=== PATIENT | female | born 1940 | race American Indian/Alaskan Native ===

== ENCOUNTER 2016-02-15 04:23 | Inpatient (IN) | payer MEDICARE ==
[2016-02-15] MEDS ORDERED: NACL 0.9% 1000 ML 1,000 ML IV ONE ×2 (04:28→05:23)
--- NOTE | 2016-02-15 04:52 | Emergency Department Report ---
ED Abdominal Pain HPI - General Stated Complaint: ABD PAIN/SOB Source: patient, EMS Mode of arrival: Stretcher Limitations: Other - History of Present Illness Initial Comments: 75-year-old female with a past medical history of AVM, chronic renal insufficiency, and diabetes presents to the hospital complains of abdominal pain. Patient states she has had crampy upper abdominal pain for the past 2-3 days. Pain is intermittent, worse palpation. No alleviating factors. Pain worsened tonight. Patient was admitted here February 03 of February 04 for melanotic stool and epigastric pain. EGD revealed AVM which was treated an unremarkable colonoscopy. Patient states his continue to have dark stools and intermittent pain since. She denies aspirin or NSAID use. Patient has decreased by mouth intake but tolerating fluids. Denies chest pain, shortness of breath, nausea, or vomiting. Positive loose stools. Patient denies specific cardiac history except [place] a mild heart attack". No history of stents or bypass surgery. She states she been seen by [place] graphic design specialist in the past. PMD Serjio Collier Severity scale (0 -10): 7 - Related Data Home Medications Medication Instructions Recorded Confirmed Last Taken Rosuvastatin (Nf) [Crestor] 10 mg PO QHS 01/30/15 02/15/16 1 Day Ago 10 Insulin NPH/Regular [NovoLIN 70/30] 3 unit SUB-Q TID 10/01/15 02/15/16 1 Day Ago 3 Levothyroxine [Synthroid] 75 mcg PO QAM 10/01/15 02/15/16 1 Day Ago 75 amLODIPine [Norvasc] 10 mg PO QDAY 10/01/15 02/15/16 1 Day Ago 10 Losartan [Cozaar] 25 mg PO QDAY 02/04/16 02/15/16 1 Day Ago 25 Previous Rx's Medication Instructions Recorded Last Taken Type Insulin Glargine [Lantus VIAL] 12 units SQ QHS #1 02/05/16 1 Day Ago Rx 12 Multivitamin Tab [Multiple Vitamin 1 each PO DAILY #30 tablet 02/05/16 1 Day Ago Rx TAB (Theragran)] 1 Pantoprazole [Protonix] 40 mg PO QDAY #30 tablet 02/05/16 1 Day Ago Rx 40 Allergies Allergy/AdvReac Type Severity Reaction Status Date / Time aspirin Allergy Unknown Verified 01/30/15 13:43 ED Review of Systems ROS: Stated complaint: ABD PAIN/SOB Other details as noted in HPI Comment: All other systems reviewed and negative Other: Constitutional: No fevers chills Eyes: No eye pain visual changes ENT: No ear pain or throat pain Neck: Denies pain Respiratory: Denies cough wheezing shortness of breath Cardiovascular: Denies chest pain, palpitations, syncope GI: as per HPI : Denies dysuria, urinary frequency, or urgency Musculoskeletal: Denies back pain, joint swelling Skin: Denies rash, lesions, erythema Neurologic: Denies headache, numbness, weakness Psychiatric: Denies suicidal ideation, hallucinations ED Past Medical Hx - Past Medical History Previous Medical History?: Yes Hx Hypertension: Yes Hx Congestive Heart Failure: No Hx Diabetes: Yes Hx Renal Disease: Yes (CKD,stage 3: GFR 30-59) Hx Asthma: No Hx HIV: No Additional medical history: Anemia. low calcium - Surgical History Past Surgical History?: Yes Additional Surgical History: THYROID SURGERY ,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 - Social History Smoking Status: Never Smoker Substance Use Type: None - Medications Home Medications: Home Medications Medication Instructions Recorded Confirmed Last Taken Type Rosuvastatin (Nf) [Crestor] 10 mg PO QHS 01/30/15 02/15/16 1 Day Ago History 10 Insulin NPH/Regular [NovoLIN 70/30] 3 unit SUB-Q TID 10/01/15 02/15/16 1 Day Ago History 3 Levothyroxine [Synthroid] 75 mcg PO QAM 10/01/15 02/15/16 1 Day Ago History 75 amLODIPine [Norvasc] 10 mg PO QDAY 10/01/15 02/15/16 1 Day Ago History 10 Losartan [Cozaar] 25 mg PO QDAY 02/04/16 02/15/16 1 Day Ago History 25 Insulin Glargine [Lantus VIAL] 12 units SQ QHS #1 02/05/16 02/15/16 1 Day Ago Rx 12 Multivitamin Tab [Multiple Vitamin 1 each PO DAILY #30 tablet 02/05/16 02/15/16 1 Day Ago Rx TAB (Theragran)] 1 Pantoprazole [Protonix] 40 mg PO QDAY #30 tablet 02/05/16 02/15/16 1 Day Ago Rx 40 ED Physical Exam - General Limitations: Other - Other Other exam information: General: No limitations, patient is alert in no acute distress Head exam: Atraumatic, normocephalic Eyes exam: Normal appearance, pupils equal reactive to light ENT: Moist mucous membrane, normal oropharynx Neck exam: Normal inspection, full range of motion Respiratory exam: Clear to auscultation bilateral, no wheezes, rales, crackles Cardiovascular: Bradycardic irregular rhythm Abdomen: Soft, nondistended, epigastric tenderness, with normal bowel sounds, no rebound, or guarding Extremity: Full range of motion normal inspection no deformity Back: Normal Inspection, full range of motion, no tenderness Neurologic: Alert, oriented x3, cranial nerves intact, no motor or sensory deficit Psychiatric: normal affect, normal mood Skin: Warm, dry, intact ED Course Vital Signs 02/15/16 02/15/16 02/15/16 04:31 04:48 04:49 Temperature 98.2 F Pulse Rate 47 L 47 L Pulse Rate [ Anterior] Respiratory 16 16 16 Rate Respiratory Rate [Anterior] Blood Pressure 116/47 Blood Pressure 116/47 119/47 [Right] O2 Sat by Pulse 100 99 Oximetry 02/15/16 06:39 Temperature Pulse Rate Pulse Rate [ 43 L Anterior] Respiratory Rate Respiratory 15 Rate [Anterior] Blood Pressure Blood Pressure [Right] O2 Sat by Pulse Oximetry - Reevaluation(s) Reevaluation #1: 02/15/16 06:45 K resulted 7.9 non hemolyzed. Hyperkalemia cocktail ordered stat. - Consultations Consultation #1: 02/15/16 04:[address] Mack Consultation #2: 02/15/16 06:[address] Schmidt director payment economics instructor. I informed the patient is likely hobbies patient. He will follow and that Ernestina know ED Medical Decision Making - Lab Data Result diagrams: 02/15/16 04:45 02/15/16 04:45 Lab Results 02/15/16 02/15/16 02/15/16 Range/Units 04:45 04:45 04:45 WBC 5.0 (4.5-11.0) K/mm3 RBC 4.94 (3.65-5.03) M/mm3 Hgb 13.6 (10.1-14.3) gm/dl Hct 42.9 (30.3-42.9) % MCV 87 (79-97) fl MCH 28 (28-32) pg MCHC 32 (30-34) % RDW 17.5 H (13.2-15.2) % Plt Count 201 (140-440) K/mm3 Lymph % (Auto) 13.9 (13.4-35.0) % [place] % (Auto) 13.0 H (0.0-7.3) % Eos % (Auto) 2.2 (0.0-4.3) % Baso % (Auto) 1.2 (0.0-1.8) % Lymph # 0.7 L (1.2-5.4) K/mm3 [place] # 0.7 (0.0-0.8) K/mm3 Eos # 0.1 (0.0-0.4) K/mm3 Baso # 0.1 (0.0-0.1) K/mm3 Seg Neutrophils % 69.7 (40.0-70.0) % Seg Neutrophils # 3.5 (1.8-7.7) K/mm3 PT 12.7 (12.2-14.9) Sec. INR 0.96 (0.87-1.13) APTT 32.1 (24.2-36.6) Sec. Sodium 129 L (137-145) mmol/L Potassium 7.9 H* (3.6-5.0) mmol/L Chloride 95.9 L (98-107) mmol/L Carbon Dioxide 18 L (22-30) mmol/L Anion Gap 23 mmol/L BUN 38 H (7-17) mg/dL Creatinine 2.1 H (0.7-1.2) mg/dL Estimated GFR 28 ml/min BUN/Creatinine Ratio 18.09 % Glucose 353 H (65-100) mg/dL Calcium 4.9 L* (8.4-10.2) mg/dL Magnesium (1.7-2.3) mg/dL Total Bilirubin 0.2 (0.1-1.2) mg/dL AST 200 H (5-40) units/L ALT 90 H (7-56) units/L Alkaline Phosphatase 151 H (35-129) units/L Total Creatine Kinase (30-135) units/L CK-MB (CK-2) (0.0-4.0) ng/mL CK-MB (CK-2) Rel Index (0-4) Troponin T (0.00-0.029) ng/mL Total Protein 7.0 (6.3-8.2) g/dL Albumin 3.7 L (3.9-5) g/dL Albumin/Globulin Ratio 1.1 % Lipase 12 L (13-60) units/L TSH (0.270-4.200) mlU/mL Free T4 (0.76-1.46) ng/dL 02/15/16 02/15/16 Range/Units 04:45 04:45 WBC (4.5-11.0) K/mm3 RBC (3.65-5.03) M/mm3 Hgb (10.1-14.3) gm/dl Hct (30.3-42.9) % MCV (79-97) fl MCH (28-32) pg MCHC (30-34) % RDW (13.2-15.2) % Plt Count (140-440) K/mm3 Lymph % (Auto) (13.4-35.0) % [place] % (Auto) (0.0-7.3) % Eos % (Auto) (0.0-4.3) % Baso % (Auto) (0.0-1.8) % Lymph # (1.2-5.4) K/mm3 [place] # (0.0-0.8) K/mm3 Eos # (0.0-0.4) K/mm3 Baso # (0.0-0.1) K/mm3 Seg Neutrophils % (40.0-70.0) % Seg Neutrophils # (1.8-7.7) K/mm3 PT (12.2-14.9) Sec. INR (0.87-1.13) APTT (24.2-36.6) Sec. Sodium (137-145) mmol/L Potassium (3.6-5.0) mmol/L Chloride (98-107) mmol/L Carbon Dioxide (22-30) mmol/L Anion Gap mmol/L BUN (7-17) mg/dL Creatinine (0.7-1.2) mg/dL Estimated GFR ml/min BUN/Creatinine Ratio % Glucose (65-100) mg/dL Calcium (8.4-10.2) mg/dL Magnesium 2.6 H (1.7-2.3) mg/dL Total Bilirubin (0.1-1.2) mg/dL AST (5-40) units/L ALT (7-56) units/L Alkaline Phosphatase (35-129) units/L Total Creatine Kinase 354 H (30-135) units/L CK-MB (CK-2) 2.2 (0.0-4.0) ng/mL CK-MB (CK-2) Rel Index 0.6 (0-4) Troponin T < 0.010 (0.00-0.029) ng/mL Total Protein (6.3-8.2) g/dL Albumin (3.9-5) g/dL Albumin/Globulin Ratio % Lipase (13-60) units/L TSH 45.530 H (0.270-4.200) mlU/mL Free T4 1.08 (0.76-1.46) ng/dL - EKG Data -: EKG Interpreted by Me ([id number] alverto 49 with junctional escape beats) - EKG Data When compared to previous EKG there are: changes noted (10/03/15) - Medical Decision Making pt requires admission for hyperkalemia with ekg changes. - Differential Diagnosis electrolyte abnormality, GI bleed, [place], unstable angina Critical Care Time: No Critical care attestation.: If time is entered above; I have spent that time in minutes in the direct care of this critically ill patient, excluding procedure time. ED Disposition Clinical Impression: Hyperkalemia, diminished renal excretion, CKD (chronic kidney disease) stage 3 , GFR 30-59 ml/min, Diabetes 1.5, managed as type 2, Epigastric pain, Hypocalcemia, Hypothyroidism, Acute electrocardiogram changes Disposition: OP ADMITTED IP TO THIS HOSP Is pt being admited?: Yes Condition: Stable Time of Disposition: 06:47 (Dr allen/hosp)
[2016-02-15 05:13] LABS: INR 0.96 (0.87-1.13)
[2016-02-15 05:14] LABS: Partial Thromboplastin Time 32.1 Sec. (24.2-36.6)
[2016-02-15 05:23] LABS: Basophils % (Auto) 1.2 % (0.0-1.8); Eosinophils % (Auto) 2.2 % (0.0-4.3); Hematocrit 42.9 % (30.3-42.9); Hemoglobin 13.6 gm/dl (10.1-14.3); Mean Corpuscular HGB Conc 32 % (30-34); Mean Corpuscular Hemoglobin 28 pg (28-32); Mean Corpuscular Volume 87 fl (79-97); Platelet Count 201 K/mm3 (140-440); Red Blood Count 4.94 M/mm3 (3.65-5.03); Red Cell Distribution Width 17.5 % (13.2-15.2)
[2016-02-15 05:24] LABS: Creatine Kinase MB 2.2 ng/mL (0.0-4.0)
[2016-02-15 05:25] LABS: Albumin 3.7 g/dL (3.9-5); Albumin/Globulin Ratio 1.1 %; BUN/Creatinine Ratio 18.09; Bilirubin,Total 0.2 mg/dL (0.1-1.2)
[2016-02-15 05:26] LABS: Creatine Kinase 354 units/L (30-135); Magnesium 2.6 mg/dL (1.7-2.3)
[2016-02-15] MEDS ORDERED: PROTONIX IV ONE (05:31)
[2016-02-15 05:57] LABS: Chloride 95.9 mmol/L (98-107)
[2016-02-15 06:19] LABS: Calcium 4.9 mg/dL (8.4-10.2)
[2016-02-15 06:20] LABS: Potassium 7.9 mmol/L (3.6-5.0)
[2016-02-15] MEDS ORDERED: SODIUM BICARBONATE IV ONE ×2 (06:21)
[2016-02-15] MEDS ORDERED: CALCIUM CHLORIDE IVP ONE (06:21)
[2016-02-15] MEDS ORDERED: CALCIUM CHLORIDE IV ONE (06:21)
[2016-02-15] MEDS ORDERED: LASIX IV ONE (06:22)
[2016-02-15] MEDS ORDERED: D50W (25GM) IV ONE ×2 (06:22→11:13)
[2016-02-15] MEDS ORDERED: PROVENTIL IH ONE (06:22)
[2016-02-15] MEDS ORDERED: KAYEXALATE PO ONE (06:22)
--- NOTE | 2016-02-15 06:39 | History and Physical Report ---
History of Present Illness Chief complaint: I feel sick History of present illness: 75 YO Female with HTN, CKD, DM, Hypothyroidism, presents to ED for evaluation. Pt states that she feels sick. Pt states that she feels weak, and has abdominal pain. Pain is 3/10, crampy in nature and has been present for the past 3 days. Pain has been intermittent and has worsened over the past 24 hours. Pain is worse palpation. No alleviating factors. Pt denies fever, chills, chest pain , shortness of breath, nausea, or vomiting. Pt acknowledges loose stools, but denies dark tarry stools, BRBPR, recent ill contacts. Pt seen and evaluated in ED and found to have hyperkalemia as well as EKG changes. Past History Past Medical History: diabetes, hypertension, renal failure Past Surgical History: thyroidectomy Social history: . denies: smoking, alcohol abuse, prescription drug abuse Family history: no significant family history, diabetes, hypertension Medications and Allergies Allergies Allergy/AdvReac Type Severity Reaction Status Date / Time aspirin Allergy Unknown Verified 01/30/15 13:43 Home Medications Medication Instructions Recorded Confirmed Last Taken Type Rosuvastatin (Nf) [Crestor] 10 mg PO QHS 01/30/15 02/15/16 1 Day Ago History 10 Insulin NPH/Regular [NovoLIN 70/30] 3 unit SUB-Q TID 10/01/15 02/15/16 1 Day Ago History 3 Levothyroxine [Synthroid] 75 mcg PO QAM 10/01/15 02/15/16 1 Day Ago History 75 amLODIPine [Norvasc] 10 mg PO QDAY 10/01/15 02/15/16 1 Day Ago History 10 Losartan [Cozaar] 25 mg PO QDAY 02/04/16 02/15/16 1 Day Ago History 25 Insulin Glargine [Lantus VIAL] 12 units SQ QHS #1 02/05/16 02/15/16 1 Day Ago Rx 12 Multivitamin Tab [Multiple Vitamin 1 each PO DAILY #30 tablet 02/05/16 02/15/16 1 Day Ago Rx TAB (Theragran)] 1 Pantoprazole [Protonix] 40 mg PO QDAY #30 tablet 02/05/16 02/15/16 1 Day Ago Rx 40 Review of Systems All systems: negative Constitutional: weakness Gastrointestinal: abdominal pain Exam - Constitutional Vitals: Temp Pulse Resp BP Pulse Ox 98.2 F 47 L 16 119/47 99 02/15/16 04:31 02/15/16 04:48 02/15/16 04:49 02/15/16 04:48 02/15/16 04:48 General appearance: Present: no acute distress, well-nourished, disheveled - EENT Eyes: Present: PERRL ENT: hearing intact, clear oral mucosa - Neck Neck: Present: supple, normal ROM - Respiratory Respiratory effort: normal Respiratory: bilateral: CTA - Cardiovascular Heart Sounds: Present: S1 & S2. Absent: rub, click - Extremities Extremities: pulses symmetrical, No edema Peripheral Pulses: within normal limits - Abdominal General gastrointestinal: Present: soft, non-tender, non-distended, normal bowel sounds Female genitourinary: Present: normal - Integumentary Integumentary: Present: clear, warm, dry - Musculoskeletal Musculoskeletal: generalized weakness - Psychiatric Psychiatric: appropriate mood/affect, intact judgment & insight - Neurologic Neurologic: CNII-XII intact, moves all extremities Results - Labs CBC & Chem 7: 02/15/16 04:45 02/15/16 04:45 Labs: Abnormal lab results 02/15/16 02/15/16 02/15/16 Range/Units 04:45 04:45 04:45 RDW 17.5 H (13.2-15.2) % [place] % (Auto) 13.0 H (0.0-7.3) % Lymph # 0.7 L (1.2-5.4) K/mm3 Sodium 129 L (137-145) mmol/L Potassium 7.9 H* (3.6-5.0) mmol/L Chloride 95.9 L (98-107) mmol/L Carbon Dioxide 18 L (22-30) mmol/L BUN 38 H (7-17) mg/dL Creatinine 2.1 H (0.7-1.2) mg/dL Glucose 353 H (65-100) mg/dL Calcium 4.9 L* (8.4-10.2) mg/dL Magnesium 2.6 H (1.7-2.3) mg/dL AST 200 H (5-40) units/L ALT 90 H (7-56) units/L Alkaline Phosphatase 151 H (35-129) units/L Total Creatine Kinase 354 H (30-135) units/L Albumin 3.7 L (3.9-5) g/dL Lipase 12 L (13-60) units/L TSH (0.270-4.200) mlU/mL 02/15/16 Range/Units 04:45 RDW (13.2-15.2) % [place] % (Auto) (0.0-7.3) % Lymph # (1.2-5.4) K/mm3 Sodium (137-145) mmol/L Potassium (3.6-5.0) mmol/L Chloride (98-107) mmol/L Carbon Dioxide (22-30) mmol/L BUN (7-17) mg/dL Creatinine (0.7-1.2) mg/dL Glucose (65-100) mg/dL Calcium (8.4-10.2) mg/dL Magnesium (1.7-2.3) mg/dL AST (5-40) units/L ALT (7-56) units/L Alkaline Phosphatase (35-129) units/L Total Creatine Kinase (30-135) units/L Albumin (3.9-5) g/dL Lipase (13-60) units/L TSH 45.530 H (0.270-4.200) mlU/mL Assessment and Plan - Patient Problems (1) Acute on chronic renal insufficiency Current Visit: No Status: Acute Plan to address problem: IVF, supportive care, monitor uop q shift. (2) Acute electrocardiogram changes Current Visit: Yes Status: Acute Plan to address problem: treat hyperkalemia, telemetry, calcium, insulin, d 50, kayelelate, (3) Hyperkalemia, diminished renal excretion Current Visit: Yes Status: Acute Plan to address problem: nephrology consulted, insulin, D50, kayexelate, (4) Diabetes 1.5, managed as type 2 Current Visit: Yes Status: Chronic (5) Hypertension associated with stage 3 chronic kidney disease due to type 2 diabetes mellitus Current Visit: No Status: Acute Plan to address problem: resume home medication, monitor bp q shift (6) Debility Current Visit: Yes Status: Acute Plan to address problem: PT consulted, (7) DVT prophylaxis Current Visit: Yes Status: Acute
[2016-02-15] MEDS ORDERED: TYLENOL PO PRN (07:00)
[2016-02-15] MEDS ORDERED: NACL 0.45% 1000 ML 1,000 ML IV SCH (07:00)
[2016-02-15] MEDS: SYNTHROID PO SCH (08:34)
--- NOTE | 2016-02-15 09:20 | Event Note ---
Date: 02/15/16 Patient seen. ECG changes secondary to hyperkalemia - resolved. No cardiac symptoms. Discussed with Dr Schmidt. No need for a cardiac consultation
--- NOTE | 2016-02-15 09:49 | Consultation ---
History of Present Illness - Reason for Consult Consult date: 02/15/16 acute renal failure, hyperkalemia, metabolic acidosis - History of Present Illness Patient is a 75 YO AAF with pmh significant for HTN, CKD stage 3, DM type 2 and Hypothyroidism, presents to ED complaining of generalized weakness and muscle cramps for the past 3 days. She also reports having intermittent abd. pain that has worsened over the past 24 hours. Her creatinine is usually between 1.5 and 2. On admission her creatinine was at her baseline but the potassium level was 7.9 with EKG changes. With treatment the potassium level is improving and the EKG changes has resolved. She had diarrhea after taking Kayexalate. Pt denies fever, chills, chest pain, shortness of breath, nausea, vomiting, dizziness, palpitation, syncope, rash or hematuria. She is currently followed by any [facility]. She was taking Cozaar at home. Past History Past Medical History: diabetes, hypertension, renal failure Past Surgical History: thyroidectomy Social history: . denies: smoking, alcohol abuse, prescription drug abuse Family history: no significant family history, diabetes, hypertension Medications and Allergies Allergies Allergy/AdvReac Type Severity Reaction Status Date / Time aspirin Allergy Unknown Verified 01/30/15 13:43 Home Medications Medication Instructions Recorded Confirmed Last Taken Type Rosuvastatin (Nf) [Crestor] 10 mg PO QHS 01/30/15 02/15/16 1 Day Ago History 10 Insulin NPH/Regular [NovoLIN 70/30] 3 unit SUB-Q TID 10/01/15 02/15/16 1 Day Ago History 3 Levothyroxine [Synthroid] 75 mcg PO QAM 10/01/15 02/15/16 1 Day Ago History 75 amLODIPine [Norvasc] 10 mg PO QDAY 10/01/15 02/15/16 1 Day Ago History 10 Losartan [Cozaar] 25 mg PO QDAY 02/04/16 02/15/16 1 Day Ago History 25 Insulin Glargine [Lantus VIAL] 12 units SQ QHS #1 02/05/16 02/15/16 1 Day Ago Rx 12 Multivitamin Tab [Multiple Vitamin 1 each PO DAILY #30 tablet 02/05/16 02/15/16 1 Day Ago Rx TAB (Theragran)] 1 Pantoprazole [Protonix] 40 mg PO QDAY #30 tablet 02/05/16 02/15/16 1 Day Ago Rx 40 Active Meds: Active Medications Acetaminophen (Tylenol) 650 mg PO Q4H PRN PRN Reason: Pain MILD(1-3)/Fever >100.5/PATRICIA Amlodipine Besylate (Norvasc) 10 mg PO QDAY [facility] Atorvastatin Calcium (Lipitor) 20 mg PO QHS [facility] Sodium Chloride (Nacl 0.45% 1000 Ml) 1,000 mls @ 42 mls/hr IV DIRECT [facility] Last Admin: 02/15/16 08:35 Dose: 42 mls/hr Insulin Detemir (Levemir) 12 units SUB-Q QHS [facility] Insulin Human Isoph/Insulin Regular (Novolin 70/30) 3 unit SUB-Q TID [facility] Last Admin: 02/15/16 08:33 Dose: 3 unit Levothyroxine Sodium (Synthroid) 75 mcg PO DAILY@0600 [facility] Last Admin: 02/15/16 08:34 Dose: 75 mcg Multivitamins (Theragran Tab) 1 each PO DAILY [facility] Pantoprazole Sodium (Protonix) 40 mg PO QDAY [facility] Review of Systems Constitutional: anorexia, fatigue, weakness, malaise, lethargy, no fever, no chills Ears, nose, mouth and throat: no sinus pressure, no sinus pain, no epistaxis Breasts: deferred Cardiovascular: no chest pain, no orthopnea, no palpitations, no edema, no syncope, no lightheadedness, no shortness of breath Respiratory: no cough, no shortness of breath, no dyspnea on exertion Gastrointestinal: abdominal pain, diarrhea, no nausea, no vomiting, no melena, no hematochezia Genitourinary Female: no hematuria Rectal: no bleeding Musculoskeletal: no neck stiffness, no redness of joints Integumentary: no rash, no jaundice Neurological: weakness, parathesias, no paralysis Endocrine: no weight change Hematologic/Lymphatic: no easy bleeding Allergic/Immunologic: no wheezing Exam - Vital Signs Vital signs: Vital Signs Temp Pulse Resp BP Pulse Ox 98.2 F 47 L 16 116/47 100 02/15/16 04:31 02/15/16 04:31 02/15/16 04:31 02/15/16 04:31 02/15/16 04:31 - General Appearance General appearance: well-developed, well-nourished, other (no distress) EENT: PERRL, hearing intact, vision intact Neck: Present: neck supple Heart: regular, S1S2, no murmurs Gastrointestinal: Present: normoactive bowel sounds. Absent: tenderness, distended, guarding Integumentary: no rash, warm and dry Neurologic: no focal deficit, alert and oriented x3, CN 3-12 intact Musculoskeletal: Present: other (no edema) Psychiatric: mood/affect appropriate, cooperative Results - Lab Results 02/15/16 04:45 02/15/16 13:26 Most recent lab results Calcium 4.9 mg/dL (8.4-10.2) L* 02/15/16 04:45 Magnesium 2.6 mg/dL (1.7-2.3) H 02/15/16 04:45 Assessment and Plan - Patient Problems (1) Hyperkalemia, diminished renal excretion Current Visit: Yes Status: Acute Plan to address problem: Hyperkalemia on the setting of CKD stage 3 while on ARB. Potassium level is improving with treatment. Avoid ACEI and ARB. (2) CKD (chronic kidney disease) stage 3, GFR 30-59 ml/min Current Visit: Yes Status: Chronic Plan to address problem: Renal function is fairly stable. (3) Primary hypertension Current Visit: Yes Status: Acute
[2016-02-15 09:50] LABS: BUN/Creatinine Ratio 16.08; Calcium 6.3 mg/dL (8.4-10.2); Chloride 99.9 mmol/L (98-107)
[2016-02-15 09:56] LABS: Potassium 6.1 mmol/L (3.6-5.0)
[2016-02-15] MEDS: NORVASC PO SCH (09:56)
[2016-02-15] MEDS: THERAGRAN Tab PO SCH (09:57)
[2016-02-15] MEDS: PROTONIX PO SCH (09:57)
[2016-02-15] MEDS ORDERED: COZAAR PO SCH (10:00)
[2016-02-15] MEDS ORDERED: SYNTHROID PO SCH (10:00)
[2016-02-15 10:22] LABS: Bacteria,Urine 1+ /HPF (Negative); Bilirubin,Urine NEG (Negative); Blood,Urine NEG (Negative); Ketones,Urine NEG (Negative); Leukocyte Esterase,Urine MOD (Negative); Nitrite,Urine NEG (Negative); Protein,Urine <15 mg/dL mg/dL (Negative); Urobilinogen,Urine < 2.0 mg/dL (<2.0)
[2016-02-15] MEDS ORDERED: PNEUMOVAX 23 IM ONE (12:00)
[2016-02-15] MEDS ORDERED: FLUARIX QUAD 2016-2017(36 MOS+) IM ONE (12:00)
--- NOTE | 2016-02-15 14:19 | Progress Note ---
Assessment and Plan Assessment and plan: 1. Severe hyperkalemia due to ESRD- s/p treatment with calcium, insulin, dextrose; bicarb and kayexalate; f/u renal for further recommendations; monitor lytes; avoid nephrotoxins; d/c ARB 2. Acute on CKD- cotn iVF and monitor BUN / Cr; start IVF 3. Cystitis-start iv rocephin; urine c/s 4. DM 2- cont insulin regime; monitor accucheck 5. hypothyroidism- cont replacement 6. Benign HTN- cont norvasc and adjust as needed 7. DVT prophylaxis- heparin History Interval history: f/u severe hyperkalemia; acute on chronic renal failure Patient seen at the bedside; no complaints; feels better Hospitalist Physical - Constitutional Vitals: Temp Pulse Resp BP Pulse Ox 98.5 F 76 18 167/81 100 02/15/16 12:28 02/15/16 12:28 02/15/16 12:28 02/15/16 12:28 02/15/16 12:28 General appearance: Present: no acute distress, well-nourished, disheveled - EENT Eyes: Present: PERRL, EOM intact. Absent: scleral icterus, conjunctival injection ENT: hearing intact, clear oral mucosa, no oropharyngeal erythema, no poor dentition - Neck Neck: Present: supple, normal ROM. Absent: enlarged thyroid, masses or JVD - Respiratory Respiratory effort: normal Respiratory: negative: diminished, rales, rhonchi, wheezing - Cardiovascular Rhythm: regular Heart Sounds: Present: S1 & S2. Absent: gallop - Extremities Extremities: no ischemia, pulses intact, pulses symmetrical, No edema Peripheral Pulses: within normal limits - Abdominal General gastrointestinal: soft, non-tender, non-distended - Integumentary Integumentary: Present: clear - Psychiatric Psychiatric: appropriate mood/affect, intact judgment & insight - Neurologic Neurologic: CNII-XII intact, moves all extremities Results - Labs CBC & Chem 7: 02/15/16 04:45 02/15/16 13:26 Labs: Laboratory Last Values WBC 5.0 K/mm3 (4.5-11.0) 02/15/16 04:45 RBC 4.94 M/mm3 (3.65-5.03) 02/15/16 04:45 Hgb 13.6 gm/dl (10.1-14.3) 02/15/16 04:45 Hct 42.9 % (30.3-42.9) 02/15/16 04:45 MCV 87 fl (79-97) 02/15/16 04:45 MCH 28 pg (28-32) 02/15/16 04:45 MCHC 32 % (30-34) 02/15/16 04:45 RDW 17.5 % (13.2-15.2) H 02/15/16 04:45 Plt Count 201 K/mm3 (140-440) 02/15/16 04:45 Lymph % (Auto) 13.9 % (13.4-35.0) 02/15/16 04:45 [place] % (Auto) 13.0 % (0.0-7.3) H 02/15/16 04:45 Eos % (Auto) 2.2 % (0.0-4.3) 02/15/16 04:45 Baso % (Auto) 1.2 % (0.0-1.8) 02/15/16 04:45 Lymph # 0.7 K/mm3 (1.2-5.4) L 02/15/16 04:45 [place] # 0.7 K/mm3 (0.0-0.8) 02/15/16 04:45 Eos # 0.1 K/mm3 (0.0-0.4) 02/15/16 04:45 Baso # 0.1 K/mm3 (0.0-0.1) 02/15/16 04:45 Seg Neutrophils % 69.7 % (40.0-70.0) 02/15/16 04:45 Seg Neutrophils # 3.5 K/mm3 (1.8-7.7) 02/15/16 04:45 PT 12.7 Sec. (12.2-14.9) 02/15/16 04:45 INR 0.96 (0.87-1.13) 02/15/16 04:45 APTT 32.1 Sec. (24.2-36.6) 02/15/16 04:45 Sodium 139 mmol/L (137-145) D 02/15/16 09:24 Potassium 5.7 mmol/L (3.6-5.0) H 02/15/16 13:26 Chloride 99.9 mmol/L (98-107) 02/15/16 09:24 Carbon Dioxide 21 mmol/L (22-30) L 02/15/16 09:24 Anion Gap 24 mmol/L 02/15/16 09:24 BUN 37 mg/dL (7-17) H 02/15/16 09:24 Creatinine 2.3 mg/dL (0.7-1.2) H 02/15/16 09:24 Estimated GFR 25 ml/min 02/15/16 09:24 BUN/Creatinine Ratio 16.08 % 02/15/16 09:24 Glucose 193 mg/dL (65-100) H 02/15/16 09:24 POC Glucose 90 (70-105) 02/15/16 11:21 Calcium 6.3 mg/dL (8.4-10.2) L D 02/15/16 09:24 Magnesium 2.6 mg/dL (1.7-2.3) H 02/15/16 04:45 Total Bilirubin 0.2 mg/dL (0.1-1.2) 02/15/16 04:45 AST 200 units/L (5-40) H 02/15/16 04:45 ALT 90 units/L (7-56) H 02/15/16 04:45 Alkaline Phosphatase 151 units/L (35-129) H 02/15/16 04:45 Total Creatine Kinase 354 units/L (30-135) H 02/15/16 04:45 CK-MB (CK-2) 2.2 ng/mL (0.0-4.0) 02/15/16 04:45 CK-MB (CK-2) Rel Index 0.6 (0-4) 02/15/16 04:45 Troponin T < 0.010 ng/mL (0.00-0.029) 02/15/16 04:45 Total Protein 7.0 g/dL (6.3-8.2) 02/15/16 04:45 Albumin 3.7 g/dL (3.9-5) L 02/15/16 04:45 Albumin/Globulin Ratio 1.1 % 02/15/16 04:45 Lipase 12 units/L (13-60) L 02/15/16 04:45 TSH 45.530 mlU/mL (0.270-4.200) H 02/15/16 04:45 Free T4 1.08 ng/dL (0.76-1.46) 02/15/16 04:45 Urine Color Yellow (Yellow) 02/15/16 Unknown Urine Turbidity Clear (Clear) 02/15/16 Unknown Urine pH 5.0 (5.0-7.0) 02/15/16 Unknown Ur Specific [place] 1.010 (1.003-1.030) 02/15/16 Unknown Urine Protein <15 mg/dl mg/dL (Negative) 02/15/16 Unknown Urine Glucose (UA) 50 mg/dL (Negative) 02/15/16 Unknown Urine Ketones Neg mg/dL (Negative) 02/15/16 Unknown Urine Blood Neg (Negative) 02/15/16 Unknown Urine Nitrite Neg (Negative) 02/15/16 Unknown Urine Bilirubin Neg (Negative) 02/15/16 Unknown Urine Urobilinogen < 2.0 mg/dL (<2.0) 02/15/16 Unknown Ur Leukocyte Esterase Mod (Negative) 02/15/16 Unknown Urine WBC (Auto) 12.0 /HPF (0.0-6.0) H 02/15/16 Unknown Urine RBC (Auto) 2.0 /HPF (0.0-6.0) 02/15/16 Unknown U Epithel Cells (Auto) 4.0 /HPF (0-13.0) 02/15/16 Unknown Urine Bacteria (Auto) 1+ /HPF (Negative) 02/15/16 Unknown Blood Type A POSITIVE 02/15/16 04:45 Antibody Screen Negative 02/15/16 04:45 - Imaging and Cardiology EKG: image reviewed (junctional rythmn )
[2016-02-15] MEDS ORDERED: KAYEXALATE PR ONE (15:24)
[2016-02-15] MEDS: LEVEMIR SUB-Q SCH ×2 (20:48→22:34)
[2016-02-15] MEDS ORDERED: NON-FORMULARY (Rosuvastatin (Nf) 10 MG) PO SCH (22:00)
[2016-02-15] MEDS ORDERED: INSULIN GLARGINE 12 UNIT SQ SCH (22:00)
[2016-02-16] MEDS: NOVOLOG SUB-Q SCH ×5 (00:08→22:38)
--- NOTE | 2016-02-16 00:46 | Admit Criteria Form ---
Admission Criteria Documentation: RENAL FAILURE, CHRONIC Clinical Indications for Admission to Inpatient Care (Place 'X' for any and all applicable criteria): Admission is indicated for ANY ONE of the following (1)(2)(3)(4)(5): [X ]I. Inpatient admission required rather than observation care (Use Renal Failure, Chronic: Observation Care Criteria as appropriate) because of ANY ONE of the following: [ ]a) Volume overload or uremic symptoms (eg, clinically significant pulmonary edema, hypertension, pericarditis, acidosis) too severe for, or not responsive (eg, for over 24 hours) to emergency department or observation care dialysis or treatment regimen (11) [ ]b) Hemodynamic instability that is severe or persistent [ ]c) Respiratory distress that is severe or persistent (11) [ X]d) Clinically significant electrolyte abnormality that requires inpatient care (eg,hyperkalemia with severe ECG findings)[B] [ ]e) Supplement O2 or respiratory therapy for over 24hrs that is performable only in acute inpatient setting [ ]f) Continuous IV infusion of anticoagulation, platelet inhibitor, vasoactive, or Antiarrhythmic medication (15), [ ]g) Pulmonary artery catheter monitoring [ ]h) Temporary pacemaker placement [ ]i) Emergent pericardiocentesis [ ]j) Other condition, treatment or monitoring requiring inpatient admission [ ]II. Unexplained syncope [A] [ ]III. Recurrent seizures [ ]IV. Severe infections not treatable in outpatient setting (eg, peritonitis)(9 ) [ ]V. Cardiac arrhythmias of immediate concern [ ]. Encephalopathy [ ]VII.Bleeding abnormalities (eg, platelet dysfunction) with active (eg, gastrointestinal) bleeding Extended stay beyond goal length of stay may be needed for (3)(4)(35)(36): [ ]a) Continuing uremic complications [ ]b) Comorbidities or complications The original [employer] content created by [employer] has been revised. The portions of the content which have been revised are identified through the use of italic text or in bold, and [facility] has neither reviewed nor approved the modified material. All other unmodified content is copyright [employer]. Please see references footnoted in the original [employer] [facility] edition 2016 Admission Criteria Met: Yes
[2016-02-16] MEDS ORDERED: D50W (25GM) IV ONE (05:50)
[2016-02-16] MEDS ORDERED: D50W (25GM) IV PRN ×2 (06:01→06:06)
[2016-02-16 06:23] LABS: BUN/Creatinine Ratio 13.33; Chloride 99.9 mmol/L (98-107); Potassium 3.2 mmol/L (3.6-5.0)
[2016-02-16] MEDS: SYNTHROID PO SCH (06:27)
[2016-02-16 06:30] LABS: Calcium 5.1 mg/dL (8.4-10.2)
--- NOTE | 2016-02-16 08:56 | Progress Note ---
Assessment and Plan - Patient Problems (1) Hyperkalemia, diminished renal excretion Current Visit: Yes Status: Acute Plan to address problem: Hyperkalemia on the setting of CKD stage 3 while on ARB. Potassium level is low today. Monitor K level. (2) CKD (chronic kidney disease) stage 3, GFR 30-59 ml/min Current Visit: Yes Status: Chronic Plan to address problem: Renal function is fairly stable. (3) Primary hypertension Current Visit: Yes Status: Acute Plan to address problem: BP is well controlled. Subjective Date of service: 02/16/16 Interval history: Low blood sugar noted. Objective - Vital Signs Vital signs: Vital Signs - 12hr 02/15/16 02/16/16 02/16/16 22:00 00:55 02:28 Temperature 98.0 F Pulse Rate 72 Pulse Rate [ 72 From Monitor] Pulse Rate [ Right Radial] Respiratory 18 18 Rate Blood Pressure 119/58 [Left Arm] Blood Pressure [Right Arm] O2 Sat by Pulse 97 Oximetry 02/16/16 02/16/16 04:00 07:45 Temperature 97.8 F 97.4 F L Pulse Rate Pulse Rate [ 77 From Monitor] Pulse Rate [ 56 L Right Radial] Respiratory 18 20 Rate Blood Pressure 124/55 [Left Arm] Blood Pressure 113/57 [Right Arm] O2 Sat by Pulse 98 97 Oximetry - General Appearance General appearance: well-developed, well-nourished, other (no distress) EENT: mucous membranes moist, hearing intact, vision intact Neck: no JVD, supple Respiratory: Present: Clear to Ascultation Cardiology: regular, S1S2, no murmurs Gastrointestinal: normoactive bowel sounds, no tenderness, no distended, no guarding Integumentary: no rash, warm and dry Neurologic: no focal deficit, alert and oriented x3, CN 3-12 intact Musculoskeletal: other (no edema) Psychiatric: mood/affect appropriate, cooperative - Lab 02/15/16 04:45 02/16/16 08:13 Most recent lab results Calcium 5.1 mg/dL (8.4-10.2) L* D 02/16/16 05:23 Magnesium 2.6 mg/dL (1.7-2.3) H 02/15/16 04:45
[2016-02-16] MEDS: NORVASC PO SCH (10:21)
[2016-02-16] MEDS: THERAGRAN Tab PO SCH (10:21)
[2016-02-16] MEDS: PROTONIX PO SCH (10:21)
--- NOTE | 2016-02-16 15:09 | Progress Note ---
Assessment and Plan Assessment and plan: 1. Severe hyperkalemia due to CKD now improved- monitor- monitor; void nephrotoxins; avoid ARB/ ACEI 2. Acute on CKD- cotn iVF and monitor BUN / Cr; renal f/u noted 3. Cystitis-[place] iv rocephin; urine c/s 4. DM 2 with insulin induced hypoglycemia - monitor accucheck; cont sliding scale only for now 5. hypothyroidism- cont replacement 6. Benign HTN- cont norvasc and adjust as needed 7. DVT prophylaxis- heparin History Interval history: f/u severe hyperkalemia; acute on chronic renal failure Patient seen at the bedside; no complaints; hypopoglycemia this morning Hospitalist Physical - Constitutional Vitals: Temp Pulse Resp BP Pulse Ox 97.5 F L 84 20 161/75 99 02/16/16 12:03 02/16/16 12:03 02/16/16 12:03 02/16/16 12:03 02/16/16 12:03 General appearance: Present: no acute distress, well-nourished, disheveled - EENT Eyes: Present: PERRL, EOM intact. Absent: scleral icterus, conjunctival injection ENT: hearing intact, clear oral mucosa, no oropharyngeal erythema, no poor dentition - Neck Neck: Present: supple, normal ROM. Absent: enlarged thyroid, masses or JVD - Respiratory Respiratory effort: normal Respiratory: negative: diminished, rales, rhonchi, wheezing - Cardiovascular Rhythm: regular Heart Sounds: Present: S1 & S2. Absent: gallop - Extremities Extremities: no ischemia, pulses intact, pulses symmetrical, No edema Peripheral Pulses: within normal limits - Abdominal General gastrointestinal: soft, non-tender, non-distended, normal bowel sounds - Integumentary Integumentary: Present: clear - Psychiatric Psychiatric: appropriate mood/affect, intact judgment & insight, cooperative - Neurologic Neurologic: CNII-XII intact, moves all extremities Results - Labs CBC & Chem 7: 02/15/16 04:45 02/16/16 08:13 Labs: Laboratory Last Values WBC 5.0 K/mm3 (4.5-11.0) 02/15/16 04:45 RBC 4.94 M/mm3 (3.65-5.03) 02/15/16 04:45 Hgb 13.6 gm/dl (10.1-14.3) 02/15/16 04:45 Hct 42.9 % (30.3-42.9) 02/15/16 04:45 MCV 87 fl (79-97) 02/15/16 04:45 MCH 28 pg (28-32) 02/15/16 04:45 MCHC 32 % (30-34) 02/15/16 04:45 RDW 17.5 % (13.2-15.2) H 02/15/16 04:45 Plt Count 201 K/mm3 (140-440) 02/15/16 04:45 Lymph % (Auto) 13.9 % (13.4-35.0) 02/15/16 04:45 [place] % (Auto) 13.0 % (0.0-7.3) H 02/15/16 04:45 Eos % (Auto) 2.2 % (0.0-4.3) 02/15/16 04:45 Baso % (Auto) 1.2 % (0.0-1.8) 02/15/16 04:45 Lymph # 0.7 K/mm3 (1.2-5.4) L 02/15/16 04:45 [place] # 0.7 K/mm3 (0.0-0.8) 02/15/16 04:45 Eos # 0.1 K/mm3 (0.0-0.4) 02/15/16 04:45 Baso # 0.1 K/mm3 (0.0-0.1) 02/15/16 04:45 Seg Neutrophils % 69.7 % (40.0-70.0) 02/15/16 04:45 Seg Neutrophils # 3.5 K/mm3 (1.8-7.7) 02/15/16 04:45 PT 12.7 Sec. (12.2-14.9) 02/15/16 04:45 INR 0.96 (0.87-1.13) 02/15/16 04:45 APTT 32.1 Sec. (24.2-36.6) 02/15/16 04:45 Sodium 139 mmol/L (137-145) 02/16/16 05:23 Potassium 3.2 mmol/L (3.6-5.0) L D 02/16/16 05:23 Chloride 99.9 mmol/L (98-107) 02/16/16 05:23 Carbon Dioxide 22 mmol/L (22-30) 02/16/16 05:23 Anion Gap 20 mmol/L 02/16/16 05:23 BUN 28 mg/dL (7-17) H 02/16/16 05:23 Creatinine 2.1 mg/dL (0.7-1.2) H 02/16/16 05:23 Estimated GFR 28 ml/min 02/16/16 05:23 BUN/Creatinine Ratio 13.33 % 02/16/16 05:23 Glucose 47 mg/dL (65-100) L 02/16/16 08:13 POC Glucose 276 (70-105) H 02/15/16 23:15 Hemoglobin A1c 9.0 % (4-6) H 02/16/16 08:13 Calcium 5.1 mg/dL (8.4-10.2) L* D 02/16/16 05:23 Magnesium 2.6 mg/dL (1.7-2.3) H 02/15/16 04:45 Total Bilirubin 0.2 mg/dL (0.1-1.2) 02/15/16 04:45 AST 200 units/L (5-40) H 02/15/16 04:45 ALT 90 units/L (7-56) H 02/15/16 04:45 Alkaline Phosphatase 151 units/L (35-129) H 02/15/16 04:45 Total Creatine Kinase 354 units/L (30-135) H 02/15/16 04:45 CK-MB (CK-2) 2.2 ng/mL (0.0-4.0) 02/15/16 04:45 CK-MB (CK-2) Rel Index 0.6 (0-4) 02/15/16 04:45 Troponin T < 0.010 ng/mL (0.00-0.029) 02/15/16 04:45 Total Protein 7.0 g/dL (6.3-8.2) 02/15/16 04:45 Albumin 3.7 g/dL (3.9-5) L 02/15/16 04:45 Albumin/Globulin Ratio 1.1 % 02/15/16 04:45 Lipase 12 units/L (13-60) L 02/15/16 04:45 TSH 45.530 mlU/mL (0.270-4.200) H 02/15/16 04:45 Free T4 1.08 ng/dL (0.76-1.46) 02/15/16 04:45 Urine Color Yellow (Yellow) 02/15/16 Unknown Urine Turbidity Clear (Clear) 02/15/16 Unknown Urine pH 5.0 (5.0-7.0) 02/15/16 Unknown Ur Specific [place] 1.010 (1.003-1.030) 02/15/16 Unknown Urine Protein <15 mg/dl mg/dL (Negative) 02/15/16 Unknown Urine Glucose (UA) 50 mg/dL (Negative) 02/15/16 Unknown Urine Ketones Neg mg/dL (Negative) 02/15/16 Unknown Urine Blood Neg (Negative) 02/15/16 Unknown Urine Nitrite Neg (Negative) 02/15/16 Unknown Urine Bilirubin Neg (Negative) 02/15/16 Unknown Urine Urobilinogen < 2.0 mg/dL (<2.0) 02/15/16 Unknown Ur Leukocyte Esterase Mod (Negative) 02/15/16 Unknown Urine WBC (Auto) 12.0 /HPF (0.0-6.0) H 02/15/16 Unknown Urine RBC (Auto) 2.0 /HPF (0.0-6.0) 02/15/16 Unknown U Epithel Cells (Auto) 4.0 /HPF (0-13.0) 02/15/16 Unknown Urine Bacteria (Auto) 1+ /HPF (Negative) 02/15/16 Unknown Blood Type A POSITIVE 02/15/16 04:45 Antibody Screen Negative 02/15/16 04:45
[2016-02-16] MEDS ORDERED: D5/0.45NS 1,000 ML IV SCH (21:00)
[2016-02-17] MEDS: SYNTHROID PO SCH (05:26)
[2016-02-17 07:10] LABS: BUN/Creatinine Ratio 14.28; Chloride 98.6 mmol/L (98-107); Potassium 3.7 mmol/L (3.6-5.0)
--- NOTE | 2016-02-17 07:25 | Discharge Summary ---
Providers - Providers Date of Admission: 02/15/16 08:13 Attending physician: DANIA HUNT Primary care physician: DRAFTING INSTRUCTOR Hospitalization Condition: Stable Exam - Constitutional Vitals: Temp Pulse Resp BP Pulse Ox 98.6 F 75 18 110/52 96 02/17/16 04:00 02/17/16 04:00 02/17/16 04:00 02/17/16 04:00 02/17/16 04:00 Plan Activity: no restrictions Diet: renal Follow up with: MARYJO HER MD [Primary Care Provider] - 3-5 Days MAXIMINO YOUNG MD [Staff Physician] - 7 Days
[2016-02-17 07:31] LABS: Calcium 4.4 mg/dL (8.4-10.2)
--- NOTE | 2016-02-17 09:24 | Progress Note ---
Assessment and Plan - Patient Problems (1) Hyperkalemia, diminished renal excretion Status: Acute Plan to address problem: Hyperkalemia in the setting of CKD stage 3 while on ARB. Potassium level has improved. Avoid ACEI and ARB. Follow up with me in 1-2 weeks. (2) CKD (chronic kidney disease) stage 3, GFR 30-59 ml/min Status: Chronic Plan to address problem: Renal function is fairly stable. (3) Primary hypertension Status: Acute Plan to address problem: BP is well controlled. (4) Hypocalcemia Status: Chronic Plan to address problem: Patient is completely asymptomatic. Most recent PTH level was normal. Add PO Vitamin D. Subjective Date of service: 02/17/16 Interval history: Patient is feeling better. Objective - Vital Signs Vital signs: Vital Signs - 12hr 02/16/16 02/17/16 02/17/16 22:00 00:00 02:00 Temperature 98.2 F Pulse Rate 97 H Pulse Rate [ 91 H Right Radial] Respiratory 18 Rate Blood Pressure 132/60 [Right Arm] O2 Sat by Pulse 96 96 Oximetry 02/17/16 04:00 Temperature 98.6 F Pulse Rate Pulse Rate [ 75 Right Radial] Respiratory 18 Rate Blood Pressure 110/52 [Right Arm] O2 Sat by Pulse 96 Oximetry - General Appearance General appearance: well-developed, frail, other (no distress) EENT: PERRL, mucous membranes moist, hearing intact, vision intact Neck: supple Respiratory: Present: Clear to Ascultation Cardiology: regular, S1S2, no murmurs Gastrointestinal: normoactive bowel sounds, no tenderness, no distended, no guarding Integumentary: no rash, warm and dry Neurologic: no focal deficit, alert and oriented x3, CN 3-12 intact Musculoskeletal: other (no edema) Psychiatric: mood/affect appropriate, cooperative - Lab 02/15/16 04:45 02/17/16 06:42 Most recent lab results Calcium 4.4 mg/dL (8.4-10.2) L* 02/17/16 06:42 Magnesium 2.0 mg/dL (1.7-2.3) 02/17/16 06:42
--- NOTE | 2016-02-17 09:34 | Discharge Summary ---
Providers - Providers Date of Admission: 02/15/16 08:13 Date of discharge: 02/17/16 Attending physician: DANIA HUNT Primary care physician: [facility] PARAPROFESSIONAL Hospitalization Reason for admission: hyperkalemia, chronic kidney disease Condition: Stable Hospital course: Mrs. Dotson is a 75-year-old female who presented to the emergency room with generalized weakness and was found to have severe hyperkalemia with potassium of 7.9. She was treated in the emergency room with calcium, insulin, dextrose and bicarbonate as well as Kayexalate. She was seen by the applied exercise physiologist; her potassium level improved and was 3.7. She also had an episode of hypoglycemia while she was here which resolved prior to discharge. Patient was advised to discontinue losartan on discharge which was also held on admission. Was also advised to reduce her potassium which foods such as right benign as. Condition at discharge stable 31 minutes spent preparing discharge Disposition: DISCHARGED TO HOME OR SELFCARE - Discharge Diagnoses (1) Acute electrocardiogram changes Status: Acute (2) Hyperkalemia, diminished renal excretion Status: Acute (3) Hypothyroidism Status: Acute (4) Primary hypertension Status: Acute (5) CKD (chronic kidney disease) stage 3, GFR 30-59 ml/min Status: Chronic (6) Hyperglycemia Status: Acute (7) Diabetes Status: Acute (8) Hypoglycemia Status: Resolved Core Measure Documentation - Palliative Care Palliative Care/ Comfort Measures: Not Applicable - Core Measures Any of the following diagnoses?: none Exam - Constitutional Vitals: Temp Pulse Resp BP Pulse Ox 98.6 F 75 18 110/52 96 02/17/16 04:00 02/17/16 04:00 02/17/16 04:00 02/17/16 04:00 02/17/16 04:00 General appearance: Present: no acute distress, well-nourished - EENT Eyes: Present: PERRL, EOM intact ENT: hearing intact, clear oral mucosa, no oropharyngeal erythema, no poor dentition - Neck Neck: Present: supple, normal ROM. Absent: enlarged thyroid, masses or JVD - Respiratory Respiratory effort: normal Respiratory: negative: diminished, rales, rhonchi, wheezing - Cardiovascular Rhythm: regular Heart Sounds: Present: S1 & S2. Absent: gallop - Extremities Extremities: no ischemia, pulses intact, pulses symmetrical, No edema Peripheral Pulses: within normal limits - Abdominal General gastrointestinal: Present: soft, non-tender, non-distended, normal bowel sounds Female genitourinary: Present: deferred - Rectal Rectal Exam: deferred - Integumentary Integumentary: Present: clear - Musculoskeletal Musculoskeletal: strength equal bilaterally - Psychiatric Psychiatric: appropriate mood/affect, intact judgment & insight, cooperative - Neurologic Neurologic: CNII-XII intact, moves all extremities Plan Activity: no restrictions Diet: low salt, renal, other (avoid potassium-rich foods) Follow up with: PRIMARY CAREMD [Primary Care Provider] - 3-5 Days MAXIMINO YOUNG MD [Staff Physician] - 7 Days Prescriptions: Calcium Carbonate/Vitamin D3 [Calcium 600-Vit D3 200 Tablet] 1 each PO DAILY # 30 tablet
[2016-02-17 09:41] VITALS: BP 131/60
[2016-02-17] MEDS ORDERED: VITAMIN D2 PO SCH (11:00)
== END 2016-02-17 13:37 | disposition home or self-care (01) | DRG 637 ==
LOC: ED 04:23 → 4A 08:13
PROVIDERS: ADMIT Internal Medicine; ATTEND Hospitalist
DX: E11.65 Type 2 diabetes mellitus with hyperglycemia (principal); N18.6 End stage renal disease; I12.0 Hypertensive chronic kidney disease with stage 5 chronic kidney disease or end stage renal disease; N17.9 Acute kidney failure, unspecified; E87.5 Hyperkalemia; E03.9 Hypothyroidism, unspecified; E11.22 Type 2 diabetes mellitus with diabetic chronic kidney disease; E83.51 Hypocalcemia; R53.81 Other malaise; N30.90 Cystitis, unspecified without hematuria; E11.649 Type 2 diabetes mellitus with hypoglycemia without coma; Z79.4 Long term (current) use of insulin; Z79.899 Other long term (current) drug therapy; Z88.6 Allergy status to analgesic agent; Z83.3 Family history of diabetes mellitus; Z82.49 Family history of ischemic heart disease and other diseases of the circulatory system
CPT/HCPCS: 36415; 80048; 80053; 81001; 82040; 82330; 82550; 82553; 82947; 82962; 83036; 83690; 83735; 84100; 84132; 84439; 84443; 84484; 85025; 85610; 85730; 86850; 86900; 86901; 90686; 90732; 93005; 93010; 94640; 96361; 96374; 96375; A9270-GY; C9113; G8978-GP; G8979-GP; G8980-GP; J1815; J1818; J1940; J7030

== ENCOUNTER 2017-02-07 14:26 | Emergency (ER) | payer MEDICARE ==
[2017-02-07 15:11] LABS: Basophils % (Auto) 1.1 % (0.0-1.8); Eosinophils # (Auto) 0.1 K/mm3 (0.0-0.4); Eosinophils % (Auto) 2.7 % (0.0-4.3); Hematocrit 32.1 % (30.3-42.9); Hemoglobin 10.4 gm/dl (10.1-14.3); Lymphocytes % (Auto) 27.2 % (13.4-35.0); Mean Corpuscular HGB Conc 32 % (30-34); Mean Corpuscular Hemoglobin 29 pg (28-32); Mean Corpuscular Volume 90 fl (79-97); Monocytes # (Auto) 0.4 K/mm3 (0.0-0.8); Monocytes % (Auto) 10.9 % (0.0-7.3); Platelet Count 287 K/mm3 (140-440); Red Blood Count 3.59 M/mm3 (3.65-5.03); Red Cell Distribution Width 13.3 % (13.2-15.2)
[2017-02-07 15:29] LABS: Calcium 6.4 mg/dL (8.4-10.2)
--- NOTE | 2017-02-07 15:40 | XRay Report ---
FINAL REPORT PROCEDURE: XR CHEST ROUTINE 2V PA and lateral chest x-ray TECHNIQUE: PA and lateral chest radiographs were obtained. CPT 58111 HISTORY: Shortness of breath COMPARISON: No prior studies are available for comparison. FINDINGS: Heart: Normal. Mediastinum/Vessels: Normal. Lungs/Pleural space: Normal. Bony thorax: No acute osseous abnormality. Other: IMPRESSION: Negative examination.
[2017-02-07] MEDS ORDERED: CATAPRES PO ONE (16:49)
[2017-02-07] MEDS ORDERED: DUONEB *Not for PRN Use IH ONE (17:09)
[2017-02-07 17:31] LABS: Bacteria,Urine 1+ /HPF (Negative); Bilirubin,Urine NEG (Negative); Blood,Urine NEG (Negative); Color,Urine Yellow (Yellow); Mucus,Urine FEW /HPF; Nitrite,Urine NEG (Negative); Urobilinogen,Urine < 2.0 mg/dL (<2.0)
[2017-02-07 17:42] LABS: Basophils # (Auto) 0.1 K/mm3 (0.0-0.1); Basophils % (Auto) 1.1 % (0.0-1.8); Eosinophils # (Auto) 0.1 K/mm3 (0.0-0.4); Hemoglobin 11.1 gm/dl (10.1-14.3); Lymphocytes # (Auto) 1.4 K/mm3 (1.2-5.4); Lymphocytes % (Auto) 30.1 % (13.4-35.0); Mean Corpuscular HGB Conc 33 % (30-34); Mean Corpuscular Hemoglobin 30 pg (28-32); Mean Corpuscular Volume 90 fl (79-97); Monocytes # (Auto) 0.5 K/mm3 (0.0-0.8); Monocytes % (Auto) 11.9 % (0.0-7.3); Platelet Count 306 K/mm3 (140-440); Red Blood Count 3.76 M/mm3 (3.65-5.03); Red Cell Distribution Width 13.7 % (13.2-15.2)
[2017-02-07 18:05] LABS: Creatine Kinase MB 1.5 ng/mL (0.0-4.0)
--- NOTE | 2017-02-07 18:09 | Emergency Department Report ---
ED Shortness of Breath HPI - General Chief Complaint: Dyspnea/Respdistress Stated Complaint: SHORTNESS OF BREATH Time Seen by Provider: 02/07/17 16:33 Source: patient Mode of arrival: Stretcher Limitations: No Limitations - History of Present Illness MD Complaint: shortness of breath -: Last night Severity: moderate Pain Scale: 2 Quality: sharp Consistency: now resolved Improves With: oxygen, bronchodilators Worsens With: nothing Known History Of: COPD Associated Symptoms: denies other symptoms Treatments Prior to Arrival: bronchodilator - Related Data Home Oxygen Therapy: No Home Medications Medication Instructions Recorded Confirmed Last Taken Ergocalciferol [Vitamin D2] 1 cap PO QWEEK 02/07/17 02/07/17 Unknown Levothyroxine [Synthroid] 125 mcg PO QAM 02/07/17 02/07/17 Unknown Lisinopril [Zestril] 20 mg PO QDAY 02/07/17 02/07/17 Unknown Ranitidine HCl [Zantac 150 MG TAB] 150 mg PO BID 02/07/17 02/07/17 Unknown amLODIPine [Norvasc] 5 mg PO DAILY 02/07/17 02/07/17 Unknown traMADol [Ultram] 50 mg PO BID 02/07/17 02/07/17 Unknown Previous Rx's Medication Instructions Recorded Last Taken Type Insulin Glargine [Lantus VIAL] 12 units SQ QHS #1 02/05/16 1 Day Ago Rx ~02/14/16 12 Cephalexin [Keflex] 500 mg PO Q8HR 10 Days #30 cap 02/08/17 Unknown Rx Ipratropium/Albuter (Nf) 2 puff IH QID 30 Days #1 inha 02/08/17 Unknown Rx [Combivent (Nf)] Prednisone 50 mg PO DAILY 4 Days #4 tablet 02/08/17 Unknown Rx Allergies Allergy/AdvReac Type Severity Reaction Status Date / Time aspirin Allergy Unknown Verified 01/30/15 13:43 ED Review of Systems ROS: Stated complaint: SHORTNESS OF BREATH Other details as noted in HPI Comment: All other systems reviewed and negative Constitutional: see HPI Eyes: denies: eye pain, eye discharge ENT: denies: throat pain, dental pain Respiratory: cough, shortness of breath, SOB with exertion, SOB at rest Cardiovascular: denies: chest pain, palpitations, syncope Endocrine: no symptoms reported Gastrointestinal: denies: abdominal pain, nausea, vomiting, diarrhea, constipation, hematemesis Genitourinary: urgency, frequency Musculoskeletal: denies: back pain, joint swelling, arthralgia Skin: denies: rash, change in color Neurological: denies: headache, weakness, numbness, paresthesias, confusion Psychiatric: denies: depression, auditory hallucinations, visual hallucinations , suicidal thoughts Hematological/Lymphatic: denies: easy bleeding, easy bruising ED Past Medical Hx - Past Medical History Hx Hypertension: Yes Hx Congestive Heart Failure: No Hx Diabetes: Yes Hx Renal Disease: Yes (CKD,stage 3: GFR 30-59) Hx Asthma: No Hx HIV: No Additional medical history: Anemia. 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 - Social History Smoking Status: Former Smoker Substance Use Type: Marijuana - Medications Home Medications: Home Medications Medication Instructions Recorded Confirmed Last Taken Type Insulin Glargine [Lantus VIAL] 12 units SQ QHS #1 02/05/16 02/07/17 1 Day Ago Rx ~02/14/16 12 Ergocalciferol [Vitamin D2] 1 cap PO QWEEK 02/07/17 02/07/17 Unknown History Levothyroxine [Synthroid] 125 mcg PO QAM 02/07/17 02/07/17 Unknown History Lisinopril [Zestril] 20 mg PO QDAY 02/07/17 02/07/17 Unknown History Ranitidine HCl [Zantac 150 MG TAB] 150 mg PO BID 02/07/17 02/07/17 Unknown History amLODIPine [Norvasc] 5 mg PO DAILY 02/07/17 02/07/17 Unknown History traMADol [Ultram] 50 mg PO BID 02/07/17 02/07/17 Unknown History Cephalexin [Keflex] 500 mg PO Q8HR 10 Days #30 cap 02/08/17 Unknown Rx Ipratropium/Albuter (Nf) 2 puff IH QID 30 Days #1 inha 02/08/17 Unknown Rx [Combivent (Nf)] Prednisone 50 mg PO DAILY 4 Days #4 tablet 02/08/17 Unknown Rx ED Physical Exam - General Limitations: No Limitations General appearance: alert, in no apparent distress - Head Head exam: Present: atraumatic, normocephalic, normal inspection - Eye Eye exam: Present: normal appearance, PERRL, EOMI Pupils: Present: normal accommodation - ENT ENT exam: Present: normal exam, normal orophraynx - Neck Neck exam: Present: normal inspection, full ROM - Respiratory Respiratory exam: Present: wheezes, decreased breath sounds, prolonged expiratory - Cardiovascular Cardiovascular Exam: Present: regular rate, normal rhythm - GI/Abdominal GI/Abdominal exam: Present: soft, tenderness (mild suprapubic tenderness to palpation.), normal bowel sounds. Absent: organomegaly, mass - Extremities Exam Extremities exam: Present: normal inspection, full ROM, normal capillary refill. Absent: tenderness, pedal edema, joint swelling, calf tenderness - Back Exam Back exam: Present: full ROM. Absent: CVA tenderness (L) - Neurological Exam Neurological exam: Present: alert, oriented X3, CN II-XII intact - Psychiatric Psychiatric exam: Present: normal affect, normal mood - Skin Skin exam: Present: warm, dry, intact, normal color. Absent: rash ED Course Vital Signs 02/07/17 02/07/17 02/07/17 14:33 14:45 14:51 Temperature 98.3 F Pulse Rate 79 75 Pulse Rate [ Anterior Bilateral Throughout] Respiratory 16 18 Rate Respiratory Rate [Anterior Bilateral Throughout] Blood Pressure 194/83 194/83 194/83 Blood Pressure [Left] O2 Sat by Pulse 100 Oximetry 02/07/17 02/07/17 02/07/17 14:56 15:00 15:21 Temperature Pulse Rate 79 Pulse Rate [ Anterior Bilateral Throughout] Respiratory 18 22 Rate Respiratory Rate [Anterior Bilateral Throughout] Blood Pressure 170/124 194/83 Blood Pressure [Left] O2 Sat by Pulse 100 Oximetry 02/07/17 02/07/17 02/07/17 15:30 15:45 16:00 Temperature Pulse Rate 67 68 68 Pulse Rate [ Anterior Bilateral Throughout] Respiratory 25 H 14 Rate Respiratory Rate [Anterior Bilateral Throughout] Blood Pressure 174/70 167/66 166/73 Blood Pressure [Left] O2 Sat by Pulse Oximetry 02/07/17 02/07/17 02/07/17 16:19 16:31 16:45 Temperature Pulse Rate 76 86 85 Pulse Rate [ Anterior Bilateral Throughout] Respiratory 19 27 H 20 Rate Respiratory Rate [Anterior Bilateral Throughout] Blood Pressure 166/73 187/148 187/148 Blood Pressure [Left] O2 Sat by Pulse Oximetry 02/07/17 02/07/17 02/07/17 17:00 17:01 17:15 Temperature Pulse Rate 72 87 79 Pulse Rate [ Anterior Bilateral Throughout] Respiratory 16 14 Rate Respiratory Rate [Anterior Bilateral Throughout] Blood Pressure 155/117 154/81 154/81 Blood Pressure [Left] O2 Sat by Pulse Oximetry 02/07/17 02/07/17 02/07/17 17:31 17:45 18:00 Temperature Pulse Rate 77 87 84 Pulse Rate [ Anterior Bilateral Throughout] Respiratory 26 H 22 18 Rate Respiratory Rate [Anterior Bilateral Throughout] Blood Pressure 147/62 147/62 Blood Pressure 153/66 [Left] O2 Sat by Pulse Oximetry 02/07/17 02/07/17 02/07/17 18:01 18:15 18:30 Temperature Pulse Rate 73 69 Pulse Rate [ 74 Anterior Bilateral Throughout] Respiratory 18 18 Rate Respiratory 20 Rate [Anterior Bilateral Throughout] Blood Pressure 153/66 153/66 Blood Pressure [Left] O2 Sat by Pulse Oximetry 02/07/17 02/07/17 02/07/17 18:31 18:45 19:00 Temperature Pulse Rate 68 69 67 Pulse Rate [ Anterior Bilateral Throughout] Respiratory 15 21 14 Rate Respiratory Rate [Anterior Bilateral Throughout] Blood Pressure 109/37 109/37 Blood Pressure 128/49 [Left] O2 Sat by Pulse Oximetry 02/07/17 02/07/17 02/07/17 19:01 19:15 19:31 Temperature Pulse Rate 67 64 62 Pulse Rate [ Anterior Bilateral Throughout] Respiratory 10 L 15 12 Rate Respiratory Rate [Anterior Bilateral Throughout] Blood Pressure 109/37 124/54 125/50 Blood Pressure [Left] O2 Sat by Pulse Oximetry 02/07/17 02/07/17 02/07/17 19:45 20:00 20:15 Temperature Pulse Rate 60 60 Pulse Rate [ Anterior Bilateral Throughout] Respiratory 10 L 14 27 H Rate Respiratory Rate [Anterior Bilateral Throughout] Blood Pressure 125/50 136/55 136/55 Blood Pressure [Left] O2 Sat by Pulse Oximetry 02/07/17 02/07/17 02/07/17 20:31 20:45 21:00 Temperature Pulse Rate 67 57 L 58 L Pulse Rate [ Anterior Bilateral Throughout] Respiratory 15 16 25 H Rate Respiratory Rate [Anterior Bilateral Throughout] Blood Pressure 116/53 116/53 167/65 Blood Pressure [Left] O2 Sat by Pulse Oximetry 02/07/17 02/07/17 02/07/17 21:15 21:31 21:45 Temperature Pulse Rate 58 L 57 L 64 Pulse Rate [ Anterior Bilateral Throughout] Respiratory 14 12 12 Rate Respiratory Rate [Anterior Bilateral Throughout] Blood Pressure 167/65 160/60 147/63 Blood Pressure [Left] O2 Sat by Pulse Oximetry 02/07/17 02/07/17 02/07/17 22:21 22:30 22:45 Temperature Pulse Rate 67 66 65 Pulse Rate [ Anterior Bilateral Throughout] Respiratory 22 10 L 12 Rate Respiratory Rate [Anterior Bilateral Throughout] Blood Pressure 147/63 122/53 131/50 Blood Pressure [Left] O2 Sat by Pulse Oximetry 02/07/17 02/07/17 23:00 23:15 Temperature Pulse Rate 67 88 Pulse Rate [ Anterior Bilateral Throughout] Respiratory 15 17 Rate Respiratory Rate [Anterior Bilateral Throughout] Blood Pressure 134/50 134/50 Blood Pressure [Left] O2 Sat by Pulse Oximetry ED Medical Decision Making - Lab Data Result diagrams: 02/07/17 17:28 02/07/17 23:22 - EKG Data EKG shows normal: sinus rhythm Rate: normal - EKG Data When compared to previous EKG there are: previous EKG unavailable Interpretation: nonspecific ST-T wave william, other ([facility]) Critical care attestation.: If time is entered above; I have spent that time in minutes in the direct care of this critically ill patient, excluding procedure time. ED Disposition Clinical Impression: COPD exacerbation UTI (urinary tract infection) Qualifiers: Urinary tract infection type: acute cystitis Hematuria presence: without hematuria Qualified Code(s): N30.00 - Acute cystitis without hematuria Disposition: - TO HOME OR SELFCARE Is pt being admited?: No Does the pt Need Aspirin: No Condition: Stable Instructions: Chronic Bronchitis (ED), Chronic Obstructive Pulmonary Disease ( ED), Urinary Tract Infection in Women (ED) Additional Instructions: Follow up with your primary doctor in 2 days. Return to the ED if your condition worsens. Prescriptions: Cephalexin [Keflex] 500 mg PO Q8HR 10 Days #30 cap Ipratropium/Albuter (Nf) [Combivent (Nf)] 2 puff IH QID 30 Days #1 inha Prednisone 50 mg PO DAILY 4 Days #4 tablet Referrals: PRIMARY CARE, [Primary Care Provider] - 3-5 Days
[2017-02-07] MEDS ORDERED: KIONEX PO ONE (18:23)
[2017-02-07] MEDS ORDERED: ROCEPHIN ONE (18:53)
[2017-02-07] MEDS ORDERED: cefTRIAXone 1 GM in NACL 0.9% 20 ML IV ONE (19:00)
[2017-02-07 21:11] LABS: Calcium 6.1 mg/dL (8.4-10.2)
[2017-02-07] MEDS ORDERED: NACL 0.9% 1000 ML 1,000 ML IV ONE (21:55)
[2017-02-07 23:29] VITALS: BP 134/50
[2017-02-08 00:05] LABS: Albumin 3.5 g/dL (3.9-5)
[2017-02-08 00:17] LABS: Calcium 5.9 mg/dL (8.4-10.2)
== END 2017-02-08 00:45 | disposition home or self-care (01) ==
LOC: ED 14:26
DX: J44.1 Chronic obstructive pulmonary disease with (acute) exacerbation (principal); N30.00 Acute cystitis without hematuria; I10 Essential (primary) hypertension; I50.9 Heart failure, unspecified; E11.9 Type 2 diabetes mellitus without complications; F12.10 Cannabis abuse, uncomplicated; F17.200 Nicotine dependence, unspecified, uncomplicated; Z79.4 Long term (current) use of insulin; Z88.6 Allergy status to analgesic agent
CPT/HCPCS: 36415; 71020; 80048; 80053; 81001; 82550; 82553; 83880; 84484; 85025; 87086; 93005; 93010; 94640; 96361; 96374; 96375; 99285; J0696; J2930; J7030; J1815

== ENCOUNTER 2017-03-15 15:52 | Emergency (ER) | payer MEDICARE ==
[2017-03-15 18:29] VITALS: BP 160/70
[2017-03-15 22:09] LABS: Basophils % (Auto) 0.5 % (0.0-1.8); Eosinophils % (Auto) 0.3 % (0.0-4.3); Hemoglobin 11.6 gm/dl (10.1-14.3); Lymphocytes # (Auto) 1.1 K/mm3 (1.2-5.4); Lymphocytes % (Auto) 26.2 % (13.4-35.0); Mean Corpuscular HGB Conc 33 % (30-34); Mean Corpuscular Hemoglobin 29 pg (28-32); Mean Corpuscular Volume 89 fl (79-97); Monocytes # (Auto) 0.5 K/mm3 (0.0-0.8); Monocytes % (Auto) 12.2 % (0.0-7.3); Platelet Count 352 K/mm3 (140-440); Red Blood Count 3.94 M/mm3 (3.65-5.03); Red Cell Distribution Width 13.5 % (13.2-15.2)
== END 2017-03-16 07:05 | disposition left against medical advice (07) ==
LOC: ED 15:52
DX: R11.2 Nausea with vomiting, unspecified (principal); Z53.21 Procedure and treatment not carried out due to patient leaving prior to being seen by health care provider
CPT/HCPCS: 36415; 80053; 82962; 85025

== ENCOUNTER 2017-10-30 20:13 | Inpatient (IN) | payer MEDICARE ==
[2017-10-30 21:34] LABS: Basophils # (Auto) 0.1 K/mm3 (0.0-0.1); Basophils % (Auto) 1.6 % (0.0-1.8); Eosinophils # (Auto) 0.1 K/mm3 (0.0-0.4); Hematocrit 34.8 % (30.3-42.9); Hemoglobin 11.7 gm/dl (10.1-14.3); Lymphocytes # (Auto) 1.7 K/mm3 (1.2-5.4); Lymphocytes % (Auto) 34.3 % (13.4-35.0); Mean Corpuscular HGB Conc 34 % (30-34); Mean Corpuscular Hemoglobin 30 pg (28-32); Mean Corpuscular Volume 90 fl (79-97); Monocytes # (Auto) 0.4 K/mm3 (0.0-0.8); Platelet Count 278 K/mm3 (140-440); Red Blood Count 3.89 M/mm3 (3.65-5.03); Red Cell Distribution Width 15.4 % (13.2-15.2)
[2017-10-30 21:53] LABS: Albumin 4.3 g/dL (3.9-5); Calcium 7.7 mg/dL (8.4-10.2)
[2017-10-30 22:18] LABS: Bilirubin,Urine NEG (Negative); Blood,Urine NEG (Negative); Color,Urine Yellow (Yellow); Urobilinogen,Urine < 2.0 mg/dL (<2.0)
[2017-10-30 22:21] LABS: Protein,Urine >500 mg/dL (Negative)
--- NOTE | 2017-10-30 22:25 | Cat Scan Report ---
FINAL REPORT PROCEDURE: CT head without contrast. TECHNIQUE: Computerized tomography of the head was performed without contrast material. HISTORY: Headache. COMPARISON: CT head 01/05/2014. FINDINGS: There is mild cerebral atrophy. There is a small focal area of encephalomalacia involving the posterior right frontal lobe. This is new since the previous study. It probably represents an old stroke. The remaining ramírez matter and white matter appear normal. There are no mass lesions. There is no intracranial hemorrhage. The calvarium appears intact. The mastoid air cells and visualized paranasal sinuses are well aerated. IMPRESSION: Probable old ischemic injury in the posterior right frontal lobe. Otherwise normal study for age.
[2017-10-31] MEDS ORDERED: PLAVIX PO ONE (02:32)
[2017-10-31] MEDS ORDERED: TYLENOL PO ONE (02:32)
--- NOTE | 2017-10-31 02:32 | Emergency Department Report ---
ED General Adult HPI - General Chief complaint: Headache Stated complaint: DIZZINESS; H/A Time Seen by Provider: 10/31/17 02:23 Source: patient, family, RN notes reviewed Mode of arrival: Ambulatory Limitations: No Limitations, Other (patient is hard of hearing, patient is a poor historian) - History of Present Illness Initial comments: This is a 77-year-old female. Patient has a past medical history of renal insufficiency, possible stroke, hypothyroidism, hypertension, diabetes. Primary care doctor is Dr. Serjio Collier. 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 Castro, she doesn't know who her semi conductor assembler is at this time. Patient presents to the ER with a complaint of headache and unsteady gait. She reports the headache is on the top of her scalp, and she doesn't think it radiates anywhere. She is not sure if it has exacerbating or relieving factors. She reports 1 week of unsteady gait. Patient also endorses chronic musculoskeletal discomfort, and generalized weakness. -: Gradual Severity scale (0 -10): 5 Consistency: constant Improves with: none Worsens with: cold therapy Associated Symptoms: confusion, headaches, loss of appetite, malaise, weakness. denies: chest pain, cough, diaphoresis, fever/chills, nausea/vomiting, rash, seizure, shortness of breath, syncope - Related Data Home Medications Medication Instructions Recorded Confirmed Last Taken Lisinopril [Zestril] 20 mg PO QDAY 02/07/17 10/31/17 Unknown Ranitidine HCl [Zantac 150 MG TAB] 150 mg PO BID 02/07/17 10/31/17 Unknown amLODIPine [Norvasc] 5 mg PO DAILY 02/07/17 10/31/17 Unknown metFORMIN [Glucophage] 500 mg PO BID 10/31/17 10/31/17 Unknown Allergies Allergy/AdvReac Type Severity Reaction Status Date / Time aspirin Allergy Unknown Verified 01/30/15 13:43 ED Review of Systems ROS: Stated complaint: DIZZINESS; H/A Other details as noted in HPI Comment: All other systems reviewed and negative ED Past Medical Hx - Past Medical History Hx Hypertension: Yes Hx Congestive Heart Failure: No Hx Diabetes: Yes Hx Renal Disease: Yes (CKD,stage 3: GFR 30-59) Hx Asthma: No Hx HIV: No Additional medical history: Anemia. 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 - Social History Smoking Status: Never Smoker Substance Use Type: None - Medications Home Medications: Home Medications Medication Instructions Recorded Confirmed Last Taken Type Lisinopril [Zestril] 20 mg PO QDAY 02/07/17 10/31/17 Unknown History Ranitidine HCl [Zantac 150 MG TAB] 150 mg PO BID 02/07/17 10/31/17 Unknown History amLODIPine [Norvasc] 5 mg PO DAILY 02/07/17 10/31/17 Unknown History metFORMIN [Glucophage] 500 mg PO BID 10/31/17 10/31/17 Unknown History ED Physical Exam - General Limitations: Physical Limitation General appearance: alert, in no apparent distress - Head Head exam: Present: atraumatic, normocephalic, other (there is no temporal tenderness) - Eye Eye exam: Present: normal appearance, EOMI. Absent: PERRL (bilateral cataract surgery) - ENT ENT exam: Present: mucous membranes dry - Neck Neck exam: Present: normal inspection, full ROM - Respiratory Respiratory exam: Present: normal lung sounds bilaterally. Absent: respiratory distress - Cardiovascular Cardiovascular Exam: Present: regular rate, normal rhythm, normal heart sounds. Absent: bradycardia, tachycardia, irregular rhythm, systolic murmur, diastolic murmur, rubs, gallop - GI/Abdominal GI/Abdominal exam: Present: soft. Absent: distended, tenderness, guarding, rebound, rigid, pulsatile mass - Extremities Exam Extremities exam: Present: normal inspection, pedal edema, other (2+ pulses noted in the bilateral upper, lower extremities. Compartments soft. No long bony tenderness. The pelvis is stable.). Absent: calf tenderness - Back Exam Back exam: Present: normal inspection, full ROM. Absent: tenderness, CVA tenderness (R), paraspinal tenderness, vertebral tenderness - Neurological Exam Neurological exam: Present: alert, abnormal gait (patient walks with a broad- based unsteady gait. Requires 1 person assist.), other (there is no facial droop. The tongue is midline. Extraocular movements are intact bilaterally. Hearing is intact grossly bilaterally. Shoulder shrug is intact bilaterally. There is normal phonation.) - Psychiatric Psychiatric exam: Present: anxious - Skin Skin exam: Present: warm, dry, intact, normal color. Absent: rash ED Course Vital Signs 09/10/30/17 10/31/17 20:26 20:47 01:49 Temperature 98.6 F 98.6 F 98.3 F Pulse Rate 83 83 80 Respiratory 18 18 12 Rate Blood Pressure 198/89 197/85 183/75 Blood Pressure [Left] O2 Sat by Pulse 99 100 99 Oximetry 10/31/17 10/31/17 10/31/17 02:32 02:34 03:06 Temperature 98.3 F Pulse Rate 66 Respiratory 20 20 20 Rate Blood Pressure Blood Pressure 189/83 [Left] O2 Sat by Pulse 100 100 Oximetry ED Medical Decision Making - Lab Data Result diagrams: 10/30/17 21:22 10/30/17 21:22 Vital Signs 10/30/17 10/30/17 10/31/17 20:26 20:47 01:49 Temperature 98.6 F 98.6 F 98.3 F Pulse Rate 83 83 80 Respiratory 18 18 12 Rate Blood Pressure 198/89 197/85 183/75 Blood Pressure [Left] O2 Sat by Pulse 99 100 99 Oximetry 10/31/17 10/31/17 10/31/17 02:32 02:34 03:06 Temperature 98.3 F Pulse Rate 66 Respiratory 20 20 20 Rate Blood Pressure Blood Pressure 189/83 [Left] O2 Sat by Pulse 100 100 Oximetry Lab Results 10/30/17 10/30/17 10/30/17 Range/Units 21:22 21:22 21:44 WBC 5.0 (4.5-11.0) K/mm3 RBC 3.89 (3.65-5.03) M/mm3 Hgb 11.7 (10.1-14.3) gm/dl Hct 34.8 (30.3-42.9) % MCV 90 (79-97) fl MCH 30 (28-32) pg MCHC 34 (30-34) % RDW 15.4 H (13.2-15.2) % Plt Count 278 (140-440) K/mm3 Lymph % (Auto) 34.3 (13.4-35.0) % [place] % (Auto) 7.0 (0.0-7.3) % Eos % (Auto) 2.0 (0.0-4.3) % Baso % (Auto) 1.6 (0.0-1.8) % Lymph # 1.7 (1.2-5.4) K/mm3 [place] # 0.4 (0.0-0.8) K/mm3 Eos # 0.1 (0.0-0.4) K/mm3 Baso # 0.1 (0.0-0.1) K/mm3 Seg Neutrophils % 55.1 (40.0-70.0) % Seg Neutrophils # 2.8 (1.8-7.7) K/mm3 Sodium 133 L (137-145) mmol/L Potassium 5.0 (3.6-5.0) mmol/L Chloride 94.1 L (98-107) mmol/L Carbon Dioxide 19 L (22-30) mmol/L Anion Gap 25 mmol/L BUN 25 H (7-17) mg/dL Creatinine 1.6 H (0.7-1.2) mg/dL Estimated GFR 38 ml/min BUN/Creatinine Ratio 16 % Glucose 260 H (65-100) mg/dL Calcium 7.7 L (8.4-10.2) mg/dL Total Bilirubin 0.30 (0.1-1.2) mg/dL AST 24 (5-40) units/L ALT 12 (7-56) units/L Alkaline Phosphatase 66 (35-129) units/L Troponin T (0.00-0.029) ng/mL Total Protein 7.6 (6.3-8.2) g/dL Albumin 4.3 (3.9-5) g/dL Albumin/Globulin Ratio 1.3 % Urine Color Yellow (Yellow) Urine Turbidity Slightly-cloudy (Clear) Urine pH 5.0 (5.0-7.0) Ur Specific [place] 1.013 (1.003-1.030) Urine Protein >500 (Negative) mg/dL Urine Glucose (UA) 50 (Negative) mg/dL Urine Ketones Tr (Negative) mg/dL Urine Blood Neg (Negative) Urine Nitrite Neg (Negative) Urine Bilirubin Neg (Negative) Urine Urobilinogen < 2.0 (<2.0) mg/dL Ur Leukocyte Esterase Tr (Negative) Urine WBC (Auto) 3.0 (0.0-6.0) /HPF Urine RBC (Auto) 3.0 (0.0-6.0) /HPF U Epithel Cells (Auto) 3.0 (0-13.0) /HPF 10/31/17 Range/Units 02:49 WBC (4.5-11.0) K/mm3 RBC (3.65-5.03) M/mm3 Hgb (10.1-14.3) gm/dl Hct (30.3-42.9) % MCV (79-97) fl MCH (28-32) pg MCHC (30-34) % RDW (13.2-15.2) % Plt Count (140-440) K/mm3 Lymph % (Auto) (13.4-35.0) % [place] % (Auto) (0.0-7.3) % Eos % (Auto) (0.0-4.3) % Baso % (Auto) (0.0-1.8) % Lymph # (1.2-5.4) K/mm3 [place] # (0.0-0.8) K/mm3 Eos # (0.0-0.4) K/mm3 Baso # (0.0-0.1) K/mm3 Seg Neutrophils % (40.0-70.0) % Seg Neutrophils # (1.8-7.7) K/mm3 Sodium (137-145) mmol/L Potassium (3.6-5.0) mmol/L Chloride (98-107) mmol/L Carbon Dioxide (22-30) mmol/L Anion Gap mmol/L BUN (7-17) mg/dL Creatinine (0.7-1.2) mg/dL Estimated GFR ml/min BUN/Creatinine Ratio % Glucose (65-100) mg/dL Calcium (8.4-10.2) mg/dL Total Bilirubin (0.1-1.2) mg/dL AST (5-40) units/L ALT (7-56) units/L Alkaline Phosphatase (35-129) units/L Troponin T 0.014 (0.00-0.029) ng/mL Total Protein (6.3-8.2) g/dL Albumin (3.9-5) g/dL Albumin/Globulin Ratio % Urine Color (Yellow) Urine Turbidity (Clear) Urine pH (5.0-7.0) Ur Specific [place] (1.003-1.030) Urine Protein (Negative) mg/dL Urine Glucose (UA) (Negative) mg/dL Urine Ketones (Negative) mg/dL Urine Blood (Negative) Urine Nitrite (Negative) Urine Bilirubin (Negative) Urine Urobilinogen (<2.0) mg/dL Ur Leukocyte Esterase (Negative) Urine WBC (Auto) (0.0-6.0) /HPF Urine RBC (Auto) (0.0-6.0) /HPF U Epithel Cells (Auto) (0-13.0) /HPF - EKG Data -: EKG Interpreted by Me EKG shows normal: sinus rhythm Rate: normal - EKG Data Interpretation: unchanged when compared t 10/31/17 03:54 Sinus, 67 bpm, left axis deviation, QTC prolonged, poor R wave progression, abnormal EKG, not a STEMI, left anterior fascicular block, appears unchanged grossly from prior EKG from 2017, with the exception of resolved peak T waves. This EKG is not a STEMI - Radiology Data Radiology results: report reviewed, image reviewed Noncontrast CT scan of the brain is negative for acute findings. Old infarct is noted. - Medical Decision Making Differential diagnosis, including not limited to: Hypertensive urgency, subacute stroke, migraine headache, tension headache, cluster headache Assessment and plan: 77-year-old female presenting with complaint of unsteady gait for one week. Given this, she is not a TPA candidate. Given this, she does not require emergent endovascular imaging. She is allergic to aspirin and will be given Plavix. Hypertension is appreciated, she will be given hydralazine. Case is presented to the Hospital physician, Dr. Maurer, who accepted the patient to the medical service. Discussed this plan of care with patient and her daughter, and discuss abnormal brain CT which suggested old infarct, and family endorsed that they did not know the patient had a stroke in the past. Patient endorsed no temporal pain, no visual changes, there is no temporal tenderness, therefore think temporal arteritis is quite unlikely. Critical care attestation.: If time is entered above; I have spent that time in minutes in the direct care of this critically ill patient, excluding procedure time. ED Disposition Clinical Impression: CKD (chronic kidney disease) stage 3, GFR 30-59 ml/min, Weakness, Unsteady gait Disposition: OP ADMIT IP TO THIS HOSP Is pt being admited?: Yes Does the pt Need Aspirin: No (allergic to asa will give plavix) Condition: Good
[2017-10-31] MEDS ORDERED: REGLAN PO PRN (03:02)
[2017-10-31] MEDS ORDERED: SODIUM CHLORIDE FLUSH SYRINGE 10 ML IV PRN (03:02)
[2017-10-31] MEDS ORDERED: DULCOLAX PR PRN (03:02)
[2017-10-31] MEDS ORDERED: D50W (25GM) Syringe IV PRN ×2 (03:02→03:13)
[2017-10-31] MEDS ORDERED: MILK OF MAGNESIA PO PRN (03:02)
[2017-10-31] MEDS ORDERED: APRESOLINE IV PRN (03:02)
[2017-10-31] MEDS ORDERED: ZOFRAN IV PRN (03:02)
[2017-10-31] MEDS ORDERED: APRESOLINE IV ONE (03:54)
--- NOTE | 2017-10-31 04:00 | History and Physical Report ---
History of Present Illness Date of examination: 10/31/17 Date of admission: 10/31/17 03:39 Chief complaint: Headaches History of present illness: Patient is a 77-year-old -Ira[place] female with history of hypertension and diabetes mellitus who presented to the ED on account of 2 weeks history of throbbing headaches. She has associated dizziness, generalized weakness and nausea with vomiting 1 episode and unsteady gait. No fever, chills, chest pain , shortness of breath, palpitation, cough, leg swelling, orthopnea, PND, syncope or loss of consciousness. She has positive history of dysuria and frequency but no abdominal pain, constipation or diarrhea. Past History Past Medical History: diabetes, hypertension Past Surgical History: thyroidectomy, Other (hemorrhoidectomy, left oophorectomy ) Social history: other (she is an ex-smoker, she quit more than 30 years ago. She denies alcohol or illicit drug use) Family history: other (reviewed and noncontributory) Medications and Allergies Allergies Allergy/AdvReac Type Severity Reaction Status Date / Time aspirin Allergy Unknown Verified 01/30/15 13:43 Home Medications Medication Instructions Recorded Confirmed Last Taken Type Lisinopril [Zestril] 20 mg PO QDAY 02/07/17 10/31/17 Unknown History Ranitidine HCl [Zantac 150 MG TAB] 150 mg PO BID 02/07/17 10/31/17 Unknown History amLODIPine [Norvasc] 5 mg PO DAILY 02/07/17 10/31/17 Unknown History metFORMIN [Glucophage] 500 mg PO BID 10/31/17 10/31/17 Unknown History Active Meds: Active Medications Acetaminophen (Tylenol) 650 mg PO Q4H PRN PRN Reason: Pain, Mild (1-3) Atorvastatin Calcium (Lipitor) 40 mg PO QHS DUNG Bisacodyl (Dulcolax) 10 mg MA QDAY PRN PRN Reason: Constipation Dextrose (D50w (25gm) Syringe) 50 ml IV PRN PRN PRN Reason: Hypoglycemia Docusate Sodium (Colace) 100 mg PO BID DUNG Famotidine (Pepcid) 10 mg PO BID DUNG Heparin Sodium (Porcine) (Heparin) 5,000 unit SUB-Q Q12HR DUNG Hydralazine HCl (Apresoline) 10 mg IV Q6H PRN PRN Reason: Keep SBP between 160-185 mm Hg Sodium Chloride (Nacl 0.9% 1000 Ml) 1,000 mls @ 100 mls/hr IV DIRECT DUNG Insulin Glargine (Lantus) 15 units SUB-Q DAILY DUNG Insulin Human Lispro (Humalog) 0 unit SUB-Q ACHS DUNG; Protocol Magnesium Hydroxide (Milk Of Magnesia) 30 ml PO Q4H PRN PRN Reason: Constipation Metoclopramide HCl (Reglan) 5 mg PO Q6H PRN PRN Reason: Nausea And Vomiting Ondansetron HCl (Zofran) 4 mg IV Q8H PRN PRN Reason: Nausea And Vomiting Sodium Chloride (Sodium Chloride Flush Syringe 10 Ml) 10 ml IV PRN PRN PRN Reason: LINE FLUSH Review of Systems All systems: negative (except as documented in the HPI, all other systems were reviewed and negative) Exam - Constitutional Vitals: Temp Pulse Resp BP Pulse Ox 98.3 F 66 20 189/83 100 10/31/17 02:32 10/31/17 02:32 10/31/17 03:06 10/31/17 02:32 10/31/17 02:34 General appearance: Present: no acute distress, well-nourished - EENT Eyes: Present: PERRL, EOM intact ENT: clear oral mucosa, other (hearing impairment) - Neck Neck: Present: supple, normal ROM - Respiratory Respiratory effort: normal Respiratory: bilateral: CTA - Cardiovascular Rhythm: regular Heart Sounds: Present: S1 & S2. Absent: rub, click - Extremities Extremities: pulses symmetrical, No edema Peripheral Pulses: within normal limits - Abdominal General gastrointestinal: Present: soft, non-tender, non-distended, normal bowel sounds - Integumentary Integumentary: Present: clear, warm, dry - Musculoskeletal Musculoskeletal: gait normal, strength equal bilaterally - Psychiatric Psychiatric: appropriate mood/affect, intact judgment & insight - Neurologic Neurologic: CNII-XII intact, moves all extremities, other (gait unexamined) Results - Labs CBC & Chem 7: 10/30/17 21:22 10/30/17 21:22 Labs: Laboratory Last Values WBC 5.0 K/mm3 (4.5-11.0) 10/30/17 21: RBC 3.89 M/mm3 (3.65-5.03) 10/30/17 21:22 Hgb 11.7 gm/dl (10.1-14.3) 10/30/17 21: Hct 34.8 % (30.3-42.9) 10/30/17 21: MCV 90 fl (79-97) 10/30/17 21:22 MCH 30 pg (28-32) 10/30/17 21: MCHC 34 % (30-34) 10/30/17 21: RDW 15.4 % (13.2-15.2) H 10/30/17 21:22 Plt Count 278 K/mm3 (140-440) 10/30/17 21: Lymph % (Auto) 34.3 % (13.4-35.0) 10/30/17 21: [place] % (Auto) 7.0 % (0.0-7.3) 10/30/17 21: Eos % (Auto) 2.0 % (0.0-4.3) 10/30/17 21: Baso % (Auto) 1.6 % (0.0-1.8) 10/30/17 21: Lymph # 1.7 K/mm3 (1.2-5.4) 10/30/17 21: [place] # 0.4 K/mm3 (0.0-0.8) 10/30/17 21: Eos # 0.1 K/mm3 (0.0-0.4) 10/30/17 21: Baso # 0.1 K/mm3 (0.0-0.1) 10/30/17 21: Seg Neutrophils % 55.1 % (40.0-70.0) 10/30/17 21: Seg Neutrophils # 2.8 K/mm3 (1.8-7.7) 10/30/17 21: Sodium 133 mmol/L (137-145) L 10/30/17 21: Potassium 5.0 mmol/L (3.6-5.0) 10/30/17 21: Chloride 94.1 mmol/L (98-107) L 10/30/17 21: Carbon Dioxide 19 mmol/L (22-30) L 10/30/17 21: Anion Gap 25 mmol/L 10/30/17 21: BUN 25 mg/dL (7-17) H 10/30/17 21: Creatinine 1.6 mg/dL (0.7-1.2) H 10/30/17 21:22 Estimated GFR 38 ml/min 10/30/17 21: BUN/Creatinine Ratio 16 % 10/30/17 21: Glucose 260 mg/dL (65-100) H 10/30/17 21: Calcium 7.7 mg/dL (8.4-10.2) L 10/30/17 21: Total Bilirubin 0.30 mg/dL (0.1-1.2) 10/30/17 21:22 AST 24 units/L (5-40) 10/30/17 21: ALT 12 units/L (7-56) 10/30/17 21: Alkaline Phosphatase 66 units/L (35-129) 10/30/17 21: Troponin T 0.014 ng/mL (0.00-0.029) 10/31/17 02:49 Total Protein 7.6 g/dL (6.3-8.2) 10/30/17 21: Albumin 4.3 g/dL (3.9-5) 10/30/17 21: Albumin/Globulin Ratio 1.3 % 10/30/17 21: Urine Color Yellow (Yellow) 10/30/17 21:44 Urine Turbidity Slightly-cloudy (Clear) 10/30/17 21:44 Urine pH 5.0 (5.0-7.0) 10/30/17 21:44 Ur Specific [place] 1.013 (1.003-1.030) 10/30/17 21:44 Urine Protein >500 mg/dL (Negative) 10/30/17 21:44 Urine Glucose (UA) 50 mg/dL (Negative) 10/30/17 21:44 Urine Ketones Tr mg/dL (Negative) 10/30/17 21:44 Urine Blood Neg (Negative) 10/30/17 21:44 Urine Nitrite Neg (Negative) 10/30/17 21:44 Urine Bilirubin Neg (Negative) 10/30/17 21:44 Urine Urobilinogen < 2.0 mg/dL (<2.0) 10/30/17 21:44 Ur Leukocyte Esterase Tr (Negative) 10/30/17 21:44 Urine WBC (Auto) 3.0 /HPF (0.0-6.0) 10/30/17 21:44 Urine RBC (Auto) 3.0 /HPF (0.0-6.0) 10/30/17 21:44 U Epithel Cells (Auto) 3.0 /HPF (0-13.0) 10/30/17 21:44 Assessment and Plan Assessment and plan: Unsteady gait, rule out acute stroke -Stroke protocol -Further evaluation with MRI brain, carotid Doppler ultrasound and echocardiogram Hypertensive emergency with blood pressure of 198/89 -On when necessary hydralazine per the stroke protocol DM2 with hyperglycemia -On Lantus and SSI -will check HBA1C level Hyponatremia -On IVF, will monitor her sodium level Symptomatic UTI -Will treat patient with 3 days of oral antibiotic -Follow up urine culture results CKD stage III, stable -Her creatinine level is about her baseline Metabolic acidosis likely secondary to the renal dysfunction -Will place patient on IV fluid and monitor her bicarbonate level Chronic hypocalcemia -We will check PTH and vitamin D-25 level Prophylaxis -DVT prophylaxis with heparin Time spent: 40 minutes
[2017-10-31] MEDS ORDERED: APRESOLINE ONE (04:41)
[2017-10-31] MEDS: NACL 0.9% 1000 ML 1,000 ML IV SCH ×2 (07:36→21:00)
[2017-10-31] MEDS: HumaLOG SUB-Q SCH ×4 (08:05→21:41)
[2017-10-31] MEDS: COLACE PO SCH ×2 (09:20→21:03)
[2017-10-31] MEDS: PEPCID PO SCH ×2 (09:20→21:03)
[2017-10-31] MEDS: HEPARIN SUB-Q SCH ×2 (09:22→21:03)
[2017-10-31] MEDS ORDERED: LANTUS SUB-Q SCH ×2 (10:00→10:11)
[2017-10-31] MEDS ORDERED: LEVAQUIN PO SCH ×2 (10:00)
[2017-10-31] MEDS ORDERED: LEVAQUIN 500MG/100ML 500 MG/100 ML BAG IV SCH (10:00)
[2017-10-31] MEDS: ZESTRIL PO SCH (11:19)
--- NOTE | 2017-10-31 14:20 | Event Note ---
Date: 10/31/17 Patient seen and examined, BP improving, no acute distress. no further headache reported today, continue full work up and anticipate discharge in am. At this time doubt CVA.
[2017-10-31] MEDS: TYLENOL PO PRN (21:09)
[2017-11-01] MEDS: TYLENOL PO PRN (02:20)
[2017-11-01 04:53] LABS: Chol/HDL Ratio 2.72 %
[2017-11-01] MEDS: NACL 0.9% 1000 ML 1,000 ML IV SCH (05:47)
[2017-11-01] MEDS: HumaLOG SUB-Q SCH ×2 (08:10→13:02)
--- NOTE | 2017-11-01 08:58 | Discharge Summary ---
Providers - Providers Date of Admission: 10/31/17 03:39 Attending physician: BRETT HORN MD 10/31/17 03:03 Occupational Therapy Evaluate and Treat [CONS] Routine Comment: Reason For Exam: Neuro deficits Physical Therapy Evaluation and Treat [CONS] Routine Comment: Reason For Exam: Neuro deficits Primary care physician: CHILD CARE WORKER Hospitalization Reason for admission: CVA Condition: Stable Hospital course: Patient is a 77-year-old -[place] female with history of hypertension and diabetes mellitus who presented to the ED on account of 2 weeks history of throbbing headaches. She has associated dizziness, generalized weakness and nausea with vomiting 1 episode and unsteady gait. No fever, chills, chest pain , shortness of breath, palpitation, cough, leg swelling, orthopnea, PND, syncope or loss of consciousness. She has positive history of dysuria and frequency but no abdominal pain, constipation or diarrhea. Patient on admission was controlled on blood pressure medication physical therapist evaluated the patient and recommended home with home health for PT. Patient ambulates with a walker. Also blood pressure was controlled patient's headache resolved. It was felt that patient may have hemiplegic migraine. She was also treated for acute cystitis. With review of her diabetes her hemoglobin A1c was noted to be above patient was placed on insulin with sliding scale and request with close follow-up with primary care physician and monitoring of insulin. Conjunctivae stable MRI was checked and was negative CT of the brain was also negative For throat ultrasound was negative. Discharge diagnosis Hypertensive encephalopathy Hemiplegic Migraine HTN EMERGENCY DM with Hyper and hypoglycemia and labile Blood glucose ACUTE CYSTITIS Acute ON chronic kidney disease stage 3 secondary to hypertensive renal disease Chronic Hypocalcemia Hyponatremia Disposition: [id number] HOME UNDER HOME [facility] Time spent for discharge: 35 mins Core Measure Documentation - Palliative Care Palliative Care/ Comfort Measures: Not Applicable - Core Measures Any of the following diagnoses?: none - VTE Discharge Requirements Deep Vein Thrombosis/Pulmonary Embolism Present on Admission: No Exam - Physical Exam Narrative exam: VITAL SIGNS: Reviewed. GENERAL: The patient appeared well nourished and normally developed. Vital signs as documented. HEAD: No signs of head trauma. EYES: Pupils are equal. Extraocular motions intact. EARS: Hearing grossly intact. MOUTH: Oropharynx is normal. NECK: No adenopathy, no JVD. CHEST: Chest with clear breath sounds bilaterally. No wheezes, rales, or rhonchi. CARDIAC: Regular rate and rhythm. S1 and S2, without murmurs, gallops, or rubs. VASCULAR: No Edema. Peripheral pulses normal and equal in all extremities. ABDOMEN: Soft, without detectable tenderness. No sign of distention. No rebound or guarding, and no masses palpated. Bowel Sounds normal. MUSCULOSKELETAL: Good range of motion of all major joints. Extremities without clubbing, cyanosis or edema. NEUROLOGIC EXAM: Alert and oriented x 3. No focal sensory or strength deficits. Speech normal. Follows commands. PSYCHIATRIC: Mood normal. SKIN: No rash or lesions. - Constitutional Vitals: Temp Pulse Resp BP Pulse Ox 99.4 F 69 20 145/66 100 11/01/17 02:09 11/01/17 02:11/01/17 03:20 11/01/17 02:09 11/01/17 02:09 Plan Activity: advance as tolerated, fall precautions Diet: low salt, diabetic Special Instructions: record daily weights, record daily BP diary, record blood sugar diary, physical therapy, occupational therapy, home health RN Follow up with: PRIMARY CARE, [Primary Care Provider] - 3-5 Days SHERLEY GODDARD MD [Staff Physician] - 7 Days DORCAS GARCIA MD [Staff Physician] - 7 Days Prescriptions: AtorvaSTATin [Lipitor] 40 mg PO QHS #30 tablet Insulin Glargine,Hum.rec.anlog [Lantus] 12 unit SQ QHS 30 Days vial amLODIPine [Norvasc] 10 mg PO DAILY #30 tablet Docusate Sodium [Colace CAP] 100 mg PO BID #30 capsule Insulin Lispro [Humalog 100 UNITS/ML Kwikpen] See Protocol SQ ACHS 30 Days insuln.pen levoFLOXacin [Levaquin TAB] 250 mg PO Q24HR #3 tablet Ranitidine HCl [Zantac 150 MG TAB] 150 mg PO BID #60 tablet Other Discharge Orders: Glucometer supplies[Amb] Location: None Selected Glucometer (Amb) Location: None Selected
[2017-11-01] MEDS ORDERED: LEVAQUIN PO SCH (10:00)
[2017-11-01] MEDS ORDERED: LEVAQUIN 250MG/50ML 250 MG/50 ML BAG IV SCH (10:00)
[2017-11-01] MEDS ORDERED: NORVASC PO SCH (11:00)
[2017-11-01] MEDS: COLACE PO SCH (11:34)
[2017-11-01] MEDS: PEPCID PO SCH (11:34)
[2017-11-01] MEDS: ZESTRIL PO SCH (11:35)
[2017-11-01] MEDS: HEPARIN SUB-Q SCH (12:01)
--- NOTE | 2017-11-01 12:13 | Magnetic Resonance Report ---
MRI OF THE BRAIN WITHOUT CONTRAST: HISTORY: Stroke PROCEDURE: Multiplanar, multisequence MR imaging of the brain without IV contrast was performed. FINDINGS: Compared to the CT head dated 10/30/17. Mild diffuse cortical volume loss and mild nonspecific chronic white matter changes are identified which appear appropriate for this persons age. A chronic cortical infarct in the right parietal lobe measures 2.4 x 2.0 cm in axial plane. A chronic 1 cm focal infarct in the inferior right cerebellum is also noted. No evidence for acute ischemia, hemorrhage or mass. No extra-axial fluid collection. The midline structures are central. The basal cisterns are patent. Normal ventricular size. The orbital cavities and sella turcica demonstrate no abnormality. The visualized paranasal sinuses and mastoid air cells are well aerated. IMPRESSION: No acute intracranial process is identified. Volume loss. Chronic white matter changes. 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
--- NOTE | 2017-11-01 13:49 | Query- Renal Failure ---
Dear ___Donny Date:___11/01/17 Quality Process Auditor/CDS:____suman Phone#:____[phone] Exercise your independent professional judgment when responding to query. Questions asked do not imply a particular answer is desired or expected. We greatly appreciate your clarification on this issue. Clinical Documentation States: Patient is a 77-year-old -[place] female with history of hypertension and diabetes mellitus who presented to the ED on account of 2 weeks history of throbbing headaches. She has associated dizziness, generalized weakness and nausea with vomiting 1 episode and unsteady gait. No fever, chills, chest pain , shortness of breath, palpitation, cough, leg swelling, orthopnea, PND, syncope or loss of consciousness. She has positive history of dysuria and frequency but no abdominal pain, constipation or diarrhea. Patient headache improved with the control of BP, PT was seen with PT and recommended HOME HEALTH WITH HOME PT, PT WAS AMBULATING WITHOUT ASSISTANCE, USED WALKER CT BRAIN WAS NEGATIVE MRI BRAIN PENDING CAROTID U/S NEGATIVE Discharge diagnosis Hypertensive encephalopathy Hemiplegic Migraine HTN EMERGENCY DM with Hyper and hypoglycemia and labile Blood glucose ACUTE CYSTITIS Acute ON chronic kidney disease stage 3 secondary to hypertensive renal disease Chronic Hypocalcemia Hyponatremia Clinical Findings Show: 10/30/17 11/01/17 Creatinine 1.6 1.4 Bun/Cr ratio 16 14 Please clarify if you mean: Acute Renal Failure with or due to: [ ] Tubular Necrosis [ ] Medullary Necrosis [x ] Vasomotor Nephropathy [ ] Shock Kidney [ ] Tubular Nephrosis [ ] Renal Tubular Stasis [ ] Cortical Necrosis [ ] Acute Renal Failure (unspecified) [ ] Lower Tubular Nephrosis [ ] Other: [ ] Not Applicable Present on Admission: [x ] Yes (Y) [ ] Clinically undeterminable (W) [ ] No (N) Please also document response in your Progress Notes and/or Discharge Summary and indicate if the condition was present on admission. MTDD
[2017-11-01 15:15] VITALS: BP 186/75
== END 2017-11-01 15:20 | disposition home health service (06) | DRG 77 ==
LOC: ED 20:13 → 2B-ACE 10-31 03:39
PROVIDERS: ADMIT Internal Medicine; ATTEND Internal Medicine
DX: I67.4 Hypertensive encephalopathy (principal); N17.0 Acute kidney failure with tubular necrosis; I16.1 Hypertensive emergency; E87.1 Hypo-osmolality and hyponatremia; E87.2 Acidosis; N30.00 Acute cystitis without hematuria; N18.3 Chronic kidney disease, stage 3 (moderate); Z88.6 Allergy status to analgesic agent; E03.9 Hypothyroidism, unspecified; Z79.899 Other long term (current) drug therapy; Z79.84 Long term (current) use of oral hypoglycemic drugs; I12.9 Hypertensive chronic kidney disease with stage 1 through stage 4 chronic kidney disease, or unspecified chronic kidney disease; E11.22 Type 2 diabetes mellitus with diabetic chronic kidney disease; Z87.891 Personal history of nicotine dependence; E11.65 Type 2 diabetes mellitus with hyperglycemia; E83.51 Hypocalcemia; G43.409 Hemiplegic migraine, not intractable, without status migrainosus; E11.649 Type 2 diabetes mellitus with hypoglycemia without coma
CPT/HCPCS: 36415; 70450; 70551; 80048; 80053; 80061; 81001; 82962; 83036; 83970; 84484; 85025; 87086; 93005; 93010; 93306; 93880; 96374; A9270-GY; J0360; J1644; J1815; J2405; J7030

== ENCOUNTER 2017-11-26 16:05 | Emergency (ER) | payer MEDICARE ==
[2017-11-26 17:31] LABS: Hematocrit 31.9 % (30.3-42.9); Hemoglobin 10.5 gm/dl (10.1-14.3); Mean Corpuscular HGB Conc 33 % (30-34); Mean Corpuscular Hemoglobin 29 pg (28-32); Mean Corpuscular Volume 89 fl (79-97); Platelet Count 271 K/mm3 (140-440)
[2017-11-26 17:58] LABS: Albumin 4.2 g/dL (3.9-5); Calcium 7.6 mg/dL (8.4-10.2); Uric Acid 5.5 mg/dL (3.5-7.6)
--- NOTE | 2017-11-26 22:20 | Emergency Department Report ---
HPI - General Chief Complaint: Urogenital-Female Time Seen by Provider: 11/26/17 21:30 - HPI HPI: Room 18 The patient is a 77-year-old female presenting with chief complaint of left breast and bilateral feet swelling. The patient states she's noticed swelling in both feet for approximately 2-3 months. The patient states her primary physician told her she had gallop. The patient states this morning when she awakened she noticed swelling in her left breast. Patient denies preceding trauma or fever. Patient denies breast pain. Patient states it feels like her left breast is fully within her right breast. Patient has not noticed nipple discharge Location: [See above] Duration: [See above] Quality: Swelling Severity: [See above] Modifying factors: [see above] Context: [see above] Mode of transportation: [not driving] ED Past Medical Hx - Past Medical History Previous Medical History?: Yes Hx Hypertension: Yes Hx Diabetes: Yes Hx Renal Disease: Yes (CKD,stage 3: GFR 30-59) Additional medical history: Anemia. low calcium - Surgical History Past Surgical History?: Yes Additional Surgical History: THYROID SURGERY ,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 - Family History Family history: no significant - Social History Smoking Status: Former Smoker (none 25 years) Substance Use Type: None - Medications Home Medications: Home Medications Medication Instructions Recorded Confirmed Last Taken Type Lisinopril [Zestril TAB] 20 mg PO QDAY 02/07/17 10/31/17 Unknown History AtorvaSTATin [Lipitor] 40 mg PO QHS #30 tablet 11/01/17 Unknown Rx Docusate Sodium [Colace CAP] 100 mg PO BID #30 capsule 11/01/17 Unknown Rx Insulin Glargine,Hum.rec.anlog 12 unit SQ QHS 30 Days vial 11/01/17 Unknown Rx [Lantus] Insulin Lispro [Humalog 100 See Protocol SQ ACHS 30 Days 11/01/17 Unknown Rx UNITS/ML Kwikpen] insuln.pen Ranitidine HCl [Zantac 150 MG TAB] 150 mg PO BID #60 tablet 11/01/17 Unknown Rx amLODIPine [Norvasc] 10 mg PO DAILY #30 tablet 11/01/17 Unknown Rx levoFLOXacin [Levaquin TAB] 250 mg PO Q24HR #3 tablet 11/01/17 Unknown Rx ED Review of Systems ROS: Stated complaint: CHEST PAINS Other details as noted in HPI Constitutional: denies: fever Eyes: denies: eye pain ENT: denies: throat pain Respiratory: no symptoms reported Cardiovascular: denies: chest pain Endocrine: no symptoms reported Gastrointestinal: denies: abdominal pain Genitourinary: other (left breast swelling) Musculoskeletal: denies: back pain Skin: denies: lesions Neurological: denies: headache Hematological/Lymphatic: other (bilateral pedal edema) Physical Exam - Physical Exam Vital Signs: Vital Signs 11/26/17 16:43 Temperature 97.7 F Pulse Rate 90 Respiratory 18 Rate Blood Pressure 163/74 O2 Sat by Pulse 100 Oximetry Physical Exam: GENERAL: The patient is well-developed well-nourished female lying on stretcher not appearing to be in acute distress. [] HEENT: Normocephalic. Atraumatic. Extraocular motions are intact. Patient has moist mucous membranes. NECK: Supple. Trachea midline CHEST/LUNGS: Clear to auscultation. There is no respiratory distress noted. HEART/CARDIOVASCULAR: Regular. There is no tachycardia. There is no gallop rub or murmur. ABDOMEN: Abdomen is soft, nontender. Patient has normal bowel sounds. There is no abdominal distention. SKIN: There is no rash. There is 1-2+ bilateral lower extremity pitting pedal edema. There is no diaphoresis. NEURO: The patient is awake, alert, and oriented. The patient is cooperative. The patient has normal speech MUSCULOSKELETAL: There is no evidence of acute injury. BREAST: Left breast slightly greater fullness than right. No breast masses palpated. No nipple discharge visualized. ED Course Vital Signs 11/26/17 16:43 Temperature 97.7 F Pulse Rate 90 Respiratory 18 Rate Blood Pressure 163/74 O2 Sat by Pulse 100 Oximetry ED Medical Decision Making - Lab Data Result diagrams: 11/26/17 16:52 11/26/17 16:52 Laboratory Tests 11/26/17 11/26/17 16:52 16:52 WBC 5.1 RBC 3.60 L Hgb 10.5 Hct 31.9 MCV 89 MCH 29 MCHC 33 RDW 16.0 H Plt Count 271 Sodium 135 L Potassium 5.1 H Chloride 97.4 L Carbon Dioxide 21 L Anion Gap 22 BUN 23 H Creatinine 1.8 H Estimated GFR 33 BUN/Creatinine Ratio 13 Glucose 187 H Uric Acid 5.5 Calcium 7.6 L Total Bilirubin 0.40 AST 88 H ALT 65 H Alkaline Phosphatase 98 NT-Pro-B Natriuret Pep 469.7 Total Protein 7.4 Albumin 4.2 Albumin/Globulin Ratio 1.3 - Radiology Data Radiology results: report reviewed (left breast ultrasound), image reviewed ( left breast ultrasound) [facility] [address] [place] [address] Ultrasound Report Signed Patient: ALBERTO ANGLIN MR#: [id number] : 1940 Acct:[id number] Age/Sex: 77 / F ADM Date: 11/26/17 Loc: ED Attending Dr: Ordering Physician: LALITHA CABRERA MD Date of Service: 11/26/17 Procedure(s): US breast LT limited Accession Number(s): [id number] cc: LALITHA CABRERA MD FINAL REPORT PROCEDURE: US BREAST LT LIMITED TECHNIQUE: Real-time sonography in multiple planes of the LEFT breast was performed with image documentation; limited. HISTORY: breast swelling COMPARISON: No prior studies are available for comparison. FINDINGS: LEFT breast: There is no discrete solid or cystic abnormality. Breast echotexture is normal. IMPRESSION: Normal Examination. Transcribed By: CO Dictated By: LILY MADRIGAL MD Electronically Authenticated By: LILY MADRIGAL MD Signed Date/Time: 11/26/172256 DD/DT : 11/26/172256 TD/TT: 11/26/172256 - Differential Diagnosis peripheral edema, breast mass, CHF, renal insufficiency Critical care attestation.: If time is entered above; I have spent that time in minutes in the direct care of this critically ill patient, excluding procedure time. ED Disposition Clinical Impression: Pedal edema, Renal insufficiency, Breast swelling Disposition: -01 TO HOME OR SELFCARE Is pt being admited?: No Does the pt Need Aspirin: No Condition: Stable Instructions: Leg Edema (ED) Additional Instructions: Return to the emergency department immediately should you develop worsening symptoms, fever, inability to tolerate food or liquid or any other concerns. Referrals: PRIMARY CARE, [Primary Care Provider] - 3-5 Days SHELLEY WOLF MD [Staff Physician] - 3-5 Days (Dr. Wolf is a induction coordination power engineer. Please follow up with him for further evaluation of your kidney function) Time of Disposition: 23:16
--- NOTE | 2017-11-26 22:58 | Ultrasound Report ---
FINAL REPORT PROCEDURE: US BREAST LT LIMITED TECHNIQUE: Real-time sonography in multiple planes of the LEFT breast was performed with image documentation; limited. HISTORY: breast swelling COMPARISON: No prior studies are available for comparison. FINDINGS: LEFT breast: There is no discrete solid or cystic abnormality. Breast echotexture is normal. IMPRESSION: Normal Examination.
[2017-11-26 23:37] VITALS: BP 154/73
== END 2017-11-26 23:37 | disposition home or self-care (01) ==
LOC: ED 16:05
DX: R60.9 Edema, unspecified (principal); N28.9 Disorder of kidney and ureter, unspecified; N63.0 Unspecified lump in unspecified breast; E11.22 Type 2 diabetes mellitus with diabetic chronic kidney disease; I12.9 Hypertensive chronic kidney disease with stage 1 through stage 4 chronic kidney disease, or unspecified chronic kidney disease; N18.3 Chronic kidney disease, stage 3 (moderate); Z87.891 Personal history of nicotine dependence
CPT/HCPCS: 36415; 80053; 83880; 84550; 85027; 93005; 93010

== ENCOUNTER 2018-04-18 14:03 | Inpatient (IN) | payer MEDICARE ==
[2018-04-18] MEDS ORDERED: SODIUM CHLORIDE FLUSH SYRINGE 10 ML IV PRN (14:24)
[2018-04-18] MEDS ORDERED: ZOFRAN IV PRN (14:24)
[2018-04-18] MEDS ORDERED: PROVENTIL IH PRN (14:24)
--- NOTE | 2018-04-18 14:44 | History and Physical Report ---
History of Present Illness Chief complaint: I feel a little weak History of present illness: 77 YO Female with DM, HTN, CKD/ESRD, Hypothyroidism admitted directly at the request of DR. Allan for possible dialysis. Pt seen and evaluated upon arrival. Pt denies fever, chills, CP, Palpitations, NVD, Trauma, BRBPR, unintentional weight loss, night sweats, skin rash or recent ill contacts. No reported nursing events. Further labs exams and possible vascular surgery consult for permacath placement as per Dr. Allan. Past History Past Medical History: diabetes, hyperthyroidism, hypothyroidism Past Surgical History: Other (thyroidectomy, Eye sugery, Ovary) Social history: . denies: smoking, alcohol abuse, prescription drug abuse Family history: diabetes, hypertension Medications and Allergies Allergies Allergy/AdvReac Type Severity Reaction Status Date / Time aspirin Allergy Severe Unknown Verified 04/18/18 15:22 Home Medications Medication Instructions Recorded Confirmed Last Taken Type Lisinopril [Zestril TAB] 20 mg PO QDAY 02/07/17 10/31/17 Unknown History AtorvaSTATin [Lipitor] 40 mg PO QHS #30 tablet 11/01/17 Unknown Rx Docusate Sodium [Colace CAP] 100 mg PO BID #30 capsule 11/01/17 Unknown Rx Insulin Glargine,Hum.rec.anlog 12 unit SQ QHS 30 Days vial 11/01/17 Unknown Rx [Lantus] Insulin Lispro [Humalog 100 See Protocol SQ ACHS 30 Days 11/01/17 Unknown Rx UNITS/ML Kwikpen] insuln.pen Ranitidine HCl [Zantac 150 MG TAB] 150 mg PO BID #60 tablet 11/01/17 Unknown Rx amLODIPine [Norvasc] 10 mg PO DAILY #30 tablet 11/01/17 Unknown Rx levoFLOXacin [Levaquin TAB] 250 mg PO Q24HR #3 tablet 11/01/17 Unknown Rx Active Meds: Active Medications Acetaminophen (Tylenol) 650 mg PO Q4H PRN PRN Reason: Pain MILD(1-3)/Fever >100.5/PATRICIA Albuterol (Proventil) 2.5 mg IH Q4HRT PRN PRN Reason: Shortness Of Breath Amlodipine Besylate (Norvasc) 10 mg PO DAILY [facility] Atorvastatin Calcium (Lipitor) 40 mg PO QHS [facility] Docusate Sodium (Colace) 100 mg PO BID [facility] Sodium Chloride (Nacl 0.45% 1000 Ml) 1,000 mls @ 42 mls/hr IV DIRECT [facility] Insulin Glargine (Lantus) 12 units SUB-Q QHS [facility] Lisinopril (Zestril) 20 mg PO QDAY [facility] Miscellaneous Medication (Ranitidine Hcl [Zantac 150 Mg Tab]) 150 mg PO BID [facility] Ondansetron HCl (Zofran) 4 mg IV Q8H PRN PRN Reason: Nausea And Vomiting Sodium Chloride (Sodium Chloride Flush Syringe 10 Ml) 10 ml IV BID [facility] Sodium Chloride (Sodium Chloride Flush Syringe 10 Ml) 10 ml IV PRN PRN PRN Reason: LINE FLUSH Review of Systems Constitutional: no weight loss, no weight gain, no chills Ears, nose, mouth and throat: no ear pain, no tinnitis, no nose pain Breasts: normal Cardiovascular: no chest pain, no palpitations, no edema, no lightheadedness Respiratory: no cough, no excessive sputum, no shortness of breath, no congestion Gastrointestinal: hematemesis, no abdominal pain, no vomiting, no constipation Genitourinary Female: no pelvic pain, no flank pain, no urgency Rectal: no pain, no incontinence, no hemorrhoids Musculoskeletal: no neck pain, no arm numbness/tingling, no shooting leg pain Integumentary: no rash, no redness, no wounds Neurological: no transient paralysis, no weakness, no numbness Psychiatric: no memory loss, no insomnia, no change in libido Endocrine: no cold intolerance, no polyphagia, no polydipsia Hematologic/Lymphatic: no easy bruising, no easy bleeding Allergic/Immunologic: no allergic rhinitis, no anaphylaxis Exam - Constitutional General appearance: Present: no acute distress, well-nourished - EENT Eyes: Present: PERRL ENT: hearing intact, clear oral mucosa - Neck Neck: Present: supple, normal ROM - Respiratory Respiratory effort: normal Respiratory: bilateral: CTA - Cardiovascular Heart Sounds: Present: S1 & S2. Absent: rub, click - Extremities Extremities: pulses symmetrical, No edema Peripheral Pulses: within normal limits - Abdominal General gastrointestinal: Present: soft, non-tender, non-distended, normal bowel sounds Female genitourinary: Present: normal - Integumentary Integumentary: Present: clear, warm, dry - Musculoskeletal Musculoskeletal: gait normal, strength equal bilaterally - Psychiatric Psychiatric: appropriate mood/affect, intact judgment & insight - Neurologic Neurologic: CNII-XII intact, moves all extremities Results - Labs CBC & Chem 7: 04/18/18 15:13 04/19/18 04:47 Assessment and Plan - Patient Problems (1) ARF (acute renal failure) with tubular necrosis Current Visit: Yes Status: Acute Plan to address problem: Nephrology consulted, monitor uop q shift, avoid nephrotoxic agents, labs as per neurology team, cbc, bmp, supportive care, IVF as per renal team. Pending vascular surgery permacath placement as per nephrology team laboratory review. (2) HTN (hypertension) Current Visit: Yes Status: Acute Qualifiers: Hypertension type: essential hypertension Qualified Code(s): I10 - Essential (primary) hypertension Plan to address problem: Monitor bp q shift, supportive care, continue medical management (3) Diabetes Current Visit: Yes Status: Acute Plan to address problem: ADA diet, insulin, accu check (4) Acidosis Current Visit: Yes Status: Acute Plan to address problem: BMP, IV bicarbonate therapy, dialysis as per renal team. (5) DVT prophylaxis Current Visit: Yes Status: Acute Plan to address problem: SCD to BLE while in bed
[2018-04-18] MEDS ORDERED: NACL 0.45% 1000 ML 1,000 ML IV SCH (15:00)
[2018-04-18 15:34] LABS: Basophils # (Auto) 0.1 K/mm3 (0.0-0.1); Basophils % (Auto) 1.2 % (0.0-1.8); Eosinophils # (Auto) 0.1 K/mm3 (0.0-0.4); Eosinophils % (Auto) 2.1 % (0.0-4.3); Hematocrit 28.2 % (30.3-42.9); Hemoglobin 9.4 gm/dl (10.1-14.3); Lymphocytes # (Auto) 1.3 K/mm3 (1.2-5.4); Lymphocytes % (Auto) 24.5 % (13.4-35.0); Mean Corpuscular HGB Conc 33 % (30-34); Mean Corpuscular Volume 84 fl (79-97); Monocytes # (Auto) 0.6 K/mm3 (0.0-0.8); Monocytes % (Auto) 11.5 % (0.0-7.3); Platelet Count 324 K/mm3 (140-440); Red Blood Count 3.36 M/mm3 (3.65-5.03); Red Cell Distribution Width 15.3 % (13.2-15.2)
[2018-04-18 16:01] LABS: Calcium 5.9 mg/dL (8.4-10.2)
[2018-04-18] MEDS ORDERED: NON-FORMULARY (Ranitidine Hcl [Zantac 150 Mg Tab] 150 MG) PO SCH (22:00)
[2018-04-18] MEDS ORDERED: PEPCID PO SCH (22:00)
[2018-04-18] MEDS: COLACE PO SCH (23:18)
[2018-04-18] MEDS ORDERED: DILAUDID IV PRN (23:25)
[2018-04-19] MEDS: LANTUS SUB-Q SCH ×2 (01:38→21:50)
[2018-04-19] MEDS: SODIUM CHLORIDE FLUSH SYRINGE 10 ML IV SCH ×3 (01:43→21:54)
[2018-04-19 05:37] LABS: Albumin 3.2 g/dL (3.9-5); BUN/Creatinine Ratio 12; Blood Urea Nitrogen 38 mg/dL (7-17); Hemolysis Index 3
[2018-04-19 05:44] LABS: Alanine Aminotransferase < 5 units/L (7-56); Calcium 5.3 mg/dL (8.4-10.2)
[2018-04-19] MEDS ORDERED: CALCIUM CHLORIDE IV ONE ×3 (08:52→11:30)
--- NOTE | 2018-04-19 08:53 | Consultation ---
History of Present Illness - History of Present Illness Thank you for the consultation ! Patient was evaluated today My assessment and plan are as follows; Advanced renal failure in a patient who was symptomatic with renal failure now a dmitted with worsening edema metabolic acidosis hypocalcemia history of noncompliance, patient is in need for initiation of renal replacement therapy Hypocalcemia likely resulting from secondary hyperparathyroidism, vitamin D deficiency Will give her IV calcium start on oral calcium and then follow Patient will need to start renal replacement therapy today with a permacath this is a short-term trial to see how she likes to dialysis and if she is willing to continue with this then she will need a permanent vascular access Anemia in chronic kidney disease Chronically noncompliant patient Accelerated hypertension requires better control Patient will need outpatient dialysis facility at [facility] as she has already decided about the clinic Chin has been explained about dialysis, permacath placement Also seen and supervised on hemodialysis today Patient was adequately counseled and educated regarding multiple renal related issues. Renal prognosis remains guarded at this time All renal related questions were answered and simple Romansh pertinent lab studies as well as imaging results were also discussed with patient We will continue to follow and make recommendations from renal standpoint. Thank you for the consultation Author: Ace Allan M.D. [facility], [address] [place] [address] Tel; [phone] Source of information: From patient, as well as clinic record History of present illness Patient is a 7-year-old -Sud[place] female who has been very poorly compliant and recently has been noted to have progressive decline in renal function. She came to the clinic yesterday with complaints of increasing fatigu e and according to daughter she has been laying around the house, leg swelling is progressively getting worse. Patient was sent to the hospital after he had a discussion that she may benefit from renal replacement therapy which could be a time limited therapy first depending on patient's preference later can be converted to long-term dialysis if patient likes being on dialysis. This was discussed with patient and family yesterday and hence she was admitted here for evaluation and management of renal failure Past medical history significant for Stage IV chronic kidney disease Chronic noncompliance Long-standing hypertension very poorly controlled Long-standing diabetes poorly controlled Current allergies none Home medication, present medication reviewed Social history, family history reviewed Review of system: Progressive fatigue tingling numbness in hands and feet patient say that this has been a chronic issue Decrease in energy level poor appetite Feeling cold tired and fatigued often, progressive swelling of both lower extremity mostly around the ankles All other review of systems negative Physical examination Vitals: Reviewed General: No acute distress HEENT: Oral mucosa moist no pallor or icterus/uremic odor present Neck: Supple without any JVD thyromegaly or nodular mass Chest: Clear to auscultation Heart: Regular rate and rhythm S1-S2 heard no S3-S4 Abdomen: Soft nontender, bowel sounds present no renal bruit no suprapubic masses no CVA tenderness noted Extremity: 2+ ankle edema dry skin no peripheral cyanosis Endocrine: Thyroid not enlarged Psychiatric: No agitation and aggression noted Musculoskeletal: No joint effusion noted Labs and x-rays: Reviewed from this admission Past History Past Medical History: diabetes, hyperthyroidism, hypothyroidism Past Surgical History: Other (thyroidectomy, Eye sugery, Ovary) Social history: . denies: smoking, alcohol abuse, prescription drug abuse Family history: diabetes, hypertension Medications and Allergies Allergies Allergy/AdvReac Type Severity Reaction Status Date / Time aspirin Allergy Severe Unknown Verified 04/18/18 15:22 Home Medications Medication Instructions Recorded Confirmed Last Taken Type Lisinopril [Zestril TAB] 20 mg PO QDAY 02/07/17 10/31/17 Unknown History AtorvaSTATin [Lipitor] 40 mg PO QHS #30 tablet 11/01/17 Unknown Rx Docusate Sodium [Colace CAP] 100 mg PO BID #30 capsule 11/01/17 Unknown Rx Insulin Glargine,Hum.rec.anlog 12 unit SQ QHS 30 Days vial 11/01/17 Unknown Rx [Lantus] Insulin Lispro [Humalog 100 See Protocol SQ ACHS 30 Days 11/01/17 Unknown Rx UNITS/ML Kwikpen] insuln.pen Ranitidine HCl [Zantac 150 MG TAB] 150 mg PO BID #60 tablet 11/01/17 Unknown Rx amLODIPine [Norvasc] 10 mg PO DAILY #30 tablet 11/01/17 Unknown Rx levoFLOXacin [Levaquin TAB] 250 mg PO Q24HR #3 tablet 11/01/17 Unknown Rx Active Meds: Active Medications Acetaminophen (Tylenol) 650 mg PO Q4H PRN PRN Reason: Pain MILD(1-3)/Fever >100.5/PATRICIA Albuterol (Proventil) 2.5 mg IH Q4HRT PRN PRN Reason: Shortness Of Breath Amlodipine Besylate (Norvasc) 10 mg PO DAILY [facility] Atorvastatin Calcium (Lipitor) 40 mg PO QHS [facility] Last Admin: 04/18/18 23:17 Dose: 40 mg Documented by: Docusate Sodium (Colace) 100 mg PO BID [facility] Last Admin: 04/18/18 23:18 Dose: 100 mg Documented by: Famotidine (Pepcid) 20 mg PO DAILY [facility] Hydromorphone HCl (Dilaudid) 0.25 mg IV Q4H PRN PRN Reason: Pain , Severe (7-10) Last Admin: 04/19/18 01:37 Dose: 0.25 mg Documented by: Sodium Chloride (Nacl 0.45% 1000 Ml) 1,000 mls @ 42 mls/hr IV DIRECT [facility] Insulin Glargine (Lantus) 12 units SUB-Q QHS [facility] Last Admin: 04/19/18 01:38 Dose: 12 units Documented by: Lisinopril (Zestril) 20 mg PO QDAY [facility] Ondansetron HCl (Zofran) 4 mg IV Q8H PRN PRN Reason: Nausea And Vomiting Sodium Chloride (Sodium Chloride Flush Syringe 10 Ml) 10 ml IV BID [facility] Last Admin: 04/19/18 01:43 Dose: 10 ml Documented by: Sodium Chloride (Sodium Chloride Flush Syringe 10 Ml) 10 ml IV PRN PRN PRN Reason: LINE FLUSH Exam - Vital Signs Vital signs: Vital Signs Temp Pulse Resp BP Pulse Ox 97.7 F 77 20 163/71 100 04/18/18 15:16 04/18/18 15:16 04/18/18 15:16 04/18/18 15:16 04/18/18 15:16 Results - Lab Results 04/18/18 15:13 04/19/18 04:47 Most recent lab results Calcium 5.3 mg/dL (8.4-10.2) L* 04/19/18 04:47
[2018-04-19] MEDS ORDERED: NACL 0.9% 100 ML IV PRN (08:56)
[2018-04-19] MEDS ORDERED: ZESTRIL PO SCH (10:00)
--- NOTE | 2018-04-19 10:21 | Progress Note ---
Assessment and Plan Assessment and plan: 77-year-old woman who presented with weakness. She was sent by her iv therapy nurse for direct admission for worsening chronic kidney disease, nonadherence to medications. She was sent to the hospital for initiation of renal replacement therapy. Diagnoses Acute on chronic kidney disease requiring renal replacement, stage 4-5 Hypertensive urgency Anemia of chronic disease Hypocalcemia Secondary hyperparathyroidism Type 2 diabetes Metabolic acidosis Uremia -non adherence Plan For permacath today Continue renal replacement therapy per nephrology Optimize blood pressure medications, optimize insulins, dietitian consult Monitor renal function closely, will likely need continued outpatient hemodialysis, dw case management Heparin for DVT prophylaxis has been counseled on improved adherence to meds and rx History Interval history: Review of systems Constitutional: No fevers, no malaise, no joint pains CVS: No chest pain, no orthopnea, no dyspnea on exertion, no pedal edema GI: No abdominal pain, no diarrhea, no vomiting, no constipation Respiratory: No shortness of breath, no wheezing, no coughing Hospitalist Physical - Physical exam Narrative exam: General.: Appears well, no distress, nontoxic HEENT: Moist mucous membranes, extraocular muscles intact, no lymphadenopathy Neck: supple Cardiac: S1-S2 heard Lungs: clear to auscultation bilaterally Abdomen: soft , nontender, nondistended, bowel sounds positive Extremities: no edema clubbing or cyanosis Skin: no rash or lesions Neurologic: no gross focal deficits Psych: calm, and cooperative - Constitutional Vitals: Temp Pulse Resp BP Pulse Ox 98.8 F 76 20 169/81 100 04/19/18 07:39 04/19/18 07:39 04/19/18 07:39 04/19/18 07:39 04/19/18 07:39 General appearance: Present: no acute distress, well-nourished Results - Labs CBC & Chem 7: 04/18/18 15:13 04/19/18 04:47 Labs: Laboratory Last Values WBC 5.5 K/mm3 (4.5-11.0) 04/18/18 15:13 RBC 3.36 M/mm3 (3.65-5.03) L 04/18/18 15:13 Hgb 9.4 gm/dl (10.1-14.3) L 04/18/18 15:13 Hct 28.2 % (30.3-42.9) L 04/18/18 15:13 MCV 84 fl (79-97) 04/18/18 15:13 MCH 28 pg (28-32) 04/18/18 15:13 MCHC 33 % (30-34) 04/18/18 15:13 RDW 15.3 % (13.2-15.2) H 04/18/18 15:13 Plt Count 324 K/mm3 (140-440) 04/18/18 15:13 Lymph % (Auto) 24.5 % (13.4-35.0) 04/18/18 15:13 Anderson % (Auto) 11.5 % (0.0-7.3) H 04/18/18 15:13 Eos % (Auto) 2.1 % (0.0-4.3) 04/18/18 15:13 Baso % (Auto) 1.2 % (0.0-1.8) 04/18/18 15:13 Lymph # 1.3 K/mm3 (1.2-5.4) 04/18/18 15:13 Anderson # 0.6 K/mm3 (0.0-0.8) 04/18/18 15:13 Eos # 0.1 K/mm3 (0.0-0.4) 04/18/18 15:13 Baso # 0.1 K/mm3 (0.0-0.1) 04/18/18 15:13 Seg Neutrophils % 60.7 % (40.0-70.0) 04/18/18 15:13 Seg Neutrophils # 3.3 K/mm3 (1.8-7.7) 04/18/18 15:13 Sodium 136 mmol/L (137-145) L 04/19/18 04:47 Potassium 3.7 mmol/L (3.6-5.0) 04/19/18 04:47 Chloride 103.0 mmol/L (98-107) 04/19/18 04:47 Carbon Dioxide 18 mmol/L (22-30) L 04/19/18 04:47 Anion Gap 19 mmol/L 04/19/18 04:47 BUN 38 mg/dL (7-17) H 04/19/18 04:47 Creatinine 3.2 mg/dL (0.7-1.2) H 04/19/18 04:47 Estimated GFR 17 ml/min 04/19/18 04:47 BUN/Creatinine Ratio 12 % 04/19/18 04:47 Glucose 168 mg/dL (65-100) H 04/19/18 04:47 Calcium 5.3 mg/dL (8.4-10.2) L* 04/19/18 04:47 Total Bilirubin 0.20 mg/dL (0.1-1.2) 04/19/18 04:47 AST 12 units/L (5-40) 04/19/18 04:47 ALT < 5 units/L (7-56) L 04/19/18 04:47 Alkaline Phosphatase 52 units/L (35-129) 04/19/18 04:47 Total Protein 5.8 g/dL (6.3-8.2) L D 04/19/18 04:47 Albumin 3.2 g/dL (3.9-5) L 04/19/18 04:47 Albumin/Globulin Ratio 1.2 % 04/19/18 04:47
[2018-04-19] MEDS: NORVASC PO SCH (10:22)
[2018-04-19] MEDS: PEPCID PO SCH (10:22)
[2018-04-19] MEDS: COLACE PO SCH ×2 (10:22→21:52)
[2018-04-19] MEDS: TUMS PO SCH ×2 (10:23→21:51)
[2018-04-19 10:42] LABS: % Iron Saturation 17.93 %
[2018-04-19] MEDS ORDERED: CALCIUM CHLORIDE 1,000 MG in NACL 0.9% 50 ML IV ONE ×2 (10:45→11:15)
[2018-04-19] MEDS: HumaLOG SUB-Q SCH ×3 (12:37→21:49)
[2018-04-19] MEDS: APRESOLINE IV PRN (13:32)
[2018-04-19] MEDS ORDERED: SUBLIMAZE ONE (14:30)
[2018-04-19] MEDS ORDERED: VERSED ONE (14:30)
[2018-04-19] MEDS ORDERED: HEPARIN/NS 5000 UNIT/500ML(CATH LAB) 500 ML IR ONE (14:32)
[2018-04-19] MEDS ORDERED: NACL 0.9% 250ML 250 ML ONE (14:32)
[2018-04-19] MEDS: XYLOCAINE 1%/ EPI 1:100,000 INFILTRATI ONE ×2 (14:46→14:49)
[2018-04-19] MEDS: HEPARIN 10,000 UNITS/10 ML ONE ×2 (14:52→14:53)
--- NOTE | 2018-04-19 15:00 | Operative Report ---
Operative Report Operative Report: Exam: Ultrasound and fluoroscopic guided placement of tunneled hemodialysis catheter Clinical indication: Patient with history of end-stage renal disease requiring dialysis access Date: 04/19/2018 Procedure: Following an explanation of the risks, benefits and alternatives; written informed consent was obtained. The patient was brought to the radiographic suite and placed in supine position on the examination table. Initial ultrasound evaluation of her neck demonstrated a patent right internal jugular vein. The patient's right neck and chest wall were prepped and draped in usual sterile fashion. 1% lidocaine was used for anesthesia. Under ultrasound guidance, the right internal jugular vein was cannulated with a 7 cm 18-gauge needle. A 0.035 guidewire was advanced to the IVC under fluoroscopy to document intravenous positioning and for anchoring. The needle was removed. An appropriate catheter exit site was chosen along the lateral right chest wall. 1% lidocaine was used for anesthesia at the catheter exit site and along the tunnel tract. A Bard 23 cm tunneled hemodialysis catheter was then tunneled antegrade from the catheter exit site to the venotomy site. Following serial dilation over the guidewire under fluoroscopy, a 15 Persian peel-away sheath was placed over the guidewire under fluoroscopy. The trocar and guidewire were removed and the catheter inserted to the peel-away sheath. The peel-away sheath was removed and the catheter tip position in the proximal right atrium. Both ports flushed and aspirated easily and were then locked with appropriate volumes of heparin. The venotomy was closed using 4-0 Vicryl suture. Fluoroscopy Vicryl suture was also used to approximate the catheter exit site. Dermabond was then applied to both wounds. Sterile dressings were then applied. The patient tolerated the procedure well. There were no immediate post procedure complications. Conscious sedation was performed under the guidance of radiologic nursing. Continuous cardiopulmonary monitoring was utilized. Impression: Ultrasound of fluoroscopic guided placement of tunneled hemodialysis catheter via the right internal jugular vein.
[2018-04-19 16:10] LABS: Hepatitis C Virus Antibody Non-Reactive (NonReactive)
[2018-04-19] MEDS: HEPARIN SUB-Q SCH ×2 (20:32→21:51)
[2018-04-19] MEDS ORDERED: NACL 0.9 (PRIMING MACHINE ONLY DIALYSIS) MC ONE (21:27)
[2018-04-19] MEDS ORDERED: PROCARDIA XL PO SCH (22:00)
[2018-04-20] MEDS: HEPARIN SUB-Q SCH ×3 (06:01→22:38)
[2018-04-20] MEDS: HumaLOG SUB-Q SCH ×4 (07:51→22:35)
--- NOTE | 2018-04-20 08:00 | Progress Note ---
Assessment and Plan Assessment and plan: 77-year-old woman who presented with weakness. She was sent by her process improvement consultant for direct admission for worsening chronic kidney disease, nonadherence to medications. She was sent to the hospital for initiation of renal replacement therapy. Diagnoses Acute on chronic kidney disease requiring renal replacement, stage 4-5 Hypertensive urgency Anemia of chronic disease Hypocalcemia Secondary hyperparathyroidism Type 2 diabetes Metabolic acidosis Uremia -non [facility] Continue renal replacement therapy per nephrology Optimize blood pressure medications, optimize insulins, dietitian consult Monitor renal function closely, will likely need continued outpatient hemodialysis, dw case management Heparin for DVT prophylaxis has been counseled on improved adherence to meds and rx History Interval history: Review of systems Constitutional: No fevers, no malaise, no joint pains CVS: No chest pain, no orthopnea, no dyspnea on exertion, no pedal edema GI: No abdominal pain, no diarrhea, no vomiting, no constipation Respiratory: No shortness of breath, no wheezing, no coughing Hospitalist Physical - Physical exam Narrative exam: General.: Appears well, no distress, nontoxic HEENT: Moist mucous membranes, extraocular muscles intact, no lymphadenopathy Neck: supple Cardiac: S1-S2 heard Lungs: clear to auscultation bilaterally Abdomen: soft , nontender, nondistended, bowel sounds positive Extremities: no edema clubbing or cyanosis Skin: no rash or lesions Neurologic: no gross focal deficits Psych: calm, and cooperative - Constitutional Vitals: Temp Pulse Resp BP Pulse Ox 98.3 F 81 20 148/62 100 04/20/18 01:48 04/20/18 01:48 04/20/18 01:48 04/20/18 01:48 04/20/18 01:48 General appearance: Present: no acute distress, well-nourished Results - Labs CBC & Chem 7: 04/18/18 15:13 04/19/18 04:47 Labs: Laboratory Last Values WBC 5.5 K/mm3 (4.5-11.0) 04/18/18 15:13 RBC 3.36 M/mm3 (3.65-5.03) L 04/18/18 15:13 Hgb 9.4 gm/dl (10.1-14.3) L 04/18/18 15:13 Hct 28.2 % (30.3-42.9) L 04/18/18 15:13 MCV 84 fl (79-97) 04/18/18 15:13 MCH 28 pg (28-32) 04/18/18 15:13 MCHC 33 % (30-34) 04/18/18 15:13 RDW 15.3 % (13.2-15.2) H 04/18/18 15:13 Plt Count 324 K/mm3 (140-440) 04/18/18 15:13 Lymph % (Auto) 24.5 % (13.4-35.0) 04/18/18 15:13 [place] % (Auto) 11.5 % (0.0-7.3) H 04/18/18 15:13 Eos % (Auto) 2.1 % (0.0-4.3) 04/18/18 15:13 Baso % (Auto) 1.2 % (0.0-1.8) 04/18/18 15:13 Lymph # 1.3 K/mm3 (1.2-5.4) 04/18/18 15:13 [place] # 0.6 K/mm3 (0.0-0.8) 04/18/18 15:13 Eos # 0.1 K/mm3 (0.0-0.4) 04/18/18 15:13 Baso # 0.1 K/mm3 (0.0-0.1) 04/18/18 15:13 Seg Neutrophils % 60.7 % (40.0-70.0) 04/18/18 15:13 Seg Neutrophils # 3.3 K/mm3 (1.8-7.7) 04/18/18 15:13 Sodium 136 mmol/L (137-145) L 04/19/18 04:47 Potassium 3.7 mmol/L (3.6-5.0) 04/19/18 04:47 Chloride 103.0 mmol/L (98-107) 04/19/18 04:47 Carbon Dioxide 18 mmol/L (22-30) L 04/19/18 04:47 Anion Gap 19 mmol/L 04/19/18 04:47 BUN 38 mg/dL (7-17) H 04/19/18 04:47 Creatinine 3.2 mg/dL (0.7-1.2) H 04/19/18 04:47 Estimated GFR 17 ml/min 04/19/18 04:47 BUN/Creatinine Ratio 12 % 04/19/18 04:47 Glucose 168 mg/dL (65-100) H 04/19/18 04:47 Calcium 5.3 mg/dL (8.4-10.2) L* 04/19/18 04:47 Iron 52 ug/dL (37-170) 04/19/18 09:37 TIBC 290 mcg/dL (250-450) 04/19/18 09:37 % Saturation 17.93 % 04/19/18 09:37 Transferrin 239 mg/dl (192-382) 04/19/18 09:37 Ferritin 14.4 ng/mL (13.0-400.0) 04/19/18 09:37 Total Bilirubin 0.20 mg/dL (0.1-1.2) 04/19/18 04:47 AST 12 units/L (5-40) 04/19/18 04:47 ALT < 5 units/L (7-56) L 04/19/18 04:47 Alkaline Phosphatase 52 units/L (35-129) 04/19/18 04:47 Total Protein 5.8 g/dL (6.3-8.2) L D 04/19/18 04:47 Albumin 3.2 g/dL (3.9-5) L 04/19/18 04:47 Albumin/Globulin Ratio 1.2 % 04/19/18 04:47 Vitamin B12 812.7 pg/mL (211-911) 04/19/18 09:37 PTH Intact 19.21 pg/mL (15-65) 04/19/18 09:37 Hepatitis A IgM Ab Non-reactive (NonReactive) 04/19/18 09:37 Hep B Core IgM Ab Non-reactive (NonReactive) 04/19/18 09:37 Hepatitis C Antibody Non-reactive (NonReactive) 04/19/18 09:37 Nutrition/Malnutrition Assess - Dietary Evaluation Nutrition/Malnutrition Findings: Nutrition Notes Start: 04/19/18 13:19 Freq: Status: Active Protocol: Document 04/19/18 13:19 [facility] (Rec: 04/19/18 13:28 [facility] [id number]) Nutrition Notes Need for Assessment generated from: MD Order,Low BMI Initial or Follow up Assessment Current Diagnosis CKD (stage V CKD),Diabetes, Hypertension Current Diet Renal Labs/Tests BUN 38 Cr 3.2 BG 168 Ca 5.3 (adjusted 5.94) Pertinent Medications Ca carbonate, Ca Chloride x 1 dose Height 5 ft 2 in Weight 45.45 kg Usual Body Weight 81.8 kg [place] Body Weight (kg) 50.00 BMI 18.3 Intake Prior to Admission Fair Weight change and time frame Pt with unintentional 44.4% wt loss over the past yrs ( unsure of number of yrs) Weight Status Underweight Subjective/Other Information RD consulted for diet education; pt also screened for low BMI. Pt's granddaughter answers most assessment questions. Pt not appropriate for diet education at time of visit. Scheduled for permacath placement today for HD. Pt usually drinks Glucerna at home and typically eats 1-2 times daily. Currently NPO for procedure. 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 No Is Patient Ambulatory and/or Out of Bed No REE-([facility]-confined to bed) 1066.344 Kcal/Kg value to use for calculation 30 Approximate Energy Requirements Using 1364 kcal/Kg Calculation Used for Recommendations Kcal/kg Additional Notes Pro needs 1.2-1.4g/k-64g/ day Fluid needs 1-1.5L/day Nutrition Intervention Change Diet Order: Continue current diet order Add Supplement/Snack (indicate name/kcal Glucerna BID /protein ) Provides kCal: 440 Provides Protein (gm) 20 Goal #1 PO intake of meals plus ONS to meet 100% energy and pro needs Goal #2 Wt maintenance and/or gain Anticipated Discharge Needs: Continue Glucerna 1-2 times daily for wt maintenance Follow-Up By: 04/20/18 Additional Comments F/U: diet advancement and ONS order
--- NOTE | 2018-04-20 08:53 | Consultation ---
History of Present Illness - Reason for Consult Consult date: 04/20/18 ESRD - History of Present Illness Patient with a history of end-stage renal disease was not yet initiated hemodialysis. The patient is currently agreeable to hemodialysis. Past History Past Medical History: diabetes, ESRD, hyperthyroidism, hypothyroidism Past Surgical History: Other (thyroidectomy, Eye sugery, Ovary) Social history: . denies: smoking, alcohol abuse, prescription drug abuse Family history: diabetes, hypertension Medications and Allergies Allergies Allergy/AdvReac Type Severity Reaction Status Date / Time aspirin Allergy Severe Unknown Verified 04/18/18 15:22 Home Medications Medication Instructions Recorded Confirmed Last Taken Type Lisinopril [Zestril TAB] 20 mg PO QDAY 02/07/17 10/31/17 Unknown History AtorvaSTATin [Lipitor] 40 mg PO QHS #30 tablet 11/01/17 Unknown Rx Docusate Sodium [Colace CAP] 100 mg PO BID #30 capsule 11/01/17 Unknown Rx Insulin Glargine,Hum.rec.anlog 12 unit SQ QHS 30 Days vial 11/01/17 Unknown Rx [Lantus] Insulin Lispro [Humalog 100 See Protocol SQ ACHS 30 Days 11/01/17 Unknown Rx UNITS/ML Kwikpen] insuln.pen Ranitidine HCl [Zantac 150 MG TAB] 150 mg PO BID #60 tablet 11/01/17 Unknown Rx amLODIPine [Norvasc] 10 mg PO DAILY #30 tablet 11/01/17 Unknown Rx levoFLOXacin [Levaquin TAB] 250 mg PO Q24HR #3 tablet 11/01/17 Unknown Rx Active Meds: Active Medications Acetaminophen (Tylenol) 650 mg PO Q4H PRN PRN Reason: Pain MILD(1-3)/Fever >100.5/PATRICIA Albuterol (Proventil) 2.5 mg IH Q4HRT PRN PRN Reason: Shortness Of Breath Amlodipine Besylate (Norvasc) 10 mg PO DAILY [facility] Last Admin: 04/19/18 10:22 Dose: Not Given Documented by: Atorvastatin Calcium (Lipitor) 40 mg PO QHS [facility] Last Admin: 04/19/18 21:52 Dose: 40 mg Documented by: Calcium Carbonate/Glycine (Tums) 1,000 mg PO BID [facility] Last Admin: 04/19/18 21:51 Dose: 1,000 mg Documented by: Dextrose (D50w (25gm) Syringe) 50 ml IV PRN PRN PRN Reason: Hypoglycemia Docusate Sodium (Colace) 100 mg PO BID [facility] Last Admin: 04/19/18 21:52 Dose: 100 mg Documented by: Famotidine (Pepcid) 20 mg PO DAILY [facility] Last Admin: 04/19/18 10:22 Dose: Not Given Documented by: Heparin Sodium (Porcine) (Heparin) 5,000 unit SUB-Q Q8HR [facility] Last Admin: 04/20/18 06:01 Dose: 5,000 unit Documented by: Hydralazine HCl (Apresoline) 10 mg IV Q4HR PRN PRN Reason: BP >160/100 Last Admin: 04/19/18 13:32 Dose: 10 mg Documented by: Hydromorphone HCl (Dilaudid) 0.25 mg IV Q4H PRN PRN Reason: Pain , Severe (7-10) Stop: 04/20/18 23:59 Last Admin: 04/19/18 01:37 Dose: 0.25 mg Documented by: Sodium Chloride (Nacl 0.45% 1000 Ml) 1,000 mls @ 42 mls/hr IV DIRECT DUNG Sodium Chloride (Nacl 0.9%) 100 mls @ 999 mls/hr IV TEJ PRN PRN Reason: Hypotension Insulin Glargine (Lantus) 12 units SUB-Q QHS [facility] Last Admin: 04/19/18 21:50 Dose: 12 units Documented by: Insulin Human Lispro (Humalog) 0 unit SUB-Q ACHS [facility]; Protocol Last Admin: 04/19/18 21:49 Dose: 2 unit Documented by: Lisinopril (Zestril) 20 mg PO QDAY [facility] Last Admin: 04/19/18 10:23 Dose: Not Given Documented by: Nifedipine (Procardia Xl) 60 mg PO Q12HR [facility] Last Admin: 04/19/18 21:53 Dose: 60 mg Documented by: Ondansetron HCl (Zofran) 4 mg IV Q8H PRN PRN Reason: Nausea And Vomiting Sodium Chloride (Sodium Chloride Flush Syringe 10 Ml) 10 ml IV BID [facility] Last Admin: 04/19/18 21:54 Dose: 10 ml Documented by: Sodium Chloride (Sodium Chloride Flush Syringe 10 Ml) 10 ml IV PRN PRN PRN Reason: LINE FLUSH Review of Systems All systems: negative Exam - Constitutional Vitals: Temp Pulse Resp BP Pulse Ox 98.3 F 65 18 127/53 100 04/20/18 01:48 04/20/18 07:42 04/20/18 07:42 04/20/18 07:42 04/20/18 07:42 General appearance: Present: no acute distress, cachectic, other (drowsey) - EENT Eyes: Present: EOM intact ENT: hearing intact - Neck Neck: Present: supple, normal ROM - Respiratory Respiratory effort: normal - Cardiovascular Rhythm: regular - Extremities Extremities: no ischemia - Abdominal General gastrointestinal: Present: deferred Female genitourinary: Present: deferred - Rectal Rectal Exam: deferred - Integumentary Integumentary: Present: clear, warm - Musculoskeletal Musculoskeletal: strength equal bilaterally - Psychiatric Psychiatric: appropriate mood/affect, cooperative - Neurologic Neurologic: no focal deficits, moves all extremities Results - Labs CBC & Chem 7: 04/18/18 15:13 04/19/18 04:47 Assessment and Plan The patient was brought to the [employer] [facility] for placement of a tunneled hemodialysis catheter. Following a trial of hemodialysis, the patient will benefit from long-term placement of venous access. This can be scheduled as an outpatient at the discretion of nephrology.
--- NOTE | 2018-04-20 09:10 | Progress Note ---
Subjective Interval history: Patient was seen today for follow-up on multiple renal related issues Events of this hospitalization noted Patient tolerated dialysis well yesterday Patient denies having any chest pain pressure or shortness of breath Vitals labs intake output medications were reviewed Social history: Reviewed Allergies: Reviewed Family history: Reviewed Physical examination HEENT: Oral mucosa moist no pallor or icterus Neck: Supple no JVD Chest: Clear to auscultation anteriorly CVS: Regular rate and rhythm S1 and S2 heard Abdomen: Soft nontender no suprapubic masses no organomegaly appreciable Extremity: Dry skin less than 1+ peripheral edema Musculoskeletal: No joint effusion noted in knees and ankle Neurological: Alert awake Dermatology: No petechial rashes Psychiatry: No evidence of any agitation and aggression noted Assessment and plan End-stage renal disease patient will require second hemodialysis treatment today Will like to order basic labs for dialysis today including CBC basic metabolic profile Check ionize calcium magnesium Discontinue nifedipine, increase lisinopril Start multivitamin Blood pressure appears to be adequately controlled,? Compliance with medication patient does have history of noncompliance, Anemia in end-stage renal disease: Will need erythropoietin 20,000 units subcutaneous 1 Metabolic acidosis requires follow-up Severe hypocalcemia likely resulting from vitamin D deficiency Will start vitamin D replacement, Iron deficiency: Patient will need IV iron Secondary hyperparathyroidism: From bone mineral standpoint, 8 to obtain phosphorus PTH is low 19.21 likely hypoparathyroidism Outpatient dialysis clinic is at [facility] Patient was adequately counseled and educated regarding multiple renal related issues Pertinent lab findings were discussed with patient, patient does exhibit good understanding of renal issues We'll continue to follow and make recommendation from renal standpoint Objective - Vital Signs Vital signs: Vital Signs - 12hr 04/19/18 04/19/18 04/19/18 21:42 22:00 22:58 Temperature 97.3 F L Pulse Rate 86 80 Respiratory 20 Rate Blood Pressure 158/76 O2 Sat by Pulse 99 99 Oximetry 04/20/18 04/20/18 01:48 07:42 Temperature 98.3 F Pulse Rate 81 65 Respiratory 20 18 Rate Blood Pressure 148/62 127/53 O2 Sat by Pulse 100 100 Oximetry - Lab 04/18/18 15:13 04/19/18 04:47 Most recent lab results Calcium 5.3 mg/dL (8.4-10.2) L* 04/19/18 04:47 Medications & Allergies - Medications Allergies/Adverse Reactions: Allergies aspirin Allergy (Severe, Verified 04/18/18 15:22) Unknown reflux. Home Medications: Home Medications Medication Instructions Recorded Confirmed Last Taken Type Lisinopril [Zestril TAB] 20 mg PO QDAY 02/07/17 10/31/17 Unknown History AtorvaSTATin [Lipitor] 40 mg PO QHS #30 tablet 11/01/17 Unknown Rx Docusate Sodium [Colace CAP] 100 mg PO BID #30 capsule 11/01/17 Unknown Rx Insulin Glargine,Hum.rec.anlog 12 unit SQ QHS 30 Days vial 11/01/17 Unknown Rx [Lantus] Insulin Lispro [Humalog 100 See Protocol SQ ACHS 30 Days 11/01/17 Unknown Rx UNITS/ML Kwikpen] insuln.pen Ranitidine HCl [Zantac 150 MG TAB] 150 mg PO BID #60 tablet 11/01/17 Unknown Rx amLODIPine [Norvasc] 10 mg PO DAILY #30 tablet 11/01/17 Unknown Rx levoFLOXacin [Levaquin TAB] 250 mg PO Q24HR #3 tablet 11/01/17 Unknown Rx Active Medications: Generic Name Dose Route Start Last Admin Trade Name Freq PRN Reason Stop Dose Admin Acetaminophen 650 mg 04/18/18 14:24 Tylenol PO Q4H PRN Pain MILD(1-3)/Fever >100.5/PATRICIA Albuterol 2.5 mg 04/18/18 14:24 Proventil IH Q4HRT PRN Shortness Of Breath Amlodipine Besylate 10 mg 04/19/18 10:00 04/19/18 10:22 Norvasc PO Not Given DAILY DUNG Atorvastatin Calcium 40 mg 04/18/18 22:00 04/19/18 21:52 Lipitor PO 40 mg QHS DUNG Administration Calcium Carbonate/Glycine 1,000 mg 04/19/18 10:00 04/19/18 21:51 Tums PO 1,000 mg BID DUNG Administration Dextrose 50 ml 04/19/18 10:23 D50w (25gm) Syringe IV PRN PRN Hypoglycemia Docusate Sodium 100 mg 04/18/18 22:00 04/19/18 21:52 Colace PO 100 mg BID DUNG Administration Famotidine 20 mg 04/19/18 10:00 04/19/18 10:22 Pepcid PO Not Given DAILY DUNG Heparin Sodium (Porcine) 5,000 unit 04/19/18 14:00 04/20/18 06:01 Heparin SUB-Q 5,000 unit Q8HR DUNG Administration Hydralazine HCl 10 mg 04/19/18 10:27 04/19/18 13:32 Apresoline IV 10 mg Q4HR PRN Administration BP >160/100 Hydromorphone HCl 0.25 mg 04/18/18 23:25 04/19/18 01:37 Dilaudid IV 04/20/18 23:59 0.25 mg Q4H PRN Administration Pain , Severe (7-10) Sodium Chloride 1,000 mls @ 42 mls/hr 04/18/18 15:00 Nacl 0.45% 1000 Ml IV DIRECT DUNG Sodium Chloride 100 mls @ 999 mls/hr 04/19/18 08:56 Nacl 0.9% IV TEJ PRN Hypotension Insulin Glargine 12 units 04/18/18 22:00 04/19/18 21:50 Lantus SUB-Q 12 units QHS DUNG Administration Insulin Human Lispro 0 unit 04/19/18 11:30 04/19/18 21:49 Humalog SUB-Q 2 unit ACHS DUNG Administration Protocol Lisinopril 20 mg 04/19/18 10:00 04/19/18 10:23 Zestril PO Not Given QDAY [facility] Nifedipine 60 mg 04/19/18 22:00 04/19/18 21:53 Procardia Xl PO 60 mg Q12HR DUNG Administration Ondansetron HCl 4 mg 04/18/18 14:24 Zofran IV Q8H PRN Nausea And Vomiting Sodium Chloride 10 ml 04/18/18 22:00 04/19/18 21:54 Sodium Chloride Flush Syringe 10 Ml IV 10 ml BID DUNG Administration Sodium Chloride 10 ml 04/18/18 14:24 Sodium Chloride Flush Syringe 10 Ml IV PRN PRN LINE FLUSH
[2018-04-20 10:29] LABS: Basophils % (Auto) 0.4 % (0.0-1.8); Hematocrit 27.8 % (30.3-42.9); Hemoglobin 9.1 gm/dl (10.1-14.3); Lymphocytes # (Auto) 0.3 K/mm3 (1.2-5.4); Mean Corpuscular HGB Conc 33 % (30-34); Mean Corpuscular Volume 84 fl (79-97); Monocytes # (Auto) 0.5 K/mm3 (0.0-0.8); Monocytes % (Auto) 7.5 % (0.0-7.3); Platelet Count 318 K/mm3 (140-440); Red Blood Count 3.31 M/mm3 (3.65-5.03); Red Cell Distribution Width 15.2 % (13.2-15.2)
[2018-04-20] MEDS: COLACE PO SCH ×2 (10:30→22:37)
[2018-04-20] MEDS: TUMS PO SCH ×2 (10:31→22:36)
[2018-04-20 10:42] LABS: Calcium 7.9 mg/dL (8.4-10.2)
[2018-04-20] MEDS ORDERED: VITAMIN D2 PO SCH (11:00)
[2018-04-20] MEDS ORDERED: PROCRIT SUB-Q NR (11:00)
[2018-04-20] MEDS ORDERED: FERRLECIT 250 MG in NACL 0.9% 100 ML IV ONE (12:00)
[2018-04-20] MEDS ORDERED: NACL 0.9% 100 ML IV PRN (13:20)
[2018-04-20] MEDS: ZESTRIL PO SCH ×2 (13:31→22:37)
--- NOTE | 2018-04-20 15:09 | Ultrasound Report ---
ULTRASOUND RENAL BILATERAL HISTORY: Renal failure. TECHNIQUE: transabdominal ultrasound with color Doppler interrogation. COMPARISON: 10/03/15. FINDINGS: The right kidney measures 8.9 x 5.2 x 5.4cm. Right renal cortex: 1.2cm. The left kidney measures 8.3 x 4.8 x 4.3cm. Left renal cortex: 0.6cm. Both kidneys are mildly atrophic with increased cortical echotexture suggesting chronic renal parenchymal disease. There are scattered simple appearing renal cysts in the right kidney measuring up to 1.5 cm. No evidence for shadowing calculus, mass or hydronephrosis. The bladder is partially empty but unremarkable. IMPRESSION: Chronic renal parenchymal disease. Scattered simple right renal cysts. No overwhelming change since 10/03/15.
[2018-04-20] MEDS ORDERED: NACL 0.9 (PRIMING MACHINE ONLY DIALYSIS) MC ONE (17:05)
[2018-04-20] MEDS: SODIUM CHLORIDE FLUSH SYRINGE 10 ML IV SCH ×2 (22:08→22:40)
[2018-04-20] MEDS: NORVASC PO SCH (22:08)
[2018-04-20] MEDS: PEPCID PO SCH (22:08)
[2018-04-20] MEDS: VITAMIN D3 PO SCH (22:09)
[2018-04-20] MEDS: HEMOCYTE PLUS PO SCH (22:09)
[2018-04-20] MEDS: LANTUS SUB-Q SCH (22:39)
[2018-04-21] MEDS: D50W (25GM) Syringe IV PRN ×2 (03:39→04:43)
[2018-04-21] MEDS: HEPARIN SUB-Q SCH ×3 (05:51→22:07)
--- NOTE | 2018-04-21 07:50 | Progress Note ---
Assessment and Plan Assessment and plan: 77-year-old woman who presented with weakness. 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 She was sent to the hospital for initiation of renal replacement therapy. Diagnoses Acute on chronic kidney disease requiring renal replacement, stage 4-5 Hypertensive urgency Anemia of chronic disease Hypocalcemia Secondary hyperparathyroidism Type 2 diabetes Metabolic acidosis Uremia -non adherence [facility] Continue renal replacement therapy per nephrology Optimize blood pressure medications, optimize insulins, dietitian consult Monitor renal function closely, will likely need continued outpatient hemodialysis, dw case management Heparin for DVT prophylaxis has been counseled on improved adherence to meds and rx History Interval history: Review of systems Constitutional: No fevers, no malaise, no joint pains CVS: No chest pain, no orthopnea, no dyspnea on exertion, no pedal edema GI: No abdominal pain, no diarrhea, no vomiting, no constipation Respiratory: No shortness of breath, no wheezing, no coughing Hospitalist Physical - Physical exam Narrative exam: General.: Appears well, no distress, nontoxic HEENT: Moist mucous membranes, extraocular muscles intact, no lymphadenopathy Neck: supple Cardiac: S1-S2 heard Lungs: clear to auscultation bilaterally Abdomen: soft , nontender, nondistended, bowel sounds positive Extremities: no edema clubbing or cyanosis Skin: no rash or lesions Neurologic: no gross focal deficits Psych: calm, and cooperative - Constitutional Vitals: Temp Pulse Resp BP Pulse Ox 97.6 F 80 20 195/90 100 04/20/18 19:45 04/20/18 22:37 04/20/18 19:45 04/20/18 22:37 04/20/18 22:38 General appearance: Present: no acute distress, cachectic, other (drowsey) Results - Labs CBC & Chem 7: 04/20/18 10:11 04/21/18 03:59 Labs: Laboratory Last Values WBC 6.5 K/mm3 (4.5-11.0) 04/20/18 10:11 RBC 3.31 M/mm3 (3.65-5.03) L 04/20/18 10:11 Hgb 9.1 gm/dl (10.1-14.3) L 04/20/18 10:11 Hct 27.8 % (30.3-42.9) L 04/20/18 10:11 MCV 84 fl (79-97) 04/20/18 10:11 MCH 28 pg (28-32) 04/20/18 10:11 MCHC 33 % (30-34) 04/20/18 10:11 RDW 15.2 % (13.2-15.2) 04/20/18 10:11 Plt Count 318 K/mm3 (140-440) 04/20/18 10:11 Lymph % (Auto) 4.0 % (13.4-35.0) L 04/20/18 10:11 [place] % (Auto) 7.5 % (0.0-7.3) H 04/20/18 10:11 Eos % (Auto) 0.0 % (0.0-4.3) 04/20/18 10:11 Baso % (Auto) 0.4 % (0.0-1.8) 04/20/18 10:11 Lymph # 0.3 K/mm3 (1.2-5.4) L 04/20/18 10:11 [place] # 0.5 K/mm3 (0.0-0.8) 04/20/18 10:11 Eos # 0.0 K/mm3 (0.0-0.4) 04/20/18 10:11 Baso # 0.0 K/mm3 (0.0-0.1) 04/20/18 10:11 Seg Neutrophils % 88.1 % (40.0-70.0) H 04/20/18 10:11 Seg Neutrophils # 5.8 K/mm3 (1.8-7.7) 04/20/18 10:11 Sodium 141 mmol/L (137-145) 04/20/18 10:11 Potassium 3.8 mmol/L (3.6-5.0) 04/20/18 10:11 Chloride 105.1 mmol/L (98-107) 04/20/18 10:11 Carbon Dioxide 24 mmol/L (22-30) 04/20/18 10:11 Anion Gap 16 mmol/L 04/20/18 10:11 BUN 25 mg/dL (7-17) H 04/20/18 10:11 Creatinine 2.3 mg/dL (0.7-1.2) H 04/20/18 10:11 Estimated GFR 25 ml/min 04/20/18 10:11 BUN/Creatinine Ratio 11 % 04/20/18 10:11 Glucose 43 mg/dL (65-100) L 04/21/18 03:59 POC Glucose 120 (70-105) H 04/21/18 06:00 Calcium 7.9 mg/dL (8.4-10.2) L D 04/20/18 10:11 Phosphorus 4.00 mg/dL (2.5-4.5) 04/20/18 10:11 Magnesium 2.00 mg/dL (1.7-2.3) 04/20/18 10:11 Iron 52 ug/dL (37-170) 04/19/18 09:37 TIBC 290 mcg/dL (250-450) 04/19/18 09:37 % Saturation 17.93 % 04/19/18 09:37 Transferrin 239 mg/dl (192-382) 04/19/18 09:37 Ferritin 14.4 ng/mL (13.0-400.0) 04/19/18 09:37 Total Bilirubin 0.20 mg/dL (0.1-1.2) 04/19/18 04:47 AST 12 units/L (5-40) 04/19/18 04:47 ALT < 5 units/L (7-56) L 04/19/18 04:47 Alkaline Phosphatase 52 units/L (35-129) 04/19/18 04:47 Total Protein 5.8 g/dL (6.3-8.2) L D 04/19/18 04:47 Albumin 3.2 g/dL (3.9-5) L 04/19/18 04:47 Albumin/Globulin Ratio 1.2 % 04/19/18 04:47 Vitamin B12 812.7 pg/mL (211-911) 04/19/18 09:37 25-OH Vitamin D Total 17 ng/mL (30-100) L 04/19/18 09:37 PTH Intact 19.21 pg/mL (15-65) 04/19/18 09:37 Hepatitis A IgM Ab Non-reactive (NonReactive) 04/19/18 09:37 Hep B Core IgM Ab Non-reactive (NonReactive) 04/19/18 09:37 Hepatitis C Antibody Non-reactive (NonReactive) 04/19/18 09:37 Nutrition/Malnutrition Assess - Dietary Evaluation Nutrition/Malnutrition Findings: Nutrition Notes Start: 04/19/18 13:19 Freq: Status: Active Protocol: Document 04/20/18 14:02 OL (Rec: 04/20/18 14:04 OL [id number]) Nutrition Notes Initial or Follow up Brief Note Current Diagnosis CKD (stage V CKD),Diabetes, Hypertension Current Diet Renal Height 5 ft 2 in Weight 51.483 kg [place] Body Weight (kg) 50.00 BMI 20.7 Subjective/Other Information Diet advanced to renal. ONS added to order. RD will continue to monitor and follow . Nutrition Intervention Add Supplement/Snack (indicate name/kcal Glucerna BID /protein ) Provides kCal: 440 Provides Protein (gm) 20 Anticipated Discharge Needs: Continue Glucerna 1-2 times daily for wt maintenance Follow-Up By: 04/21/18 Additional Comments f/u: intakes
--- NOTE | 2018-04-21 08:43 | Progress Note ---
Objective - Vital Signs Vital signs: Vital Signs - 12hr 04/20/18 04/20/18 04/20/18 22:00 22:37 22:38 Temperature Pulse Rate 90 80 Respiratory Rate Blood Pressure 195/90 O2 Sat by Pulse 100 Oximetry 04/21/18 08:27 Temperature 99.1 F Pulse Rate 86 Respiratory 16 Rate Blood Pressure 165/80 O2 Sat by Pulse 98 Oximetry - Lab 04/20/18 10:11 04/21/18 03:59 Most recent lab results Calcium 7.9 mg/dL (8.4-10.2) L D 04/20/18 10:11 Phosphorus 4.00 mg/dL (2.5-4.5) 04/20/18 10:11 Magnesium 2.00 mg/dL (1.7-2.3) 04/20/18 10:11 Medications & Allergies - Medications Allergies/Adverse Reactions: Allergies aspirin Allergy (Severe, Verified 04/18/18 15:22) Unknown reflux. Home Medications: Home Medications Medication Instructions Recorded Confirmed Last Taken Type Lisinopril [Zestril TAB] 20 mg PO QDAY 02/07/17 10/31/17 Unknown History AtorvaSTATin [Lipitor] 40 mg PO QHS #30 tablet 11/01/17 Unknown Rx Docusate Sodium [Colace CAP] 100 mg PO BID #30 capsule 11/01/17 Unknown Rx Insulin Glargine,Hum.rec.anlog 12 unit SQ QHS 30 Days vial 11/01/17 Unknown Rx [Lantus] Insulin Lispro [Humalog 100 See Protocol SQ ACHS 30 Days 11/01/17 Unknown Rx UNITS/ML Kwikpen] insuln.pen Ranitidine HCl [Zantac 150 MG TAB] 150 mg PO BID #60 tablet 11/01/17 Unknown Rx amLODIPine [Norvasc] 10 mg PO DAILY #30 tablet 11/01/17 Unknown Rx levoFLOXacin [Levaquin TAB] 250 mg PO Q24HR #3 tablet 11/01/17 Unknown Rx Active Medications: Generic Name Dose Route Start Last Admin Trade Name Freq PRN Reason Stop Dose Admin Acetaminophen 650 mg 04/18/18 14:24 Tylenol PO Q4H PRN Pain MILD(1-3)/Fever >100.5/PATRICIA Albuterol 2.5 mg 04/18/18 14:24 Proventil IH Q4HRT PRN Shortness Of Breath Amlodipine Besylate 10 mg 04/19/18 10:00 04/20/18 22:08 Norvasc PO Not Given DAILY [facility] Atorvastatin Calcium 40 mg 04/18/18 22:00 04/20/18 22:38 Lipitor PO 40 mg QHS [facility] Administration Calcium Carbonate/Glycine 1,000 mg 04/19/18 10:00 04/20/18 22:36 Tums PO 1,000 mg BID [facility] Administration Cholecalciferol 5,000 unit 04/20/18 12:00 04/20/18 22:09 Vitamin D3 PO Not Given DAILY [facility] Dextrose 50 ml 04/19/18 10:23 04/21/18 04:43 D50w (25gm) Syringe IV 50 ml PRN PRN Administration Hypoglycemia Docusate Sodium 100 mg 04/18/18 22:00 04/20/18 22:37 Colace PO 100 mg BID [facility] Administration Famotidine 20 mg 04/19/18 10:00 04/20/18 22:08 Pepcid PO Not Given DAILY [facility] Heparin Sodium (Porcine) 5,000 unit 04/19/18 14:00 04/21/18 05:51 Heparin SUB-Q 5,000 unit Q8HR [facility] Administration Hydralazine HCl 10 mg 04/19/18 10:27 04/19/18 13:32 Apresoline IV 10 mg Q4HR PRN Administration BP >160/100 Sodium Chloride 1,000 mls @ 42 mls/hr 04/18/18 15:00 Nacl 0.45% 1000 Ml IV DIRECT [facility] Sodium Chloride 100 mls @ 999 mls/hr 04/19/18 08:56 Nacl 0.9% IV TEJ PRN Hypotension Insulin Glargine 12 units 04/18/18 22:00 04/20/18 22:39 Lantus SUB-Q 12 units QHS [facility] Administration Insulin Human Lispro 0 unit 04/19/18 11:30 04/20/18 22:35 [facility] Protocol Lisinopril 20 mg 04/20/18 11:00 04/20/18 22:37 Zestril PO 20 mg BID [facility] Administration Multivitamins/Iron 1 each 04/20/18 12:00 04/20/18 22:09 Hemocyte Plus PO Not Given QDAY [facility] Ondansetron HCl 4 mg 04/18/18 14:24 Zofran IV Q8H PRN Nausea And Vomiting Sodium Chloride 10 ml 04/18/18 22:00 04/20/18 22:40 Sodium Chloride Flush Syringe 10 Ml IV 10 ml BID [facility] Administration Sodium Chloride 10 ml 04/18/18 14:24 Sodium Chloride Flush Syringe 10 Ml IV PRN PRN LINE FLUSH
--- NOTE | 2018-04-21 08:46 | Progress Note ---
Subjective Interval history: Patient was seen today for follow-up on multiple renal related issues Tolerated second dialysis treatment well Pending acceptance at [facility] per patient's choice Patient denies having any chest pain pressure or shortness of breath Vitals labs intake output medications were reviewed Social history: Reviewed Allergies: Reviewed Family history: Reviewed Physical examination HEENT: Oral mucosa moist no pallor or icterus Neck: Supple no JVD Chest: Clear to auscultation anteriorly Central venous catheter site: Unremarkable CVS: Regular rate and rhythm S1 and S2 heard Abdomen: Soft nontender no suprapubic masses no organomegaly appreciable Extremity: Dry skin less than 1+ peripheral edema Musculoskeletal: No joint effusion noted in knees and ankle Neurological: Alert awake Dermatology: No petechial rashes Psychiatry: No evidence of any agitation and aggression noted Assessment and plan End-stage renal disease: Hemodialysis tomorrow and then can be discharged if accepted at [facility] Hypocalcemia improving continue with vitamin D and calcium replacement Diabetes mellitus type 2 needs ongoing monitoring and follow-up Hypertension: Continue to adjust medication Catheter care: Education was done to the patient and family Patient is currently established in our clinic and was initiated on renal replacement therapy due to symptomatic renal failure This is going to be a time-limited trial for at least a month and if patient wants to pursue with hemodialysis at that point we will consider of fistula creation Secondary hyperparathyroidism: From bone mineral standpoint, 8 to obtain phospho filippo PTH is low 19.21 likely hypoparathyroidism Outpatient dialysis clinic is at [facility] dialysis facility per patient's choice with [facility] Patient was adequately counseled and educated regarding multiple renal related issues Pertinent lab findings were discussed with patient, patient does exhibit good understanding of renal issues Family has been counseled and educated about all the renal related issues We'll continue to follow and make recommendation from renal standpoint Objective - Vital Signs Vital signs: Vital Signs - 12hr 04/20/18 04/20/18 04/20/18 22:00 22:37 22:38 Temperature Pulse Rate 90 80 Respiratory Rate Blood Pressure 195/90 O2 Sat by Pulse 100 Oximetry 04/21/18 08:27 Temperature 99.1 F Pulse Rate 86 Respiratory 16 Rate Blood Pressure 165/80 O2 Sat by Pulse 98 Oximetry - Lab 04/20/18 10:11 04/21/18 03:59 Most recent lab results Calcium 7.9 mg/dL (8.4-10.2) L D 04/20/18 10:11 Phosphorus 4.00 mg/dL (2.5-4.5) 04/20/18 10:11 Magnesium 2.00 mg/dL (1.7-2.3) 04/20/18 10:11 Medications & Allergies - Medications Allergies/Adverse Reactions: Allergies aspirin Allergy (Severe, Verified 04/18/18 15:22) Unknown reflux. Home Medications: Home Medications Medication Instructions Recorded Confirmed Last Taken Type Lisinopril [Zestril TAB] 20 mg PO QDAY 02/07/17 10/31/17 Unknown History AtorvaSTATin [Lipitor] 40 mg PO QHS #30 tablet 11/01/17 Unknown Rx Docusate Sodium [Colace CAP] 100 mg PO BID #30 capsule 11/01/17 Unknown Rx Insulin Glargine,Hum.rec.anlog 12 unit SQ QHS 30 Days vial 11/01/17 Unknown Rx [Lantus] Insulin Lispro [Humalog 100 See Protocol SQ ACHS 30 Days 11/01/17 Unknown Rx UNITS/ML Kwikpen] insuln.pen Ranitidine HCl [Zantac 150 MG TAB] 150 mg PO BID #60 tablet 11/01/17 Unknown Rx amLODIPine [Norvasc] 10 mg PO DAILY #30 tablet 11/01/17 Unknown Rx levoFLOXacin [Levaquin TAB] 250 mg PO Q24HR #3 tablet 11/01/17 Unknown Rx Active Medications: Generic Name Dose Route Start Last Admin Trade Name Freq PRN Reason Stop Dose Admin Acetaminophen 650 mg 04/18/18 14:24 Tylenol PO Q4H PRN Pain MILD(1-3)/Fever >100.5/PATRICIA Albuterol 2.5 mg 04/18/18 14:24 Proventil IH Q4HRT PRN Shortness Of Breath Amlodipine Besylate 10 mg 04/19/18 10:00 04/20/18 22:08 Norvasc PO Not Given DAILY [facility] Atorvastatin Calcium 40 mg 04/18/18 22:00 04/20/18 22:38 Lipitor PO 40 mg QHS [facility] Administration Calcium Carbonate/Glycine 1,000 mg 04/19/18 10:00 04/20/18 22:36 Tums PO 1,000 mg BID [facility] Administration Cholecalciferol 5,000 unit 04/20/18 12:00 04/20/18 22:09 Vitamin D3 PO Not Given DAILY [facility] Dextrose 50 ml 04/19/18 10:23 04/21/18 04:43 D50w (25gm) Syringe IV 50 ml PRN PRN Administration Hypoglycemia Docusate Sodium 100 mg 04/18/18 22:00 04/20/18 22:37 Colace PO 100 mg BID [facility] Administration Famotidine 20 mg 04/19/18 10:00 04/20/18 22:08 Pepcid PO Not Given DAILY [facility] Heparin Sodium (Porcine) 5,000 unit 04/19/18 14:00 04/21/18 05:51 Heparin SUB-Q 5,000 unit Q8HR [facility] Administration Hydralazine HCl 10 mg 04/19/18 10:27 04/19/18 13:32 Apresoline IV 10 mg Q4HR PRN Administration BP >160/100 Sodium Chloride 1,000 mls @ 42 mls/hr 04/18/18 15:00 Nacl 0.45% 1000 Ml IV DIRECT [facility] Sodium Chloride 100 mls @ 999 mls/hr 04/19/18 08:56 Nacl 0.9% IV TEJ PRN Hypotension Insulin Glargine 12 units 04/18/18 22:00 04/20/18 22:39 Lantus SUB-Q 12 units QHS [facility] Administration Insulin Human Lispro 0 unit 04/19/18 11:30 04/20/18 22:35 Humalog SUB-Q Not Given ACHS [facility] Protocol Lisinopril 20 mg 04/20/18 11:00 04/20/18 22:37 Zestril PO 20 mg BID [facility] Administration Multivitamins/Iron 1 each 04/20/18 12:00 04/20/18 22:09 Hemocyte Plus PO Not Given QDAY [facility] Ondansetron HCl 4 mg 04/18/18 14:24 Zofran IV Q8H PRN Nausea And Vomiting Sodium Chloride 10 ml 04/18/18 22:00 04/20/18 22:40 Sodium Chloride Flush Syringe 10 Ml IV 10 ml BID [facility] Administration Sodium Chloride 10 ml 04/18/18 14:24 Sodium Chloride Flush Syringe 10 Ml IV PRN PRN LINE FLUSH
[2018-04-21] MEDS: VITAMIN D3 PO SCH (10:02)
[2018-04-21] MEDS: TUMS PO SCH ×2 (10:03→22:06)
[2018-04-21] MEDS: HEMOCYTE PLUS PO SCH (10:03)
[2018-04-21] MEDS: ZESTRIL PO SCH ×2 (10:03→22:07)
[2018-04-21] MEDS: NORVASC PO SCH (10:04)
[2018-04-21] MEDS: COLACE PO SCH ×2 (10:04→22:06)
[2018-04-21] MEDS: PEPCID PO SCH (10:05)
[2018-04-21] MEDS: SODIUM CHLORIDE FLUSH SYRINGE 10 ML IV SCH ×2 (10:06→22:08)
[2018-04-21] MEDS: HumaLOG SUB-Q SCH ×3 (15:41→22:16)
[2018-04-21] MEDS: APRESOLINE IV PRN (15:41)
[2018-04-21] MEDS: TYLENOL PO PRN (22:06)
[2018-04-22] MEDS: HEPARIN SUB-Q SCH ×3 (05:38→21:41)
--- NOTE | 2018-04-22 07:29 | Progress Note ---
Assessment and Plan Assessment and plan: 77-year-old woman who presented with weakness. She was sent by her stripe matcher for direct admission for worsening chronic kidney disease, nonadherence to medications. She was sent to the hospital for initiation of renal replacement therapy. Diagnoses Acute on chronic kidney disease requiring renal replacement, stage 4-5 Hypertensive urgency Anemia of chronic disease Hypocalcemia Secondary hyperparathyroidism Type 2 diabetes Metabolic acidosis Uremia -non adherence [facility] Continue renal replacement therapy per nephrology Optimize blood pressure medications, optimize insulins, dietitian consult Monitor renal function closely, will likely need continued outpatient hemodialysis, dw case management Heparin for DVT prophylaxis has been counseled on improved adherence to meds and rx History Interval history: Review of systems Constitutional: No fevers, no malaise, no joint pains CVS: No chest pain, no orthopnea, no dyspnea on exertion, no pedal edema GI: No abdominal pain, no diarrhea, no vomiting, no constipation Respiratory: No shortness of breath, no wheezing, no coughing Hospitalist Physical - Physical exam Narrative exam: General.: Appears well, no distress, nontoxic HEENT: Moist mucous membranes, extraocular muscles intact, no lymphadenopathy Neck: supple Cardiac: S1-S2 heard Lungs: clear to auscultation bilaterally Abdomen: soft , nontender, nondistended, bowel sounds positive Extremities: no edema clubbing or cyanosis Skin: no rash or lesions Neurologic: no gross focal deficits Psych: calm, and cooperative - Constitutional Vitals: Temp Pulse Resp BP Pulse Ox 99.3 F 86 16 175/74 97 04/22/18 03:23 04/22/18 03:23 04/22/18 03:23 04/22/18 03:23 04/22/18 03:23 General appearance: Present: no acute distress, cachectic, other (drowsey) Results - Labs CBC & Chem 7: 04/20/18 10:11 04/21/18 03:59 Labs: Laboratory Last Values WBC 6.5 K/mm3 (4.5-11.0) 04/20/18 10:11 RBC 3.31 M/mm3 (3.65-5.03) L 04/20/18 10:11 Hgb 9.1 gm/dl (10.1-14.3) L 04/20/18 10:11 Hct 27.8 % (30.3-42.9) L 04/20/18 10:11 MCV 84 fl (79-97) 04/20/18 10:11 MCH 28 pg (28-32) 04/20/18 10:11 MCHC 33 % (30-34) 04/20/18 10:11 RDW 15.2 % (13.2-15.2) 04/20/18 10:11 Plt Count 318 K/mm3 (140-440) 04/20/18 10:11 Lymph % (Auto) 4.0 % (13.4-35.0) L 04/20/18 10:11 Clinch % (Auto) 7.5 % (0.0-7.3) H 04/20/18 10:11 Eos % (Auto) 0.0 % (0.0-4.3) 04/20/18 10:11 Baso % (Auto) 0.4 % (0.0-1.8) 04/20/18 10:11 Lymph # 0.3 K/mm3 (1.2-5.4) L 04/20/18 10:11 Clinch # 0.5 K/mm3 (0.0-0.8) 04/20/18 10:11 Eos # 0.0 K/mm3 (0.0-0.4) 04/20/18 10:11 Baso # 0.0 K/mm3 (0.0-0.1) 04/20/18 10:11 Seg Neutrophils % 88.1 % (40.0-70.0) H 04/20/18 10:11 Seg Neutrophils # 5.8 K/mm3 (1.8-7.7) 04/20/18 10:11 Sodium 141 mmol/L (137-145) 04/20/18 10:11 Potassium 3.8 mmol/L (3.6-5.0) 04/20/18 10:11 Chloride 105.1 mmol/L (98-107) 04/20/18 10:11 Carbon Dioxide 24 mmol/L (22-30) 04/20/18 10:11 Anion Gap 16 mmol/L 04/20/18 10:11 BUN 25 mg/dL (7-17) H 04/20/18 10:11 Creatinine 2.3 mg/dL (0.7-1.2) H 04/20/18 10:11 Estimated GFR 25 ml/min 04/20/18 10:11 BUN/Creatinine Ratio 11 % 04/20/18 10:11 Glucose 43 mg/dL (65-100) L 04/21/18 03:59 POC Glucose 180 (70-105) H 04/22/18 03:24 Calcium 7.9 mg/dL (8.4-10.2) L D 04/20/18 10:11 Phosphorus 4.00 mg/dL (2.5-4.5) 04/20/18 10:11 Magnesium 2.00 mg/dL (1.7-2.3) 04/20/18 10:11 Iron 52 ug/dL (37-170) 04/19/18 09:37 TIBC 290 mcg/dL (250-450) 04/19/18 09:37 % Saturation 17.93 % 04/19/18 09:37 Transferrin 239 mg/dl (192-382) 04/19/18 09:37 Ferritin 14.4 ng/mL (13.0-400.0) 04/19/18 09:37 Total Bilirubin 0.20 mg/dL (0.1-1.2) 04/19/18 04:47 AST 12 units/L (5-40) 04/19/18 04:47 ALT < 5 units/L (7-56) L 04/19/18 04:47 Alkaline Phosphatase 52 units/L (35-129) 04/19/18 04:47 Total Protein 5.8 g/dL (6.3-8.2) L D 04/19/18 04:47 Albumin 3.2 g/dL (3.9-5) L 04/19/18 04:47 Albumin/Globulin Ratio 1.2 % 04/19/18 04:47 Vitamin B12 812.7 pg/mL (211-911) 04/19/18 09:37 25-OH Vitamin D Total 17 ng/mL (30-100) L 04/19/18 09:37 25-Hydroxy Vitamin D2 . 04/19/18 09:37 25-Hydroxy Vitamin D3 . 04/19/18 09:37 RBC Folic Acid 954 ng/mL (>280) 04/19/18 09:37 PTH Intact 19.21 pg/mL (15-65) 04/19/18 09:37 Hepatitis A IgM Ab Non-reactive (NonReactive) 04/19/18 09:37 Hep B Core IgM Ab Non-reactive (NonReactive) 04/19/18 09:37 Hepatitis C Antibody Non-reactive (NonReactive) 04/19/18 09:37 Nutrition/Malnutrition Assess - Dietary Evaluation Nutrition/Malnutrition Findings: Nutrition Notes Start: 04/19/18 13:19 Freq: Status: Active Protocol: Document 04/21/18 16:07 OL (Rec: 04/21/18 16:09 OL [id number]) Nutrition Notes Initial or Follow up Reassessment Current Diagnosis CKD (stage V CKD),Diabetes, Hypertension Current Diet Renal Labs/Tests Reviewed Pertinent Medications Reviewed Height 5 ft 2 in Weight 51.483 kg [place] Body Weight (kg) 50.00 BMI 20.7 Subjective/Other Information Pt. consuming 75-100% of meals . Pt. does not like eggs. Reinforced importance of consuming ONS. Burn Absent Trauma Absent #1 Nutrition Diagnosis Malnutrition As Evidenced by Signs and Symptoms pt. tolerating PO intake well, consuming 75-100% of meals Diagnosis Progress(for reassessment Improved documentation) Is patient on ventilator? No Is Patient Ambulatory and/or Out of Bed No REE-([place]-confined to bed) 1138.668 Kcal/Kg value to use for calculation 30 Approximate Energy Requirements Using 1544 kcal/Kg Calculation Used for Recommendations Kcal/kg Additional Notes Pro needs 1.2-1.4g/k-77g/ day Fluid needs 1-1.5L/day Nutrition Intervention Add Supplement/Snack (indicate name/kcal Glucerna BID (no vanilla) /protein ) Provides kCal: 440 Provides Protein (gm) 20 Follow-Up By: 04/26/18 Additional Comments f/u: stable intakes
[2018-04-22] MEDS: HumaLOG SUB-Q SCH ×4 (08:16→22:10)
[2018-04-22] MEDS ORDERED: NACL 0.9% 100 ML IV PRN (09:20)
[2018-04-22] MEDS: TUMS PO SCH ×2 (09:55→21:41)
[2018-04-22] MEDS: COLACE PO SCH ×2 (09:55→21:41)
[2018-04-22] MEDS: PEPCID PO SCH (09:55)
[2018-04-22] MEDS: HEMOCYTE PLUS PO SCH (09:58)
[2018-04-22] MEDS ORDERED: NACL 0.9 (PRIMING MACHINE ONLY DIALYSIS) MC ONE (14:06)
[2018-04-22] MEDS: VITAMIN D3 PO SCH (14:51)
[2018-04-22] MEDS: ZESTRIL PO SCH ×2 (14:51→21:41)
[2018-04-22] MEDS: NORVASC PO SCH (14:51)
[2018-04-22] MEDS: SODIUM CHLORIDE FLUSH SYRINGE 10 ML IV SCH ×2 (14:52→21:41)
[2018-04-22] MEDS: APRESOLINE IV PRN (14:59)
--- NOTE | 2018-04-22 18:27 | Progress Note ---
Assessment and Plan Impression: * ESRD * HTN * Type 2 DM * Hypocalcemia * Anemia in ESRD Plan: * hd q MWF * outpatient HD at [facility] * uf as tolerated with hd * daily lytes * bp control Subjective Date of service: 04/22/18 Principal diagnosis: esrd Interval history: resting well in bed Objective - Exam Narrative Exam: HEENT: Oral mucosa moist no pallor or icterus Neck: Supple no JVD Chest: Clear to auscultation anteriorly Central venous catheter site: Unremarkable CVS: Regular rate and rhythm S1 and S2 heard Abdomen: Soft nontender no suprapubic masses no organomegaly appreciable Extremity: Dry skin less than 1+ peripheral edema Musculoskeletal: No joint effusion noted in knees and ankle Neurological: Alert awake Dermatology: No petechial rashes Psychiatry: No evidence of any agitation and aggression noted - Vital Signs Vital signs: Vital Signs - 12hr 04/22/18 04/22/18 04/22/18 07:33 10:00 10:15 Temperature 98.6 F 98.2 F Pulse Rate 84 81 Respiratory 20 20 16 Rate Blood Pressure 181/70 162/76 O2 Sat by Pulse 99 Oximetry 04/22/18 04/22/18 04/22/18 10:30 10:45 11:00 Temperature Pulse Rate 75 80 77 Respiratory Rate Blood Pressure 176/70 186/94 168/69 O2 Sat by Pulse Oximetry 04/22/18 04/22/18 04/22/18 11:15 11:30 11:45 Temperature Pulse Rate 76 76 71 Respiratory Rate Blood Pressure 177/70 177/71 158/77 O2 Sat by Pulse Oximetry 04/22/18 04/22/18 04/22/18 12:00 12:15 12:30 Temperature Pulse Rate 81 80 89 Respiratory Rate Blood Pressure 131/82 135/83 164/95 O2 Sat by Pulse Oximetry 04/22/18 04/22/18 04/22/18 12:45 13:00 13:15 Temperature Pulse Rate 88 82 97 H Respiratory Rate Blood Pressure 185/97 156/113 170/82 O2 Sat by Pulse Oximetry 04/22/18 04/22/18 04/22/18 13:30 13:45 14:59 Temperature 98.8 F Pulse Rate 93 H 85 111 H Respiratory 16 Rate Blood Pressure 167/83 191/82 179/82 O2 Sat by Pulse Oximetry - Lab 04/20/18 10:11 04/21/18 03:59 Most recent lab results Calcium 7.9 mg/dL (8.4-10.2) L D 04/20/18 10:11 Phosphorus 4.00 mg/dL (2.5-4.5) 04/20/18 10:11 Magnesium 2.00 mg/dL (1.7-2.3) 04/20/18 10:11 Medications & Allergies - Medications Allergies/Adverse Reactions: Allergies aspirin Allergy (Severe, Verified 04/18/18 15:22) Unknown reflux. Home Medications: Home Medications Medication Instructions Recorded Confirmed Last Taken Type Lisinopril [Zestril TAB] 20 mg PO QDAY 02/07/17 10/31/17 Unknown History AtorvaSTATin [Lipitor] 40 mg PO QHS #30 tablet 11/01/17 Unknown Rx Docusate Sodium [Colace CAP] 100 mg PO BID #30 capsule 11/01/17 Unknown Rx Insulin Glargine,Hum.rec.anlog 12 unit SQ QHS 30 Days vial 11/01/17 Unknown Rx [Lantus] Insulin Lispro [Humalog 100 See Protocol SQ ACHS 30 Days 11/01/17 Unknown Rx UNITS/ML Kwikpen] insuln.pen Ranitidine HCl [Zantac 150 MG TAB] 150 mg PO BID #60 tablet 11/01/17 Unknown Rx amLODIPine [Norvasc] 10 mg PO DAILY #30 tablet 11/01/17 Unknown Rx levoFLOXacin [Levaquin TAB] 250 mg PO Q24HR #3 tablet 11/01/17 Unknown Rx Active Medications: Generic Name Dose Route Start Last Admin Trade Name Delvin PRN Reason Stop Dose Admin Acetaminophen 650 mg 04/18/18 14:24 04/21/18 22:06 Tylenol PO 650 mg Q4H PRN Administration Pain MILD(1-3)/Fever >100.5/PATRICIA Albuterol 2.5 mg 04/18/18 14:24 Proventil IH Q4HRT PRN Shortness Of Breath Amlodipine Besylate 10 mg 04/19/18 10:00 04/22/18 14:51 Norvasc PO 10 mg DAILY [facility] Administration Atorvastatin Calcium 40 mg 04/18/18 22:00 04/21/18 22:07 Lipitor PO 40 mg QHS [facility] Administration Calcium Carbonate/Glycine 1,000 mg 04/19/18 10:00 04/22/18 09:55 Tums PO 1,000 mg BID [facility] Administration Cholecalciferol 5,000 unit 04/20/18 12:00 04/22/18 14:51 Vitamin D3 PO 5,000 unit DAILY [facility] Administration Dextrose 50 ml 04/19/18 10:23 04/21/18 04:43 D50w (25gm) Syringe IV 50 ml PRN PRN Administration Hypoglycemia Docusate Sodium 100 mg 04/18/18 22:00 04/22/18 09:55 Colace PO 100 mg BID [facility] Administration Famotidine 20 mg 04/19/18 10:00 04/22/18 09:55 Pepcid PO 20 mg DAILY [facility] Administration Heparin Sodium (Porcine) 5,000 unit 04/19/18 14:00 04/22/18 14:51 Heparin SUB-Q 5,000 unit Q8HR [facility] Administration Hydralazine HCl 10 mg 04/19/18 10:27 04/22/18 14:59 Apresoline IV 10 mg Q4HR PRN Administration BP >160/100 Sodium Chloride 1,000 mls @ 42 mls/hr 04/18/18 15:00 Nacl 0.45% 1000 Ml IV DIRECT [facility] Sodium Chloride 100 mls @ 999 mls/hr 04/22/18 09:20 Nacl 0.9% IV TEJ PRN Hypotension Insulin Human Lispro 0 unit 04/19/18 11:30 04/22/18 12:47 Humalog SUB-Q Not Given ACHS [facility] Protocol Lisinopril 20 mg 04/20/18 11:00 04/22/18 14:51 Zestril PO 20 mg BID [facility] Administration Multivitamins/Iron 1 each 04/20/18 12:00 04/22/18 09:58 Hemocyte Plus PO 1 each QDAY [facility] Administration Ondansetron HCl 4 mg 04/18/18 14:24 Zofran IV Q8H PRN Nausea And Vomiting Sodium Chloride 10 ml 04/18/18 22:00 04/22/18 14:52 Sodium Chloride Flush Syringe 10 Ml IV 10 ml BID [facility] Administration Sodium Chloride 10 ml 04/18/18 14:24 Sodium Chloride Flush Syringe 10 Ml IV PRN PRN LINE FLUSH
[2018-04-22] MEDS: CATAPRES PO SCH (21:41)
[2018-04-23] MEDS: HEPARIN SUB-Q SCH ×3 (05:14→21:57)
--- NOTE | 2018-04-23 09:06 | Progress Note ---
Assessment and Plan Impression: * ESRD * HTN * Type 2 DM * Hypocalcemia * Anemia in ESRD Plan: * hd q MWF * outpatient HD at [facility] * uf as tolerated with hd * daily lytes * bp control * ok to dc home, will follow up on hd placement as outpatient in the office Subjective Date of service: 04/23/18 Principal diagnosis: esrd Interval history: resting well in bed Objective - Exam Narrative Exam: HEENT: Oral mucosa moist no pallor or icterus Neck: Supple no JVD Chest: Clear to auscultation anteriorly Central venous catheter site: Unremarkable CVS: Regular rate and rhythm S1 and S2 heard Abdomen: Soft nontender no suprapubic masses no organomegaly appreciable Extremity: Dry skin less than 1+ peripheral edema Musculoskeletal: No joint effusion noted in knees and ankle Neurological: Alert awake Dermatology: No petechial rashes Psychiatry: No evidence of any agitation and aggression noted - Vital Signs Vital signs: Vital Signs - 12hr 04/22/18 04/23/18 04/23/18 23:07 02:13 07:19 Temperature 98.3 F 98.4 F Pulse Rate 85 78 78 Respiratory 20 20 Rate Blood Pressure 145/62 153/65 O2 Sat by Pulse 99 98 98 Oximetry - Lab 04/20/18 10:11 04/21/18 03:59 Most recent lab results Calcium 7.9 mg/dL (8.4-10.2) L D 04/20/18 10:11 Phosphorus 4.00 mg/dL (2.5-4.5) 04/20/18 10:11 Magnesium 2.00 mg/dL (1.7-2.3) 04/20/18 10:11 Medications & Allergies - Medications Allergies/Adverse Reactions: Allergies aspirin Allergy (Severe, Verified 04/18/18 15:22) Unknown reflux. Home Medications: Home Medications Medication Instructions Recorded Confirmed Last Taken Type Lisinopril [Zestril TAB] 20 mg PO QDAY 02/07/17 10/31/17 Unknown History AtorvaSTATin [Lipitor] 40 mg PO QHS #30 tablet 11/01/17 Unknown Rx Docusate Sodium [Colace CAP] 100 mg PO BID #30 capsule 11/01/17 Unknown Rx Insulin Glargine,Hum.rec.anlog 12 unit SQ QHS 30 Days vial 11/01/17 Unknown Rx [Lantus] Insulin Lispro [Humalog 100 See Protocol SQ ACHS 30 Days 11/01/17 Unknown Rx UNITS/ML Kwikpen] insuln.pen Ranitidine HCl [Zantac 150 MG TAB] 150 mg PO BID #60 tablet 11/01/17 Unknown Rx amLODIPine [Norvasc] 10 mg PO DAILY #30 tablet 11/01/17 Unknown Rx levoFLOXacin [Levaquin TAB] 250 mg PO Q24HR #3 tablet 11/01/17 Unknown Rx Active Medications: Generic Name Dose Route Start Last Admin Trade Name Freq PRN Reason Stop Dose Admin Acetaminophen 650 mg 04/18/18 14:24 04/21/18 22:06 Tylenol PO 650 mg Q4H PRN Administration Pain MILD(1-3)/Fever >100.5/PATRICIA Albuterol 2.5 mg 04/18/18 14:24 Proventil IH Q4HRT PRN Shortness Of Breath Amlodipine Besylate 10 mg 04/19/18 10:00 04/22/18 14:51 Norvasc PO 10 mg DAILY DUNG Administration Atorvastatin Calcium 40 mg 04/18/18 22:00 04/22/18 21:41 Lipitor PO 40 mg QHS DUNG Administration Calcium Carbonate/Glycine 1,000 mg 04/19/18 10:00 04/22/18 21:41 Tums PO 1,000 mg BID DUNG Administration Cholecalciferol 5,000 unit 04/20/18 12:00 04/22/18 14:51 Vitamin D3 PO 5,000 unit DAILY DUNG Administration Clonidine HCl 0.1 mg 04/22/18 22:00 04/22/18 21:41 Catapres PO 0.1 mg Q12HR DUNG Administration Dextrose 50 ml 04/19/18 10:23 04/21/18 04:43 D50w (25gm) Syringe IV 50 ml PRN PRN Administration Hypoglycemia Docusate Sodium 100 mg 04/18/18 22:00 04/22/18 21:41 Colace PO 100 mg BID DUNG Administration Famotidine 20 mg 04/19/18 10:00 04/22/18 09:55 Pepcid PO 20 mg DAILY DUNG Administration Heparin Sodium (Porcine) 5,000 unit 04/19/18 14:00 04/23/18 05:14 Heparin SUB-Q 5,000 unit Q8HR DUNG Administration Hydralazine HCl 10 mg 04/19/18 10:27 04/22/18 14:59 Apresoline IV 10 mg Q4HR PRN Administration BP >160/100 Sodium Chloride 100 mls @ 999 mls/hr 04/22/18 09:20 Nacl 0.9% IV TEJ PRN Hypotension Insulin Human Lispro 0 unit 04/19/18 11:30 04/22/18 22:10 Humalog SUB-Q Not Given ACHS DUNG Protocol Lisinopril 20 mg 04/20/18 11:00 04/22/18 21:41 Zestril PO 20 mg BID DUNG Administration Multivitamins/Iron 1 each 04/20/18 12:00 04/22/18 09:58 Hemocyte Plus PO 1 each QDAY DUNG Administration Ondansetron HCl 4 mg 04/18/18 14:24 Zofran IV Q8H PRN Nausea And Vomiting Sodium Chloride 10 ml 04/18/18 22:00 04/22/18 21:41 Sodium Chloride Flush Syringe 10 Ml IV 10 ml BID DUNG Administration Sodium Chloride 10 ml 04/18/18 14:24 Sodium Chloride Flush Syringe 10 Ml IV PRN PRN LINE FLUSH
[2018-04-23] MEDS: TUMS PO SCH ×2 (09:34→21:56)
[2018-04-23] MEDS: CATAPRES PO SCH ×2 (09:34→21:57)
[2018-04-23] MEDS: PEPCID PO SCH (09:34)
[2018-04-23] MEDS: COLACE PO SCH ×2 (09:35→21:56)
[2018-04-23] MEDS: HEMOCYTE PLUS PO SCH (09:35)
[2018-04-23] MEDS: ZESTRIL PO SCH ×2 (09:35→21:56)
[2018-04-23] MEDS: NORVASC PO SCH (09:35)
[2018-04-23] MEDS: VITAMIN D3 PO SCH (09:35)
[2018-04-23] MEDS: SODIUM CHLORIDE FLUSH SYRINGE 10 ML IV SCH ×2 (09:36→21:56)
[2018-04-23] MEDS: HumaLOG SUB-Q SCH ×5 (09:36→22:38)
--- NOTE | 2018-04-23 12:08 | Progress Note ---
Assessment and Plan Assessment and plan: 77-year-old woman who presented with weakness. She was sent by her turntable worker for direct admission for worsening chronic kidney disease, nonadherence to medications. She was sent to the hospital for initiation of renal replacement therapy. Diagnoses Acute on chronic kidney disease requiring renal replacement, stage 4-5 Hypertensive urgency Anemia of chronic disease Hypocalcemia Hypoglycemia Secondary hyperparathyroidism Type 2 diabetes Metabolic acidosis Uremia -non adherence Plan sp permacath 04/19 Continue renal replacement therapy per nephrology Calcium was repleted lantus was dc due to hypoglycemia Optimize blood pressure medications, optimize insulins, dietitian consult Monitor renal function closely, will likely need continued outpatient hemodialysis, dw case management Heparin for DVT prophylaxis has been counseled on improved adherence to meds and rx History Interval history: Review of systems Constitutional: No fevers, no malaise, no joint pains CVS: No chest pain, no orthopnea, no dyspnea on exertion, no pedal edema GI: No abdominal pain, no diarrhea, no vomiting, no constipation Respiratory: No shortness of breath, no wheezing, no coughing Hospitalist Physical - Physical exam Narrative exam: General.: Appears well, no distress, nontoxic HEENT: Moist mucous membranes, extraocular muscles intact, no lymphadenopathy Neck: supple Cardiac: S1-S2 heard Lungs: clear to auscultation bilaterally Abdomen: soft , nontender, nondistended, bowel sounds positive Extremities: no edema clubbing or cyanosis Skin: no rash or lesions Neurologic: no gross focal deficits Psych: calm, and cooperative - Constitutional Vitals: Temp Pulse Resp BP Pulse Ox 98.4 F 78 20 153/78 98 04/23/18 07:19 04/23/18 10:00 04/23/18 07:19 04/23/18 09:34 04/23/18 07:19 General appearance: Present: no acute distress, cachectic, other (drowsey) Results - Labs CBC & Chem 7: 04/20/18 10:11 04/21/18 03:59 Labs: Laboratory Last Values WBC 6.5 K/mm3 (4.5-11.0) 04/20/18 10:11 RBC 3.31 M/mm3 (3.65-5.03) L 04/20/18 10:11 Hgb 9.1 gm/dl (10.1-14.3) L 04/20/18 10:11 Hct 27.8 % (30.3-42.9) L 04/20/18 10:11 MCV 84 fl (79-97) 04/20/18 10:11 MCH 28 pg (28-32) 04/20/18 10:11 MCHC 33 % (30-34) 04/20/18 10:11 RDW 15.2 % (13.2-15.2) 04/20/18 10:11 Plt Count 318 K/mm3 (140-440) 04/20/18 10:11 Lymph % (Auto) 4.0 % (13.4-35.0) L 04/20/18 10:11 [place] % (Auto) 7.5 % (0.0-7.3) H 04/20/18 10:11 Eos % (Auto) 0.0 % (0.0-4.3) 04/20/18 10:11 Baso % (Auto) 0.4 % (0.0-1.8) 04/20/18 10:11 Lymph # 0.3 K/mm3 (1.2-5.4) L 04/20/18 10:11 [place] # 0.5 K/mm3 (0.0-0.8) 04/20/18 10:11 Eos # 0.0 K/mm3 (0.0-0.4) 04/20/18 10:11 Baso # 0.0 K/mm3 (0.0-0.1) 04/20/18 10:11 Seg Neutrophils % 88.1 % (40.0-70.0) H 04/20/18 10:11 Seg Neutrophils # 5.8 K/mm3 (1.8-7.7) 04/20/18 10:11 Sodium 141 mmol/L (137-145) 04/20/18 10:11 Potassium 3.8 mmol/L (3.6-5.0) 04/20/18 10:11 Chloride 105.1 mmol/L (98-107) 04/20/18 10:11 Carbon Dioxide 24 mmol/L (22-30) 04/20/18 10:11 Anion Gap 16 mmol/L 04/20/18 10:11 BUN 25 mg/dL (7-17) H 04/20/18 10:11 Creatinine 2.3 mg/dL (0.7-1.2) H 04/20/18 10:11 Estimated GFR 25 ml/min 04/20/18 10:11 BUN/Creatinine Ratio 11 % 04/20/18 10:11 Glucose 43 mg/dL (65-100) L 04/21/18 03:59 POC Glucose 235 (70-105) H 04/23/18 11:48 Calcium 7.9 mg/dL (8.4-10.2) L D 04/20/18 10:11 Phosphorus 4.00 mg/dL (2.5-4.5) 04/20/18 10:11 Magnesium 2.00 mg/dL (1.7-2.3) 04/20/18 10:11 Iron 52 ug/dL (37-170) 04/19/18 09:37 TIBC 290 mcg/dL (250-450) 04/19/18 09:37 % Saturation 17.93 % 04/19/18 09:37 Transferrin 239 mg/dl (192-382) 04/19/18 09:37 Ferritin 14.4 ng/mL (13.0-400.0) 04/19/18 09:37 Total Bilirubin 0.20 mg/dL (0.1-1.2) 04/19/18 04:47 AST 12 units/L (5-40) 04/19/18 04:47 ALT < 5 units/L (7-56) L 04/19/18 04:47 Alkaline Phosphatase 52 units/L (35-129) 04/19/18 04:47 Total Protein 5.8 g/dL (6.3-8.2) L D 04/19/18 04:47 Albumin 3.2 g/dL (3.9-5) L 04/19/18 04:47 Albumin/Globulin Ratio 1.2 % 04/19/18 04:47 Vitamin B12 812.7 pg/mL (211-911) 04/19/18 09:37 25-OH Vitamin D Total 17 ng/mL (30-100) L 04/19/18 09:37 25-Hydroxy Vitamin D2 . 04/19/18 09:37 25-Hydroxy Vitamin D3 . 04/19/18 09:37 RBC Folic Acid 954 ng/mL (>280) 04/19/18 09:37 PTH Intact 19.21 pg/mL (15-65) 04/19/18 09:37 Hepatitis A IgM Ab Non-reactive (NonReactive) 04/19/18 09:37 Hep B Core IgM Ab Non-reactive (NonReactive) 04/19/18 09:37 Hepatitis C Antibody Non-reactive (NonReactive) 04/19/18 09:37 Nutrition/Malnutrition Assess - Dietary Evaluation Nutrition/Malnutrition Findings: Nutrition Notes Start: 04/19/18 13:19 Freq: Status: Active Protocol: Document 04/21/18 16:07 OL (Rec: 04/21/18 16:09 OL [id number]) Nutrition Notes Initial or Follow up Reassessment Current Diagnosis CKD (stage V CKD),Diabetes, Hypertension Current Diet Renal Labs/Tests Reviewed Pertinent Medications Reviewed Height 5 ft 2 in Weight 51.483 kg [place] Body Weight (kg) 50.00 BMI 20.7 Subjective/Other Information Pt. consuming 75-100% of meals . Pt. does not like eggs. Reinforced importance of consuming ONS. Burn Absent Trauma Absent #1 Nutrition Diagnosis Malnutrition As Evidenced by Signs and Symptoms pt. tolerating PO intake well, consuming 75-100% of meals Diagnosis Progress(for reassessment Improved documentation) Is patient on ventilator? No Is Patient Ambulatory and/or Out of Bed No REE-([facility]-confined to bed) 1138.668 Kcal/Kg value to use for calculation 30 Approximate Energy Requirements Using 1544 kcal/Kg Calculation Used for Recommendations Kcal/kg Additional Notes Pro needs 1.2-1.4g/k-77g/ day Fluid needs 1-1.5L/day Nutrition Intervention Add Supplement/Snack (indicate name/kcal Glucerna BID (no vanilla) /protein ) Provides kCal: 440 Provides Protein (gm) 20 Follow-Up By: 04/26/18 Additional Comments f/u: stable intakes
[2018-04-23] MEDS: TYLENOL PO PRN (22:00)
[2018-04-24] MEDS: HEPARIN SUB-Q SCH ×3 (05:54→22:01)
[2018-04-24] MEDS: HumaLOG SUB-Q SCH ×4 (07:57→22:27)
[2018-04-24] MEDS: VITAMIN D3 PO SCH (09:35)
[2018-04-24] MEDS: COLACE PO SCH ×2 (09:35→22:01)
[2018-04-24] MEDS: TUMS PO SCH ×2 (09:36→22:01)
[2018-04-24] MEDS: NORVASC PO SCH (09:36)
[2018-04-24] MEDS: CATAPRES PO SCH ×2 (09:36→22:03)
[2018-04-24] MEDS: PEPCID PO SCH (09:36)
[2018-04-24] MEDS: ZESTRIL PO SCH ×2 (09:37→22:02)
[2018-04-24] MEDS: HEMOCYTE PLUS PO SCH (09:38)
[2018-04-24] MEDS: SODIUM CHLORIDE FLUSH SYRINGE 10 ML IV SCH ×2 (09:38→22:01)
--- NOTE | 2018-04-24 12:19 | Progress Note ---
Assessment and Plan Impression: * ESRD * HTN * Type 2 DM * Hypocalcemia * Anemia in ESRD Plan: * hd q MWF * outpatient HD at [facility] * uf as tolerated with hd * daily lytes * bp control * ok to dc home, will follow up on hd placement as outpatient in the office Subjective Date of service: 04/24/18 Principal diagnosis: esrd Interval history: resting well in bed Objective - Exam Narrative Exam: HEENT: Oral mucosa moist no pallor or icterus Neck: Supple no JVD Chest: Clear to auscultation anteriorly Central venous catheter site: Unremarkable CVS: Regular rate and rhythm S1 and S2 heard Abdomen: Soft nontender no suprapubic masses no organomegaly appreciable Extremity: Dry skin less than 1+ peripheral edema Musculoskeletal: No joint effusion noted in knees and ankle Neurological: Alert awake Dermatology: No petechial rashes Psychiatry: No evidence of any agitation and aggression noted - Vital Signs Vital signs: Vital Signs - 12hr 04/24/18 04/24/18 04/24/18 03:11 03:12 07:20 Temperature 99.1 F 99.2 F Pulse Rate 65 64 Respiratory 18 20 Rate Blood Pressure 158/60 156/52 O2 Sat by Pulse 100 100 Oximetry 04/24/18 04/24/18 04/24/18 07:45 09:36 09:37 Temperature Pulse Rate 65 65 65 Respiratory Rate Blood Pressure 156/62 156/52 O2 Sat by Pulse 97 Oximetry - Lab 04/20/18 10:11 04/21/18 03:59 Most recent lab results Calcium 7.9 mg/dL (8.4-10.2) L D 04/20/18 10:11 Phosphorus 4.00 mg/dL (2.5-4.5) 04/20/18 10:11 Magnesium 2.00 mg/dL (1.7-2.3) 04/20/18 10:11 Medications & Allergies - Medications Allergies/Adverse Reactions: Allergies aspirin Allergy (Severe, Verified 04/18/18 15:22) Unknown reflux. Home Medications: Home Medications Medication Instructions Recorded Confirmed Last Taken Type Lisinopril [Zestril TAB] 20 mg PO QDAY 02/07/17 10/31/17 Unknown History AtorvaSTATin [Lipitor] 40 mg PO QHS #30 tablet 11/01/17 Unknown Rx Docusate Sodium [Colace CAP] 100 mg PO BID #30 capsule 11/01/17 Unknown Rx Insulin Glargine,Hum.rec.anlog 12 unit SQ QHS 30 Days vial 11/01/17 Unknown Rx [Lantus] Insulin Lispro [Humalog 100 See Protocol SQ ACHS 30 Days 11/01/17 Unknown Rx UNITS/ML Kwikpen] insuln.pen Ranitidine HCl [Zantac 150 MG TAB] 150 mg PO BID #60 tablet 11/01/17 Unknown Rx amLODIPine [Norvasc] 10 mg PO DAILY #30 tablet 11/01/17 Unknown Rx levoFLOXacin [Levaquin TAB] 250 mg PO Q24HR #3 tablet 11/01/17 Unknown Rx Active Medications: Generic Name Dose Route Start Last Admin Trade Name Freq PRN Reason Stop Dose Admin Acetaminophen 650 mg 04/18/18 14:24 04/23/18 22:00 Tylenol PO 650 mg Q4H PRN Administration Pain MILD(1-3)/Fever >100.5/PATRICIA Albuterol 2.5 mg 04/18/18 14:24 Proventil IH Q4HRT PRN Shortness Of Breath Amlodipine Besylate 10 mg 04/19/18 10:00 04/24/18 09:36 Norvasc PO 10 mg DAILY DUNG Administration Atorvastatin Calcium 40 mg 04/18/18 22:00 04/23/18 21:56 Lipitor PO 40 mg QHS DUNG Administration Calcium Carbonate/Glycine 1,000 mg 04/19/18 10:00 04/24/18 09:36 Tums PO 1,000 mg BID DUNG Administration Cholecalciferol 5,000 unit 04/20/18 12:00 04/24/18 09:35 Vitamin D3 PO 5,000 unit DAILY DUNG Administration Clonidine HCl 0.1 mg 04/22/18 22:00 04/24/18 09:36 Catapres PO 0.1 mg Q12HR DUNG Administration Dextrose 50 ml 04/19/18 10:23 04/21/18 04:43 D50w (25gm) Syringe IV 50 ml PRN PRN Administration Hypoglycemia Docusate Sodium 100 mg 04/18/18 22:00 04/24/18 09:35 Colace PO 100 mg BID DUNG Administration Famotidine 20 mg 04/19/18 10:00 04/24/18 09:36 Pepcid PO 20 mg DAILY DUNG Administration Heparin Sodium (Porcine) 5,000 unit 04/19/18 14:00 04/24/18 05:54 Heparin SUB-Q 5,000 unit Q8HR DUNG Administration Hydralazine HCl 10 mg 04/19/18 10:27 04/22/18 14:59 Apresoline IV 10 mg Q4HR PRN Administration BP >160/100 Sodium Chloride 100 mls @ 999 mls/hr 04/22/18 09:20 Nacl 0.9% IV TEJ PRN Hypotension Insulin Human Lispro 0 unit 04/19/18 11:30 04/24/18 11:48 Humalog SUB-Q 4 unit ACHS DUNG Administration Protocol Lisinopril 20 mg 04/20/18 11:00 04/24/18 09:37 Zestril PO 20 mg BID DUNG Administration Multivitamins/Iron 1 each 04/20/18 12:00 04/24/18 09:38 Hemocyte Plus PO 1 each QDAY DUNG Administration Ondansetron HCl 4 mg 04/18/18 14:24 Zofran IV Q8H PRN Nausea And Vomiting Sodium Chloride 10 ml 04/18/18 22:00 04/24/18 09:38 Sodium Chloride Flush Syringe 10 Ml IV 10 ml BID DUNG Administration Sodium Chloride 10 ml 04/18/18 14:24 Sodium Chloride Flush Syringe 10 Ml IV PRN PRN LINE FLUSH
--- NOTE | 2018-04-24 14:23 | Progress Note ---
Assessment and Plan Assessment and plan: 77-year-old woman who presented with weakness. She was sent by her business services coordinator for direct admission for worsening chronic kidney disease, nonadherence to medications. She was sent to the hospital for initiation of renal replacement therapy. Diagnoses Acute on chronic kidney disease requiring renal replacement, stage 4-5 Hypertensive urgency Anemia of chronic disease Hypocalcemia Hypoglycemia Secondary hyperparathyroidism Type 2 diabetes Metabolic acidosis Uremia -non adherence Plan sp permacath 04/19 Continue renal replacement therapy per nephrology Calcium was repleted lantus dose was reduced due to hypoglycemia Optimize blood pressure medications, optimize insulins, dietitian consult Monitor renal function closely, will likely need continued outpatient hemodialysis, dw case management Heparin for DVT prophylaxis has been counseled on improved adherence to meds and rx History Interval history: Review of systems Constitutional: No fevers, no malaise, no joint pains CVS: No chest pain, no orthopnea, no dyspnea on exertion, no pedal edema GI: No abdominal pain, no diarrhea, no vomiting, no constipation Respiratory: No shortness of breath, no wheezing, no coughing Hospitalist Physical - Physical exam Narrative exam: General.: Appears well, no distress, nontoxic HEENT: Moist mucous membranes, extraocular muscles intact, no lymphadenopathy Neck: supple Cardiac: S1-S2 heard Lungs: clear to auscultation bilaterally Abdomen: soft , nontender, nondistended, bowel sounds positive Extremities: no edema clubbing or cyanosis Skin: no rash or lesions Neurologic: no gross focal deficits Psych: calm, and cooperative - Constitutional Vitals: Temp Pulse Resp BP Pulse Ox 99.2 F 65 20 156/52 97 04/24/18 07:20 04/24/18 09:37 04/24/18 07:20 04/24/18 09:37 04/24/18 07:45 General appearance: Present: no acute distress, cachectic, other (drowsey) Results - Labs CBC & Chem 7: 04/20/18 10:11 04/21/18 03:59 Labs: Laboratory Last Values WBC 6.5 K/mm3 (4.5-11.0) 04/20/18 10:11 RBC 3.31 M/mm3 (3.65-5.03) L 04/20/18 10:11 Hgb 9.1 gm/dl (10.1-14.3) L 04/20/18 10:11 Hct 27.8 % (30.3-42.9) L 04/20/18 10:11 MCV 84 fl (79-97) 04/20/18 10:11 MCH 28 pg (28-32) 04/20/18 10:11 MCHC 33 % (30-34) 04/20/18 10:11 RDW 15.2 % (13.2-15.2) 04/20/18 10:11 Plt Count 318 K/mm3 (140-440) 04/20/18 10:11 Lymph % (Auto) 4.0 % (13.4-35.0) L 04/20/18 10:11 [place] % (Auto) 7.5 % (0.0-7.3) H 04/20/18 10:11 Eos % (Auto) 0.0 % (0.0-4.3) 04/20/18 10:11 Baso % (Auto) 0.4 % (0.0-1.8) 04/20/18 10:11 Lymph # 0.3 K/mm3 (1.2-5.4) L 04/20/18 10:11 [place] # 0.5 K/mm3 (0.0-0.8) 04/20/18 10:11 Eos # 0.0 K/mm3 (0.0-0.4) 04/20/18 10:11 Baso # 0.0 K/mm3 (0.0-0.1) 04/20/18 10:11 Seg Neutrophils % 88.1 % (40.0-70.0) H 04/20/18 10:11 Seg Neutrophils # 5.8 K/mm3 (1.8-7.7) 04/20/18 10:11 Sodium 141 mmol/L (137-145) 04/20/18 10:11 Potassium 3.8 mmol/L (3.6-5.0) 04/20/18 10:11 Chloride 105.1 mmol/L (98-107) 04/20/18 10:11 Carbon Dioxide 24 mmol/L (22-30) 04/20/18 10:11 Anion Gap 16 mmol/L 04/20/18 10:11 BUN 25 mg/dL (7-17) H 04/20/18 10:11 Creatinine 2.3 mg/dL (0.7-1.2) H 04/20/18 10:11 Estimated GFR 25 ml/min 04/20/18 10:11 BUN/Creatinine Ratio 11 % 04/20/18 10:11 Glucose 43 mg/dL (65-100) L 04/21/18 03:59 POC Glucose 337 (70-105) H 04/24/18 11:39 Calcium 7.9 mg/dL (8.4-10.2) L D 04/20/18 10:11 Ionized Calcium 4.3 mg/dL (4.8-5.6) L 04/20/18 10:11 Phosphorus 4.00 mg/dL (2.5-4.5) 04/20/18 10:11 Magnesium 2.00 mg/dL (1.7-2.3) 04/20/18 10:11 Iron 52 ug/dL (37-170) 04/19/18 09:37 TIBC 290 mcg/dL (250-450) 04/19/18 09:37 % Saturation 17.93 % 04/19/18 09:37 Transferrin 239 mg/dl (192-382) 04/19/18 09:37 Ferritin 14.4 ng/mL (13.0-400.0) 04/19/18 09:37 Total Bilirubin 0.20 mg/dL (0.1-1.2) 04/19/18 04:47 AST 12 units/L (5-40) 04/19/18 04:47 ALT < 5 units/L (7-56) L 04/19/18 04:47 Alkaline Phosphatase 52 units/L (35-129) 04/19/18 04:47 Total Protein 5.8 g/dL (6.3-8.2) L D 04/19/18 04:47 Albumin 3.2 g/dL (3.9-5) L 04/19/18 04:47 Albumin/Globulin Ratio 1.2 % 04/19/18 04:47 Vitamin B12 812.7 pg/mL (211-911) 04/19/18 09:37 25-OH Vitamin D Total 17 ng/mL (30-100) L 04/19/18 09:37 25-Hydroxy Vitamin D2 . 04/19/18 09:37 25-Hydroxy Vitamin D3 . 04/19/18 09:37 RBC Folic Acid 954 ng/mL (>280) 04/19/18 09:37 PTH Intact 19.21 pg/mL (15-65) 04/19/18 09:37 Hepatitis A IgM Ab Non-reactive (NonReactive) 04/19/18 09:37 Hep B Core IgM Ab Non-reactive (NonReactive) 04/19/18 09:37 Hepatitis C Antibody Non-reactive (NonReactive) 04/19/18 09:37 Nutrition/Malnutrition Assess - Dietary Evaluation Nutrition/Malnutrition Findings: Nutrition Notes Start: 04/19/18 13 :19 Freq: Status: Active Protocol: Document 04/21/18 16:07 OL (Rec: 04/21/18 16:09 OL [id number]) Nutrition Notes Initial or Follow up Reassessment Current Diagnosis CKD (stage V CKD),Diabetes, Hypertension Current Diet Renal Labs/Tests Reviewed Pertinent Medications Reviewed Height 5 ft 2 in Weight 51.483 kg [place] Body Weight (kg) 50.00 BMI 20.7 Subjective/Other Information Pt. consuming 75-100% of meals . Pt. does not like eggs. Reinforced importance of consuming ONS. Burn Absent Trauma Absent #1 Nutrition Diagnosis Malnutrition As Evidenced by Signs and Symptoms pt. tolerating PO intake well, consuming 75-100% of meals Diagnosis Progress(for reassessment Improved documentation) Is patient on ventilator? No Is Patient Ambulatory and/or Out of Bed No REE-([facility]-confined to bed) 1138.668 Kcal/Kg value to use for calculation 30 Approximate Energy Requirements Using 1544 kcal/Kg Calculation Used for Recommendations Kcal/kg Additional Notes Pro needs 1.2-1.4g/k-77g/ day Fluid needs 1-1.5L/day Nutrition Intervention Add Supplement/Snack (indicate name/kcal Glucerna BID (no vanilla) /protein ) Provides kCal: 440 Provides Protein (gm) 20 Follow-Up By: 04/26/18 Additional Comments f/u: stable intakes
[2018-04-24] MEDS: TYLENOL PO PRN (22:28)
[2018-04-25] MEDS: HEPARIN SUB-Q SCH ×3 (05:54→23:45)
[2018-04-25] MEDS ORDERED: NACL 0.9% 100 ML IV PRN (07:52)
[2018-04-25] MEDS: HumaLOG SUB-Q SCH ×3 (08:30→16:38)
[2018-04-25] MEDS: VITAMIN D3 PO SCH (09:04)
[2018-04-25] MEDS: TUMS PO SCH ×2 (09:05→23:42)
[2018-04-25] MEDS: HEMOCYTE PLUS PO SCH (09:05)
[2018-04-25] MEDS: COLACE PO SCH (09:05)
[2018-04-25] MEDS: PEPCID PO SCH (09:05)
[2018-04-25] MEDS: SODIUM CHLORIDE FLUSH SYRINGE 10 ML IV SCH (09:06)
[2018-04-25] MEDS: NORVASC PO SCH (09:07)
[2018-04-25] MEDS: ZESTRIL PO SCH (09:07)
[2018-04-25] MEDS: CATAPRES PO SCH ×2 (09:07→23:44)
--- NOTE | 2018-04-25 10:35 | Discharge Summary ---
Providers - Providers Date of Admission: 04/18/18 14:42 Attending physician: TIFFANY CARREON MD 04/19/18 07:30 Consult to Physician [CONS] Routine Comment: called answ. serv. /aretha Consulting Provider: NICOLE SANTOYO Physician Instructions: Reason For Exam: ARF/ESRD 04/19/18 08:54 Consult to Physician [CONS] Routine Comment: called office/aretha Consulting Provider: AZAEL GARSIA Physician Instructions: patient needs permacath today Reason For Exam: permacath placement 04/19/18 10:23 Consult to Dietitian/Nutrition [CONS] Routine Physician Instructions: Reason For Exam: Reason for Consult: Diet education 04/20/18 07:26 Physical Therapy Evaluation and Treat [CONS] Routine Comment: Reason For Exam: weakness Primary care physician: GELY GUTIERREZ Hospitalization Disposition: DC-30 STILL A PATIENT Exam - Constitutional Vitals: Temp Pulse Resp BP Pulse Ox 98.8 F 65 20 156/72 97 04/25/18 10:00 04/25/18 10:00 04/25/18 10:00 04/25/18 10:00 04/25/18 07:38 Plan Follow up with: GELY GUTIERREZ MD [Primary Care Provider] - 7 Days Prescriptions: Insulin Glargine [Lantus VIAL] 5 units SUB-Q QHS #1 vial cloNIDine [Catapres] 0.1 mg PO Q12HR #60 tablet Fe Fumarate/FA/Mv, Min Comb#15 [Hemocyte Plus] 1 each PO QDAY #30 capsule Calcium Carbonate [Tums] 1,000 mg PO BID #60 tablet Cholecalciferol Vit D3 [Vitamin D3 1,000 UNIT TAB] 5,000 unit PO DAILY #30 tablet
--- NOTE | 2018-04-25 12:43 | Progress Note ---
Assessment and Plan - Patient Problems (1) End stage renal disease Current Visit: Yes Status: Acute Plan to address problem: End-stage renal disease access is right IJ PermCath Dialysis Wednesday Will need outpatient dialysis placement prior to discharge at the [facility] Social work's is yet to confirm dialysis placement (2) HTN (hypertension) Current Visit: Yes Status: Acute Plan to address problem: Hypertension uncontrolled Continue medications (3) Hyperkalemia, diminished renal excretion Current Visit: No Status: Acute Plan to address problem: Hyperkalemia will initiate dialysis Continue current dialysis schedule (4) Anemia in chronic kidney disease (CKD) Current Visit: Yes Status: Acute Qualifiers: Chronic kidney disease stage: on chronic dialysis Qualified Code(s): N18.6 - End stage renal disease; D63.1 - Anemia in chronic kidney disease; Z99.2 - Dependence on renal dialysis Plan to address problem: Moderate anemia Hemoglobin 9.4 g per DL Monitor CBC Subjective Date of service: 04/25/18 Principal diagnosis: esrd Interval history: 77-year-old lady with medical history significant for chronic kidney disease stage IV hypertension is interested in dialysis awaiting outpatient dialysis placement at [facility] she was seen today I attest I saw the patient on hemodialysis at 9:30 AM He denies any shortness of breath. Denies any shortness of breath orthopnea PND Objective - Vital Signs Vital signs: Vital Signs - 12hr 04/25/18 04/25/18 04/25/18 02:56 07:38 09:07 Temperature 97.5 F L 98.8 F Pulse Rate 73 63 63 Respiratory 20 20 Rate Blood Pressure 142/64 156/54 156/54 O2 Sat by Pulse 98 97 Oximetry 04/25/18 04/25/18 04/25/18 09:30 10:00 10:15 Temperature 98.8 F Pulse Rate 64 63 63 Respiratory 20 Rate Blood Pressure 151/71 160/77 158/73 O2 Sat by Pulse Oximetry 04/25/18 04/25/18 04/25/18 10:30 10:45 11:00 Temperature Pulse Rate 64 63 63 Respiratory Rate Blood Pressure 150/66 159/70 165/74 O2 Sat by Pulse Oximetry 04/25/18 04/25/18 04/25/18 11:15 11:30 11:45 Temperature Pulse Rate 60 61 64 Respiratory Rate Blood Pressure 160/67 158/72 162/71 O2 Sat by Pulse Oximetry - General Appearance General appearance: well-developed, well-nourished EENT: ATNC, PERRL, mucous membranes dry Neck: no JVD Respiratory: Present: Clear to Ascultation Cardiology: S1S2 Gastrointestinal: normal, normoactive bowel sounds Integumentary: no rash Neurologic: no focal deficit, alert and oriented x3 Musculoskeletal: deferred Psychiatric: mood/affect appropriate - Lab 04/20/18 10:11 04/21/18 03:59 Most recent lab results Calcium 7.9 mg/dL (8.4-10.2) L D 04/20/18 10:11 Phosphorus 4.00 mg/dL (2.5-4.5) 04/20/18 10:11 Magnesium 2.00 mg/dL (1.7-2.3) 04/20/18 10:11 - Imaging Chest x-ray: image reviewed, other Medications & Allergies - Medications Allergies/Adverse Reactions: Allergies aspirin Allergy (Severe, Verified 04/18/18 15:22) Unknown reflux. Home Medications: Home Medications Medication Instructions Recorded Confirmed Last Taken Type Lisinopril [Zestril TAB] 20 mg PO QDAY 02/07/17 10/31/17 Unknown History AtorvaSTATin [Lipitor] 40 mg PO QHS #30 tablet 11/01/17 Unknown Rx Docusate Sodium [Colace CAP] 100 mg PO BID #30 capsule 11/01/17 Unknown Rx Ranitidine HCl [Zantac 150 MG TAB] 150 mg PO BID #60 tablet 11/01/17 Unknown Rx amLODIPine [Norvasc] 10 mg PO DAILY #30 tablet 11/01/17 Unknown Rx Calcium Carbonate [Tums] 1,000 mg PO BID #60 tablet 04/25/18 Unknown Rx Cholecalciferol Vit D3 [Vitamin D3 5,000 unit PO DAILY #30 tablet 04/25/18 Unknown Rx 1,000 UNIT TAB] Fe Fumarate/FA/Mv, Min Comb#15 1 each PO QDAY #30 capsule 04/25/18 Unknown Rx [Hemocyte Plus] Insulin Glargine [Lantus VIAL] 5 units SUB-Q QHS #1 vial 04/25/18 Unknown Rx cloNIDine [Catapres] 0.1 mg PO Q12HR #60 tablet 04/25/18 Unknown Rx Active Medications: Generic Name Dose Route Start Last Admin Trade Name Freq PRN Reason Stop Dose Admin Acetaminophen 650 mg 04/18/18 14:24 04/24/18 22:28 Tylenol PO 650 mg Q4H PRN Administration Pain MILD(1-3)/Fever >100.5/PATRICIA Albuterol 2.5 mg 04/18/18 14:24 Proventil IH Q4HRT PRN Shortness Of Breath Amlodipine Besylate 10 mg 04/19/18 10:00 04/25/18 09:07 Norvasc PO Not Given DAILY DUNG Atorvastatin Calcium 40 mg 04/18/18 22:00 04/24/18 22:01 Lipitor PO 40 mg QHS DUNG Administration Calcium Carbonate/Glycine 1,000 mg 04/19/18 10:00 04/25/18 09:05 Tums PO 1,000 mg BID DUNG Administration Cholecalciferol 5,000 unit 04/20/18 12:00 04/25/18 09:04 Vitamin D3 PO 5,000 unit DAILY DUNG Administration Clonidine HCl 0.1 mg 04/22/18 22:00 04/25/18 09:07 Catapres PO Not Given Q12HR DUNG Dextrose 50 ml 04/19/18 10:23 04/21/18 04:43 D50w (25gm) Syringe IV 50 ml PRN PRN Administration Hypoglycemia Docusate Sodium 100 mg 04/18/18 22:00 04/25/18 09:05 Colace PO 100 mg BID DUNG Administration Famotidine 20 mg 04/19/18 10:00 04/25/18 09:05 Pepcid PO 20 mg DAILY DUNG Administration Heparin Sodium (Porcine) 5,000 unit 04/19/18 14:00 04/25/18 05:54 Heparin SUB-Q 5,000 unit Q8HR DUNG Administration Hydralazine HCl 10 mg 04/19/18 10:27 04/22/18 14:59 Apresoline IV 10 mg Q4HR PRN Administration BP >160/100 Sodium Chloride 100 mls @ 999 mls/hr 04/25/18 07:52 Nacl 0.9% IV TEJ PRN Hypotension Insulin Glargine 5 units 04/25/18 22:00 Lantus SUB-Q QHS [facility] Insulin Human Lispro 0 unit 04/19/18 11:30 04/25/18 08:30 Humalog SUB-Q 2 unit ACHS DUNG Administration Protocol Lisinopril 20 mg 04/20/18 11:00 04/25/18 09:07 Zestril PO Not Given BID DUNG Multivitamins/Iron 1 each 04/20/18 12:00 04/25/18 09:05 Hemocyte Plus PO 1 each QDAY DUNG Administration Ondansetron HCl 4 mg 04/18/18 14:24 Zofran IV Q8H PRN Nausea And Vomiting Sodium Chloride 10 ml 04/18/18 22:00 04/25/18 09:06 Sodium Chloride Flush Syringe 10 Ml IV 10 ml BID DUNG Administration Sodium Chloride 10 ml 04/18/18 14:24 Sodium Chloride Flush Syringe 10 Ml IV PRN PRN LINE FLUSH
[2018-04-25] MEDS: TYLENOL PO PRN ×2 (13:18→23:52)
[2018-04-25] MEDS: APRESOLINE IV PRN (15:36)
--- NOTE | 2018-04-25 21:44 | Progress Note ---
Assessment and Plan Assessment and plan: 77-year-old woman who presented with weakness. She was sent by her linux programmer for direct admission for worsening chronic kidney disease, nonadherence to medications. She was sent to the hospital for initiation of renal replacement therapy. Diagnoses Acute on chronic kidney disease requiring renal replacement, stage 4-5 Hypertensive urgency Anemia of chronic disease Hypocalcemia Hypoglycemia Secondary hyperparathyroidism Type 2 diabetes Metabolic acidosis Uremia -non adherence Plan sp permacath 04/19 Continue renal replacement therapy per nephrology Calcium was repleted lantus dose was reduced due to hypoglycemia Optimize blood pressure medications, optimize insulins, dietitian consult Monitor renal function closely, will likely need continued outpatient hemodialysis, dw case management Heparin for DVT prophylaxis has been counseled on improved adherence to meds and rx Still awaiting HD chair time; need Hep B surface ag, and cxr will call lab in am, cxr marti History Interval history: Review of systems Constitutional: No fevers, no malaise, no joint pains CVS: No chest pain, no orthopnea, no dyspnea on exertion, no pedal edema GI: No abdominal pain, no diarrhea, no vomiting, no constipation Respiratory: No shortness of breath, no wheezing, no coughing Hospitalist Physical - Physical exam Narrative exam: General.: Appears well, no distress, nontoxic HEENT: Moist mucous membranes, extraocular muscles intact, no lymphadenopathy Neck: supple Cardiac: S1-S2 heard Lungs: clear to auscultation bilaterally Abdomen: soft , nontender, nondistended, bowel sounds positive Extremities: no edema clubbing or cyanosis Skin: no rash or lesions Neurologic: no gross focal deficits Psych: calm, and cooperative - Constitutional Vitals: Temp Pulse Resp BP Pulse Ox 99.0 F 77 18 168/62 100 04/25/18 20:39 04/25/18 20:39 04/25/18 20:39 04/25/18 20:39 04/25/18 20:39 General appearance: Present: no acute distress, cachectic, other (drowsey) Results - Labs CBC & Chem 7: 04/20/18 10:11 04/21/18 03:59 Labs: Laboratory Last Values WBC 6.5 K/mm3 (4.5-11.0) 04/20/18 10:11 RBC 3.31 M/mm3 (3.65-5.03) L 04/20/18 10:11 Hgb 9.1 gm/dl (10.1-14.3) L 04/20/18 10:11 Hct 27.8 % (30.3-42.9) L 04/20/18 10:11 MCV 84 fl (79-97) 04/20/18 10:11 MCH 28 pg (28-32) 04/20/18 10:11 MCHC 33 % (30-34) 04/20/18 10:11 RDW 15.2 % (13.2-15.2) 04/20/18 10:11 Plt Count 318 K/mm3 (140-440) 04/20/18 10:11 Lymph % (Auto) 4.0 % (13.4-35.0) L 04/20/18 10:11 [place] % (Auto) 7.5 % (0.0-7.3) H 04/20/18 10:11 Eos % (Auto) 0.0 % (0.0-4.3) 04/20/18 10:11 Baso % (Auto) 0.4 % (0.0-1.8) 04/20/18 10:11 Lymph # 0.3 K/mm3 (1.2-5.4) L 04/20/18 10:11 [place] # 0.5 K/mm3 (0.0-0.8) 04/20/18 10:11 Eos # 0.0 K/mm3 (0.0-0.4) 04/20/18 10:11 Baso # 0.0 K/mm3 (0.0-0.1) 04/20/18 10:11 Seg Neutrophils % 88.1 % (40.0-70.0) H 04/20/18 10:11 Seg Neutrophils # 5.8 K/mm3 (1.8-7.7) 04/20/18 10:11 Sodium 141 mmol/L (137-145) 04/20/18 10:11 Potassium 3.8 mmol/L (3.6-5.0) 04/20/18 10:11 Chloride 105.1 mmol/L (98-107) 04/20/18 10:11 Carbon Dioxide 24 mmol/L (22-30) 04/20/18 10:11 Anion Gap 16 mmol/L 04/20/18 10:11 BUN 25 mg/dL (7-17) H 04/20/18 10:11 Creatinine 2.3 mg/dL (0.7-1.2) H 04/20/18 10:11 Estimated GFR 25 ml/min 04/20/18 10:11 BUN/Creatinine Ratio 11 % 04/20/18 10:11 Glucose 43 mg/dL (65-100) L 04/21/18 03:59 POC Glucose 276 (70-105) H 04/25/18 16:19 Calcium 7.9 mg/dL (8.4-10.2) L D 04/20/18 10:11 Ionized Calcium 4.3 mg/dL (4.8-5.6) L 04/20/18 10:11 Phosphorus 4.00 mg/dL (2.5-4.5) 04/20/18 10:11 Magnesium 2.00 mg/dL (1.7-2.3) 04/20/18 10:11 Iron 52 ug/dL (37-170) 04/19/18 09:37 TIBC 290 mcg/dL (250-450) 04/19/18 09:37 % Saturation 17.93 % 04/19/18 09:37 Transferrin 239 mg/dl (192-382) 04/19/18 09:37 Ferritin 14.4 ng/mL (13.0-400.0) 04/19/18 09:37 Total Bilirubin 0.20 mg/dL (0.1-1.2) 04/19/18 04:47 AST 12 units/L (5-40) 04/19/18 04:47 ALT < 5 units/L (7-56) L 04/19/18 04:47 Alkaline Phosphatase 52 units/L (35-129) 04/19/18 04:47 Total Protein 5.8 g/dL (6.3-8.2) L D 04/19/18 04:47 Albumin 3.2 g/dL (3.9-5) L 04/19/18 04:47 Albumin/Globulin Ratio 1.2 % 04/19/18 04:47 Vitamin B12 812.7 pg/mL (211-911) 04/19/18 09:37 25-OH Vitamin D Total 17 ng/mL (30-100) L 04/19/18 09:37 25-Hydroxy Vitamin D2 . 04/19/18 09:37 25-Hydroxy Vitamin D3 . 04/19/18 09:37 RBC Folic Acid 954 ng/mL (>280) 04/19/18 09:37 PTH Intact 19.21 pg/mL (15-65) 04/19/18 09:37 Hepatitis A IgM Ab Non-reactive (NonReactive) 04/19/18 09:37 Hep B Core IgM Ab Non-reactive (NonReactive) 04/19/18 09:37 Hepatitis C Antibody Non-reactive (NonReactive) 04/19/18 09:37 Active Medications - Current Medications Current Medications: Generic Name Dose Route Start Last Admin Trade Name Freq PRN Reason Stop Dose Admin Acetaminophen 650 mg 04/18/18 14:24 04/25/18 13:18 Tylenol PO 650 mg Q4H PRN Administration Pain MILD(1-3)/Fever >100.5/PATRICIA Albuterol 2.5 mg 04/18/18 14:24 Proventil IH Q4HRT PRN Shortness Of Breath Amlodipine Besylate 10 mg 04/19/18 10:00 04/25/18 09:07 Norvasc PO Not Given DAILY DUNG Atorvastatin Calcium 40 mg 04/18/18 22:00 04/24/18 22:01 Lipitor PO 40 mg QHS DUNG Administration Calcium Carbonate/Glycine 1,000 mg 04/19/18 10:00 04/25/18 09:05 Tums PO 1,000 mg BID DUNG Administration Cholecalciferol 5,000 unit 04/20/18 12:00 04/25/18 09:04 Vitamin D3 PO 5,000 unit DAILY DUNG Administration Clonidine HCl 0.1 mg 04/22/18 22:00 04/25/18 09:07 Catapres PO Not Given Q12HR DUNG Dextrose 50 ml 04/19/18 10:23 04/21/18 04:43 D50w (25gm) Syringe IV 50 ml PRN PRN Administration Hypoglycemia Docusate Sodium 100 mg 04/18/18 22:00 04/25/18 09:05 Colace PO 100 mg BID DUNG Administration Famotidine 20 mg 04/19/18 10:00 04/25/18 09:05 Pepcid PO 20 mg DAILY DUNG Administration Heparin Sodium (Porcine) 5,000 unit 04/19/18 14:00 04/25/18 13:19 Heparin SUB-Q 5,000 unit Q8HR DUNG Administration Hydralazine HCl 10 mg 04/19/18 10:27 04/25/18 15:36 Apresoline IV 10 mg Q4HR PRN Administration BP >160/100 Sodium Chloride 100 mls @ 999 mls/hr 04/25/18 07:52 Nacl 0.9% IV TEJ PRN Hypotension Insulin Glargine 5 units 04/25/18 22:00 Lantus SUB-Q QHS [facility] Insulin Human Lispro 0 unit 04/19/18 11:30 04/25/18 16:38 Humalog SUB-Q 3 unit ACHS DUNG Administration Protocol Lisinopril 20 mg 04/20/18 11:00 04/25/18 09:07 Zestril PO Not Given BID [facility] Multivitamins/Iron 1 each 04/20/18 12:00 04/25/18 09:05 Hemocyte Plus PO 1 each QDAY DUNG Administration Ondansetron HCl 4 mg 04/18/18 14:24 Zofran IV Q8H PRN Nausea And Vomiting Sodium Chloride 10 ml 04/18/18 22:00 04/25/18 09:06 Sodium Chloride Flush Syringe 10 Ml IV 10 ml BID DUNG Administration Sodium Chloride 10 ml 04/18/18 14:24 Sodium Chloride Flush Syringe 10 Ml IV PRN PRN LINE FLUSH Nutrition/Malnutrition Assess - Dietary Evaluation Nutrition/Malnutrition Findings: Nutrition Notes Start: 04/19/18 13:19 Freq: Status: Active Protocol: Document 04/21/18 16:07 OL (Rec: 04/21/18 16:09 OL [id number]) Nutrition Notes Initial or Follow up Reassessment Current Diagnosis CKD (stage V CKD),Diabetes, Hypertension Current Diet Renal Labs/Tests Reviewed Pertinent Medications Reviewed Height 5 ft 2 in Weight 51.483 kg Brickeys Body Weight (kg) 50.00 BMI 20.7 Subjective/Other Information Pt. consuming 75-100% of meals . Pt. does not like eggs. Reinforced importance of consuming ONS. Burn Absent Trauma Absent #1 Nutrition Diagnosis Malnutrition As Evidenced by Signs and Symptoms pt. tolerating PO intake well, consuming 75-100% of meals Diagnosis Progress(for reassessment Improved documentation) Is patient on ventilator? No Is Patient Ambulatory and/or Out of Bed No REE-([place]-St. Jeor-confined to bed) 1138.668 Kcal/Kg value to use for calculation 30 Approximate Energy Requirements Using 1544 kcal/Kg Calculation Used for Recommendations Kcal/kg Additional Notes Pro needs 1.2-1.4g/k-77g/ day Fluid needs 1-1.5L/day Nutrition Intervention Add Supplement/Snack (indicate name/kcal Glucerna BID (no vanilla) /protein ) Provides kCal: 440 Provides Protein (gm) 20 Follow-Up By: 04/26/18 Additional Comments f/u: stable intakes
[2018-04-25] MEDS: LANTUS SUB-Q SCH (22:35)
[2018-04-26] MEDS: HEPARIN SUB-Q SCH ×2 (06:21→13:30)
[2018-04-26] MEDS: HumaLOG SUB-Q SCH ×2 (08:30→12:28)
--- NOTE | 2018-04-26 08:38 | XRay Report ---
AP CHEST: HISTORY: End-stage renal disease AP view of the chest demonstrates a normal mediastinal and cardiac contour with clear lungs and normal bony and soft tissue structures. Right venous catheter terminates at the cavoatrial junction. IMPRESSION: No acute process.
[2018-04-26] MEDS: CATAPRES PO SCH (09:41)
[2018-04-26] MEDS: HEMOCYTE PLUS PO SCH (09:41)
[2018-04-26] MEDS: PEPCID PO SCH (09:41)
[2018-04-26] MEDS: ZESTRIL PO SCH (09:41)
[2018-04-26] MEDS: VITAMIN D3 PO SCH (09:41)
[2018-04-26] MEDS: TUMS PO SCH (09:42)
[2018-04-26] MEDS: NORVASC PO SCH (09:42)
[2018-04-26] MEDS: COLACE PO SCH (09:42)
[2018-04-26] MEDS: SODIUM CHLORIDE FLUSH SYRINGE 10 ML IV SCH (09:42)
[2018-04-26] MEDS: TYLENOL PO PRN (10:08)
--- NOTE | 2018-04-26 14:19 | Progress Note ---
Assessment and Plan - Patient Problems (1) End stage renal disease Current Visit: Yes Status: Acute Plan to address problem: End-stage renal disease access is right IJ PermCath Dialysis Wednesday Will need outpatient dialysis placement prior to discharge at the [facility] Social work's is yet to confirm dialysis placement (2) HTN (hypertension) Current Visit: Yes Status: Acute Plan to address problem: Hypertension uncontrolled Continue medications (3) Anemia in chronic kidney disease (CKD) Current Visit: Yes Status: Acute Qualifiers: Chronic kidney disease stage: on chronic dialysis Qualified Code(s): N18.6 - End stage renal disease; D63.1 - Anemia in chronic kidney disease; Z99.2 - Dep endence on renal dialysis Plan to address problem: Moderate anemia Hemoglobin 9.4 g per DL Monitor CBC (4) Vitamin D deficiency Current Visit: Yes Status: Acute Plan to address problem: Vitamin D deficiency : Vitamin D 17 Ergocalciferol [id number] weekly x 12 weeks. Subjective Principal diagnosis: esrd Interval history: 77-year-old lady with medical history significant for chronic kidney disease stage IV hypertension is interested in dialysis awaiting outpatient dialysis placement at [facility] she was seen today She denies any shortness of breath. She had a chest x ray done today Denies any shortness of breath orthopnea PND Objective - Vital Signs Vital signs: Vital Signs - 12hr 04/26/18 04/26/18 04/26/18 02:24 07:20 09:41 Temperature 98.8 F 98.8 F Pulse Rate 66 65 65 Respiratory 16 16 Rate Blood Pressure 158/52 169/63 169/63 O2 Sat by Pulse 96 98 Oximetry 04/26/18 04/26/18 04/26/18 09:42 10:08 13:29 Temperature 98.3 F Pulse Rate 65 71 Respiratory 16 18 Rate Blood Pressure 169/63 155/56 O2 Sat by Pulse 99 Oximetry - General Appearance General appearance: well-developed, well-nourished, appears stated age EENT: ATNC, PERRL Neck: no JVD Respiratory: Present: Clear to Ascultation Cardiology: regular, S1S2 Gastrointestinal: normal, normoactive bowel sounds Integumentary: no rash Neurologic: no focal deficit, alert and oriented x3 Musculoskeletal: deferred Psychiatric: mood/affect appropriate (I reviewed CXR with some interstitial markings. ) - Lab 04/20/18 10:11 04/21/18 03:59 Most recent lab results Calcium 7.9 mg/dL (8.4-10.2) L D 04/20/18 10:11 Phosphorus 4.00 mg/dL (2.5-4.5) 04/20/18 10:11 Magnesium 2.00 mg/dL (1.7-2.3) 04/20/18 10:11 Medications & Allergies - Medications Allergies/Adverse Reactions: Allergies aspirin Allergy (Severe, Verified 04/18/18 15:22) Unknown reflux. Home Medications: Home Medications Medication Instructions Recorded Confirmed Last Taken Type Lisinopril [Zestril TAB] 20 mg PO QDAY 02/07/17 10/31/17 Unknown History AtorvaSTATin [Lipitor] 40 mg PO QHS #30 tablet 11/01/17 Unknown Rx Docusate Sodium [Colace CAP] 100 mg PO BID #30 capsule 11/01/17 Unknown Rx Ranitidine HCl [Zantac 150 MG TAB] 150 mg PO BID #60 tablet 11/01/17 Unknown Rx amLODIPine [Norvasc] 10 mg PO DAILY #30 tablet 11/01/17 Unknown Rx Calcium Carbonate [Tums] 1,000 mg PO BID #60 tablet 04/25/18 Unknown Rx Cholecalciferol Vit D3 [Vitamin D3 5,000 unit PO DAILY #30 tablet 04/25/18 Unknown Rx 1,000 UNIT TAB] Fe Fumarate/FA/Mv, Min Comb#15 1 each PO QDAY #30 capsule 04/25/18 Unknown Rx [Hemocyte Plus] Insulin Glargine [Lantus VIAL] 5 units SUB-Q QHS #1 vial 04/25/18 Unknown Rx cloNIDine [Catapres] 0.1 mg PO Q12HR #60 tablet 04/25/18 Unknown Rx Active Medications: Generic Name Dose Route Start Last Admin Trade Name Freq PRN Reason Stop Dose Admin Acetaminophen 650 mg 04/18/18 14:24 04/26/18 10:08 Tylenol PO 650 mg Q4H PRN Administration Pain MILD(1-3)/Fever >100.5/PATRICIA Albuterol 2.5 mg 04/18/18 14:24 Proventil IH Q4HRT PRN Shortness Of Breath Amlodipine Besylate 10 mg 04/19/18 10:00 04/26/18 09:42 Norvasc PO 10 mg DAILY DUNG Administration Atorvastatin Calcium 40 mg 04/18/18 22:00 04/25/18 23:43 Lipitor PO 40 mg QHS DUNG Administration Calcium Carbonate/Glycine 1,000 mg 04/19/18 10:00 04/26/18 09:42 Tums PO 1,000 mg BID DUNG Administration Cholecalciferol 5,000 unit 04/20/18 12:00 04/26/18 09:41 Vitamin D3 PO 5,000 unit DAILY DUNG Administration Clonidine HCl 0.1 mg 04/22/18 22:00 04/26/18 09:41 Catapres PO 0.1 mg Q12HR DUNG Administration Dextrose 50 ml 04/19/18 10:23 04/21/18 04:43 D50w (25gm) Syringe IV 50 ml PRN PRN Administration Hypoglycemia Docusate Sodium 100 mg 04/18/18 22:00 04/26/18 09:42 Colace PO 100 mg BID DUNG Administration Famotidine 20 mg 04/19/18 10:00 04/26/18 09:41 Pepcid PO 20 mg DAILY DUNG Administration Heparin Sodium (Porcine) 5,000 unit 04/19/18 14:00 04/26/18 13:30 Heparin SUB-Q 5,000 unit Q8HR DUNG Administration Hydralazine HCl 10 mg 04/19/18 10:27 04/25/18 15:36 Apresoline IV 10 mg Q4HR PRN Administration BP >160/100 Sodium Chloride 100 mls @ 999 mls/hr 04/25/18 07:52 Nacl 0.9% IV TEJ PRN Hypotension Insulin Glargine 5 units 04/25/18 22:00 04/25/18 22:35 Lantus SUB-Q 5 units QHS DUNG Administration Insulin Human Lispro 0 unit 04/19/18 11:30 04/26/18 12:28 Humalog SUB-Q 3 unit ACHS DUNG Administration Protocol Lisinopril 20 mg 04/20/18 11:00 04/26/18 09:41 Zestril PO 20 mg BID DUNG Administration Multivitamins/Iron 1 each 04/20/18 12:00 04/26/18 09:41 Hemocyte Plus PO 1 each QDAY DUNG Administration Ondansetron HCl 4 mg 04/18/18 14:24 Zofran IV Q8H PRN Nausea And Vomiting Sodium Chloride 10 ml 04/18/18 22:00 04/26/18 09:42 Sodium Chloride Flush Syringe 10 Ml IV 10 ml BID DUNG Administration Sodium Chloride 10 ml 04/18/18 14:24 Sodium Chloride Flush Syringe 10 Ml IV PRN PRN LINE FLUSH
--- NOTE | 2018-04-26 16:35 | Progress Note ---
Assessment and Plan Assessment and plan: 77-year-old woman who presented with weakness. She was sent by her [facility] consultant for direct admission for worsening chronic kidney disease, nonadherence to medications. She was sent to the hospital for initiation of renal replacement therapy. Diagnoses Acute on chronic kidney disease requiring renal replacement, stage 4-5 Hypertensive urgency Anemia of chronic disease Hypocalcemia Hypoglycemia Secondary hyperparathyroidism Type 2 diabetes Metabolic acidosis Uremia -non adherence Plan sp permacath 04/19 Continue renal replacement therapy per nephrology Calcium was repleted lantus dose was reduced due to hypoglycemia Optimize blood pressure medications, optimize insulins, dietitian consult Monitor renal function closely, will likely need continued outpatient hemodialysis, dw case management Heparin for DVT prophylaxis has been counseled on improved adherence to meds and rx Still awaiting HD chair time; need Hep B surface ag, which is still pending, contacted chem lab, awaiting result will call lab in am, cxr marti History Interval history: Review of systems Constitutional: No fevers, no malaise, no joint pains CVS: No chest pain, no orthopnea, no dyspnea on exertion, no pedal edema GI: No abdominal pain, no diarrhea, no vomiting, no constipation Respiratory: No shortness of breath, no wheezing, no coughing Hospitalist Physical - Physical exam Narrative exam: General.: Appears well, no distress, nontoxic HEENT: Moist mucous membranes, extraocular muscles intact, no lymphadenopathy Neck: supple Cardiac: S1-S2 heard Lungs: clear to auscultation bilaterally Abdomen: soft , nontender, nondistended, bowel sounds positive Extremities: no edema clubbing or cyanosis Skin: no rash or lesions Neurologic: no gross focal deficits Psych: calm, and cooperative - Constitutional Vitals: Temp Pulse Resp BP Pulse Ox 98.3 F 71 18 155/56 99 04/26/18 13:29 04/26/18 13:29 04/26/18 13:29 04/26/18 13:29 04/26/18 13:29 General appearance: Present: no acute distress, cachectic, other (drowsey) Results - Labs CBC & Chem 7: 04/20/18 10:11 04/21/18 03:59 Labs: Laboratory Last Values WBC 6.5 K/mm3 (4.5-11.0) 04/20/18 10:11 RBC 3.31 M/mm3 (3.65-5.03) L 04/20/18 10:11 Hgb 9.1 gm/dl (10.1-14.3) L 04/20/18 10:11 Hct 27.8 % (30.3-42.9) L 04/20/18 10:11 MCV 84 fl (79-97) 04/20/18 10:11 MCH 28 pg (28-32) 04/20/18 10:11 MCHC 33 % (30-34) 04/20/18 10:11 RDW 15.2 % (13.2-15.2) 04/20/18 10:11 Plt Count 318 K/mm3 (140-440) 04/20/18 10:11 Lymph % (Auto) 4.0 % (13.4-35.0) L 04/20/18 10:11 Henderson % (Auto) 7.5 % (0.0-7.3) H 04/20/18 10:11 Eos % (Auto) 0.0 % (0.0-4.3) 04/20/18 10:11 Baso % (Auto) 0.4 % (0.0-1.8) 04/20/18 10:11 Lymph # 0.3 K/mm3 (1.2-5.4) L 04/20/18 10:11 Henderson # 0.5 K/mm3 (0.0-0.8) 04/20/18 10:11 Eos # 0.0 K/mm3 (0.0-0.4) 04/20/18 10:11 Baso # 0.0 K/mm3 (0.0-0.1) 04/20/18 10:11 Seg Neutrophils % 88.1 % (40.0-70.0) H 04/20/18 10:11 Seg Neutrophils # 5.8 K/mm3 (1.8-7.7) 04/20/18 10:11 Sodium 141 mmol/L (137-145) 04/20/18 10:11 Potassium 3.8 mmol/L (3.6-5.0) 04/20/18 10:11 Chloride 105.1 mmol/L (98-107) 04/20/18 10:11 Carbon Dioxide 24 mmol/L (22-30) 04/20/18 10:11 Anion Gap 16 mmol/L 04/20/18 10:11 BUN 25 mg/dL (7-17) H 04/20/18 10:11 Creatinine 2.3 mg/dL (0.7-1.2) H 04/20/18 10:11 Estimated GFR 25 ml/min 04/20/18 10:11 BUN/Creatinine Ratio 11 % 04/20/18 10:11 Glucose 43 mg/dL (65-100) L 04/21/18 03:59 POC Glucose 268 (70-105) H 04/26/18 11:09 Calcium 7.9 mg/dL (8.4-10.2) L D 04/20/18 10:11 Ionized Calcium 4.3 mg/dL (4.8-5.6) L 04/20/18 10:11 Phosphorus 4.00 mg/dL (2.5-4.5) 04/20/18 10:11 Magnesium 2.00 mg/dL (1.7-2.3) 04/20/18 10:11 Iron 52 ug/dL (37-170) 04/19/18 09:37 TIBC 290 mcg/dL (250-450) 04/19/18 09:37 % Saturation 17.93 % 04/19/18 09:37 Transferrin 239 mg/dl (192-382) 04/19/18 09:37 Ferritin 14.4 ng/mL (13.0-400.0) 04/19/18 09:37 Total Bilirubin 0.20 mg/dL (0.1-1.2) 04/19/18 04:47 AST 12 units/L (5-40) 04/19/18 04:47 ALT < 5 units/L (7-56) L 04/19/18 04:47 Alkaline Phosphatase 52 units/L (35-129) 04/19/18 04:47 Total Protein 5.8 g/dL (6.3-8.2) L D 04/19/18 04:47 Albumin 3.2 g/dL (3.9-5) L 04/19/18 04:47 Albumin/Globulin Ratio 1.2 % 04/19/18 04:47 Vitamin B12 812.7 pg/mL (211-911) 04/19/18 09:37 25-OH Vitamin D Total 17 ng/mL (30-100) L 04/19/18 09:37 25-Hydroxy Vitamin D2 . 04/19/18 09:37 25-Hydroxy Vitamin D3 . 04/19/18 09:37 RBC Folic Acid 954 ng/mL (>280) 04/19/18 09:37 PTH Intact 19.21 pg/mL (15-65) 04/19/18 09:37 Hepatitis A IgM Ab Non-reactive (NonReactive) 04/19/18 09:37 Hep B Core IgM Ab Non-reactive (NonReactive) 04/19/18 09:37 Hepatitis C Antibody Non-reactive (NonReactive) 04/19/18 09:37 Active Medications - Current Medications Current Medications: Generic Name Dose Route Start Last Admin Trade Name Freq PRN Reason Stop Dose Admin Acetaminophen 650 mg 04/18/18 14:24 04/26/18 10:08 Tylenol PO 650 mg Q4H PRN Administration Pain MILD(1-3)/Fever >100.5/PATRICIA Albuterol 2.5 mg 04/18/18 14:24 Proventil IH Q4HRT PRN Shortness Of Breath Amlodipine Besylate 10 mg 04/19/18 10:00 04/26/18 09:42 Norvasc PO 10 mg DAILY DUNG Administration Atorvastatin Calcium 40 mg 04/18/18 22:00 04/25/18 23:43 Lipitor PO 40 mg QHS DUNG Administration Calcium Carbonate/Glycine 1,000 mg 04/19/18 10:00 04/26/18 09:42 Tums PO 1,000 mg BID DUNG Administration Cholecalciferol 5,000 unit 04/20/18 12:00 04/26/18 09:41 Vitamin D3 PO 5,000 unit DAILY DUNG Administration Clonidine HCl 0.1 mg 04/22/18 22:00 04/26/18 09:41 Catapres PO 0.1 mg Q12HR DUNG Administration Dextrose 50 ml 04/19/18 10:23 04/21/18 04:43 D50w (25gm) Syringe IV 50 ml PRN PRN Administration Hypoglycemia Docusate Sodium 100 mg 04/18/18 22:00 04/26/18 09:42 Colace PO 100 mg BID DUNG Administration Famotidine 20 mg 04/19/18 10:00 04/26/18 09:41 Pepcid PO 20 mg DAILY DUNG Administration Heparin Sodium (Porcine) 5,000 unit 04/19/18 14:00 04/26/18 13:30 Heparin SUB-Q 5,000 unit Q8HR DUNG Administration Hydralazine HCl 10 mg 04/19/18 10:27 04/25/18 15:36 Apresoline IV 10 mg Q4HR PRN Administration BP >160/100 Sodium Chloride 100 mls @ 999 mls/hr 04/25/18 07:52 Nacl 0.9% IV TEJ PRN Hypotension Insulin Glargine 5 units 04/25/18 22:00 04/25/18 22:35 Lantus SUB-Q 5 units QHS DUNG Administration Insulin Human Lispro 0 unit 04/19/18 11:30 04/26/18 12:28 Humalog SUB-Q 3 unit ACHS DUNG Administration Protocol Lisinopril 20 mg 04/20/18 11:00 04/26/18 09:41 Zestril PO 20 mg BID DUNG Administration Multivitamins/Iron 1 each 04/20/18 12:00 04/26/18 09:41 Hemocyte Plus PO 1 each QDAY DUNG Administration Ondansetron HCl 4 mg 04/18/18 14:24 Zofran IV Q8H PRN Nausea And Vomiting Sodium Chloride 10 ml 04/18/18 22:00 04/26/18 09:42 Sodium Chloride Flush Syringe 10 Ml IV 10 ml BID DUNG Administration Sodium Chloride 10 ml 04/18/18 14:24 Sodium Chloride Flush Syringe 10 Ml IV PRN PRN LINE FLUSH Nutrition/Malnutrition Assess - Dietary Evaluation Nutrition/Malnutrition Findings: Nutrition Notes Start: 04/19/18 13:19 Freq: Status: Active Protocol: Document 04/26/18 15:20 RD (Rec: 04/26/18 15:29 RD [id number]) Co-Sign 04/26/18 15:20 NHALL Nutrition Notes Initial or Follow up Brief Note Subjective/Other Information Pt sound asleep at time of visit. Pt has comsumed 73% of meals since last assessment. Percent of energy/protein needs met: 100%/93% Nutrition Intervention Follow-Up By: 05/03/18 Additional Comments f/u: stable intakes and weight
[2018-04-27] MEDS: HEPARIN SUB-Q SCH ×3 (01:15→13:46)
[2018-04-27] MEDS: TUMS PO SCH ×2 (01:15→09:24)
[2018-04-27] MEDS: APRESOLINE IV PRN (01:16)
[2018-04-27] MEDS: CATAPRES PO SCH ×2 (01:17→10:03)
[2018-04-27] MEDS: HumaLOG SUB-Q SCH ×4 (01:17→08:24)
[2018-04-27] MEDS: COLACE PO SCH ×3 (01:17→09:22)
[2018-04-27] MEDS: SODIUM CHLORIDE FLUSH SYRINGE 10 ML IV SCH ×3 (01:19→09:24)
[2018-04-27] MEDS: ZESTRIL PO SCH ×2 (01:20→09:23)
[2018-04-27] MEDS: LANTUS SUB-Q SCH (01:25)
[2018-04-27] MEDS: D50W (25GM) Syringe IV PRN (03:34)
[2018-04-27 09:12] LABS: Hepatitis B Surface Antigen Nonreactive (Negative)
[2018-04-27] MEDS: VITAMIN D3 PO SCH (09:22)
[2018-04-27] MEDS: NORVASC PO SCH (09:23)
[2018-04-27] MEDS: PEPCID PO SCH (09:23)
--- NOTE | 2018-04-27 10:35 | Discharge Summary ---
Providers - Providers Date of Admission: 04/18/18 14:42 Attending physician: TIFFANY CARREON MD 04/19/18 07:30 Consult to Physician [CONS] Routine Comment: called answ. serv. /aretha Consulting Provider: NICOLE SANTOYO Physician Instructions: Reason For Exam: ARF/ESRD 04/19/18 08:54 Consult to Physician [CONS] Routine Comment: called office/aretha Consulting Provider: AZAEL GARSIA Physician Instructions: patient needs permacath today Reason For Exam: permacath placement 04/19/18 10:23 Consult to Dietitian/Nutrition [CONS] Routine Physician Instructions: Reason For Exam: Reason for Consult: Diet education 04/20/18 07:26 Physical Therapy Evaluation and Treat [CONS] Routine Comment: Reason For Exam: weakness Primary care physician: GELY GUTIERREZ [facility] Hospital course: 77-year-old woman who presented with weakness. She was sent by her therapy tech for direct admission for worsening chronic kidney disease, nonadherence to medications. She was sent to the hospital for initiation of renal replacement therapy. sp permacath 04/19, she was initiated on renal replacement therapy. Calcium was repleted, Lantus dose was reduced due to hypoglycemia. Her blood pressure medications were optimized. She was set up for outpatient hemodialysis prior to discharge. -The patient was counseled for greater than 15 minutes and improved adherence to medications and treatments Diagnoses Acute on chronic kidney disease requiring renal replacement, stage 4-5 Hypertensive urgency Anemia of chronic disease Hypocalcemia Hypoglycemia Secondary hyperparathyroidism Type 2 diabetes Metabolic acidosis Uremia -non adherence Disposition: DC-01 TO HOME OR SELFCARE Time spent for discharge: 33 minutes Core Measure Documentation - Palliative Care Palliative Care/ Comfort Measures: Not Applicable - Core Measures Any of the following diagnoses?: none Exam - Constitutional Vitals: Temp Pulse Resp BP Pulse Ox 98.6 F 86 16 167/85 100 04/27/18 07:39 04/27/18 09:23 04/27/18 08:00 04/27/18 09:23 04/27/18 07:39 General appearance: Present: no acute distress, well-nourished - EENT Eyes: Present: PERRL ENT: hearing intact, clear oral mucosa - Neck Neck: Present: supple, normal ROM - Respiratory Respiratory effort: normal Respiratory: bilateral: CTA - Cardiovascular Heart Sounds: Present: S1 & S2. Absent: rub, click - Extremities Extremities: pulses symmetrical, No edema Peripheral Pulses: within normal limits - Abdominal General gastrointestinal: Present: soft, non-tender, non-distended, normal bowel sounds Female genitourinary: Present: normal - Integumentary Integumentary: Present: clear, warm, dry - Musculoskeletal Musculoskeletal: gait normal, strength equal bilaterally - Psychiatric Psychiatric: appropriate mood/affect, intact judgment & insight - Neurologic Neurologic: CNII-XII intact, moves all extremities Plan Follow up with: GELY GUTIERREZ MD [Primary Care Provider] - 7 Days Prescriptions: Insulin Glargine [Lantus VIAL] 5 units SUB-Q QHS #1 vial cloNIDine [Catapres] 0.1 mg PO Q12HR #60 tablet Fe Fumarate/FA/Mv, Min Comb#15 [Hemocyte Plus] 1 each PO QDAY #30 capsule Calcium Carbonate [Tums] 1,000 mg PO BID #60 tablet Cholecalciferol Vit D3 [Vitamin D3 1,000 UNIT TAB] 5,000 unit PO DAILY #30 tablet
[2018-04-27] MEDS ORDERED: HumaLOG SUB-Q SCH (11:30)
[2018-04-27] MEDS: HEMOCYTE PLUS PO SCH (11:34)
--- NOTE | 2018-04-27 13:46 | Progress Note ---
Assessment and Plan - Patient Problems (1) End stage renal disease Current Visit: Yes Status: Acute Plan to address problem: End-stage renal disease access is right IJ PermCath Dialysis Wednesday She has been confirmed at [facility] on Wednesday starting 2 PM on 04/29/2018 Received HD today. (2) HTN (hypertension) Current Visit: Yes Status: Acute Plan to address problem: Hypertension uncontrolled Continue medications (3) Anemia in chronic kidney disease (CKD) Current Visit: Yes Status: Acute Qualifiers: Chronic kidney disease stage: on chronic dialysis Qualified Code(s): N18.6 - End stage renal disease; D63.1 - Anemia in chronic kidney disease; Z99.2 - Dependence on renal dialysis Plan to address problem: Moderate anemia Hemoglobin 9.4 g per DL Monitor CBC (4) Vitamin D deficiency Current Visit: Yes Status: Acute Plan to address problem: Vitamin D deficiency : Vitamin D 17 Ergocalciferol [id number] weekly x 12 weeks. Subjective Principal diagnosis: esrd Interval history: 77-year-old lady with medical history significant for chronic kidney disease stage IV hypertension is interested in dialysis awaiting outpatient dialysis placement at [facility] she was seen today She denies any shortness of breath. She had a chest x ray done today Denies any shortness of breath orthopnea PND She has been accepted at [facility] on Wednesday starting 2 PM on 04/29/2018 I attest I saw the patient on hemodialysis at 12noon. Objective - Vital Signs Vital signs: Vital Signs - 12hr 04/27/18 04/27/18 04/27/18 02:48 07:39 08:00 Temperature 98.1 F 98.6 F Pulse Rate 71 70 Respiratory 16 20 16 Rate Blood Pressure 131/46 161/62 O2 Sat by Pulse 99 100 Oximetry 04/27/18 04/27/18 04/27/18 09:23 10:00 10:15 Temperature 98.5 F Pulse Rate 86 77 69 Respiratory 20 Rate Blood Pressure 167/85 179/83 174/77 O2 Sat by Pulse Oximetry 04/27/18 04/27/18 04/27/18 10:30 10:45 11:00 Temperature Pulse Rate 71 67 68 Respiratory Rate Blood Pressure 171/85 171/71 169/74 O2 Sat by Pulse Oximetry 04/27/18 04/27/18 04/27/18 11:15 11:30 11:45 Temperature Pulse Rate 68 67 67 Respiratory Rate Blood Pressure 181/77 183/78 183/75 O2 Sat by Pulse Oximetry 04/27/18 04/27/18 04/27/18 12:00 12:15 12:30 Temperature Pulse Rate 69 71 67 Respiratory Rate Blood Pressure 190/80 185/73 184/77 O2 Sat by Pulse Oximetry 04/27/18 13:00 Temperature Pulse Rate 67 Respiratory Rate Blood Pressure 183/78 O2 Sat by Pulse Oximetry - General Appearance General appearance: well-developed, well-nourished EENT: ATNC, PERRL Neck: no JVD, no thyromegaly, supple Respiratory: Present: Clear to Ascultation Cardiology: regular, S1S2 Gastrointestinal: normal, normoactive bowel sounds Integumentary: no rash Neurologic: no focal deficit Musculoskeletal: deferred Psychiatric: mood/affect appropriate - Lab 04/20/18 10:11 04/27/18 04:06 Most recent lab results Calcium 7.9 mg/dL (8.4-10.2) L D 04/20/18 10:11 Phosphorus 4.00 mg/dL (2.5-4.5) 04/20/18 10:11 Magnesium 2.00 mg/dL (1.7-2.3) 04/20/18 10:11 - Imaging Chest x-ray: image reviewed (I reviewed CXR which showed no overt edema. ) Medications & Allergies - Medications Allergies/Adverse Reactions: Allergies aspirin Allergy (Severe, Verified 04/18/18 15:22) Unknown reflux. Home Medications: Home Medications Medication Instructions Recorded Confirmed Last Taken Type Lisinopril [Zestril TAB] 20 mg PO QDAY 02/07/17 04/27/18 Unknown History AtorvaSTATin [Lipitor] 40 mg PO QHS #30 tablet 11/01/17 04/27/18 Unknown Rx Docusate Sodium [Colace CAP] 100 mg PO BID #30 capsule 11/01/17 04/27/18 Unknown Rx amLODIPine [Norvasc] 10 mg PO DAILY #30 tablet 11/01/17 04/27/18 Unknown Rx Calcium Carbonate [Tums] 1,000 mg PO BID #60 tablet 04/25/18 Unknown Rx Cholecalciferol Vit D3 [Vitamin D3 5,000 unit PO DAILY #30 tablet 04/25/18 Unknown Rx 1,000 UNIT TAB] Fe Fumarate/FA/Mv, Min Comb#15 1 each PO QDAY #30 capsule 04/25/18 Unknown Rx [Hemocyte Plus] Insulin Glargine [Lantus VIAL] 5 units SUB-Q QHS #1 vial 04/25/18 Unknown Rx cloNIDine [Catapres] 0.1 mg PO Q12HR #60 tablet 04/25/18 Unknown Rx Active Medications: Generic Name Dose Route Start Last Admin Trade Name Freq PRN Reason Stop Dose Admin Acetaminophen 650 mg 04/18/18 14:24 04/26/18 10:08 Tylenol PO 650 mg Q4H PRN Administration Pain MILD(1-3)/Fever >100.5/PATRICIA Albuterol 2.5 mg 04/18/18 14:24 Proventil IH Q4HRT PRN Shortness Of Breath Amlodipine Besylate 10 mg 04/19/18 10:00 04/27/18 09:23 Norvasc PO 10 mg DAILY DUNG Administration Atorvastatin Calcium 40 mg 04/18/18 22:00 04/27/18 01:14 Lipitor PO 40 mg QHS DUNG Administration Calcium Carbonate/Glycine 1,000 mg 04/19/18 10:00 04/27/18 09:24 Tums PO 1,000 mg BID DUNG Administration Cholecalciferol 5,000 unit 04/20/18 12:00 04/27/18 09:22 Vitamin D3 PO 5,000 unit DAILY DUNG Administration Clonidine HCl 0.1 mg 04/22/18 22:00 04/27/18 10:03 Catapres PO Not Given Q12HR [facility] Dextrose 50 ml 04/19/18 10:23 04/27/18 03:34 D50w (25gm) Syringe IV 50 ml PRN PRN Administration Hypoglycemia Docusate Sodium 100 mg 04/18/18 22:00 04/27/18 09:22 Colace PO 100 mg BID DUNG Administration Famotidine 20 mg 04/19/18 10:00 04/27/18 09:23 Pepcid PO 20 mg DAILY DUNG Administration Heparin Sodium (Porcine) 5,000 unit 04/19/18 14:00 04/27/18 07:48 Heparin SUB-Q Not Given Q8HR [facility] Hydralazine HCl 10 mg 04/19/18 10:27 04/27/18 01:16 Apresoline IV 10 mg Q4HR PRN Administration BP >160/100 Sodium Chloride 100 mls @ 999 mls/hr 04/25/18 07:52 Nacl 0.9% IV TEJ PRN Hypotension Insulin Glargine 5 units 04/25/18 22:00 04/27/18 01:25 Lantus SUB-Q 5 units QHS [facility] Administration Insulin Human Lispro 0 unit 04/27/18 11:30 04/27/18 11:33 Humalog SUB-Q Not Given AC [facility] Protocol Lisinopril 20 mg 04/20/18 11:00 04/27/18 09:23 Zestril PO 20 mg BID [facility] Administration Multivitamins/Iron 1 each 04/20/18 12:00 04/27/18 11:34 Hemocyte Plus PO Not Given QDAY [facility] Ondansetron HCl 4 mg 04/18/18 14:24 Zofran IV Q8H PRN Nausea And Vomiting Sodium Chloride 10 ml 04/18/18 22:00 04/27/18 09:24 Sodium Chloride Flush Syringe 10 Ml IV 10 ml BID DUNG Administration Sodium Chloride 10 ml 04/18/18 14:24 Sodium Chloride Flush Syringe 10 Ml IV PRN PRN LINE FLUSH
[2018-04-27] MEDS ORDERED: VITAMIN D2 PO STA (14:17)
[2018-04-27 19:19] VITALS: BP 159/70
[2018-04-27] MEDS ORDERED: NACL 0.9 (PRIMING MACHINE ONLY DIALYSIS) MC ONE (20:10)
== END 2018-04-27 15:00 | disposition home or self-care (01) | DRG 673 ==
LOC: 2B-ACE 14:03 → UNDOADMIN 14:03 → 2B-ACE 14:42
PROVIDERS: ADMIT Internal Medicine; ATTEND Internal Medicine
PROC: 0JH63XZ Insertion of Tunneled Vascular Access Device into Chest Subcutaneous Tissue and Fascia, Percutaneous Approach (ICD-10-PCS; principal; 2018-04-19)
PROC: B2141ZZ Fluoroscopy of Right Heart using Low Osmolar Contrast (ICD-10-PCS; 2018-04-19)
PROC: 02H633Z Insertion of Infusion Device into Right Atrium, Percutaneous Approach (ICD-10-PCS; 2018-04-19)
PROC: B244YZZ Ultrasonography of Right Heart using Other Contrast (ICD-10-PCS; 2018-04-19)
PROC: 5A1D70Z Performance of Urinary Filtration, Intermittent, Less than 6 Hours Per Day (ICD-10-PCS; 2018-04-19)
PROC: 5A1D70Z Performance of Urinary Filtration, Intermittent, Less than 6 Hours Per Day (ICD-10-PCS; 2018-04-20)
PROC: 5A1D70Z Performance of Urinary Filtration, Intermittent, Less than 6 Hours Per Day (ICD-10-PCS; 2018-04-22)
PROC: 5A1D70Z Performance of Urinary Filtration, Intermittent, Less than 6 Hours Per Day (ICD-10-PCS; 2018-04-25)
PROC: 5A1D70Z Performance of Urinary Filtration, Intermittent, Less than 6 Hours Per Day (ICD-10-PCS; 2018-04-27)
DX: I12.0 Hypertensive chronic kidney disease with stage 5 chronic kidney disease or end stage renal disease (principal); N17.0 Acute kidney failure with tubular necrosis; N18.6 End stage renal disease; E87.2 Acidosis; N25.81 Secondary hyperparathyroidism of renal origin; I16.0 Hypertensive urgency; E11.22 Type 2 diabetes mellitus with diabetic chronic kidney disease; E05.90 Thyrotoxicosis, unspecified without thyrotoxic crisis or storm; E83.51 Hypocalcemia; D63.1 Anemia in chronic kidney disease; D63.8 Anemia in other chronic diseases classified elsewhere; E11.649 Type 2 diabetes mellitus with hypoglycemia without coma; E87.5 Hyperkalemia; Z99.2 Dependence on renal dialysis; Z83.3 Family history of diabetes mellitus; Z82.49 Family history of ischemic heart disease and other diseases of the circulatory system; Z79.4 Long term (current) use of insulin
CPT/HCPCS: 36415; 36558; 71046; 76770; 77001; 80048; 80053; 80074; 82306; 82330; 82607; 82728; 82747; 82947; 82962; 83550; 83735; 83970; 84100; 85025; 87116; G0378; A9270-GY; C1750; J0360; J0885; J1170; J1644; J1815; J2250; J2916; J3010; J7030; J7050

== ENCOUNTER 2018-05-23 16:01 | Emergency (ER) | payer MEDICARE ==
--- NOTE | 2018-05-23 17:09 | Emergency Department Report ---
ED General Adult HPI - General Chief complaint: Recheck/Abnormal Lab/Rx Stated complaint: LOW CALCIUM Time Seen by Provider: 05/23/18 17:00 Source: EMS Mode of arrival: Stretcher Limitations: No Limitations - History of Present Illness Initial comments: Patient is 78 years old female with history of end-stage renal disease on hemodialysis, hypertension. Patient brought to the emergency room via EMS from dialysis center for evaluation and management of low calcium. Patient did not finish her dialysis session today. Patient denied any symptoms. Specifically patient denied shortness of breath, chest pain, headache, weakness numbness or tingling sensation. He stated this was asked by Dr. Allan to take [id number] calcium tablets. - Related Data Home Medications Medication Instructions Recorded Confirmed Last Taken Lisinopril [Zestril TAB] 20 mg PO QDAY 02/07/17 04/27/18 Unknown Previous Rx's Medication Instructions Recorded Last Taken Type AtorvaSTATin [Lipitor] 40 mg PO QHS #30 tablet 11/01/17 Unknown Rx Docusate Sodium [Colace CAP] 100 mg PO BID #30 capsule 11/01/17 Unknown Rx amLODIPine [Norvasc] 10 mg PO DAILY #30 tablet 11/01/17 Unknown Rx Calcium Carbonate [Tums] 1,000 mg PO BID #60 tablet 04/25/18 Unknown Rx Cholecalciferol Vit D3 [Vitamin D3 5,000 unit PO DAILY #30 tablet 04/25/18 Unknown Rx 1,000 UNIT TAB] Fe Fumarate/FA/Mv, Min Comb#15 1 each PO QDAY #30 capsule 04/25/18 Unknown Rx [Hemocyte Plus] Insulin Glargine [Lantus VIAL] 5 units SUB-Q QHS #1 vial 04/25/18 Unknown Rx cloNIDine [Catapres] 0.1 mg PO Q12HR #60 tablet 04/25/18 Unknown Rx Allergies Allergy/AdvReac Type Severity Reaction Status Date / Time aspirin Allergy Severe Unknown Verified 04/18/18 15:22 ED Review of Systems ROS: Stated complaint: LOW CALCIUM Other details as noted in HPI Comment: All other systems reviewed and negative Constitutional: denies: chills, fever ENT: denies: throat pain Cardiovascular: denies: chest pain, palpitations, dyspnea on exertion Gastrointestinal: denies: abdominal pain, nausea, vomiting, diarrhea, constipation, hematemesis Musculoskeletal: denies: back pain Neurological: denies: headache, weakness, numbness, paresthesias, confusion ED Past Medical Hx - Past Medical History Hx Hypertension: Yes Hx Congestive Heart Failure: No Hx Diabetes: Yes Hx Renal Disease: Yes (CKD,stage 3: GFR 30-59) Hx Asthma: No Hx HIV: No Additional medical history: Anemia. 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 - Social History Smoking Status: Former Smoker Substance Use Type: Marijuana - Medications Home Medications: Home Medications Medication Instructions Recorded Confirmed Last Taken Type Lisinopril [Zestril TAB] 20 mg PO QDAY 02/07/17 04/27/18 Unknown History AtorvaSTATin [Lipitor] 40 mg PO QHS #30 tablet 11/01/17 04/27/18 Unknown Rx Docusate Sodium [Colace CAP] 100 mg PO BID #30 capsule 11/01/17 04/27/18 Unknown Rx amLODIPine [Norvasc] 10 mg PO DAILY #30 tablet 11/01/17 04/27/18 Unknown Rx Calcium Carbonate [Tums] 1,000 mg PO BID #60 tablet 04/25/18 Unknown Rx Cholecalciferol Vit D3 [Vitamin D3 5,000 unit PO DAILY #30 tablet 04/25/18 Unknown Rx 1,000 UNIT TAB] Fe Fumarate/FA/Mv, Min Comb#15 1 each PO QDAY #30 capsule 04/25/18 Unknown Rx [Hemocyte Plus] Insulin Glargine [Lantus VIAL] 5 units SUB-Q QHS #1 vial 04/25/18 Unknown Rx cloNIDine [Catapres] 0.1 mg PO Q12HR #60 tablet 04/25/18 Unknown Rx ED Physical Exam - General Limitations: No Limitations General appearance: alert, in no apparent distress - Head Head exam: Present: atraumatic, normocephalic, normal inspection - Eye Eye exam: Present: normal appearance, PERRL - ENT ENT exam: Present: normal exam, normal orophraynx, mucous membranes moist - Neck Neck exam: Present: normal inspection, full ROM. Absent: tenderness, meningismus, lymphadenopathy, thyromegaly - Respiratory Respiratory exam: Present: normal lung sounds bilaterally - Cardiovascular Cardiovascular Exam: Present: regular rate, normal rhythm, normal heart sounds - GI/Abdominal GI/Abdominal exam: Present: soft, normal bowel sounds. Absent: distended, tenderness, guarding, rebound, rigid - Extremities Exam Extremities exam: Present: normal inspection - Back Exam Back exam: Present: normal inspection, full ROM. Absent: CVA tenderness (R), CVA tenderness (L) - Neurological Exam Neurological exam: Present: alert, oriented X3, CN II-XII intact - Skin Skin exam: Present: warm, intact ED Medical Decision Making - Lab Data Result diagrams: 05/23/18 17:30 05/23/18 17:30 - Medical Decision Making Patient is 78 years old female with history of end-stage renal disease on hemodialysis, hypertension. Patient brought to the emergency room via EMS from dialysis center for evaluation and management of low calcium. Patient did not finish her dialysis session today. Patient denied any symptoms. Specifically patient denied shortness of breath, chest pain, headache, weakness numbness or tingling sensation. He stated this was asked by Dr. Allan to take [id number] calcium tablets. Patient calcium came back at 6.8. I discussed the patient with Dr. Velasquez. Dr. Velasquez said patient can go home and follow-up with her telephone answering service operator in the next 2-3 days. Patient would need to finish her dialysis session tomorrow. Patient informed and she understood and instruction very well. Patient also advised to return to the ER if any new symptoms. Critical care attestation.: If time is entered above; I have spent that time in minutes in the direct care of this critically ill patient, excluding procedure time. ED Disposition Clinical Impression: Hypocalcemia, End stage renal disease Disposition: TO HOME OR SELFCARE Is pt being admited?: No Condition: Stable Instructions: Hypocalcemia (ED) Referrals: NICOLE ALLAN MD [Staff Physician] - 3-5 Days
[2018-05-23 17:44] LABS: Basophils # (Auto) 0.1 K/mm3 (0.0-0.1); Basophils % (Auto) 1.2 % (0.0-1.8); Eosinophils # (Auto) 0.3 K/mm3 (0.0-0.4); Eosinophils % (Auto) 5.8 % (0.0-4.3); Hematocrit 28.4 % (30.3-42.9); Hemoglobin 9.4 gm/dl (10.1-14.3); Lymphocytes % (Auto) 19.6 % (13.4-35.0); Mean Corpuscular HGB Conc 33 % (30-34); Mean Corpuscular Volume 89 fl (79-97); Monocytes # (Auto) 0.6 K/mm3 (0.0-0.8); Monocytes % (Auto) 10.8 % (0.0-7.3); Platelet Count 284 K/mm3 (140-440); Red Blood Count 3.21 M/mm3 (3.65-5.03); Red Cell Distribution Width 18.5 % (13.2-15.2)
[2018-05-23 18:05] LABS: Calcium 6.8 mg/dL (8.4-10.2)
[2018-05-24 19:32] VITALS: BP 128/77
== END 2018-05-23 19:09 | disposition home or self-care (01) ==
LOC: ED 16:01
DX: E83.51 Hypocalcemia (principal); I12.0 Hypertensive chronic kidney disease with stage 5 chronic kidney disease or end stage renal disease; E11.22 Type 2 diabetes mellitus with diabetic chronic kidney disease; N18.6 End stage renal disease; F12.90 Cannabis use, unspecified, uncomplicated; Z99.2 Dependence on renal dialysis; Z79.4 Long term (current) use of insulin; Z87.891 Personal history of nicotine dependence; Z88.6 Allergy status to analgesic agent
CPT/HCPCS: 36415; 80048; 82330; 85025; 99283

== ENCOUNTER 2018-06-09 10:22 | Day surgery (SDC) | payer MEDICARE ==
[~2018-06-09 10:22] MED LIST: ANCEF/NS 1 GM/50 ML 1 GM/50 ML BAG IV NR
[2018-06-09] MEDS ORDERED: SUBLIMAZE IV PRN (12:07)
[2018-06-09] MEDS ORDERED: DILAUDID IV PRN (12:07)
[2018-06-09] MEDS ORDERED: ZOFRAN IV PRN (12:07)
[2018-06-09] MEDS ORDERED: NARCAN 0.4 MG/1 ML IV PRN (12:07)
--- NOTE | 2018-06-09 12:07 | Anesthesia Consultation ---
Anesthesia Consult and Med Hx Date of service: 06/09/18 - Airway Anesthetic Teeth Evaluation: Poor ROM Head & Neck: Adequate Mental/Hyoid Distance: Adequate Mallampati Class: Class II Intubation Access Assessment: Good - Pulmonary Exam CTA: Yes - Cardiac Exam Cardiac Exam: RRR - Pre-Operative Health Status ASA Pre-Surgery Classification: ASA3 Proposed Anesthetic Plan: MAC - Pulmonary Hx Smoking: Yes (Past hx) - Cardiovascular System Hx Hypertension: Yes Hx Coronary Artery Disease: Yes Hx Heart Murmur: Yes - Central Nervous System Hx Neuromuscular Disorder: No Hx Psychiatric Problems: No - Gastrointestinal Hx Gastroesophageal Reflux Disease: Yes - Endocrine Hx Renal Disease: Yes Hx End Stage Renal Disease: Yes Hx Insulin Dependent Diabetes: Yes (h/o DKA 2013, possible 2nd incident 01/2015) Hx Hypothyroidism: Yes - Hematic Hx Anemia: Yes - Other Systems Hx Cancer: No
--- NOTE | 2018-06-09 12:07 | Anesthesia Day of Surgery ---
Anesthesia Day of Surgery - Day of Surgery Patient Examined: Yes Patient H&P Reviewed: Yes Patient is NPO: Yes Beta Blockers: No Cardiac Clearance: No Pulmonary Clearance: No
[2018-06-09 12:17] LABS: Basophils % (Auto) 0.9 % (0.0-1.8); Eosinophils # (Auto) 0.2 K/mm3 (0.0-0.4); Eosinophils % (Auto) 3.6 % (0.0-4.3); Hematocrit 31.3 % (30.3-42.9); Hemoglobin 10.3 gm/dl (10.1-14.3); Lymphocytes # (Auto) 0.8 K/mm3 (1.2-5.4); Lymphocytes % (Auto) 17.3 % (13.4-35.0); Mean Corpuscular HGB Conc 33 % (30-34); Mean Corpuscular Volume 91 fl (79-97); Monocytes # (Auto) 0.6 K/mm3 (0.0-0.8); Monocytes % (Auto) 14.4 % (0.0-7.3); Platelet Count 209 K/mm3 (140-440); Red Blood Count 3.45 M/mm3 (3.65-5.03); Red Cell Distribution Width 17.1 % (13.2-15.2)
[2018-06-09 12:22] LABS: INR 0.82 (0.87-1.13)
[2018-06-09 12:35] LABS: Calcium 7.3 mg/dL (8.4-10.2)
[2018-06-09] MEDS ORDERED: NACL 0.9% 1000 ML 1,000 ML IV SCH (13:00)
[2018-06-09] MEDS ORDERED: PROTAMINE SULFATE ONE (14:51)
[2018-06-09] MEDS ORDERED: HEPARIN 10,000 UNITS/10 ML ONE (14:51)
[2018-06-09] MEDS ORDERED: NACL 0.9% 500 ML 500 ML ONE (14:51)
[2018-06-09] MEDS ORDERED: MARCAINE-EPI 0.5%-1:200,000 INFILTRATI ONE (14:51)
[2018-06-09] MEDS ORDERED: MARCAINE 0.5% INFILTRATI ONE ×3 (14:51→16:10)
[2018-06-09] MEDS ORDERED: DIPRIVAN 10 MG/ML IV ONE ×5 (15:04→16:17)
[2018-06-09] MEDS ORDERED: SUBLIMAZE ONE (15:04)
[2018-06-09] MEDS ORDERED: PAPAVERINE ONE (15:06)
[2018-06-09] MEDS ORDERED: NACL P/F VIAL (10 ML) 10 ML ONE (15:09)
[2018-06-09] MEDS ORDERED: RIFADIN ONE (15:09)
[2018-06-09] MEDS ORDERED: HEPARIN 10,000 UNITS/10 ML IV ONE (16:05)
[2018-06-09] MEDS ORDERED: NACL 0.9% 500 ML IRRIGATION ONE (16:06)
[2018-06-09] MEDS ORDERED: RIFADIN IV ONE (16:09)
[2018-06-09] MEDS ORDERED: NACL 0.9% IR ONE (16:10)
[2018-06-09] MEDS ORDERED: ROBINUL ONE (16:16)
[2018-06-09] MEDS ORDERED: NEO SYNEPHRINE/NS Syringe(OR USE) IV ONE (16:16)
[2018-06-09] MEDS ORDERED: XYLOCAINE MPF 2% ONE (16:16)
--- NOTE | 2018-06-09 17:01 | Short Stay Summary ---
Short Stay Documentation Date of service: 06/09/18 Narrative H&P: See H&P - History H&P: obtained from office - Allergies and Medications Current Medications: Allergies aspirin Allergy (Severe, Verified 06/07/18 17:36) Unknown reflux. Home Medications Medication Instructions Recorded Confirmed Last Taken Type Docusate Sodium [Colace CAP] 100 mg PO BID #30 capsule 11/01/17 06/08/18 Unknown Rx amLODIPine [Norvasc] 10 mg PO DAILY #30 tablet 11/01/17 06/09/18 06/09/18 09:30 Rx Cholecalciferol Vit D3 [Vitamin D3 5,000 unit PO DAILY #30 tablet 04/25/18 06/09/18 06/08/18 Rx 1,000 UNIT TAB] Fe Fumarate/FA/Mv, Min Comb#15 1 each PO QDAY #30 capsule 04/25/18 06/08/18 Unknown Rx [Hemocyte Plus] cloNIDine [Catapres] 0.1 mg PO Q12HR #60 tablet 04/25/18 06/09/18 06/08/18 Rx Calcium Carbonate/Vitamin D3 1 each PO DAILY #15 tablet 05/23/18 06/09/18 06/07/18 Rx [Calcium 600 + Vit D Caplet] Atorvastatin [Lipitor Tab] 40 mg PO QHS 06/09/18 06/09/18 06/08/18 20:00 History Levothyroxine [Synthroid] 125 mcg PO QAM 06/09/18 06/09/18 06/08/18 09:00 History Linagliptin [Tradjenta] 5 mg PO QHS 06/09/18 06/09/18 06/07/18 20:00 History Lispro Insulin [Humalog] See Protocol SC AC 06/09/18 06/08/18 History Active Medications Fentanyl (Sublimaze) 50 mcg IV Q5MIN PRN PRN Reason: Pain , Severe (7-10) Hydromorphone HCl (Dilaudid) 0.25 mg IV Q10MIN PRN PRN Reason: Pain, Moderate (4-6) Cefazolin Sodium (Ancef/Ns 1 Gm/50 Ml) 1 gm in 50 mls @ 100 mls/hr IV PREOP NR; Protocol Stop: 06/09/18 23:59 Sodium Chloride (Nacl 0.9% 1000 Ml) 1,000 mls @ 42 mls/hr IV DIRECT DUNG Last Admin: 06/09/18 12:47 Dose: 42 mls/hr Documented by: Naloxone HCl (Narcan 0.4 Mg/1 Ml) 0.1 mg IV Q2MIN PRN PRN Reason: Res Rate </= 8 or 02 SAT < 92% Ondansetron HCl (Zofran) 4 mg IV ONCE PRN PRN Reason: Nausea And Vomiting - Brief post op/procedure progress note Date of procedure: 06/09/18 Pre-op diagnosis: End-Stage Renal Disease Post-op diagnosis: same Procedure: Creation of Left Brachial Artery to Axillary Vein AV Graft with 6 Mm Bovine Graft Anesthesia: MAC, local Surgeon: HAMLET HINES Estimated blood loss: minimal Pathology: none Condition: stable - Disposition Condition at discharge: Good Disposition: DC-01 TO HOME OR SELFCARE Short Stay Discharge Plan Activity: other (no heavy lifting with left arm) Wound: open to air, keep clean and dry, other (okay to wash the wound with soap and water but do not soak in water) Follow up with: HAMLET HINES MD [Staff Physician] - 14 Days Prescriptions: HYDROcodone/ACETAMINOPHEN [[place] 7.5-325 Tablet] 1 each PO Q6HR PRN #40 tablet PRN Reason: Pain , Severe (7-10)
--- NOTE | 2018-06-09 17:03 | Operative Report ---
Operative Report Operative Report: Date of procedure: 06/09/2018 Pre-operative diagnosis: End-Stage Renal Disease Post-operative diagnosis: Same Procedure(s): 1. Creation of Left Brachial Artery to Axillary Vein AV Graft with 6 mm Bovine Graft Surgeon: Ti Eastman MD Facing Cutting Machine Operator: None Anesthesia: Local/MAC EBL: Minimal Counts: Correct Complications: None Condition: Stable Findings: Successful Creation of Left Arm AV Graft Specimen: None Indication: The patient is an 78-year-old female with a history of end-stage renal disease who is currently on hemodialysis through a right internal jugular permacath. She is in need of long-term dialysis access and needs creation of a left arm AV graft. She was given the risks, benefits, and alternative procedures and consented to the procedure. Description of Procedure: The patient was brought to the operating room and laid in supine position after general endotracheal anesthesia was achieved the left arm was prepped and draped in normal sterile fashion. A longitudinal incision was made on the medial aspect of the arm just proximal to the antecubital crease and carried down to the brachial artery using sharp dissection. The brachial artery was dissected out circumferentially both proximally and distally and controlled with vessel loops. A second incision was created in longitudinal fashion on the medial aspect of the arm just distal to the axillary crease and carried down to the axillary vein using sharp dissection. Axillary vein was dissected out circumferentially and controlled with a vessel loop. I then used a Ligia-Wick tunneler to tunnel from the brachial artery incision to the axillary vein incision and then put an 6 mm bovine through the tunnel. I infused with heparinized saline to ensure that it was not twisted or kinked. I put the brachial artery vessel loops on tension controlling the flow and then created an arteriotomy using an 11 blade and Ambrose scissors. I beveled the graft and created an end-to-side anastomosis using 6-0 Prolene running fashion. I clamped the graft just proximal to the anastomosis and then released the vessel loops restoring flow in the brachial artery. I placed quick clot in incision to achieve hemostasis. I cut the proximal end of the graft to the appropriate length and beveled the graft in preparation for a venous anastomosis. I controlled the axillary vein a Satinsky clamp and created a venotomy using an 11 blade and Ambrose scissors. I created an end to side anastomosis using a 6-0 Prolene in running fashion. Prior to completing the anastomosis I flushed the graft to ensure there was no thrombus and then completed the anastamosis. I released all clamps allowing flow into the AV graft which had an excellent thrill. I packed the wound with quick clot to achieve hemostasis. I anesthetized both wounds with Marcaine and then closed both wounds in 2 layers using 3-0 Vicryl in running fashion in the deep dermal layer and 4-0 Monocryl in running fashion the subcuticular layer. I dressed both wounds with Surgicel. The patient tolerated the procedure well all sponge needle and instrument counts were correct the patient was taken to recovery in stable condition.
[2018-06-09 18:03] VITALS: BP 136/82
== END 2018-06-09 18:40 | disposition home or self-care (01) ==
LOC: OR 10:22
PROVIDERS: ATTEND Surgery Vascular Surgery
DX: I12.0 Hypertensive chronic kidney disease with stage 5 chronic kidney disease or end stage renal disease (principal); E11.22 Type 2 diabetes mellitus with diabetic chronic kidney disease; N18.6 End stage renal disease; E11.01 Type 2 diabetes mellitus with hyperosmolarity with coma; E03.9 Hypothyroidism, unspecified; I25.10 Atherosclerotic heart disease of native coronary artery without angina pectoris; K21.9 Gastro-esophageal reflux disease without esophagitis; M19.90 Unspecified osteoarthritis, unspecified site; Z88.6 Allergy status to analgesic agent; Z79.899 Other long term (current) drug therapy; Z87.891 Personal history of nicotine dependence; Z98.42 Cataract extraction status, left eye; Z98.890 Other specified postprocedural states; Z90.721 Acquired absence of ovaries, unilateral; Z99.2 Dependence on renal dialysis
CPT/HCPCS: 36415; 36830; 80048; 82962; 85025; 85610; C1768; J1644; J2370; J2704; J3010; J3490; J7030; J7040; J2440; J2720

== ENCOUNTER 2018-11-05 16:51 | Emergency (ER) | payer MEDICARE ==
--- NOTE | 2018-11-05 18:14 | Event Note ---
Date: 11/05/18 Medical screening note: This 78-year-old female, history of renal insufficiency, chronic pancreatitis, on renal replacement therapy, chronic abdominal pain, present with constipation for a few weeks. Patient afebrile, with hypertension, otherwise appears to be comfortable. Recently seen in this department a few days ago for similar symptoms. Had an appropriate workup. We will check basic labs, EKG, noncontrast CT scan of the abdomen pelvis, and we'll reassess after initial data points. Vital Signs 11/05/18 17:58 Temperature 98.4 F Pulse Rate 91 H Respiratory 16 Rate Blood Pressure 147/72 [Right] O2 Sat by Pulse 100 Oximetry
--- NOTE | 2018-11-05 18:36 | XRay Report ---
CHEST 1 VIEW 6:15 PM INDICATION / CLINICAL INFORMATION: Abdominal pain, weakness and end-stage renal disease. COMPARISON: 04/26/2018. FINDINGS: SUPPORT DEVICES: None. HEART / MEDIASTINUM: The heart size and pulmonary vasculature are normal. The aorta is normal in darby mackenzie. LUNGS / PLEURA: No significant pulmonary or pleural abnormality. No pneumothorax. ADDITIONAL FINDINGS: No significant additional findings. IMPRESSION: No acute abnormality or significant change. Signer Name: Eric Ardon MD Signed: 11/05/2018 6:32 PM Workstation Name: [id number]
[2018-11-05 18:49] LABS: Hematocrit 37.1 % (30.3-42.9); Mean Corpuscular HGB Conc 32 % (30-34); Mean Corpuscular Volume 92 fl (79-97); Platelet Count 166 K/mm3 (140-440); Red Blood Count 4.02 M/mm3 (3.65-5.03); Red Cell Distribution Width 14.3 % (13.2-15.2)
[2018-11-05 19:08] LABS: Albumin 4.2 g/dL (3.9-5)
--- NOTE | 2018-11-05 19:42 | Cat Scan Report ---
CT ABDOMEN AND PELVIS WITHOUT CONTRAST INDICATION: Abdominal pain/pressure. Constipation. Hypertension. COMPARISON: No relevant prior imaging study available. TECHNIQUE: Axial, coronal and sagittal CT imaging of the abdomen and pelvis was performed without co ntrast. Lack of intravenous contrast limits evaluation of the vascular and solid organs. All CT sca ns at this location are performed using CT dose reduction for ALARA by means of automated exposure co ntrol. FINDINGS: LOWER CHEST: The lung bases are clear. Heart size is normal without a pericardial effusion. There is diffuse coronary atherosclerosis and mild thoracic aortic atherosclerosis. LIVER: No significant abnormality. BILIARY: No significant abnormality. PANCREAS: Extensive calcifications are consistent with chronic pancreatitis. No acute inflammation or other significant abnormality is seen. SPLEEN: The spleen is normal in size with an indeterminate hypodensity along the upper pole measuring 2.6 cm on image 37 of series 2. ADRENALS: No significant abnormality. KIDNEYS AND URETERS: Probable right renal cysts measure up to 1.5 cm. No additional significant abnor mality. GI TRACT: No significant abnormality of the stomach or small bowel. The colon contains a large amount of stool without an additional significant abnormality. Unremarkable appendix. PERITONEUM: No free fluid. No free air. No fluid collection. LYMPH NODES: No significant adenopathy. VASCULATURE: The aorta is normal in caliber with diffuse atherosclerosis throughout the aorta and its visualized branches. URINARY BLADDER: No significant abnormality. REPRODUCTIVE ORGANS: No significant abnormality. ADDITIONAL FINDINGS: None. SKELETAL SYSTEM: No acute abnormality. Osteopenia is seen with degenerative changes of the spine and SI joints. IMPRESSION: 1. No acute abnormality of the abdomen or pelvis. 2. Additional findings as above. Signer Name: Erik Gamez MD Signed: 11/05/2018 7:38 PM Workstation Name: [email or web address]
[2018-11-05] MEDS ORDERED: LACTULOSE 20 GM/30 ML ORAL LIQD PO ONE (20:20)
--- NOTE | 2018-11-05 20:26 | Emergency Department Report ---
HPI - General Chief Complaint: Abdominal Pain Time Seen by Provider: 11/05/18 20:11 - HPI HPI: Room 1 The patient is an 78-year-old female presenting with the chief complaint constipation. Patient states she's been constipated for 1-2 weeks. The patient states she had one episode of nausea vomiting days ago. Patient denies bowel pain but admits to rectal pain. Patient's uncertain if she's had a fever. Location: [See above] Duration: [See above] Quality: [See above] Severity: [See above] Timing: [See above] Context: [See above] Modifying factors: [See above] Associated signs and symptoms: [see above] ED Past Medical Hx - Past Medical History Hx Hypertension: Yes Hx Diabetes: Yes Hx GERD: Yes Hx Renal Disease: Yes Hx Arthritis: Yes Hx Headaches / Migraines: Yes Additional medical history: Anemia, HD M W F. 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 - Family History Family history: no significant - Social History Smoking Status: Former Smoker Substance Use Type: None - Medications Home Medications: Home Medications Medication Instructions Recorded Confirmed Last Taken Type Docusate Sodium [Colace CAP] 100 mg PO BID #30 capsule 11/01/17 06/08/18 Unknown Rx amLODIPine [Norvasc] 10 mg PO DAILY #30 tablet 11/01/17 06/09/18 06/09/18 09:30 Rx Cholecalciferol Vit D3 [Vitamin D3 5,000 unit PO DAILY #30 tablet 04/25/18 06/09/18 06/08/18 Rx 1,000 UNIT TAB] Fe Fumarate/FA/Mv, Min Comb#15 1 each PO QDAY #30 capsule 04/25/18 06/08/18 Unknown Rx [Hemocyte Plus] cloNIDine [Catapres] 0.1 mg PO Q12HR #60 tablet 04/25/18 06/09/18 06/08/18 Rx Calcium Carbonate/Vitamin D3 1 each PO DAILY #15 tablet 05/23/18 06/09/18 06/07/18 Rx [Calcium 600-Vit D3 400 Caplet] Atorvastatin [Lipitor] 40 mg PO QHS 06/09/18 06/09/18 06/08/18 20:00 History HYDROcodone/ACETAMINOPHEN [[place] 1 each PO Q6HR PRN #40 tablet 06/09/18 Unknown Rx 7.5-325 Tablet] Levothyroxine [Synthroid] 125 mcg PO QAM 06/09/18 06/09/18 06/08/18 09:00 History Linagliptin [Tradjenta] 5 mg PO QHS 06/09/18 06/09/18 06/07/18 20:00 History Lispro Insulin [HumaLOG] See Protocol SC AC 06/09/18 06/08/18 History Ondansetron [Zofran Odt] 4 mg PO Q8HR #10 tab.rapdis 10/30/18 Unknown Rx Sucralfate [Carafate] 1 gm PO Q6HR 20 Days udc 10/30/18 Unknown Rx traMADol [Ultram] 50 mg PO Q6HR PRN #10 tablet 10/30/18 Unknown Rx Docusate Sodium [Colace] 100 mg PO BID PRN #60 capsule 11/05/18 Unknown Rx Lactulose [Cephulac] 20 gm PO QDAY #90 ml 11/05/18 Unknown Rx ED Review of Systems ROS: Stated complaint: CONSITPATED Other details as noted in HPI Constitutional: fever (?) Eyes: denies: eye pain ENT: denies: throat pain Respiratory: no symptoms reported Cardiovascular: denies: chest pain Endocrine: no symptoms reported Gastrointestinal: nausea, vomiting, constipation. denies: abdominal pain Genitourinary: denies: dysuria Musculoskeletal: denies: back pain Neurological: denies: headache Physical Exam - Physical Exam Vital Signs: Vital Signs 11/05/18 11/05/18 17:58 19:35 Temperature 98.4 F 98.2 F Pulse Rate 91 H 91 H Respiratory 16 15 Rate Blood Pressure 147/72 176/62 [Right] O2 Sat by Pulse 100 100 Oximetry Physical Exam: GENERAL: The patient is well-developed well-nourished female on a stretcher not appearing to be in acute distress. [] HEENT: Normocephalic. Atraumatic. Extraocular motions are intact. Patient has moist mucous membranes. NECK: Supple. Trachea midline CHEST/LUNGS: Clear to auscultation. There is no respiratory distress noted. HEART/CARDIOVASCULAR: Regular. There is no tachycardia. There is no gallop rub or murmur. ABDOMEN: Abdomen is soft, nontender. Patient has normal bowel sounds. There is no abdominal distention. SKIN: There is no rash. There is no edema. There is no diaphoresis. NEURO: The patient is awake, alert, and oriented. The patient is cooperative. The patient has normal speech MUSCULOSKELETAL:There is no evidence of acute injury. RECTAL: ED Course Vital Signs 11/05/18 11/05/18 17:58 19:35 Temperature 98.4 F 98.2 F Pulse Rate 91 H 91 H Respiratory 16 15 Rate Blood Pressure 147/72 176/62 [Right] O2 Sat by Pulse 100 100 Oximetry - Reevaluation(s) Reevaluation #1: 11/05/18 21:56 prison reports patient feels improved and is ready to go home - Rectal Disimpaction Consent Obtained: verbal consent Time Out Performed: Yes Indication: fecal impaction Procedural Sedation: No Sedation/Analgesia: none Technique: manual disimpaction with Result: significant stool output Complications: none Patient Tolerated Procedure: no complications ED Medical Decision Making - Lab Data Result diagrams: 11/05/18 18:25 11/05/18 05:47 - EKG Data -: EKG Interpreted by Me EKG shows normal: sinus rhythm Rate: normal - EKG Data When compared to previous EKG there are: previous EKG unavailable Interpretation: nonspecific ST-T wave william (T-wave inversion in lead V2) - Radiology Data Radiology results: report reviewed (CT abdomen pelvis, chest x-ray), image reviewed (CT abdomen pelvis, chest x-ray) interpreted by me: Chest x-ray-no focal infiltrate, no pneumothorax [facility] [address] [place] [address] Cat Scan Report Signed Patient: ALBERTO ANGLIN MR#: [id number] : 1940 A cct:[id number] Age/Sex: 78 / F ADM Date: 11/05/18 Loc: ED Attending Dr: Ordering Physician: NADIA JULIEN MD Date of Service: 11/05/18 Procedure(s): CT abdomen pelvis wo con Accession Number(s): [id number] cc: NADIA JULIEN MD CT ABDOMEN AND PELVIS WITHOUT CONTRAST INDICATION: Abdominal pain/pressure. Constipation. Hypertension. COMPARISON: No relevant prior imaging study available. TECHNIQUE: Axial, coronal and sagittal CT imaging of the abdomen and pelvis was performed without contrast. Lack of intravenous contrast limits evaluation of the vascular and solid organs. All CT scans at this location are performed using CT dose reduction for ALARA by means of automated exposure control. FINDINGS: LOWER CHEST: The lung bases are clear. Heart size is normal without a pericardial effusion. There is diffuse coronary atherosclerosis and mild thoracic aortic atherosclerosis. LIVER: No significant abnormality. BILIARY: No significant abnormality. PANCREAS: Extensive calcifications are con sistent with chronic pancreatitis. No acute inflammation or other significant abnormality is seen. SPLEEN: The spleen is normal in size with an indeterminate hypodensity along the upper pole measuring 2.6 cm on image 37 of series 2. ADRENALS: No significant abnormality. KIDNEYS AND URETERS: Probable right renal cysts measure up to 1.5 cm. No additional significant abnormality. GI TRACT: No significant abnormality of the stomach or small bowel. The colon contains a large amount of stool without an additional significant abnormality. Unremarkable appendix. PERITONEUM: No free fluid. No free air. No fluid collection. LYMPH NODES: No significant adenopathy. VASCULATURE: The aorta is normal in caliber with diffuse atherosclerosis throughout the aorta and its visualized branches. URINARY BLADDER: No significant abnormality. REPRODUCTIVE ORGANS: No significant abnormality. ADDITIONAL FINDINGS: None. SKELETAL SYSTEM: No acute abnormality. Osteopenia is seen with degenerative changes of the spine and SI joints. IMPRESSION: 1. No acute abnormality of the abdomen or pelvis. 2. Additional findings as above. Signer Name: Erik Gamez MD Signed: 11/05/2018 7:38 PM Workstation Name: [id number] Transcribed By: [place] Dictated By: Erik Gamez MD Electronically Authenticated By: Erik Gamez MD Signed Date/Time: 11/05/181937 DD/ 31 TD/TT: [facility] [address] [place] [address] XRay Report Signed Patient: ALBERTO ANGLIN MR#: [id number] : 1940 Acct:[id number] Age/Sex: 78 / F ADM Date: 11/05/18 Loc: ED Attending Dr: Ordering Physician: NADIA JULIEN MD Date of Service: 11/05/18 Procedure(s): XR chest 1V ap Accession Number(s): [id number] cc: NADIA JULIEN MD Fluoro Time In Minutes: CHEST 1 VIEW 6:15 PM INDICATION / CLINICAL INFORMATION: Abdominal pain, weakness and end-stage renal disease. COMPARISON: 04/26/2018. FINDINGS: SUPPORT DEVICES: None. HEART / MEDIASTINUM: The heart size and pulmonary vasculature are normal. The aorta is normal in caliber. LUNGS / PLEURA: No significant pulmonary or pleural abnormality. No pneumothorax. ADDITIONAL FINDINGS: No significant additional findings. IMPRESSION: No acute abnormality or significant change. Signer Name: Eric Ardon MD Signed: 11/05/2018 6:32 PM Workstation Name: [id number] Transcribed By: RT Dictated By: Eric Ardon MD Electronically Authenticated By: Eric Ardon MD Signed Date/Time: 11/05/181831 DD/ 29 TD/TT: - Differential Diagnosis constipation, obstruction, volvulus Critical care attestation.: If time is entered above; I have spent that time in minutes in the direct care of this critically ill patient, excluding procedure time. ED Disposition Clinical Impression: Constipation, Fecal impaction Disposition: DC-01 TO HOME OR SELFCARE Is pt being admited?: No Does the pt Need Aspirin: No Condition: Stable Instructions: Abdominal Pain (ED), Constipation (ED) Additional Instructions: Return to the emergency department should you develop worsening symptoms, inability to tolerate food or liquids, high fever or any other concerns Prescriptions: Lactulose [Cephulac] 20 gm PO QDAY #90 ml Docusate Sodium [Colace] 100 mg PO BID PRN #60 capsule PRN Reason: Constipation Referrals: GELY GUTIERREZ MD [Primary Care Provider] - 3-5 Days ESPERANZA FRANCISCO MD [Staff Physician] - 3-5 Days (Dr. Francisco is a spa host. Please follow up with him for further evaluation) Time of Disposition: 21:58
[2018-11-05 21:59] VITALS: BP 169/58
== END 2018-11-05 22:12 | disposition home or self-care (01) ==
LOC: ED 16:51
DX: K56.41 Fecal impaction (principal); K21.9 Gastro-esophageal reflux disease without esophagitis; I12.0 Hypertensive chronic kidney disease with stage 5 chronic kidney disease or end stage renal disease; N18.6 End stage renal disease; E11.22 Type 2 diabetes mellitus with diabetic chronic kidney disease; Z99.2 Dependence on renal dialysis; G43.909 Migraine, unspecified, not intractable, without status migrainosus; M19.90 Unspecified osteoarthritis, unspecified site; Z86.2 Personal history of diseases of the blood and blood-forming organs and certain disorders involving the immune mechanism; Z87.891 Personal history of nicotine dependence; Z79.899 Other long term (current) drug therapy
CPT/HCPCS: 36415; 71045; 74176; 80053; 82550; 83735; 85027; 93005; 93010; 99285

== ENCOUNTER 2018-12-13 14:10 | Observation (INO) | payer MEDICARE ==
[2018-12-13] MEDS ORDERED: BUTALB/ACETAMINOPHEN/CAFFEINE TAB PO ONE (15:28)
--- NOTE | 2018-12-13 15:32 | Emergency Department Report ---
HPI - General Chief Complaint: Altered Mental Status Time Seen by Provider: 12/13/18 15:18 - HPI HPI: Room 7 The patient is an 78-year-old female presenting with a chief complaint of headache and altered mental status. Family states the patient suffered a fall approximate 4 weeks ago began complaining of a headache. The patient sick to [facility] where CT scan was performed and was negative. The patient continued complaining of persistent bilateral headache. Patient last known well time was 07:00 yesterday morning. When family came home from work yesterday the patient was already asleep. The patient's daughter states this morning the p atient was not behaving like her normal self and had nonsensical speech at times. Patient continued to complain of a headache. The daughter states the patient initially did not recognize her. The patient gets her pain a score of 10/10 Location: [See above] Duration: [See above] Quality: [See above] Severity: [See above] Timing: [See above] Context: [See above] Modifying factors: [See above] Associated signs and symptoms: [see above] ED Past Medical Hx - Past Medical History Previous Medical History?: Yes Hx Hypertension: Yes Hx Diabetes: Yes Hx GERD: Yes Hx Renal Disease: Yes (HD MWF) Hx Arthritis: Yes Hx Headaches / Migraines: Yes Additional medical history: Anemia, HD M W F. 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 - Family History Family history: no significant - Social History Smoking Status: Former Smoker (none 50 years) Substance Use Type: None - Medications Home Medications: Home Medications Medication Instructions Recorded Confirmed Last Taken Type Docusate Sodium [Colace CAP] 100 mg PO BID #30 capsule 11/01/17 06/08/18 Unknown Rx Cholecalciferol Vit D3 [Vitamin D3 5,000 unit PO DAILY #30 tablet 04/25/18 06/09/18 06/08/18 Rx 1,000 UNIT TAB] Fe Fumarate/FA/Mv, Min Comb#15 1 each PO QDAY #30 capsule 04/25/18 06/08/18 Unknown Rx [Hemocyte Plus] Calcium Carbonate/Vitamin D3 1 each PO DAILY #15 tablet 05/23/18 06/09/18 06/07/18 Rx [Calcium 600-Vit D3 400 Caplet] Atorvastatin [Lipitor] 40 mg PO QHS 06/09/18 06/09/18 06/08/18 20:00 History HYDROcodone/ACETAMINOPHEN [[place] 1 each PO Q6HR PRN #40 tablet 06/09/18 Unknown Rx 7.5-325 Tablet] Linagliptin [Tradjenta] 5 mg PO QHS 06/09/18 06/09/18 06/07/18 20:00 History Lispro Insulin [HumaLOG] See Protocol SC AC 06/09/18 06/08/18 History Ondansetron [Zofran ODT TAB] 4 mg PO Q8HR #10 tab.rapdis 10/30/18 Unknown Rx traMADol [Ultram 50 MG tab] 50 mg PO Q6HR PRN #10 tablet 10/30/18 Unknown Rx Docusate Sodium [Colace CAP] 100 mg PO BID PRN #60 capsule 11/05/18 Unknown Rx Lactulose [Cephulac] 20 gm PO QDAY #90 ml 11/05/18 Unknown Rx Levothyroxine [Synthroid] 150 mcg PO DAILY@0600 #30 tablet 11/24/18 Unknown Rx Insulin Glargine,Hum.rec.anlog 10 unit SQ HS #5 insuln.pen 11/25/18 Unknown Rx [Lantus Solostar] Metoprolol [Lopressor TAB] 12.5 mg PO BID #60 tablet 11/25/18 Unknown Rx ED Review of Systems ROS: Stated complaint: AMS Other details as noted in HPI Constitutional: no symptoms reported Eyes: denies: eye pain ENT: denies: throat pain Respiratory: no symptoms reported Cardiovascular: denies: chest pain Endocrine: no symptoms reported Gastrointestinal: nausea, vomiting Musculoskeletal: denies: back pain Neurological: headache Physical Exam - Physical Exam Physical Exam: GENERAL: The patient is well-developed well-nourished female lying on stretcher not appearing to be in acute distress. [] HEENT: Normocephalic. Atraumatic. Extraocular motions are intact. Patient has moist mucous membranes. NECK: Supple. No meningitic signs are noted. Trachea midline CHEST/LUNGS: Clear to auscultation. There is no respiratory distress noted. HEART/CARDIOVASCULAR: Regular. There is no tachycardia. There is no gallop rub or murmur. ABDOMEN: Abdomen is soft, nontender. Patient has normal bowel sounds. There is no abdominal distention. SKIN: There is no rash. There is no edema. There is no diaphoresis. NEURO: The patient is awake, alert, and oriented. The patient is cooperative. The patient has no focal neurologic deficits. The patient has normal speech. Cranial nerves II through XII grossly intact, no drift MUSCULOSKELETAL: There is no evidence of acute injury. ED Medical Decision Making - Lab Data Result diagrams: 12/13/18 17:20 12/13/18 17:20 Laboratory Tests 12/13/18 12/13/18 12/13/18 17:20 17:20 17:20 WBC 4.2 L RBC 3.05 L Hgb 9.7 L Hct 29.2 L MCV 96 MCH 32 MCHC 33 RDW 17.6 H Plt Count 192 Lymph % (Auto) 27.9 [place] % (Auto) 15.6 H Eos % (Auto) 2.6 Baso % (Auto) 0.8 Lymph # 1.2 [place] # 0.6 Eos # 0.1 Baso # 0.0 Seg Neutrophils % 53.1 Seg Neutrophils # 2.2 PT 12.9 INR 0.98 APTT 28.6 VBG pH Sodium 134 L Potassium 4.0 Chloride 96.0 L Carbon Dioxide 26 Anion Gap 16 BUN 31 H Creatinine 2.5 H Estimated GFR 22 BUN/Creatinine Ratio 12 Glucose 256 H Calcium 8.9 Total Bilirubin 0.30 AST 21 ALT 15 Alkaline Phosphatase 75 Ammonia Total Creatine Kinase 71 CK-MB (CK-2) 1.4 CK-MB (CK-2) Rel Index 1.9 Troponin T Total Protein 7.3 Albumin 4.0 Albumin/Globulin Ratio 1.2 Triglycerides Cholesterol LDL Cholesterol Direct TSH Free T4 12/13/18 12/13/18 12/13/18 17:20 17:20 17:20 WBC RBC Hgb Hct MCV MCH MCHC RDW Plt Count Lymph % (Auto) [place] % (Auto) Eos % (Auto) Baso % (Auto) Lymph # [place] # Eos # Baso # Seg Neutrophils % Seg Neutrophils # PT INR APTT VBG pH Sodium Potassium Chloride Carbon Dioxide Anion Gap BUN Creatinine Estimated GFR BUN/Creatinine Ratio Glucose Calcium Total Bilirubin AST ALT Alkaline Phosphatase Ammonia 20.0 L Total Creatine Kinase CK-MB (CK-2) CK-MB (CK-2) Rel Index Troponin T 0.051 H Total Protein Albumin Albumin/Globulin Ratio Triglycerides 84 Cholesterol 230 H LDL Cholesterol Direct 103 TSH 92.980 H Free T4 1.17 12/13/18 17:20 WBC RBC Hgb Hct MCV MCH MCHC RDW Plt Count Lymph % (Auto) [place] % (Auto) Eos % (Auto) Baso % (Auto) Lymph # [place] # Eos # Baso # Seg Neutrophils % Seg Neutrophils # PT INR APTT VBG pH 7.486 H Sodium Potassium Chloride Carbon Dioxide Anion Gap BUN Creatinine Estimated GFR BUN/Creatinine Ratio Glucose Calcium Total Bilirubin AST ALT Alkaline Phosphatase Ammonia Total Creatine Kinase CK-MB (CK-2) CK-MB (CK-2) Rel Index Troponin T Total Protein Albumin Albumin/Globulin Ratio Triglycerides Cholesterol LDL Cholesterol Direct TSH Free T4 - EKG Data -: EKG Interpreted by Me Rate: normal - EKG Data When compared to previous EKG there are: no significant change Interpretation: other (paced rhythm) - Radiology Data Radiology results: report reviewed (CT head), image reviewed (CT head) [place] [address] Cat Scan Report Signed Patient: ALBERTO ANGLIN MR#: [id number] : 1940 Acct:[id number] Age/Sex: 78 / F ADM Date: 12/13/18 Loc: ED Attending Dr: Ordering Physician: LALITHA CABRERA MD Date of Service: 12/13/18 Procedure(s): CT head/brain wo con Accession Number(s): [id number] cc: LALITHA CABRERA MD CT head without contrast HISTORY: headache, altered mental status. TECHNIQUE: Axial imaging performed from the skull apex through the skull base without the use of contrast. All CT scans at this location are performed using CT dose reduction for ALARA by means of automated exposure control. COMPARISON: CT head from 10/30/2017 FINDINGS: Parenchyma: No acute intracranial hemorrhage or parenchymal abnormality. Old area of encephalomalacia again seen in the right parietal region near the vertex. Ventricles: There is mild diffuse brain atrophy with commensurate ventricular enlargement which is likely age appropriate. Soft tissues: Soft tissues including the orbits appear normal. Bones: No acute osseous abnormality. Sinuses: Sinuses and mastoid air cells are clear. IMPRESSION: No acute abnormality. Signer Name: Jason Weber MD Signed: 12/13/2018 4:20 PM Workstation Name: [id number] Transcribed By: YAHIR Dictated By: Jason Weber MD Electronically Authenticated By: Jason Weber MD Signed Date/Time: 12/13/181619 DD/ 17 TD/TT: - Differential Diagnosis altered mental status, ICH, hypoglycemia, DKA Critical care attestation.: If time is entered above; I have spent that time in minutes in the direct care of this critically ill patient, excluding procedure time. ED Disposition Clinical Impression: Altered mental status, Headache, Renal insufficiency Disposition: OP ADMIT IP TO THIS HOSP Is pt being admited?: Yes Does the pt Need Aspirin: No Condition: Fair Time of Disposition: 18:15 (hospitalist paged (Dr Lee))
--- NOTE | 2018-12-13 16:25 | Cat Scan Report ---
CT head without contrast HISTORY: headache, altered mental status. TECHNIQUE: Axial imaging performed from the skull apex through the skull base without the use of con trast. All CT scans at this location are performed using CT dose reduction for ALARA by means of aut omated exposure control. COMPARISON: CT head from 10/30/2017 FINDINGS: Parenchyma: No acute intracranial hemorrhage or parenchymal abnormality. Old area of encephalomalaci a again seen in the right parietal region near the vertex. Ventricles: There is mild diffuse brain atrophy with commensurate ventricular enlargement which is l ikely age appropriate. Soft tissues: Soft tissues including the orbits appear normal. Bones: No acute osseous abnormality. Sinuses: Sinuses and mastoid air cells are clear. IMPRESSION: No acute abnormality. Signer Name: Jason Weber MD Signed: 12/13/2018 4:20 PM Workstation Name: [id number]
[2018-12-13 17:35] LABS: Basophils % (Auto) 0.8 % (0.0-1.8); Eosinophils # (Auto) 0.1 K/mm3 (0.0-0.4); Eosinophils % (Auto) 2.6 % (0.0-4.3); Hematocrit 29.2 % (30.3-42.9); Hemoglobin 9.7 gm/dl (10.1-14.3); Lymphocytes # (Auto) 1.2 K/mm3 (1.2-5.4); Lymphocytes % (Auto) 27.9 % (13.4-35.0); Mean Corpuscular HGB Conc 33 % (30-34); Mean Corpuscular Volume 96 fl (79-97); Monocytes # (Auto) 0.6 K/mm3 (0.0-0.8); Monocytes % (Auto) 15.6 % (0.0-7.3); Platelet Count 192 K/mm3 (140-440); Red Blood Count 3.05 M/mm3 (3.65-5.03); Red Cell Distribution Width 17.6 % (13.2-15.2)
[2018-12-13 17:44] LABS: INR 0.98 (0.87-1.13)
[2018-12-13 17:46] LABS: Partial Thromboplastin Time 28.6 Sec. (24.2-36.6)
[2018-12-13 17:52] LABS: Creatine Kinase MB 1.4 ng/mL (0.0-4.0)
[2018-12-13 17:56] LABS: Calcium 8.9 mg/dL (8.4-10.2)
[2018-12-13 18:03] LABS: Free T4 (Free Thyroxine) 1.17 ng/dL (0.76-1.46)
[2018-12-13 18:39] LABS: Chol/HDL Ratio 1.81 %
[2018-12-13] MEDS ORDERED: ACETAMINOPHEN 325 MG TAB PO PRN (19:53)
[2018-12-13] MEDS ORDERED: ONDANSETRON 4 MG/2 ML INJ IV PRN (19:53)
--- NOTE | 2018-12-13 20:57 | History and Physical Report ---
History of Present Illness Date of examination: 12/13/18 Date of admission: 12/13/18 18:26 Chief complaint: Headache, AMS History of present illness: A female with history of ESRD on HD, complete heart block status post pacemaker, hypertension, diabetes, GERD, arthritis, migraines, hypocalcemia, and hypothyroidism who presents to [facility] ED with complaints of altered mental status and headache. Patient's daughter is present at bedside and has assisted in providing history. According to patient's daughter, patient has not pain at her usual state of health for the past day. States that her mother has been sleeping more than usual and at times her speech is not appropriate for situation. Additionally the patient has history of migraines and has been complaining of headaches for the past 4 weeks after experiencing a fall. Pulse fall patient was taken to [place] where a CT head was performed and the results were negative. At the time of my examination patient is sitting up in stretcher, awake, alert and oriented 3. She denies deviation from baseline me ntation. She admits to sleeping more than usual for past day and attributes this to feeling tired. She admits to having chronic migraine headaches. Currently she denies pain, but states that at it worst her headache is 10/10. 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) Social history: lives with family, other (former smoker) Family history: hypertension Medications and Allergies Allergies Allergy/AdvReac Type Severity Reaction Status Date / Time aspirin Allergy Severe Unknown Verified 06/07/18 17:36 Home Medications Medication Instructions Recorded Confirmed Last Taken Type Docusate Sodium [Colace CAP] 100 mg PO BID #30 capsule 11/01/17 06/08/18 Unknown Rx Cholecalciferol Vit D3 [Vitamin D3 5,000 unit PO DAILY #30 tablet 04/25/18 06/09/18 06/08/18 Rx 1,000 UNIT TAB] Fe Fumarate/FA/Mv, Min Comb#15 1 each PO QDAY #30 capsule 04/25/18 06/08/18 Unknown Rx [Hemocyte Plus] Calcium Carbonate/Vitamin D3 1 each PO DAILY #15 tablet 05/23/18 06/09/18 06/07/18 Rx [Calcium 600-Vit D3 400 Caplet] Atorvastatin [Lipitor] 40 mg PO QHS 06/09/18 06/09/18 06/08/18 20:00 History HYDROcodone/ACETAMINOPHEN [[place] 1 each PO Q6HR PRN #40 tablet 06/09/18 Unknown Rx 7.5-325 Tablet] Linagliptin [Tradjenta] 5 mg PO QHS 06/09/18 06/09/18 06/07/18 20:00 History Lispro Insulin [HumaLOG] See Protocol SC AC 06/09/18 06/08/18 History Ondansetron [Zofran ODT TAB] 4 mg PO Q8HR #10 tab.rapdis 10/30/18 Unknown Rx traMADol [Ultram 50 MG tab] 50 mg PO Q6HR PRN #10 tablet 10/30/18 Unknown Rx Docusate Sodium [Colace CAP] 100 mg PO BID PRN #60 capsule 11/05/18 Unknown Rx Lactulose [Cephulac] 20 gm PO QDAY #90 ml 11/05/18 Unknown Rx Levothyroxine [Synthroid] 150 mcg PO DAILY@0600 #30 tablet 11/24/18 Unknown Rx Insulin Glargine,Hum.rec.anlog 10 unit SQ HS #5 insuln.pen 11/25/18 Unknown Rx [Lantus Solostar] Metoprolol [Lopressor TAB] 12.5 mg PO BID #60 tablet 11/25/18 Unknown Rx Active Meds: Active Medications Acetaminophen (Tylenol) 650 mg PO Q4H PRN PRN Reason: Pain MILD(1-3)/Fever >100.5/PATRICIA Atorvastatin Calcium (Lipitor) 40 mg PO QHS [facility] Calcium/Vitamin D ([place] D 500 Mg-200 Unit) 1 each PO DAILY DUNG Cholecalciferol (Vitamin D3) 5,000 unit PO QDAY DUNG Dextrose (D50w (25gm) Syringe) 50 ml IV Q30MIN PRN PRN Reason: Hypoglycemia Docusate Sodium (Colace) 100 mg PO BID DUNG Heparin Sodium (Porcine) (Heparin) 5,000 unit SUB-Q Q12HR DUNG Insulin Glargine (Lantus) 10 units SUB-Q QHS DUNG Insulin Human Lispro (Humalog) 0 unit SUB-Q ACHS DUNG; Protocol Levothyroxine Sodium (Synthroid) 150 mcg PO DAILY@0600 [facility] Linagliptin (Tradjenta) 5 mg PO QHS [facility] Multivitamins/Iron (Hemocyte Plus) 1 each PO QDAY [facility] Ondansetron HCl (Zofran) 4 mg IV Q6H PRN PRN Reason: Nausea And Vomiting Sodium Chloride (Sodium Chloride Flush Syringe 10 Ml) 10 ml IV BID [facility] Sodium Chloride (Sodium Chloride Flush Syringe 10 Ml) 10 ml IV PRN PRN PRN Reason: LINE FLUSH Review of Systems All systems: negative Constitutional: chronic headaches Exam - Physical Exam Narrative exam: General appearance: Present: No acute distress, alert and orientedx2-3, older adult female - EENT Eyes: Present: PERRL, EOM intact ENT: hearing intact - Neck Neck: Present: supple, normal ROM - Respiratory Respiratory effort: Non-labored Respiratory: bilateral: CTA - Cardiovascular Heart rate:73 (bpm) Rhythm:SR Heart Sounds: Present: S1, S2. - Extremities Extremities: no ischemia, pulses intact - Peripheral Assessment Peripheral Pulses: within normal limits - Abdominal General gastrointestinal: soft, non-tender, normal bowel sounds, - Integumentary Integumentary: Present: warm, dry - Musculoskeletal Musculoskeletal: generalized weakness, able to move all extremities -Neurological Neurological: CN II-XII grossly intact - Psychiatric Psychiatric: cooperative - Constitutional Vitals: Temp Pulse Resp BP Pulse Ox 70 11 L 177/82 100 12/13/18 19:07 12/13/18 16:30 12/13/18 19:07 12/13/18 19:07 Results - Labs CBC & Chem 7: 12/13/18 17:20 12/13/18 17:20 Labs: Laboratory Last Values WBC 4.2 K/mm3 (4.5-11.0) L 12/13/18 17:20 RBC 3.05 M/mm3 (3.65-5.03) L 12/13/18 17:20 Hgb 9.7 gm/dl (10.1-14.3) L 12/13/18 17:20 Hct 29.2 % (30.3-42.9) L 12/13/18 17:20 MCV 96 fl (79-97) 12/13/18 17:20 MCH 32 pg (28-32) 12/13/18 17:20 MCHC 33 % (30-34) 12/13/18 17:20 RDW 17.6 % (13.2-15.2) H 12/13/18 17:20 Plt Count 192 K/mm3 (140-440) 12/13/18 17:20 Lymph % (Auto) 27.9 % (13.4-35.0) 12/13/18 17:20 [place] % (Auto) 15.6 % (0.0-7.3) H 12/13/18 17:20 Eos % (Auto) 2.6 % (0.0-4.3) 12/13/18 17:20 Baso % (Auto) 0.8 % (0.0-1.8) 12/13/18 17:20 Lymph # 1.2 K/mm3 (1.2-5.4) 12/13/18 17:20 [place] # 0.6 K/mm3 (0.0-0.8) 12/13/18 17:20 Eos # 0.1 K/mm3 (0.0-0.4) 12/13/18 17:20 Baso # 0.0 K/mm3 (0.0-0.1) 12/13/18 17:20 Seg Neutrophils % 53.1 % (40.0-70.0) 12/13/18 17:20 Seg Neutrophils # 2.2 K/mm3 (1.8-7.7) 12/13/18 17:20 PT 12.9 Sec. (12.2-14.9) 12/13/18 17:20 INR 0.98 (0.87-1.13) 12/13/18 17:20 APTT 28.6 Sec. (24.2-36.6) 12/13/18 17:20 VBG pH 7.486 (7.320-7.420) H 12/13/18 17:20 Sodium 134 mmol/L (137-145) L 12/13/18 17:20 Potassium 4.0 mmol/L (3.6-5.0) 12/13/18 17:20 Chloride 96.0 mmol/L (98-107) L 12/13/18 17:20 Carbon Dioxide 26 mmol/L (22-30) 12/13/18 17:20 Anion Gap 16 mmol/L 12/13/18 17:20 BUN 31 mg/dL (7-17) H 12/13/18 17:20 Creatinine 2.5 mg/dL (0.7-1.2) H 12/13/18 17:20 Estimated GFR 22 ml/min 12/13/18 17:20 BUN/Creatinine Ratio 12 % 12/13/18 17:20 Glucose 256 mg/dL (65-100) H 12/13/18 17:20 Calcium 8.9 mg/dL (8.4-10.2) 12/13/18 17:20 Total Bilirubin 0.30 mg/dL (0.1-1.2) 12/13/18 17:20 AST 21 units/L (5-40) 12/13/18 17:20 ALT 15 units/L (7-56) 12/13/18 17:20 Alkaline Phosphatase 75 units/L (35-129) 12/13/18 17:20 Ammonia 20.0 umol/L (25-60) L 12/13/18 17:20 Total Creatine Kinase 71 units/L (30-135) 12/13/18 17:20 CK-MB (CK-2) 1.4 ng/mL (0.0-4.0) 12/13/18 17:20 CK-MB (CK-2) Rel Index 1.9 (0-4) 12/13/18 17:20 Troponin T 0.051 ng/mL (0.00-0.029) H 12/13/18 17:20 Total Protein 7.3 g/dL (6.3-8.2) 12/13/18 17:20 Albumin 4.0 g/dL (3.9-5) 12/13/18 17:20 Albumin/Globulin Ratio 1.2 % 12/13/18 17:20 Triglycerides 84 mg/dL (2-149) 12/13/18 17:20 Cholesterol 230 mg/dL (50-199) H 12/13/18 17:20 LDL Cholesterol Direct 103 mg/dL (50-130) 12/13/18 17:20 HDL Cholesterol 127 mg/dL (40-59) H 12/13/18 17:20 Cholesterol/HDL Ratio 1.81 % 12/13/18 17:20 TSH 92.980 mlU/mL (0.270-4.200) H 12/13/18 17:20 Free T4 1.17 ng/dL (0.76-1.46) 12/13/18 17:20 - Imaging and Cardiology Imaging and Cardiology: CT Head: FINDINGS: Parenchyma: No acute intracranial hemorrhage or parenchymal abnormality. Old area of encephalomalacia again seen in the right parietal region near the vertex. Ventricles: There is mild diffuse brain atrophy with commensurate ventricular enlargement which is likely age appropriate. Soft tissues: Soft tissues including the orbits appear normal. Bones: No acute osseous abnormality. Sinuses: Sinuses and mastoid air cells are clear. IMPRESSION: No acute abnormality. Assessment and Plan Assessment and plan: A female with history of ESRD on HD, complete heart block status post pacemaker, hypertension, diabetes, GERD, arthritis, migraines, hypocalcemia, and hypothyroidism who presents to [facility] ED with complaints of altered mental status and headache. Will admit for further evaluation. Acute Encephalopathy -CT Head showed No acute abnormality -MRI pending -Neuro checks -Continue supportive care -Neurology consult pending ESRD on HD -M/W/F -Cr on admission 2.0 -Avoid nephrotoxin agents -Renal dose all meds -Nephrology consulted DM2 -POC BG monitoring -Scheduled Lantus and SSI coverage prn HTN -Monitor BP -Resume home antihypertensive meds Hypothyroidism -Continue Synthroid Hx Complete Heart Block -Pacemaker in situ ([employer]) -EF 58% seen on MPI stress testing Hx Migraines -Continue supportive care HLD -on Statin DVT PPX -on Heparin Advance Directives: No VTE prophylaxis?: Chemical Plan of care discussed with patient/family: Yes
[2018-12-13] MEDS: HEPARIN 5,000 UNIT/1 ML VIAL SUB-Q SCH (21:26)
[2018-12-13] MEDS: LINAGLIPTIN 5 MG TAB PO SCH (21:26)
[2018-12-13] MEDS: DOCUSATE SODIUM 100 MG CAP PO SCH (21:26)
[2018-12-13] MEDS ORDERED: INSULIN GLARGINE HUM REC ANLOG 10 UNIT SQ SCH (22:00)
[2018-12-13] MEDS: hydrALAZINE 20 MG/1 ML INJ IV PRN (22:23)
[2018-12-13] MEDS: INSULIN GLARGINE 100 UNITS/ML SUB-Q SCH (22:23)
[2018-12-13] MEDS: INSULIN LISPRO 100 UNIT/ML SUB-Q SCH (22:23)
[2018-12-14 04:50] LABS: Hematocrit 24.8 % (30.3-42.9); Hemoglobin 8.3 gm/dl (10.1-14.3); Mean Corpuscular HGB Conc 34 % (30-34); Mean Corpuscular Volume 96 fl (79-97); Platelet Count 148 K/mm3 (140-440); Red Cell Distribution Width 17.5 % (13.2-15.2)
[2018-12-14 04:58] LABS: Calcium 8.1 mg/dL (8.4-10.2)
[2018-12-14 05:50] LABS: Basophils % (Manual) 0 % (0.0-1.8); Total Cells Counted 100
[2018-12-14 05:51] LABS: Anisocytosis 1+; Platelet Estimate Consistent w Auto
[2018-12-14] MEDS: LEVOTHYROXINE 150 MCG TAB PO SCH (06:07)
[2018-12-14] MEDS: INSULIN LISPRO 100 UNIT/ML SUB-Q SCH ×4 (07:30→23:24)
[2018-12-14] MEDS: DOCUSATE SODIUM 100 MG CAP PO SCH ×2 (09:42→22:46)
[2018-12-14] MEDS: FE FUMARATE/FA/MV, MIN COMB#15 CAP (HEMOCYTE PLUS) PO SCH (09:43)
[2018-12-14] MEDS: CALCIUM CARBONATE/VITAMIN D3 500 MG-200 UNIT TAB PO SCH (09:43)
[2018-12-14] MEDS: HEPARIN 5,000 UNIT/1 ML VIAL SUB-Q SCH ×2 (09:43→22:50)
[2018-12-14] MEDS ORDERED: [UNRECOGNIZED DRUG - OTHER] PO SCH (10:00)
[2018-12-14] MEDS ORDERED: CALCIUM CARBONATE PO SCH (10:00)
[2018-12-14] MEDS ORDERED: CHOLECALCIFEROL (VIT D3) 1000 UNIT TAB PO SCH (10:00)
[2018-12-14] MEDS ORDERED: VITAMIN D3 PO SCH (10:00)
--- NOTE | 2018-12-14 12:29 | Consultation ---
History of Present Illness - History of Present Illness My assessment and plan are as follows End-stage renal disease: Patient will continue with hemodialysis treatment on Wednesday and Wednesday scheduled as tolerated, monitor dialysis related labs, current access is a fistula and her arm which seems to be working well Anemia and end-stage renal disease: To monitor and follow, erythropoietin as required goal hemoglobin dialysis patients usually occurring 10 and 12, we will follow She does have evidence of leukopenia, anemia Will order for iron B12 folic acid Noted to have severe hypothyroidism/ Has had altered mental status currently on supplement she will also need endocrinology evaluation in the outpatient setting / Secondary hyperparathyroidism: Monitor phosphorus and PTH periodically and adjust binders as needed Diet and nutrition: Fluid restriction 1200 mL per day, high-protein diet may benefit from nutrition consultation , patient is protein intake should be 1.5 g per KG body weight Hypertension and volume continue to monitor, educated about fluid restriction sodium restriction Prognosis overall appears to be guarded at this time given that patient has multiple comorbidities We will continue to follow and make recommendation from renal standpoint If you have any questions please feel free to contact me at [phone] Ace Allan M.D. [facility] ([facility] Nephrology,PC [address] [place] [address] History of presenting illness Patient admitted here with altered mental status headache and a fall that happened approximately 4 weeks ago, she was also evaluated at outside hospital, patient does have history of hypertension diabetes and is currently in maintenance hemodialysis on Wednesday and Wednesday Does suffer from migraine as well as arthritis, During this admission has been noted to be anemic hemoglobin is currently 8.3 dropped from 9.7 white cell count has dropped to 3.3 thousand from 4.2 platelet count is normal but there has been a drop from 192,002 1 48,000 Potassium is 3.7 BUN 38 creatinine 2.9 calcium is 8.1 which was 8.9 yesterday ammonia level was normal blood sugar has been labile at this time patient is alert awake she is able to recognize me without any problems Her TSH has been significantly elevated at 92 and 114 LDL was 103 ammonia level was normal, Past medical history significant for End-stage renal disease currently on maintenance hemodialysis Wednesday and Wednesday Complete heart block status post pacemaker Ejection fraction 58% Chronic hypocalcemia Anemia and end-stage renal disease Secondary hyperparathyroidism hypertension Diabetes Chronic headaches migraine GERD Thyroid surgery Current allergies: Aspirin Home medication, present medication: Reviewed Social history/family history: Reviewed Review of system: Positive for altered mental status Complaints of headache upon admission all other review of system negative Physical examination: General: No acute distress, patient is alert and awake HEENT: Oral mucosa moist no icterus, no facial swelling Neck: Supple no thyromegaly no lymphadenopathy no JVD Chest: Clear to auscultation no crackles rales or wheezes Heart: Regular rate and rhythm S1-S2 heard no S3-S4 Abdomen: Soft nontender no organomegaly no masses palpable no renal bruit no suprapubic masses no CVA tenderness Dermatology: No skin rashes noted Extremity: fistula appears to have good thrill, soft nonpulsatile, Less than 1+ peripheral edema, dry skin no petechial rashes Musculoskeletal: No joint effusion noted in knee and ankle area Psych: No evidence of agitation and aggression noted, she is alert and awake she is able to recognize me Neurological: mentation was altered according to record, but patient is able to recognize me Back: No CVA tenderness Past History Past Medical History: arthritis, diabetes, ESRD (on HD M/W/F), GERD, h ypertension, hyperlipidemia, hypothyroidism, migraines, other (hypocalcemia, complete heart block) Past Surgical History: thyroidectomy, Other (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) Social history: lives with family, other (former smoker) Family history: hypertension Medications and Allergies Allergies Allergy/AdvReac Type Severity Reaction Status Date / Time aspirin Allergy Severe Unknown Verified 06/07/18 17:36 Home Medications Medication Instructions Recorded Confirmed Last Taken Type Docusate Sodium [Colace CAP] 100 mg PO BID #30 capsule 11/01/17 12/13/18 Unknown Rx Cholecalciferol Vit D3 [Vitamin D3 5,000 unit PO DAILY #30 tablet 04/25/18 12/13/18 06/08/18 Rx 1,000 UNIT TAB] Fe Fumarate/FA/Mv, Min Comb#15 1 each PO QDAY #30 capsule 04/25/18 12/13/18 Unknown Rx [Hemocyte Plus] Calcium Carbonate/Vitamin D3 1 each PO DAILY #15 tablet 05/23/18 12/13/18 06/07/18 Rx [Calcium 600-Vit D3 400 Caplet] Atorvastatin [Lipitor] 40 mg PO QHS 06/09/18 12/13/18 06/08/18 20:00 History HYDROcodone/ACETAMINOPHEN [[place] 1 each PO Q6HR PRN #40 tablet 06/09/18 12/13/18 Unknown Rx 7.5-325 Tablet] Linagliptin [Tradjenta] 5 mg PO QHS 06/09/18 12/13/18 06/07/18 20:00 History Lispro Insulin [HumaLOG] See Protocol SC AC 06/09/18 12/13/18 06/08/18 History Ondansetron [Zofran ODT TAB] 4 mg PO Q8HR #10 tab.rapdis 10/30/18 12/13/18 Unknown Rx traMADol [Ultram 50 MG tab] 50 mg PO Q6HR PRN #10 tablet 10/30/18 12/13/18 Unknown Rx Docusate Sodium [Colace CAP] 100 mg PO BID PRN #60 capsule 11/05/18 12/13/18 Unk nown Rx Lactulose [Cephulac] 20 gm PO QDAY #90 ml 11/05/18 12/13/18 Unknown Rx Levothyroxine [Synthroid] 150 mcg PO DAILY@0600 #30 tablet 11/24/18 12/13/18 Unknown Rx Insulin Glargine,Hum.rec.anlog 10 unit SQ HS #5 insuln.pen 11/25/18 12/13/18 Unknown Rx [Lantus Solostar] Metoprolol [Lopressor TAB] 12.5 mg PO BID #60 tablet 11/25/18 12/13/18 Unknown Rx Active Meds: Active Medications Acetaminophen (Tylenol) 650 mg PO Q4H PRN PRN Reason: Pain MILD(1-3)/Fever >100.5/PATRICIA Atorvastatin Calcium (Lipitor) 40 mg PO QHS [facility] Last Admin: 12/13/18 21:26 Dose: 40 mg Documented by: Calcium/Vitamin D (Oysco D 500 Mg-200 Unit) 1 each PO DAILY [facility] Last Admin: 12/14/18 09:43 Dose: 1 each Documented by: Cholecalciferol (Vitamin D3) 5,000 unit PO QDAY [facility] Dextrose (D50w (25gm) Syringe) 50 ml IV Q30MIN PRN PRN Reason: Hypoglycemia Docusate Sodium (Colace) 100 mg PO BID [facility] Last Admin: 12/14/18 09:42 Dose: 100 mg Documented by: Heparin Sodium (Porcine) (Heparin) 5,000 unit SUB-Q Q12HR [facility] Last Admin: 12/14/18 09:43 Dose: 5,000 unit Documented by: Hydralazine HCl (Apresoline) 10 mg IV Q4H PRN PRN Reason: Blood Pressure Last Admin: 12/13/18 22:23 Dose: 10 mg Documented by: Insulin Glargine (Lantus) 10 units SUB-Q QHS [facility] Last Admin: 12/13/18 22:23 Dose: 10 units Documented by: Insulin Human Lispro (Humalog) 0 unit SUB-Q ACHS [facility]; Protocol Last Admin: 12/14/18 12:10 Dose: 3 unit Documented by: Levothyroxine Sodium (Synthroid) 150 mcg PO DAILY@0600 [facility] Last Admin: 12/14/18 06:07 Dose: 150 mcg Documented by: Linagliptin (Tradjenta) 5 mg PO QHS [facility] Last Admin: 12/13/18 21:26 Dose: 5 mg Documented by: Multivitamins/Iron (Hemocyte Plus) 1 each PO QDAY [facility] Last Admin: 12/14/18 09:43 Dose: 1 each Documented by: Ondansetron HCl (Zofran) 4 mg IV Q6H PRN PRN Reason: Nausea And Vomiting Sodium Chloride (Sodium Chloride Flush Syringe 10 Ml) 10 ml IV BID [facility] Last Admin: 12/14/18 09:43 Dose: 10 ml Documented by: Sodium Chloride (Sodium Chloride Flush Syringe 10 Ml) 10 ml IV PRN PRN PRN Reason: LINE FLUSH Exam - Vital Signs Vital signs: Vital Signs Pulse Resp BP Pulse Ox 74 9 L 180/130 100 12/13/18 15:45 12/13/18 15:45 12/13/18 15:45 12/13/18 15:45 Results - Lab Results 12/14/18 04:10 12/14/18 04:10 Most recent lab results Calcium 8.1 mg/dL (8.4-10.2) L 12/14/18 04:10
[2018-12-14 12:32] LABS: Free T4 (Free Thyroxine) 1.19 ng/dL (0.76-1.46)
[2018-12-14] MEDS ORDERED: SODIUM CHLORIDE 0.9% 100 ML IV PRN (14:00)
[2018-12-14 14:38] LABS: % Iron Saturation 40.49 %
[2018-12-14] MEDS: CHOLECALCIFEROL (VIT D3) 5,000 UNIT TAB PO SCH (17:37)
--- NOTE | 2018-12-14 18:06 | Consultation ---
History of Present Illness Consult date: 12/14/18 Reason for Consult: Acute encephalopathy Chief complaint: Acute encephalopathy History of present illness: Patient is an 78 y/o woman w/ a h/o DM, ESRD on HD, HTN, GERD, HLD, hypothyroidism, complete heart block s/p PPM. Yesterday morning, when waking up, the patient's daughter noted that she was confused and was unable to recognize her daughter. Confusion lasted for about 1-2 hours, after which she returned to baseline of mental status. She has not had any previous episodes like this in the past. No seizures were noted. She reportedly had an episode about 4 weeks ago, during which she felt off balance and fell and hit her head. She was taken to [place] at that time, and was found to have a normal CT head at the time. After that event, she has been c/o intermittent PATRICIA. 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) Social history: lives with family, other (former smoker) Family history: hypertension Medications and Allergies Allergies Allergy/AdvReac Type Severity Reaction Status Date / Time aspirin Allergy Severe Unknown Verified 06/07/18 17:36 Home Medications Medication Instructions Recorded Confirmed Last Taken Type Docusate Sodium [Colace CAP] 100 mg PO BID #30 capsule 11/01/17 12/13/18 Unknown Rx Cholecalciferol Vit D3 [Vitamin D3 5,000 unit PO DAILY #30 tablet 04/25/18 12/13/18 06/08/18 Rx 1,000 UNIT TAB] Fe Fumarate/FA/Mv, Min Comb#15 1 each PO QDAY #30 capsule 04/25/18 12/13/18 Unknown Rx [Hemocyte Plus] Calcium Carbonate/Vitamin D3 1 each PO DAILY #15 tablet 05/23/18 12/13/18 06/07/18 Rx [Calcium 600-Vit D3 400 Caplet] Atorvastatin [Lipitor] 40 mg PO QHS 06/09/18 12/13/18 06/08/18 20:00 History HYDROcodone/ACETAMINOPHEN [[place] 1 each PO Q6HR PRN #40 tablet 06/09/18 12/13/18 Unknown Rx 7.5-325 Tablet] Linagliptin [Tradjenta] 5 mg PO QHS 06/09/18 12/13/18 06/07/18 20:00 History Lispro Insulin [HumaLOG] See Protocol SC AC 06/09/18 12/13/18 06/08/18 History Ondansetron [Zofran ODT TAB] 4 mg PO Q8HR #10 tab.rapdis 10/30/18 12/13/18 Unknown Rx traMADol [Ultram 50 MG tab] 50 mg PO Q6HR PRN #10 tablet 10/30/18 12/13/18 Unknown Rx Docusate Sodium [Colace CAP] 100 mg PO BID PRN #60 capsule 11/05/18 12/13/18 Unknown Rx Lactulose [Cephulac] 20 gm PO QDAY #90 ml 11/05/18 12/13/18 Unknown Rx Levothyroxine [Synthroid] 150 mcg PO DAILY@0600 #30 tablet 11/24/18 12/13/18 Unknown Rx Insulin Glargine,Hum.rec.anlog 10 unit SQ HS #5 insuln.pen 11/25/18 12/13/18 Unknown Rx [Lantus Solostar] Metoprolol [Lopressor TAB] 12.5 mg PO BID #60 tablet 11/25/18 12/13/18 Unknown Rx Active Meds: Active Medications Acetaminophen (Tylenol) 650 mg PO Q4H PRN PRN Reason: Pain MILD(1-3)/Fever >100.5/PATRICIA Atorvastatin Calcium (Lipitor) 40 mg PO QHS [facility] Last Admin: 12/13/18 21:26 Dose: 40 mg Documented by: Calcium/Vitamin D (Oysco D 500 Mg-200 Unit) 1 each PO DAILY [facility] Last Admin: 12/14/18 09:43 Dose: 1 each Documented by: Cholecalciferol (Vitamin D3) 5,000 unit PO QDAY [facility] Last Admin: 12/14/18 17:37 Dose: 5,000 unit Documented by: Dextrose (D50w (25gm) Syringe) 50 ml IV Q30MIN PRN PRN Reason: Hypoglycemia Docusate Sodium (Colace) 100 mg PO BID [facility] Last Admin: 12/14/18 09:42 Dose: 100 mg Documented by: Heparin Sodium (Porcine) (Heparin) 5,000 unit SUB-Q Q12HR [facility] Last Admin: 12/14/18 09:43 Dose: 5,000 unit Documented by: Hydralazine HCl (Apresoline) 10 mg IV Q4H PRN PRN Reason: Blood Pressure Last Admin: 12/13/18 22:23 Dose: 10 mg Documented by: Sodium Chloride (Nacl 0.9%) 100 mls @ 999 mls/hr IV TEJ PRN PRN Reason: Hypotension Insulin Glargine (Lantus) 10 units SUB-Q QHS [facility] Last Admin: 12/13/18 22:23 Dose: 10 units Documented by: Insulin Human Lispro (Humalog) 0 unit SUB-Q ACHS [facility]; Protocol Last Admin: 12/14/18 17:28 Dose: 4 unit Documented by: Levothyroxine Sodium (Synthroid) 150 mcg PO DAILY@0600 [facility] Last Admin: 12/14/18 06:07 Dose: 150 mcg Documented by: Linagliptin (Tradjenta) 5 mg PO QHS [facility] Last Admin: 12/13/18 21:26 Dose: 5 mg Documented by: Multivitamins/Iron (Hemocyte Plus) 1 each PO QDAY [facility] Last Admin: 12/14/18 09:43 Dose: 1 each Documented by: Ondansetron HCl (Zofran) 4 mg IV Q6H PRN PRN Reason: Nausea And Vomiting Sodium Chloride (Sodium Chloride Flush Syringe 10 Ml) 10 ml IV BID [facility] Last Admin: 12/14/18 09:43 Dose: 10 ml Documented by: Sodium Chloride (Sodium Chloride Flush Syringe 10 Ml) 10 ml IV PRN PRN PRN Reason: LINE FLUSH Review of Systems All systems: negative Neurological: change in mentation Physical Examination - Vital Signs Vital Signs: Vital Signs Pulse Resp BP Pulse Ox 74 9 L 180/130 100 12/13/18 15:45 12/13/18 15:45 12/13/18 15:45 12/13/18 15:45 - Physical Exam Narrative exam: Patient is awake, alert, oriented x4, follows complex commands. PERRL, EOMI, VFF, tongue midline, no facial weakness noted, b/l intact to LT. No dysarthria or aphasia noted. 5/5 strength in all extremities. 2+ reflexes throughout. B/l intact to FTN. B/l intact to LT. - Constitutional General appearance: comfortable - EENT EENT: Present: ATNC, PERRL, mucous membranes moist, hearing intact, vision intact - Respiratory Respiratory: Present: lungs clear, normal breath sounds - Cardiovascular Cardiovascular: Present: regular rate, normal S1, normal S2 Extremities: Present: no clubbing, cyanosis, no inflammation - Gastrointestinal Gastrointestinal: Present: normoactive bowel sounds, soft, non-tender - Integumentary Integumentary: Present: normal - Musculoskeletal Musculoskeletal: Present: no pain, normal range of motion - Psychiatric Psychiatric: Present: mood/affect appropriate Results - Laboratory Findings CBC and BMP: 12/14/18 04:10 12/14/18 04:10 Abnormal Lab Findings: Abnormal Labs 12/13/18 12/13/18 12/13/18 15:35 17:20 17:20 WBC 4.2 L RBC 3.05 L Hgb 9.7 L Hct 29.2 L RDW 17.6 H Maury % (Auto) 15.6 H Monocytes % (Manual) Eosinophils % (Manual) Lymphocytes # (Manual) Percent Retic VBG pH Sodium 134 L Chloride 96.0 L BUN 31 H Creatinine 2.5 H Glucose 256 H POC Glucose 307 H Calcium TIBC Transferrin Ferritin Ammonia Troponin T Cholesterol HDL Cholesterol TSH 12/13/18 12/13/18 12/13/18 17:20 17:20 17:20 WBC RBC Hgb Hct RDW Maury % (Auto) Monocytes % (Manual) Eosinophils % (Manual) Lymphocytes # (Manual) Percent Retic VBG pH Sodium Chloride BUN Creatinine Glucose POC Glucose Calcium TIBC Transferrin Ferritin Ammonia 20.0 L Troponin T 0.051 H Cholesterol 230 H HDL Cholesterol 127 H TSH 92.980 H 12/13/18 12/13/18 12/14/18 17:20 22:20 04:10 WBC 3.3 L RBC 2.60 L Hgb 8.3 L Hct 24.8 L RDW 17.5 H Maury % (Auto) Monocytes % (Manual) 11.0 H Eosinophils % (Manual) 9.0 H Lymphocytes # (Manual) 0.6 L Percent Retic VBG pH 7.486 H Sodium Chloride BUN Creatinine Glucose POC Glucose 389 H Calcium TIBC Transferrin Ferritin Ammonia Troponin T Cholesterol HDL Cholesterol TSH 12/14/18 12/14/18 12/14/18 04:10 07:32 08:58 WBC RBC Hgb Hct RDW Maury % (Auto) Monocytes % (Manual) Eosinophils % (Manual) Lymphocytes # (Manual) Percent Retic VBG pH Sodium Chloride BUN 38 H Creatinine 2.9 H Glucose 156 H POC Glucose 69 L Calcium 8.1 L TIBC Transferrin Ferritin Ammonia Troponin T Cholesterol HDL Cholesterol TSH 114.700 H 12/14/18 12/14/18 12/14/18 11:35 13:30 13:30 WBC RBC Hgb Hct RDW Maury % (Auto) Monocytes % (Manual) Eosinophils % (Manual) Lymphocytes # (Manual) Percent Retic 4.43 H VBG pH Sodium Chloride BUN Creatinine Glucose POC Glucose 233 H Calcium TIBC 163 L Transferrin 152 L Ferritin Ammonia Troponin T Cholesterol HDL Cholesterol TSH 12/14/18 12/14/18 13:30 17:32 WBC RBC Hgb Hct RDW Maury % (Auto) Monocytes % (Manual) Eosinophils % (Manual) Lymphocytes # (Manual) Percent Retic VBG pH Sodium Chloride BUN Creatinine Glucose POC Glucose 261 H Calcium TIBC Transferrin Ferritin 784.2 H Ammonia Troponin T Cholesterol HDL Cholesterol TSH Assessment and Plan Patient is an 78 y/o woman w/ a h/o DM, ESRD on HD, HTN, GERD, HLD, hypothyroidism, complete heart block s/p PPM, who p/w episode of altered mental status which lasted 1-2 hours, after which she returned to baseline. According to the patient's clinical findings, it is likely that she has metabolic encephalopathy, as patient was found to have significant anemia. Plan: 1. Metabolic encephalopathy: - Resolved within 1-2 hours - No evidence of seizuers - Likely in setting of significant anemia - Check UA. If found to have UTI, treat per primary team. - CT head unremarkable. - Will sign off, as patient is back at baseline. Please call with any questions. Thank you for allowing me to take part in the care of this patient. Shen Miller MD Neurology
--- NOTE | 2018-12-14 18:25 | Progress Note ---
Assessment and Plan Assessment and plan: 78-year-old female patient with history of ESRD on HD, complete heart block status post pacemaker, hypertension, diabetes, GERD, arthritis, migraines, hypocalcemia, and hypothyroidism admitted through ED with complaints of altered mental status and headache. --Acute metabolic encephalopathy CT Head negative for acute abnormality No MRI due to pacemaker Follow neurology evaluation and recommendations --ESRD on HD/MWF Nephrology following --DM2; Accu-Chek sliding scale coverage ADA diet and insulin --HTN; moderate control Continue current antihypertensives and as needed medications --Hypothyroidism; Synthroid --Hx Complete Heart Block s/p Pacemaker in situ --Hx Migraines: Continue current management --Dyslipidemia continue statin --DVT PPX :on Heparin --full code Monitor closely adjust management as needed Car Escort recommendations noted and appreciated History Interval history: Patient seen and examined medical records reviewed Admitted with altered level of consciousness and headache CT head without contrast is negative Patient not in acute distress vital signs noted Hospitalist Physical - Constitutional Vitals: Temp Pulse Resp BP Pulse Ox 99.2 F 70 16 145/63 99 12/14/18 07:21 12/14/18 16:45 12/14/18 07:21 12/14/18 16:45 12/14/18 07:21 General appearance: Present: no acute distress, well-nourished - EENT Eyes: Present: PERRL, EOM intact - Neck Neck: Present: supple, normal ROM - Respiratory Respiratory effort: normal Respiratory: bilateral: diminished, negative: rales, rhonchi, wheezing - Cardiovascular Rhythm: regular Heart Sounds: Present: S1 & S2 - Extremities Extremities: no ischemia, No edema - Abdominal General gastrointestinal: soft, non-tender, non-distended, normal bowel sounds - Integumentary Integumentary: Present: clear, warm - Psychiatric Psychiatric: appropriate mood/affect, cooperative - Neurologic Neurologic: moves all extremities Results - Labs CBC & Chem 7: 12/14/18 04:10 12/14/18 04:10 Labs: Laboratory Last Values WBC 3.3 K/mm3 (4.5-11.0) L 12/14/18 04:10 RBC 2.60 M/mm3 (3.65-5.03) L 12/14/18 04:10 Hgb 8.3 gm/dl (10.1-14.3) L 12/14/18 04:10 Hct 24.8 % (30.3-42.9) L 12/14/18 04:10 MCV 96 fl (79-97) 12/14/18 04:10 MCH 32 pg (28-32) 12/14/18 04:10 MCHC 34 % (30-34) 12/14/18 04:10 RDW 17.5 % (13.2-15.2) H 12/14/18 04:10 Plt Count 148 K/mm3 (140-440) 12/14/18 04:10 Lymph % (Auto) 27.9 % (13.4-35.0) 12/13/18 17:20 [place] % (Auto) [employer] 12/14/18 04:10 Eos % (Auto) 2.6 % (0.0-4.3) 12/13/18 17:20 Baso % (Auto) 0.8 % (0.0-1.8) 12/13/18 17:20 Lymph # 1.2 K/mm3 (1.2-5.4) 12/13/18 17:20 [place] # 0.6 K/mm3 (0.0-0.8) 12/13/18 17:20 Eos # 0.1 K/mm3 (0.0-0.4) 12/13/18 17:20 Baso # 0.0 K/mm3 (0.0-0.1) 12/13/18 17:20 Add Manual Diff Complete 12/14/18 04:10 Total Counted 100 12/14/18 04:10 Seg Neutrophils % 53.1 % (40.0-70.0) 12/13/18 17:20 Seg Neuts % (Manual) 60.0 % (40.0-70.0) 12/14/18 04:10 Band Neutrophils % 1.0 % 12/14/18 04:10 Lymphocytes % (Manual) 19.0 % (13.4-35.0) 12/14/18 04:10 Reactive Lymphs % (Man) 0 % 12/14/18 04:10 Monocytes % (Manual) 11.0 % (0.0-7.3) H 12/14/18 04:10 Eosinophils % (Manual) 9.0 % (0.0-4.3) H 12/14/18 04:10 Basophils % (Manual) 0 % (0.0-1.8) 12/14/18 04:10 Metamyelocytes % 0 % 12/14/18 04:10 Myelocytes % 0 % 12/14/18 04:10 Promyelocytes % 0 % 12/14/18 04:10 Blast Cells % 0 % 12/14/18 04:10 Nucleated RBC % Not Reportable 12/14/18 04:10 Seg Neutrophils # 2.2 K/mm3 (1.8-7.7) 12/13/18 17:20 Seg Neutrophils # Man 2.0 K/mm3 (1.8-7.7) 12/14/18 04:10 Band Neutrophils # 0.0 K/mm3 12/14/18 04:10 Lymphocytes # (Manual) 0.6 K/mm3 (1.2-5.4) L 12/14/18 04:10 Abs React Lymphs (Man) 0.0 K/mm3 12/14/18 04:10 Monocytes # (Manual) 0.4 K/mm3 (0.0-0.8) 12/14/18 04:10 Eosinophils # (Manual) 0.3 K/mm3 (0.0-0.4) 12/14/18 04:10 Basophils # (Manual) 0.0 K/mm3 (0.0-0.1) 12/14/18 04:10 Metamyelocytes # 0.0 K/mm3 12/14/18 04:10 Myelocytes # 0.0 K/mm3 12/14/18 04:10 Promyelocytes # 0.0 K/mm3 12/14/18 04:10 Blast Cells # 0.0 K/mm3 12/14/18 04:10 WBC Morphology Not Reportable 12/14/18 04:10 Hypersegmented Neuts Not Reportable 12/14/18 04:10 Hyposegmented Neuts Not Reportable 12/14/18 04:10 Hypogranular Neuts Not Reportable 12/14/18 04:10 Smudge Cells Not Reportable 12/14/18 04:10 Toxic Granulation Not Reportable 12/14/18 04:10 Toxic Vacuolation Not Reportable 12/14/18 04:10 Dohle Bodies Not Reportable 12/14/18 04:10 Pelger-Huet Anomaly Not Reportable 12/14/18 04:10 [place] Rods Not Reportable 12/14/18 04:10 Platelet Estimate Consistent w auto 12/14/18 04:10 Clumped Platelets Not Reportable 12/14/18 04:10 Plt Clumps, EDTA Not Reportable 12/14/18 04:10 Large Platelets Not Reportable 12/14/18 04:10 Giant Platelets Not Reportable 12/14/18 04:10 Platelet Satelliting Not Reportable 12/14/18 04:10 Plt Morphology Comment Not Reportable 12/14/18 04:10 RBC Morphology Not Reportable 12/14/18 04:10 Dimorphic RBCs Not Reportable 12/14/18 04:10 Polychromasia Not Reportable 12/14/18 04:10 Hypochromasia Not Reportable 12/14/18 04:10 Poikilocytosis Not Reportable 12/14/18 04:10 Anisocytosis 1+ 12/14/18 04:10 Microcytosis Not Reportable 12/14/18 04:10 Macrocytosis Not Reportable 12/14/18 04:10 Spherocytes Not Reportable 12/14/18 04:10 Pappenheimer Bodies Not Reportable 12/14/18 04:10 Sickle Cells Not Reportable 12/14/18 04:10 Target Cells Not Reportable 12/14/18 04:10 Tear Drop Cells Not Reportable 12/14/18 04:10 Ovalocytes Not Reportable 12/14/18 04:10 Helmet Cells Not Reportable 12/14/18 04:10 [place] Bodies Not Reportable 12/14/18 04:10 [place] Rings Not Reportable 12/14/18 04:10 M[place]ha Cells Not Reportable 12/14/18 04:10 Bite Cells Not Reportable 12/14/18 04:10 Crenated Cell Not Reportable 12/14/18 04:10 Elliptocytes Not Reportable 12/14/18 04:10 Acanthocytes (Spur) Not Reportable 12/14/18 04:10 Rouleaux Not Reportable 12/14/18 04:10 Hemoglobin C Crystals Not Reportable 12/14/18 04:10 Schistocytes Not Reportable 12/14/18 04:10 Malaria parasites Not Reportable 12/14/18 04:10 Percent Retic 4.43 % (0.78-2.58) H 12/14/18 13:30 Raf Bodies Not Reportable 12/14/18 04:10 Hem Pathologist Commnt No 12/14/18 04:10 PT 12.9 Sec. (12.2-14.9) 12/13/18 17:20 INR 0.98 (0.87-1.13) 12/13/18 17:20 APTT 28.6 Sec. (24.2-36.6) 12/13/18 17:20 VBG pH 7.486 (7.320-7.420) H 12/13/18 17:20 Sodium 141 mmol/L (137-145) D 12/14/18 04:10 Potassium 3.7 mmol/L (3.6-5.0) 12/14/18 04:10 Chloride 101.8 mmol/L (98-107) 12/14/18 04:10 Carbon Dioxide 25 mmol/L (22-30) 12/14/18 04:10 Anion Gap 18 mmol/L 12/14/18 04:10 BUN 38 mg/dL (7-17) H 12/14/18 04:10 Creatinine 2.9 mg/dL (0.7-1.2) H 12/14/18 04:10 Estimated GFR 19 ml/min 12/14/18 04:10 BUN/Creatinine Ratio 13 % 12/14/18 04:10 Glucose 156 mg/dL (65-100) H 12/14/18 04:10 POC Glucose 261 (70-105) H 12/14/18 17:32 Calcium 8.1 mg/dL (8.4-10.2) L 12/14/18 04:10 Iron 66 ug/dL (37-170) 12/14/18 13:30 TIBC 163 mcg/dL (250-450) L 12/14/18 13:30 % Saturation 40.49 % 12/14/18 13:30 Transferrin 152 mg/dl (192-382) L 12/14/18 13:30 Ferritin 784.2 ng/mL (13.0-400.0) H 12/14/18 13:30 Total Bilirubin 0.30 mg/dL (0.1-1.2) 12/13/18 17:20 AST 21 units/L (5-40) 12/13/18 17:20 ALT 15 units/L (7-56) 12/13/18 17:20 Alkaline Phosphatase 75 units/L (35-129) 12/13/18 17:20 Ammonia 20.0 umol/L (25-60) L 12/13/18 17:20 Total Creatine Kinase 71 units/L (30-135) 12/13/18 17:20 CK-MB (CK-2) 1.4 ng/mL (0.0-4.0) 12/13/18 17:20 CK-MB (CK-2) Rel Index 1.9 (0-4) 12/13/18 17:20 Troponin T 0.051 ng/mL (0.00-0.029) H 12/13/18 17:20 Total Protein 7.3 g/dL (6.3-8.2) 12/13/18 17:20 Albumin 4.0 g/dL (3.9-5) 12/13/18 17:20 Albumin/Globulin Ratio 1.2 % 12/13/18 17:20 Triglycerides 84 mg/dL (2-149) 12/13/18 17:20 Cholesterol 230 mg/dL (50-199) H 12/13/18 17:20 LDL Cholesterol Direct 103 mg/dL (50-130) 12/13/18 17:20 HDL Cholesterol 127 mg/dL (40-59) H 12/13/18 17:20 Cholesterol/HDL Ratio 1.81 % 12/13/18 17:20 Vitamin B12 776.9 pg/mL (211-911) 12/14/18 13:30 TSH 114.700 mlU/mL (0.270-4.200) H 12/14/18 08:58 Free T4 1.19 ng/dL (0.76-1.46) 12/14/18 08:58 Active Medications - Current Medications Current Medications: Generic Name Dose Route Start Last Admin Trade Name Freq PRN Reason Stop Dose Admin Acetaminophen 650 mg 12/13/18 19:53 Tylenol PO Q4H PRN Pain MILD(1-3)/Fever >100.5/PATRICIA Atorvastatin Calcium 40 mg 12/13/18 22:00 12/13/18 21:26 Lipitor PO 40 mg QHS DUNG Administration Calcium/Vitamin D 1 each 12/14/18 10:00 11/06/19 09:43 Oysco D 500 Mg-200 Unit PO 1 each DAILY DUNG Administration Cholecalciferol 5,000 unit 12/14/18 10:00 12/14/18 17:37 Vitamin D3 PO 5,000 unit QDAY DUNG Administration Dextrose 50 ml 12/13/18 19:53 D50w (25gm) Syringe IV Q30MIN PRN Hypoglycemia Docusate Sodium 100 mg 12/13/18 22:00 12/14/18 09:42 Colace PO 100 mg BID DUNG Administration Heparin Sodium (Porcine) 5,000 unit 12/13/18 22:00 12/14/18 09:43 Heparin SUB-Q 5,000 unit Q12HR DUNG Administration Hydralazine HCl 10 mg 12/13/18 22:03 12/13/18 22:23 Apresoline IV 10 mg Q4H PRN Administration Blood Pressure Sodium Chloride 100 mls @ 999 mls/hr 12/14/18 14:00 Nacl 0.9% IV TEJ PRN Hypotension Insulin Glargine 10 units 12/13/18 22:00 12/13/18 22:23 Lantus SUB-Q 10 units QHS DUNG Administration Insulin Human Lispro 0 unit 12/13/18 22:00 12/14/18 17:28 Humalog SUB-Q 4 unit ACHS DUNG Administration Protocol Levothyroxine Sodium 150 mcg 12/14/18 06:00 12/14/18 06:07 Synthroid PO 150 mcg DAILY@0600 DUNG Administration Linagliptin 5 mg 12/13/18 22:00 12/13/18 21:26 Tradjenta PO 5 mg QHS DUNG Administration Multivitamins/Iron 1 each 12/14/18 10:00 12/14/18 09:43 Hemocyte Plus PO 1 each QDAY DUNG Administration Ondansetron HCl 4 mg 12/13/18 19:53 Zofran IV Q6H PRN Nausea And Vomiting Sodium Chloride 10 ml 12/13/18 22:00 12/14/18 09:43 Sodium Chloride Flush Syringe 10 Ml IV 10 ml BID DUNG Administration Sodium Chloride 10 ml 12/13/18 19:53 Sodium Chloride Flush Syringe 10 Ml IV PRN PRN LINE FLUSH
[2018-12-14] MEDS: hydrALAZINE 20 MG/1 ML INJ IV PRN (21:35)
[2018-12-14] MEDS: LINAGLIPTIN 5 MG TAB PO SCH (22:46)
[2018-12-14] MEDS ORDERED: SODIUM CHLORIDE*PRIMING MACHINE ONLY FOR DIALYSIS MC ONE (22:50)
[2018-12-14] MEDS: INSULIN GLARGINE 100 UNITS/ML SUB-Q SCH (22:53)
[2018-12-15] MEDS: hydrALAZINE 20 MG/1 ML INJ IV PRN ×2 (02:34→19:47)
[2018-12-15] MEDS: DEXTROSE 50% IN WATER (25GM) 50 ML SYRINGE IV PRN ×3 (03:54→07:59)
[2018-12-15] MEDS: LEVOTHYROXINE 150 MCG TAB PO SCH (05:25)
[2018-12-15] MEDS: INSULIN LISPRO 100 UNIT/ML SUB-Q SCH ×3 (08:19→17:36)
--- NOTE | 2018-12-15 08:29 | Progress Note ---
Subjective Interval history: Patient was seen today for follow-up of multiple renal related issues No complaints of any chest pain pressure or shortness of breath she is alert awake, able to recognize me Little hard of hearing but does understand well Interdisciplinary notes that also reviewed Events of 24 hours vitals labs intake output medications were reviewed Past medical history: Reviewed Family history: Reviewed Social history: Reviewed Allergies: Reviewed Physical examination: Vitals: Reviewed HEENT: No pallor or icterus oral mucosa moist Neck: Supple no JVD no thyromegaly Chest: Bilateral clear to auscultation anteriorly Heart: Regular rate and rhythm S1-S2 heard no S3-S4 Abdomen: Soft nontender no voluntary guarding rigidity rebound Extremity: Dry skin less than 1+ peripheral edema Psychiatric: No evidence of agitation and aggression noted Dermatology: No petechial rashes Labs and x-rays: Reviewed from today Assessment and plan End-stage renal disease: Patient is currently on hemodialysis on schedule,3 times per week monitor dialysis related labs periodically tolerated dialysis well no problems Encephalopathy/hypothyroidism: Improving well Anemia and end-stage renal disease: Monitor hemoglobin and hematocrit erythropoietin as needed. Secondary hyperparathyroidism: Check phosphorus and PTH level periodically Dialysis access: Currently working well Please consider dietitian consultation due to dialysis status, patient does need high-protein diet Fluid restriction: 1200 cc per day not to exceed more than that Adequately counseled and educated about other hospital related issues as well overall she is stable from renal standpoint All questions were answered and simple [place] We'll continue to follow and make recommendation for renal standpoint Objective - Vital Signs Vital signs: Vital Signs - 12hr 12/14/18 12/14/18 12/15/18 21:35 22:42 02:23 Temperature 99.2 F Pulse Rate 76 79 93 H Respiratory 18 Rate Blood Pressure 204/71 203/78 O2 Sat by Pulse 99 95 Oximetry 12/15/18 12/15/18 02:34 07:54 Temperature 98.5 F Pulse Rate 93 H 92 H Respiratory 16 Rate Blood Pressure 203/78 137/58 O2 Sat by Pulse 99 Oximetry - Lab 12/14/18 04:10 12/14/18 04:10 Most recent lab results Calcium 8.1 mg/dL (8.4-10.2) L 12/14/18 04:10 Medications & Allergies - Medications Allergies/Adverse Reactions: Allergies aspirin Allergy (Severe, Verified 06/07/18 17:36) Unknown reflux. Home Medications: Home Medications Medication Instructions Recorded Confirmed Last Taken Type Docusate Sodium [Colace CAP] 100 mg PO BID #30 capsule 11/01/17 12/13/18 Unknown Rx Cholecalciferol Vit D3 [Vitamin D3 5,000 unit PO DAILY #30 tablet 04/25/18 12/13/18 06/08/18 Rx 1,000 UNIT TAB] Fe Fumarate/FA/Mv, Min Comb#15 1 each PO QDAY #30 capsule 04/25/18 12/13/18 Unknown Rx [Hemocyte Plus] Calcium Carbonate/Vitamin D3 1 each PO DAILY #15 tablet 05/23/18 12/13/18 06/07/18 Rx [Calcium 600-Vit D3 400 Caplet] Atorvastatin [Lipitor] 40 mg PO QHS 06/09/18 12/13/18 06/08/18 20:00 History HYDROcodone/ACETAMINOPHEN [[place] 1 each PO Q6HR PRN #40 tablet 06/09/18 12/13/18 Unknown Rx 7.5-325 Tablet] Linagliptin [Tradjenta] 5 mg PO QHS 06/09/18 12/13/18 06/07/18 20:00 History Lispro Insulin [HumaLOG] See Protocol SC AC 06/09/18 12/13/18 06/08/18 History Ondansetron [Zofran ODT TAB] 4 mg PO Q8HR #10 tab.rapdis 10/30/18 12/13/18 Unknown Rx traMADol [Ultram 50 MG tab] 50 mg PO Q6HR PRN #10 tablet 10/30/18 12/13/18 Unknown Rx Lactulose [Cephulac] 20 gm PO QDAY #90 ml 11/05/18 12/13/18 Unknown Rx Levothyroxine [Synthroid] 150 mcg PO DAILY@0600 #30 tablet 11/24/18 12/13/18 Unknown Rx Metoprolol [Lopressor TAB] 12.5 mg PO BID #60 tablet 11/25/18 12/13/18 Unknown Rx Active Medications: Generic Name Dose Route Start Last Admin Trade Name Freq PRN Reason Stop Dose Admin Acetaminophen 650 mg 12/13/18 19:53 Tylenol PO Q4H PRN Pain MILD(1-3)/Fever >100.5/PATRICIA Atorvastatin Calcium 40 mg 12/13/18 22:00 12/14/18 22:46 Lipitor PO 40 mg QHS DUNG Administration Calcium/Vitamin D 1 each 12/14/18 10:00 12/14/18 09:43 Oysco D 500 Mg-200 Unit PO 1 each DAILY DUNG Administration Cholecalciferol 5,000 unit 12/14/18 10:00 12/14/18 17:37 Vitamin D3 PO 5,000 unit QDAY DUNG Administration Dextrose 50 ml 12/13/18 19:53 12/15/18 07:59 D50w (25gm) Syringe IV 50 ml Q30MIN PRN Administration Hypoglycemia Docusate Sodium 100 mg 12/13/18 22:00 12/14/18 22:46 Colace PO 100 mg BID DUNG Administration Heparin Sodium (Porcine) 5,000 unit 12/13/18 22:00 12/14/18 22:50 Heparin SUB-Q 5,000 unit Q12HR DUNG Administration Hydralazine HCl 10 mg 12/13/18 22:03 12/15/18 02:34 Apresoline IV 10 mg Q4H PRN Administration Blood Pressure Sodium Chloride 100 mls @ 999 mls/hr 12/14/18 14:00 Nacl 0.9% IV TEJ PRN Hypotension Insulin Glargine 10 units 12/13/18 22:00 12/14/18 22:53 Lantus SUB-Q 10 units QHS DUNG Administration Insulin Human Lispro 0 unit 12/13/18 22:00 12/15/18 08:19 Humalog SUB-Q Not Given ACHS [facility] Protocol Levothyroxine Sodium 150 mcg 12/14/18 06:00 12/15/18 05:25 Synthroid PO 150 mcg DAILY@0600 DUNG Administration Linagliptin 5 mg 12/13/18 22:00 12/14/18 22:46 Tradjenta PO 5 mg QHS [facility] Administration Multivitamins/Iron 1 each 12/14/18 10:00 12/14/18 09:43 Hemocyte Plus PO 1 each QDAY DUNG Administration Ondansetron HCl 4 mg 12/13/18 19:53 Zofran IV Q6H PRN Nausea And Vomiting Sodium Chloride 10 ml 12/13/18 22:00 12/14/18 22:47 Sodium Chloride Flush Syringe 10 Ml IV 10 ml BID DUNG Administration Sodium Chloride 10 ml 11/05/19 19:53 Sodium Chloride Flush Syringe 10 Ml IV PRN PRN LINE FLUSH
[2018-12-15] MEDS: DOCUSATE SODIUM 100 MG CAP PO SCH (09:52)
[2018-12-15] MEDS: CALCIUM CARBONATE/VITAMIN D3 500 MG-200 UNIT TAB PO SCH (09:52)
[2018-12-15] MEDS: HEPARIN 5,000 UNIT/1 ML VIAL SUB-Q SCH (09:52)
[2018-12-15] MEDS: CHOLECALCIFEROL (VIT D3) 5,000 UNIT TAB PO SCH (10:56)
[2018-12-15] MEDS: FE FUMARATE/FA/MV, MIN COMB#15 CAP (HEMOCYTE PLUS) PO SCH (10:56)
--- NOTE | 2018-12-15 17:58 | Discharge Summary ---
Providers - Providers Date of Admission: 12/13/18 18:26 Date of discharge: 12/15/18 Attending physician: LAVERN POWERS 12/13/18 19:53 Consult to Physician [CONS] Routine Comment: Consulting Provider: ROSA PERKINS Physician Instructions: Reason For Exam: acute encephalopathy Consult to Physician [CONS] Routine Comment: Consulting Provider: NICOLE SANTOYO Physician Instructions: Reason For Exam: ESR on HD M/W/F 12/14/18 08:47 Physical Therapy Evaluation and Treat [CONS] Routine Comment: Reason For Exam: Weakness Primary care physician: [facility] Hospitalization Reason for admission: Altered mental status/Head ache Condition: Fair Pertinent studies: CT head Hospital course: 78 yr old female patient with history of ESRD on HD, complete heart block status post pacemaker, hypertension, diabetes, GERD, arthritis, migraines, hypocalcemia, and hypothyroidism who presents to [facility] ED with complaints of altered mental status and headache. Patient's daughter is present at bedside and has assisted in providing history. According to patient's daughter, patient has not pain at her usual state of health for the past day. States that her mother has been sleeping more than usual and at times her speech is not appropriate for situation. Additionally the patient has history of migraine head ache.CT head neg for acute abnormality.Evaluated by renal,received HD per schedule Discharge Diagnosis: --Acute metabolic encephalopathy CT Head negative for acute abnormality No MRI due to pacemaker Follow neurology evaluation and recommendations --ESRD on HD/MWF Nephrology following --DM2; Accu-Chek sliding scale coverage ADA diet and insulin --HTN; moderate control Continue current antihypertensives and as needed medications --Hypothyroidism; Synthroid --Hx Complete Heart Block s/p Pacemaker in situ --Hx Migraines: Continue current management --Dyslipidemia continue statin --DVT PPX :on Heparin --full code Stable at discharge Disposition: [id number] HOME UNDER HOME HL Time spent for discharge: 32 min Core Measure Documentation - Palliative Care Palliative Care/ Comfort Measures: Not Applicable - Core Measures Any of the following diagnoses?: none Exam - Constitutional Vitals: Temp Pulse Resp BP Pulse Ox 98.4 F 85 18 167/58 100 12/15/18 13:56 12/15/18 13:56 12/15/18 13:56 12/15/18 13:56 12/15/18 13:56 General appearance: Present: no acute distress, well-nourished, other (confused) - EENT Eyes: Present: PERRL, EOM intact - Neck Neck: Present: supple, normal ROM - Respiratory Respiratory effort: normal Respiratory: bilateral: diminished, negative: rales, rhonchi, wheezing - Cardiovascular Rhythm: regular Heart Sounds: Present: S1 & S2 - Extremities Extremities: no ischemia, No edema - Abdominal General gastrointestinal: Present: soft, non-tender, non-distended, normal bowel sounds - Integumentary Integumentary: Present: clear, warm - Musculoskeletal Musculoskeletal: strength equal bilaterally - Psychiatric Psychiatric: other (dementia) - Neurologic Neurologic: moves all extremities Plan Activity: advance as tolerated, fall precautions Diet: diabetic Special Instructions: physical therapy Additional Instructions: Do not give insulin for 2-3 days as patient's blood sugars are in the lower range. Probably due to poor food intake. Restart insulin and Tradjenta when patient's food intake improves. Check with PMD for instructions. Advised to see private Neurologist 1 week. Fall precautions. Avoid low blood sugars. Encourage food intake Follow up with: PRIMARY MD ARDEN [Primary Care Provider] - 3-5 Days NICOLE SANTOYO MD [Staff Physician] - 7 Days VIRGIL MILLS MD [Staff Physician] - 7 Days
[2018-12-15 20:08] VITALS: BP 161/65
== END 2018-12-15 20:10 | disposition home health service (06) ==
LOC: ED 14:10 → 2B-ACE 18:26
PROVIDERS: ADMIT Internal Medicine; ATTEND Internal Medicine
DX: G93.40 Encephalopathy, unspecified (principal); R41.82 Altered mental status, unspecified; N28.9 Disorder of kidney and ureter, unspecified; R51 Headache; I12.0 Hypertensive chronic kidney disease with stage 5 chronic kidney disease or end stage renal disease; N18.6 End stage renal disease; E11.22 Type 2 diabetes mellitus with diabetic chronic kidney disease; E03.9 Hypothyroidism, unspecified; I44.2 Atrioventricular block, complete; E78.5 Hyperlipidemia, unspecified; M19.90 Unspecified osteoarthritis, unspecified site; E83.51 Hypocalcemia; Z99.2 Dependence on renal dialysis
CPT/HCPCS: 36415; 70450; 80048; 80053; 80061; 82140; 82550; 82553; 82607; 82728; 82747; 82805; 82962; 83550; 84439; 84443; 84484; 85007; 85025; 85045; 85610; 85730; 87116; 93005; 93010; 96372; 96374; 96375; 96376; 97116; 97161; 99284; A9270; G0378; J0360; J1644; J7030; G0257; J1815

== ENCOUNTER 2019-02-14 00:02 | Emergency (ER) | payer MEDICARE ==
--- NOTE | 2019-02-14 01:40 | Emergency Department Report ---
HPI - General Chief Complaint: Abdominal Pain Time Seen by Provider: 02/14/19 01:25 - HPI HPI: Room 5 The patient is an 78-year-old female presenting with a chief complaint of constipation and missed hemodialysis. The patient's daughter states the patient has been constipated for at least 2 days. The daughter states there is hard feces protruding from the patient's rectum currently. She states the last time shehad a bowel movement was approximately 7 days ago. No nausea or vomiting. When asked how she is feeling the patient complains of pain in the buttocks. The patient has not received hemodialysis since 02/08/2019 secondary to not wanting to move because of constipation Location: [See above] Duration: [See above] Quality: [See above] Severity: [See above] Timing: [See above] Context: [See above] Modifying factors: [See above] Associated signs and symptoms: [see above] ED Past Medical Hx - Past Medical History Hx Hypertension: Yes Hx Diabetes: Yes Hx GERD: Yes Hx Renal Disease: Yes (HD MWF) Hx Arthritis: Yes Hx Headaches / Migraines: Yes Additional medical history: Anemia, HD M W F. low calcium. 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 - Family History Family history: no significant - Social History Smoking Status: Former Smoker (none 50 years) Substance Use Type: None - Medications Home Medications: Home Medications Medication Instructions Recorded Confirmed Last Taken Type Docusate Sodium [Colace CAP] 100 mg PO BID #30 capsule 11/01/17 12/13/18 Unknown Rx Cholecalciferol Vit D3 [Vitamin D3 5,000 unit PO DAILY #30 tablet 04/25/18 12/13/18 06/08/18 Rx 1,000 UNIT TAB] Fe Fumarate/FA/Mv, Min Comb#15 1 each PO QDAY #30 capsule 04/25/18 12/13/18 Unknown Rx [Hemocyte Plus] Calcium Carbonate/Vitamin D3 1 each PO DAILY #15 tablet 05/23/18 12/13/18 06/07/18 Rx [Calcium 600-Vit D3 400 Caplet] Atorvastatin [Lipitor] 40 mg PO QHS 06/09/18 12/13/18 06/08/18 20:00 History HYDROcodone/ACETAMINOPHEN [[place] 1 each PO Q6HR PRN #40 tablet 06/09/18 12/13/18 Unknown Rx 7.5-325 Tablet] Linagliptin [Tradjenta] 5 mg PO QHS 06/09/18 12/13/18 06/07/18 20:00 History Lispro Insulin [HumaLOG] See Protocol SC AC 06/09/18 12/13/18 06/08/18 History Ondansetron [Zofran ODT TAB] 4 mg PO Q8HR #10 tab.rapdis 10/30/18 12/13/18 Unknown Rx traMADoL [Ultram 50 MG tab] 50 mg PO Q6HR PRN #10 tablet 10/30/18 12/13/18 Unknown Rx Lactulose [Cephulac] 20 gm PO QDAY #90 ml 11/05/18 12/13/18 Unknown Rx Levothyroxine [Synthroid] 150 mcg PO DAILY@0600 #30 tablet 11/24/18 12/13/18 Unknown Rx Metoprolol [Lopressor TAB] 12.5 mg PO BID #60 tablet 11/25/18 12/13/18 Unknown Rx Lactulose [Cephulac] 20 gm PO QDAY PRN #180 ml 02/14/19 Unknown Rx ED Review of Systems ROS: Stated complaint: CONSTIPATION Other details as noted in HPI Gastrointestinal: constipation Physical Exam - Physical Exam Physical Exam: GENERAL: The patient is well-developed well-nourished female lying on stretcher not appearing to be in acute distress. [] HEENT: Normocephalic. Atraumatic. Extraocular motions are intact. Patient has moist mucous membranes. NECK: Supple. Trachea midline CHEST/LUNGS: Clear to auscultation. There is no respiratory distress noted. HEART/CARDIOVASCULAR: Regular. There is no tachycardia. There is no gallop rub or murmur. ABDOMEN: Abdomen is soft, nontender. Patient has normal bowel sounds. There is no abdominal distention. SKIN: There is no rash. There is no edema. There is no diaphoresis. NEURO: The patient is awake, alert, and oriented. The patient is cooperative. The patient has no focal neurologic deficits. The patient has normal speech and gait. MUSCULOSKELETAL: There is no evidence of acute injury. ED Course - Consultations Consultation #1: 02/14/19 05:05 Nephrology paged 02/14/19 05:[address] Miller- have patient contact dialysis clinic today for hemodialysis - Rectal Disimpaction Consent Obtained: verbal consent Time Out Performed: Yes Indication: fecal impaction Procedural Sedation: No Sedation/Analgesia: none Technique: manual disimpaction with Result: significant stool output Complications: other (discomfort) Patient Tolerated Procedure: well ED Medical Decision Making - Lab Data Result diagrams: 02/14/19 01:54 02/14/19 01:54 Laboratory Tests 02/14/19 02/14/19 01:54 01:54 WBC 14.4 H RBC 4.45 Hgb 13.4 Hct 40.9 MCV 92 MCH 30 MCHC 33 RDW 13.9 Plt Count 156 Lymph % (Auto) 4.7 L Jerome % (Auto) 6.5 Eos % (Auto) 0.2 Baso % (Auto) 0.2 Lymph # 0.7 L Jerome # 0.9 H Eos # 0.0 Baso # 0.0 Seg Neutrophils % 88.4 H Seg Neutrophils # 12.8 H Sodium 136 L Potassium 3.9 Chloride 97.7 L Carbon Dioxide 21 L Anion Gap 21 BUN 67 H Creatinine 4.1 H Estimated GFR 13 BUN/Creatinine Ratio 16 Glucose 448 H Calcium 9.0 Total Bilirubin 0.50 AST 17 ALT 11 Alkaline Phosphatase 91 Total Protein 7.1 Albumin 3.9 Albumin/Globulin Ratio 1.2 - Radiology Data Radiology results: report reviewed (CT abdomen and pelvis), image reviewed (CT abdomen and pelvis) [place] [address] Cat Scan Report Signed Patient: ALBERTO ANGLIN MR#: [id number] : 1940 Acct:[id number] Age/Sex: 78 / F ADM Date: 02/14/19 Loc: ED Attending Dr: Ordering Physician: LALITHA CABRERA MD Date of Service: 02/14/19 Procedure(s): CT abdomen pelvis wo con Accession Number(s): [id number] cc: LALITHA CABRERA MD CT ABDOMEN AND PELVIS WITHOUT CONTRAST INDICATION: Generalized abdominal pain and history of constipation TECHNICAL: Multiple axial CT images of the abdomen and pelvis were acquired without intravenous contrast. Sagittal and coronal refo rmats were obtained. All CTs at this facility utilize dose reduction techniques including automated exposure control, iterative reconstruction and weight based dosing when appropriate to reduce patient radiation dose to as low as reasonable achievable. COMPARISON: CT of the abdomen and pelvis, 11/05/2018 FINDINGS: Limited imaging of the bilateral lung bases demonstrates no acute abnormality. Abdomen: Within the limitations of today's noncontrast study, the liver, spleen and gallbladder show no evidence of acute abnormality. There are diffuse coarse calcifications throughout the pancreas. There is no hydronephrosis. There is a large amount of stool noted throughout the colon. Pelvis: The urinary bladder is markedly distended. No large amount of free pelvic fluid is seen. Bones and Soft Tissues: Evaluation of bony structures demonstrates no evidence of acute bony abnormality. There are extensive degenerative changes of the lumbar spine. No focal soft tissue abnormality is identified. IMPRESSION: 1. Significant amount of retained stool throughout the colon representing constipation. 2. D istention of the urinary bladder. 3. Extensive pancreatic calcifications compatible with chronic pancreatitis. Signer Name: Juanis Francis MD Signed: 02/14/2019 4:45 AM Workstation Name: [id number] Transcribed By: EB Dictated By: Juanis Francis MD Electronically Authenticated By: Juanis Francis MD Signed Date/Time: 02/14/19444 DD/ 9 TD/TT: - Differential Diagnosis constipation, hyperkalemia Critical care attestation.: If time is entered above; I have spent that time in minutes in the direct care of this critically ill patient, excluding procedure time. ED Disposition Clinical Impression: Constipation, Fecal impaction, End stage renal disease Disposition: - TO HOME OR SELFCARE Is pt being admited?: No Does the pt Need Aspirin: No Condition: Stable Instructions: Abdominal Pain (ED) Additional Instructions: You are to contact your dialysis clinic today for hemodialysis. You are being provided a copy of your labs for your dialysis clinic to review. Return to the emergency department should you develop worsening symptoms, inability to tolerate food or liquids, high fever or any other concerns Prescriptions: Lactulose [Cephulac] 20 gm PO QDAY PRN #180 ml PRN Reason: Constipation Referrals: ESPERANZA FRANCISCO MD [Staff Physician] - 3-5 Days (Dr. Francisco is a stereoplotter operator. Please follow up with him for further evaluation) Time of Disposition: 05:15
[2019-02-14 02:27] LABS: Basophils % (Auto) 0.2 % (0.0-1.8); Eosinophils % (Auto) 0.2 % (0.0-4.3); Hematocrit 40.9 % (30.3-42.9); Hemoglobin 13.4 gm/dl (10.1-14.3); Lymphocytes # (Auto) 0.7 K/mm3 (1.2-5.4); Lymphocytes % (Auto) 4.7 % (13.4-35.0); Mean Corpuscular HGB Conc 33 % (30-34); Mean Corpuscular Volume 92 fl (79-97); Monocytes # (Auto) 0.9 K/mm3 (0.0-0.8); Monocytes % (Auto) 6.5 % (0.0-7.3); Platelet Count 156 K/mm3 (140-440); Red Blood Count 4.45 M/mm3 (3.65-5.03); Red Cell Distribution Width 13.9 % (13.2-15.2)
[2019-02-14 02:51] LABS: Albumin 3.9 g/dL (3.9-5)
--- NOTE | 2019-02-14 04:50 | Cat Scan Report ---
CT ABDOMEN AND PELVIS WITHOUT CONTRAST INDICATION: Generalized abdominal pain and history of constipation TECHNICAL: Multiple axial CT images of the abdomen and pelvis were acquired without intravenous contr ast. Sagittal and coronal reformats were obtained. All CTs at this facility utilize dose reduction techniques including automated exposure control, iterative reconstruction and weight based dosing whe n appropriate to reduce patient radiation dose to as low as reasonable achievable. COMPARISON: CT of the abdomen and pelvis, 11/05/2018 FINDINGS: Limited imaging of the bilateral lung bases demonstrates no acute abnormality. Abdomen: Within the limitations of today's noncontrast study, the liver, spleen and gallbladder show no evidence of acute abnormality. There are diffuse coarse calcifications throughout the pancreas. Th ere is no hydronephrosis. There is a large amount of stool noted throughout the colon. Pelvis: The urinary bladder is markedly distended. No large amount of free pelvic fluid is seen. Bones and Soft Tissues: Evaluation of bony structures demonstrates no evidence of acute bony abnorma lity. There are extensive degenerative changes of the lumbar spine. No focal soft tissue abnormality is identified. IMPRESSION: 1. Significant amount of retained stool throughout the colon representing constipation. 2. Distention of the urinary bladder. 3. Extensive pancreatic calcifications compatible with chronic pancreatitis. Signer Name: Juanis Francis MD Signed: 02/14/2019 4:45 AM Workstation Name: [id number]
[2019-02-14 06:12] VITALS: BP 171/71
== END 2019-02-14 06:12 | disposition home or self-care (01) ==
LOC: ED 00:02
DX: K59.00 Constipation, unspecified (principal); K56.41 Fecal impaction; E11.22 Type 2 diabetes mellitus with diabetic chronic kidney disease; I12.0 Hypertensive chronic kidney disease with stage 5 chronic kidney disease or end stage renal disease; N18.6 End stage renal disease; Z99.2 Dependence on renal dialysis; G43.909 Migraine, unspecified, not intractable, without status migrainosus; M19.90 Unspecified osteoarthritis, unspecified site; Z87.891 Personal history of nicotine dependence
CPT/HCPCS: 36415; 74176; 80053; 85025; 99284

== ENCOUNTER 2019-02-24 10:24 | Emergency (ER) | payer MEDICARE ==
[2019-02-24] MEDS ORDERED: ACETAMINOPHEN 500 MG TAB PO ONE (13:22)
--- NOTE | 2019-02-24 14:42 | XRay Report ---
LEFT SHOULDER 3 VIEWS INDICATION: shoulder pain fall elder. COMPARISON: No relevant prior imaging study available. FINDINGS: No acute, displaced fracture is seen. Acromioclavicular and glenohumeral degenerative change is noted . There is diffuse osteopenia. Humeral head is high riding which can be seen in the setting of rotato r cuff pathology. IMPRESSION: 1. No acute fracture or dislocation is seen. Signer Name: Alberto Jimenez MD Signed: 02/24/2019 2:38 PM Workstation Name: [id number]
--- NOTE | 2019-02-24 14:48 | Emergency Department Report ---
ED Fall HPI - General Chief Complaint: Fall Stated Complaint: FALL INJURY/HEAD/LFT SHOULDER PAIN Time Seen by Provider: 02/24/19 12:50 Source: patient, family Mode of arrival: Wheelchair - History of Present Illness Initial Comments: Mrs. Ballesteros is a 78-year-old female history of end-stage renal disease on dialysis, diabetes mellitus, hypertension, unsteady gait, GERD who presents after a fall while using her walker. She has left shoulder pain. No notable head injury. No loss of consciousness. No other concerns. MD Complaint: fall -: This morning Fall From: standing When Fall Occurred: recurrent falls Loss of Consciousness: none Prolonged Down Time?: no Symptoms Prior to Fall: none Location - Extremities: Left: Shoulder Severity: moderate Context: tripped/slipped Associated Symptoms: denies - Related Data Home Medications Medication Instructions Recorded Confirmed Last Taken Atorvastatin [Lipitor] 40 mg PO QHS 06/09/18 12/13/18 06/08/18 20:00 Linagliptin [Tradjenta] 5 mg PO QHS 06/09/18 12/13/18 06/07/18 20:00 Lispro Insulin [HumaLOG] See Protocol SC AC 06/09/18 12/13/18 06/08/18 Previous Rx's Medication Instructions Recorded Last Taken Type Docusate Sodium [Colace CAP] 100 mg PO BID #30 capsule 11/01/17 Unknown Rx Cholecalciferol Vit D3 [Vitamin D3 5,000 unit PO DAILY #30 tablet 04/25/18 06/08/18 Rx 1,000 UNIT TAB] Fe Fumarate/FA/Mv, Min Comb#15 1 each PO QDAY #30 capsule 04/25/18 Unknown Rx [Hemocyte Plus] Calcium Carbonate/Vitamin D3 1 each PO DAILY #15 tablet 05/23/18 06/07/18 Rx [Calcium 600-Vit D3 400 Caplet] HYDROcodone/ACETAMINOPHEN [[place] 1 each PO Q6HR PRN #40 tablet 06/09/18 Unknown Rx 7.5-325 Tablet] Ondansetron [Zofran ODT TAB] 4 mg PO Q8HR #10 tab.rapdis 10/30/18 Unknown Rx traMADoL [Ultram 50 MG tab] 50 mg PO Q6HR PRN #10 tablet 10/30/18 Unknown Rx Lactulose [Cephulac] 20 gm PO QDAY #90 ml 11/05/18 Unknown Rx Levothyroxine [Synthroid] 150 mcg PO DAILY@0600 #30 tablet 11/24/18 Unknown Rx Metoprolol [Lopressor TAB] 12.5 mg PO BID #60 tablet 11/25/18 Unknown Rx Lactulose [Cephulac] 20 gm PO QDAY PRN #180 ml 02/14/19 Unknown Rx Allergies Allergy/AdvReac Type Severity Reaction Status Date / Time aspirin Allergy Severe Unknown Verified 02/24/19 10:43 ED Review of Systems ROS: Stated complaint: FALL INJURY/HEAD/LFT SHOULDER PAIN Other details as noted in HPI Constitutional: denies: fever, malaise Cardiovascular: denies: chest pain Gastrointestinal: denies: abdominal pain Neurological: denies: numbness, paresthesias ED Past Medical Hx - Past Medical History Previous Medical History?: Yes Hx Hypertension: Yes Hx Diabetes: Yes Hx GERD: Yes Hx Renal Disease: Yes (HD MWF) Hx Arthritis: Yes Hx Headaches / Migraines: Yes Additional medical history: Anemia, HD M W F. low calcium. Hypothyroidism - Surgical History Past Surgical History?: Yes Hx Pacemaker: Yes Additional Surgical History: THYROID SURGERY ,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 - Social History Smoking Status: Former Smoker (none 50 years) Substance Use Type: None - Medications Home Medications: Home Medications Medication Instructions Recorded Confirmed Last Taken Type Docusate Sodium [Colace CAP] 100 mg PO BID #30 capsule 11/01/17 12/13/18 Unknown Rx Cholecalciferol Vit D3 [Vitamin D3 5,000 unit PO DAILY #30 tablet 04/25/18 12/13/18 06/08/18 Rx 1,000 UNIT TAB] Fe Fumarate/FA/Mv, Min Comb#15 1 each PO QDAY #30 capsule 04/25/18 12/13/18 Unknown Rx [Hemocyte Plus] Calcium Carbonate/Vitamin D3 1 each PO DAILY #15 tablet 05/23/18 12/13/18 06/07/18 Rx [Calcium 600-Vit D3 400 Caplet] Atorvastatin [Lipitor] 40 mg PO QHS 06/09/18 12/13/18 06/08/18 20:00 History HYDROcodone/ACETAMINOPHEN [[place] 1 each PO Q6HR PRN #40 tablet 06/09/18 12/13/18 Unknown Rx 7.5-325 Tablet] Linagliptin [Tradjenta] 5 mg PO QHS 06/09/18 12/13/18 06/07/18 20:00 History Lispro Insulin [HumaLOG] See Protocol SC AC 06/09/18 12/13/18 06/08/18 History Ondansetron [Zofran ODT TAB] 4 mg PO Q8HR #10 tab.rapdis 10/30/18 12/13/18 Unk nown Rx traMADoL [Ultram 50 MG tab] 50 mg PO Q6HR PRN #10 tablet 10/30/18 12/13/18 Unknown Rx Lactulose [Cephulac] 20 gm PO QDAY #90 ml 11/05/18 12/13/18 Unknown Rx Levothyroxine [Synthroid] 150 mcg PO DAILY@0600 #30 tablet 11/24/18 12/13/18 Unknown Rx Metoprolol [Lopressor TAB] 12.5 mg PO BID #60 tablet 11/25/18 12/13/18 Unknown Rx Lactulose [Cephulac] 20 gm PO QDAY PRN #180 ml 02/14/19 Unknown Rx ED Physical Exam - General Limitations: No Limitations General appearance: alert, in no apparent distress - Head Head exam: Present: atraumatic, normocephalic - Eye Eye exam: Present: normal appearance - ENT ENT exam: Present: mucous membranes moist - Neck Neck exam: Present: normal inspection, full ROM - Respiratory Respiratory exam: Present: normal lung sounds bilaterally. Absent: respiratory distress, wheezes, rales, rhonchi - Cardiovascular Cardiovascular Exam: Present: regular rate, normal rhythm, normal heart sounds. Absent: gallop - GI/Abdominal GI/Abdominal exam: Present: soft, normal bowel sounds. 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 Absent: rash ED Course Vital Signs 02/24/19 02/24/19 10:45 14:31 Temperature 97 F L Pulse Rate 74 Respiratory 20 18 Rate Blood Pressure 122/72 [Right] O2 Sat by Pulse 97 Oximetry ED Medical Decision Making - Radiology Data Radiology results: report reviewed, image reviewed 2 views left shoulder radiographs: No fracture no dislocation seen - Medical Decision Making Ground-level fall while using a walker history of unsteady gait shoulder pain without severe injury. Provided Tylenol. Refer to orthopedic surgeon as needed Critical care attestation.: If time is entered above; I have spent that time in minutes in the direct care of this critically ill patient, excluding procedure time. ED Disposition Clinical Impression: Sprain of left shoulder, Fall from ground level Disposition: DC-01 TO HOME OR SELFCARE Is pt being admited?: No Does the pt Need Aspirin: No Condition: Stable Instructions: Shoulder Sprain (ED) Referrals: [facility] [Other] - as needed IQRA WITT MD [Staff Physician] - as needed
[2019-02-24 15:19] VITALS: BP 118/79
== END 2019-02-24 15:17 | disposition home or self-care (01) ==
LOC: ED 10:24
DX: S43.402A Unspecified sprain of left shoulder joint, initial encounter (principal); S00.83XA Contusion of other part of head, initial encounter; S00.81XA Abrasion of other part of head, initial encounter; K21.9 Gastro-esophageal reflux disease without esophagitis; E11.22 Type 2 diabetes mellitus with diabetic chronic kidney disease; I12.0 Hypertensive chronic kidney disease with stage 5 chronic kidney disease or end stage renal disease; N18.6 End stage renal disease; Z99.2 Dependence on renal dialysis; Z87.891 Personal history of nicotine dependence; W17.89XA Other fall from one level to another, initial encounter; Y93.89 Activity, other specified; Y92.89 Other specified places as the place of occurrence of the external cause; Y99.8 Other external cause status
CPT/HCPCS: 99283

== ENCOUNTER 2019-03-08 13:59 | Inpatient (IN) | payer MEDICARE ==
--- NOTE | 2019-03-08 14:55 | Event Note ---
ED Screening Note ED Screening Note: Mrs. Ballesteros recently dc'd from [place] 02/22 for CVA, seizure, thyroid disease. Presents today for hematuria and dysuria for 12 days. This initial assessment/diagnostic orders/clinical plan/treatment(s) is/are subject to change based on patients health status, clinical progression and re- assessment by fellow clinical providers in the ED. Further treatment and workup at subsequent clinical providers discretion. Patient/guardian urged not to elope from the ED as their condition may be serious if not clinically assessed and managed. Initial orders include: cbc bmp ua
[2019-03-08 15:08] LABS: Basophils # (Auto) 0.1 K/mm3 (0.0-0.1); Basophils % (Auto) 1.6 % (0.0-1.8); Eosinophils # (Auto) 0.1 K/mm3 (0.0-0.4); Eosinophils % (Auto) 3.4 % (0.0-4.3); Hematocrit 28.3 % (30.3-42.9); Hemoglobin 9.4 gm/dl (10.1-14.3); Lymphocytes # (Auto) 1.3 K/mm3 (1.2-5.4); Lymphocytes % (Auto) 30.8 % (13.4-35.0); Mean Corpuscular HGB Conc 33 % (30-34); Mean Corpuscular Volume 90 fl (79-97); Monocytes # (Auto) 0.5 K/mm3 (0.0-0.8); Monocytes % (Auto) 11.3 % (0.0-7.3); Platelet Count 204 K/mm3 (140-440); Red Blood Count 3.16 M/mm3 (3.65-5.03); Red Cell Distribution Width 13.5 % (13.2-15.2)
[2019-03-08 15:28] LABS: Calcium 6.3 mg/dL (8.4-10.2)
[2019-03-08 18:33] LABS: Bacteria,Urine 4+ /HPF (Negative)
[2019-03-08 18:35] LABS: RBC,Urine > 182.0 /HPF (0.0-6.0); WBC,Urine > 182.0 /HPF (0.0-6.0)
[2019-03-08 18:36] LABS: Bilirubin,Urine Negative (Negative); Color,Urine Red (Yellow)
[2019-03-08 18:37] LABS: Blood,Urine Large (Negative); Urobilinogen,Urine < 2.0 mg/dL (<2.0)
[2019-03-08 18:41] LABS: Chol/HDL Ratio 2.47 %
--- NOTE | 2019-03-08 19:07 | Emergency Department Report ---
ED General Adult HPI - General Chief complaint: Abdominal Pain Stated complaint: ABD PAIN/BLOOD IN URINE Time Seen by Provider: 03/08/19 18:45 Source: patient, family Mode of arrival: Wheelchair Limitations: No Limitations - History of Present Illness Initial comments: Patient is an 78-year-old female that presents emergency room with complaints of weakness, flank pain, lower abdominal pain, dysuria and falls. Patient states that her symptoms started yesterday and are worsening. Patient states she also saw blood in her urine. Patient states that her pain is a 4 out of 10. Patient states her pain is better with rest and worse with movement. Patient states that the pain is extreme when she urinates. Patient states the pain radiates to her back. -: Sudden Location: abdomen Radiation: flank Severity scale (0 -10): 4 Quality: burning, aching Consistency: intermittent Improves with: rest Worsens with: movement Associated Symptoms: confusion, malaise, weakness. denies: chest pain, cough, diaphoresis, fever/chills, headaches, loss of appetite, nausea/vomiting, rash, seizure, shortness of breath, syncope Treatments Prior to Arrival: none - Related Data Home Medications Medication Instructions Recorded Confirmed Last Taken Atorvastatin [Lipitor] 40 mg PO QHS 06/09/18 12/13/18 03/08/19 10:00 Linagliptin [Tradjenta] 5 mg PO QHS 06/09/18 03/09/19 03/08/19 10:00 Lispro Insulin [HumaLOG] See Protocol SC AC 06/09/18 12/13/18 03/08/19 10:00 Calcium Carbonate/Vitamin D3 2 each PO TID 03/09/19 03/08/19 10:00 [Calcium 600-Vit D3 400 Caplet] Clopidogrel 75 mg PO QDAY 03/09/19 03/09/19 03/08/19 10:00 amLODIPine 10 mg PO QDAY 03/09/19 03/09/19 03/08/19 10:00 levETIRAcetam 500 mg PO QDAY 03/09/19 03/09/19 03/08/19 10:00 Previous Rx's Medication Instructions Recorded Last Taken Type Docusate Sodium [Colace CAP] 100 mg PO BID #30 capsule 11/01/17 03/08/19 10:00 Rx Cholecalciferol Vit D3 [Vitamin D3 5,000 unit PO DAILY #30 tablet 04/25/18 03/08/19 10:00 Rx 1,000 UNIT TAB] Fe Fumarate/FA/Mv, Min Comb#15 1 each PO QDAY #30 capsule 04/25/18 03/08/19 10:00 Rx [Hemocyte Plus] Levothyroxine [Synthroid] 150 mcg PO DAILY@0600 #30 tablet 11/24/18 03/08/19 10:00 Rx 100 Allergies Allergy/AdvReac Type Severity Reaction Status Date / Time aspirin Allergy Severe Unknown Verified 02/24/19 10:43 ED Review of Systems ROS: Stated complaint: ABD PAIN/BLOOD IN URINE Other details as noted in HPI Constitutional: malaise, weakness. denies: chills, fever Eyes: denies: eye pain, eye discharge, vision change ENT: denies: ear pain, throat pain Respiratory: denies: cough, shortness of breath, wheezing Cardiovascular: denies: chest pain, palpitations Endocrine: no symptoms reported Gastrointestinal: abdominal pain. denies: nausea, diarrhea Genitourinary: dysuria. denies: urgency, discharge Musculoskeletal: back pain. denies: joint swelling, arthralgia Skin: denies: rash, lesions Neurological: weakness. denies: headache, paresthesias Psychiatric: denies: anxiety, depression Hematological/Lymphatic: denies: easy bleeding, easy bruising ED Past Medical Hx - Past Medical History Previous Medical History?: Yes Hx Hypertension: Yes Hx Diabetes: Yes Hx GERD: Yes Hx Renal Disease: Yes (HD MWF) Hx Arthritis: Yes Hx Headaches / Migraines: Yes Additional medical history: Anemia, HD M W F. low calcium. Hypothyroidism - Surgical History Past Surgical History?: Yes Hx Pacemaker: Yes Additional Surgical History: THYROID SURGERY ,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 - Family History Family history: no significant - Social History Smoking Status: Never Smoker Substance Use Type: None - Medications Home Medications: Home Medications Medication Instructions Recorded Confirmed Last Taken Type Docusate Sodium [Colace CAP] 100 mg PO BID #30 capsule 11/01/17 03/09/19 03/08/19 10:00 Rx Cholecalciferol Vit D3 [Vitamin D3 5,000 unit PO DAILY #30 tablet 04/25/18 03/09/19 03/08/19 10:00 Rx 1,000 UNIT TAB] Fe Fumarate/FA/Mv, Min Comb#15 1 each PO QDAY #30 capsule 04/25/18 12/13/18 03/08/19 10:00 Rx [Hemocyte Plus] Atorvastatin [Lipitor] 40 mg PO QHS 06/09/18 12/13/18 03/08/19 10:00 History Linagliptin [Tradjenta] 5 mg PO QHS 06/09/18 03/09/19 03/08/19 10:00 History Lispro Insulin [HumaLOG] See Protocol SC AC 06/09/18 12/13/18 03/08/19 10:00 History Levothyroxine [Synthroid] 150 mcg PO DAILY@0600 #30 tablet 11/24/18 12/13/18 03/08/19 10:00 Rx 100 Calcium Carbonate/Vitamin D3 2 each PO TID 03/09/19 03/08/19 10:00 History [Calcium 600-Vit D3 400 Caplet] Clopidogrel 75 mg PO QDAY 03/09/19 03/09/19 03/08/19 10:00 History amLODIPine 10 mg PO QDAY 03/09/19 03/09/19 03/08/19 10:00 History levETIRAcetam 500 mg PO QDAY 03/09/19 03/09/19 03/08/19 10:00 History ED Physical Exam - General Limitations: No Limitations General appearance: alert, in no apparent distress - Head Head exam: Present: atraumatic, normocephalic - Eye Eye exam: Present: normal appearance - ENT ENT exam: Present: mucous membranes moist - Neck Neck exam: Present: normal inspection. Absent: tenderness, meningismus - Respiratory Respiratory exam: Present: normal lung sounds bilaterally. Absent: respiratory distress, wheezes, rales - Cardiovascular Cardiovascular Exam: Present: regular rate, normal rhythm. Absent: systolic murmur, diastolic murmur, rubs, gallop - GI/Abdominal GI/Abdominal exam: Present: soft, tenderness, normal bowel sounds - Rectal Rectal exam: Present: deferred - Extremities Exam Extremities exam: Present: normal inspection - Back Exam Back exam: Present: normal inspection - Neurological Exam Neurological exam: Present: alert, oriented X3 - Psychiatric Psychiatric exam: Present: normal affect, normal mood - Skin Skin exam: Present: warm, dry, intact, normal color. Absent: rash ED Course Vital Signs 03/08/19 03/08/19 14:52 22:06 Temperature 98 F 97.7 F Pulse Rate 76 72 Respiratory 16 16 Rate Blood Pressure 110/53 Blood Pressure 116/40 [Left] O2 Sat by Pulse 98 97 Oximetry - Reevaluation(s) Reevaluation #1: I discussed all results with patient and family. Patient and family agree with plan of care and admission. Patient will be admitted to the hospitalist service. 03/08/19 22:34 - Consultations Consultation #1: Hospitalist consult for admission. Hospitalist admit patient. 03/08/19 22:34 - EJ/Peripheral Line Arm R Time Out Performed: Yes Indications: nurses unable to establis Skin Cleansed in Sterile Fashion: Yes Size: 22 Dressing Placed: Tegaderm, tape Patient Tolerated Procedure: well, no complications Additional Comments: IV placement ultrasound-guided. ED Medical Decision Making - Lab Data Result diagrams: 03/08/19 14:57 03/08/19 14:57 - EKG Data -: EKG Interpreted by Me EKG shows normal: sinus rhythm (av paced. ), axis, intervals, QRS complexes, ST- T waves Rate: normal - Radiology Data Radiology results: report reviewed, image reviewed interpreted by me: CHEST 1 VIEW INDICATION: weakness. COMPARISON: 11/22/2018. FINDINGS: Support devices: Pacemaker in satisfactory position. Heart: Within normal limits. Lungs/Pleura: No acute air space or interstitial disease. Additional findings: None. IMPRESSION: No acute abnormality. CT HEAD WITHOUT CONTRAST INDICATION / CLINICAL INFORMATION: weakness. TECHNIQUE: All CT scans at this location are performed using CT dose reduction for ALARA by means of automated exposure control. COMPARISON: CT dated 12/13/18 FINDINGS: HEMORRHAGE: None. EXTRA-AXIAL SPACES: Prominent and likely related to cortical atrophy. No change. VENTRICULAR SYSTEM: Normal in size and morphology for the patient's age. CEREBRAL PARENCHYMA: Focal encephalomalacia in the posterior right frontoparietal region is unchanged. No acute territorial infarct. MIDLINE SHIFT OR HERNIATION: None. CEREBELLUM / BRAINSTEM: No significant abnormality. ORBITS: Normal as visualized. SOFT TISSUES of HEAD: No significant abnormality. CALVARIUM: No significant abnormality. PARANASAL SINUSES / MASTOID AIR CELLS: Normal as visualized. ADDITIONAL FINDINGS: None. IMPRESSION: 1. No acute intracranial abnormality. 2. Chronic and age-related findings. No change. CT ABDOMEN AND PELVIS WITHOUT CONTRAST INDICATION / CLINICAL INFORMATION: Abdominal pain. Reason history of constipation. TECHNIQUE: Axial CT images were obtained through the abdomen and pelvis without IV contrast. All CT scans at this location are performed using CT dose reduction for ALARA by means of automated exposure control. COMPARISON: CT dated 02/14/19 FINDINGS: LOWER CHEST: No significant abnormality. LIVER: No significant abnormality. GALLBLADDER: No significant abnormality. BILE DUCTS: No significant abnormality. PANCREAS: Extensive pancreatic calcifications characteristic of chronic calcific pancreatitis. No acute inflammation. SPLEEN: Hypodense splenic cyst is unchanged. ADRENALS: No significant abnormality. RIGHT KIDNEY and URETER: No acute abnormality. No change. LEFT KIDNEY and URETER: No acute abnormality. No change. STOMACH and SMALL BOWEL: No significant abnormality. COLON: Moderate to large amount of fecal material throughout the colon and rectal vault. APPENDIX: No significant abnormality. PERITONEUM: No free fluid. No free air. No fluid collection. LYMPH NODES: No significant adenopathy. AORTA and ARTERIES: Severe atherosclerotic calcification without acute abnormality. No change. IVC and VEINS: No significant abnormality. URINARY BLADDER: Urinary bladder is thickened. There is a moderate amount of gas in the bladder with gas along the posterior and inferior smith of the urinary bladder. This finding is new since the recent prior study. REPRODUCTIVE ORGANS: No significant abnormality. ADDITIONAL FINDINGS: None. SKELETAL SYSTEM: Lumbar spondylosis but no acute abnormality. IMPRESSION: 1. Interval development of moderate thickening of the urinary bladder with gas in the urinary bladder and bladder wall. Emphysematous cystitis should be considered. 2. Moderate to large amount of fecal material throughout the colon and rectum. 3. Chronic calcific pancreatitis, unchanged. No acute inflammation noted. - Medical Decision Making Patient is an 78-year-old female that presents emergency room for multiple complaints. Patient's complaints complete weakness, falls, he dysuria, lower abdominal pain and flank pain. Patient had a CT done which shows air in the b ladder. Patient also findings consistent with dehydration. Patient was given fluids and antibiotics in the ER. Patient admitted to the hospitalist service. Patient had a chest x-ray for her elevated BNP and rule out volume overload and her complaints of weakness. Her chest x-ray shows no acute findings. Patient's EKG is unremarkable. Patient had labs done there consistent with end- stage renal disease. - Differential Diagnosis UTI, dysuria, encephalopathy, weakness, falls, abd pain, flank pain Critical Care Time: Yes Critical care time in (mins) excluding proc time.: 35 Critical care attestation.: If time is entered above; I have spent that time in minutes in the direct care of this critically ill patient, excluding procedure time. Critical Care Time: 35 minutes ED Disposition Clinical Impression: Weakness, Renal insufficiency, Elevated troponin, CKD (chronic kidney disease) requiring chronic dialysis, Emphysematous cystitis, Flank pain, Unsteady gait, Encephalopathy acute Anemia Qualifiers: Anemia type: unspecified type Qualified Code(s): D64.9 - Anemia, unspecified Falls Qualifiers: Encounter type: initial encounter Qualified Code(s): W19.XXXA - Unspecified fall, initial encounter UTI (urinary tract infection) Qualifiers: Urinary tract infection type: acute cystitis Hematuria presence: with hematuria Qualified Code(s): N30.01 - Acute cystitis with hematuria Abdominal pain Qualifiers: Abdominal location: lower abdomen, unspecified Qualified Code(s): R10.30 - Lower abdominal pain, unspecified Disposition: 09 OP ADMIT IP TO THIS HOSP Is pt being admited?: Yes Does the pt Need Aspirin: No Condition: Critical Time of Disposition: 22:34
--- NOTE | 2019-03-08 19:53 | XRay Report ---
CHEST 1 VIEW INDICATION: weakness. COMPARISON: 11/22/2018. FINDINGS: Support devices: Pacemaker in satisfactory position. Heart: Within normal limits. Lungs/Pleura: No acute air space or interstitial disease. Additional findings: None. IMPRESSION: No acute abnormality. Signer Name: Andreas Armenta MD Signed: 03/08/2019 7:49 PM Workstation Name: [id number]
[2019-03-08] MEDS ORDERED: SODIUM CHLORIDE 0.9% 1000 ML 1,000 ML IV ONE (20:28)
[2019-03-08] MEDS ORDERED: CEFEPIME/NS 2 GM/100 ML 2 GM/100 ML BAG IV ONE (20:28)
--- NOTE | 2019-03-08 20:44 | Cat Scan Report ---
CT ABDOMEN AND PELVIS WITHOUT CONTRAST INDICATION / CLINICAL INFORMATION: Abdominal pain. Reason history of constipation. TECHNIQUE: Axial CT images were obtained through the abdomen and pelvis without IV contrast. All CT scans at [facility] location are performed using CT dose reduction for ALARA by means of automated exposure control. COMPARISON: CT dated 02/14/19 FINDINGS: LOWER CHEST: No significant abnormality. LIVER: No significant abnormality. GALLBLADDER: No significant abnormality. BILE DUCTS: No significant abnormality. PANCREAS: Extensive pancreatic calcifications characteristic of chronic calcific pancreatitis. No acu te inflammation. SPLEEN: Hypodense splenic cyst is unchanged. ADRENALS: No significant abnormality. RIGHT KIDNEY and URETER: No acute abnormality. No change. LEFT KIDNEY and URETER: No acute abnormality. No change. STOMACH and SMALL BOWEL: No significant abnormality. COLON: Moderate to large amount of fecal material throughout the colon and rectal vault. APPENDIX: No significant abnormality. PERITONEUM: No free fluid. No free air. No fluid collection. LYMPH NODES: No significant adenopathy. AORTA and ARTERIES: Severe atherosclerotic calcification without acute abnormality. No change. IVC and VEINS: No significant abnormality. URINARY BLADDER: Urinary bladder is thickened. There is a moderate amount of gas in the bladder with gas along the posterior and inferior smith of the urinary bladder. This finding is new since the rece nt prior study. REPRODUCTIVE ORGANS: No significant abnormality. ADDITIONAL FINDINGS: None. SKELETAL SYSTEM: Lumbar spondylosis but no acute abnormality. IMPRESSION: 1. Interval development of moderate thickening of the urinary bladder with gas in the urinary bladder and bladder wall. Emphysematous cystitis should be considered. 2. Moderate to large amount of fecal material throughout the colon and rectum. 3. Chronic calcific pancreatitis, unchanged. No acute inflammation noted. Signer Name: Amanda Meeks MD Signed: 03/08/2019 8:39 PM Workstation Name: [email or web address]
--- NOTE | 2019-03-08 22:22 | Cat Scan Report ---
CT HEAD WITHOUT CONTRAST INDICATION / CLINICAL INFORMATION: weakness. TECHNIQUE: All CT scans at this location are performed using CT dose reduction for ALARA by means of automated e xposure control. COMPARISON: CT dated 12/13/18 FINDINGS: HEMORRHAGE: None. EXTRA-AXIAL SPACES: Prominent and likely related to cortical atrophy. No change. VENTRICULAR SYSTEM: Normal in size and morphology for the patient's age. CEREBRAL PARENCHYMA: Focal encephalomalacia in the posterior right frontoparietal region is unchanged . No acute territorial infarct. MIDLINE SHIFT OR HERNIATION: None. CEREBELLUM / BRAINSTEM: No significant abnormality. ORBITS: Normal as visualized. SOFT TISSUES of HEAD: No significant abnormality. CALVARIUM: No significant abnormality. PARANASAL SINUSES / MASTOID AIR CELLS: Normal as visualized. ADDITIONAL FINDINGS: None. IMPRESSION: 1. No acute intracranial abnormality. 2. Chronic and age-related findings. No change. Signer Name: Amanda Meeks MD Signed: 03/08/2019 10:17 PM Workstation Name: [id number]
[2019-03-08] MEDS ORDERED: DEXTROSE 50% IN WATER (25GM) 50 ML SYRINGE IV PRN (22:53)
[2019-03-08] MEDS ORDERED: ONDANSETRON 4 MG/2 ML INJ IV PRN (22:53)
[2019-03-08] MEDS ORDERED: ALBUTEROL 2.5 MG/3 ML NEBU IH PRN (22:53)
[2019-03-08] MEDS ORDERED: ACETAMINOPHEN 325 MG TAB PO PRN (22:53)
--- NOTE | 2019-03-09 00:22 | History and Physical Report ---
<WIL COONEY - Last Filed: 03/09/19 00:22> History of Present Illness Date of examination: 03/08/19 Date of admission: 03/08/2019 Chief complaint: Hematuria and dysuria History of present illness: 78-year-old -[place] female with history of hypertension, diabetes, GERD, ESRD on HD, anemia, hypothyroidism, complete heart block status post pacemaker who presents to [facility] ED with complaints of dysuria and hematuria for the past 2 weeks. Patient's daughter is present at bedside and has assisted in providing history. According to patient's daughter patient has been experiencing dysuria and hematuria since being discharged from [facility] on 02/22/2019. Initially daughter thought her symptoms would improve and she deci ded to monitor it before deciding to seek medical treatment. As the days progressed patient dysuria and hematuria worsened, so her daughter decided to bring her in for further evaluation and treatment. According to daughter patient was admitted to [facility] on 02/15 for concerns of seizure-like activity and possible stroke. Ultimately patient symptoms were found to be related to low thyroid level, her Synthroid dose was increased, and she discharged on 02/22/2019. At the time of my examination patient is in stretcher and awake. She is alert and oriented x2. Will admit to Med Surg for further evaluation of emphysematous cystitis and treatment of urinary tract infection. 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, left upper arm AV fistula) Social history: lives with family (With daughter) Family history: no significant family history Medications and Allergies Allergies Allergy/AdvReac Type Severity Reaction Status Date / Time aspirin Allergy Severe Unknown Verified 02/24/19 10:43 Home Medications Medication Instructions Recorded Confirmed Last Taken Type Docusate Sodium [Colace CAP] 100 mg PO BID #30 capsule 11/01/17 03/09/19 03/08/19 10:00 Rx Cholecalciferol Vit D3 [Vitamin D3 5,000 unit PO DAILY #30 tablet 04/25/18 03/09/19 03/08/19 10:00 Rx 1,000 UNIT TAB] Fe Fumarate/FA/Mv, Min Comb#15 1 each PO QDAY #30 capsule 04/25/18 03/09/19 03/08/19 10:00 Rx [Hemocyte Plus] Atorvastatin [Lipitor] 40 mg PO QHS 06/09/18 03/09/19 03/08/19 10:00 History Linagliptin [Tradjenta] 5 mg PO QHS 06/09/18 03/09/19 03/08/19 10:00 History Calcium Carbonate/Vitamin D3 2 each PO TID 03/09/19 03/09/19 03/08/19 10:00 History [Calcium 600-Vit D3 400 Caplet] Clopidogrel 75 mg PO QDAY 03/09/19 03/09/19 03/08/19 10:00 History Levothyroxine [Synthroid] 100 mcg PO QAM 03/09/19 03/09/19 Unknown History amLODIPine 10 mg PO QDAY 03/09/19 03/09/19 03/08/19 10:00 History levETIRAcetam 500 mg PO QDAY 03/09/19 03/09/19 03/08/19 10:00 History Active Meds: Active Medications Acetaminophen (Tylenol) 650 mg PO Q4H PRN PRN Reason: Pain MILD(1-3)/Fever >100.5/PATRICIA Albuterol (Proventil) 2.5 mg IH Q3HRT PRN PRN Reason: Shortness Of Breath Atorvastatin Calcium (Lipitor) 40 mg PO QHS [facility] Cholecalciferol (Vitamin D3) 5,000 unit PO QDAY [facility] Dextrose (D50w (25gm) Syringe) 0 ml IV Q30MIN PRN; Protocol PRN Reason: Hypoglycemia Docusate Sodium (Colace) 100 mg PO BID [facility] Sodium Chloride (Nacl 0.9% 1000 Ml) 1,000 mls @ 250 mls/hr IV ONCE ONE Stop: 03/09/19 00:27 Last Admin: 03/08/19 22:54 Dose: 250 mls/hr Documented by: Levofloxacin/Dextrose (Levaquin 500mg/100ml) 500 mg in 100 mls @ 100 mls/hr IV Q48HR [facility] Piperacillin Sod/Tazobactam Sod (Zosyn/Ns 2.25 Gm/50ml) 2.25 gm in 50 mls @ 100 mls/hr IV Q8H [facility] Insulin Human Lispro (Humalog) 0 unit SUB-Q ACHS [facility]; Protocol Levothyroxine Sodium (Synthroid) 150 mcg PO DAILY@0600 [facility] Linagliptin (Tradjenta) 5 mg PO QHS [facility] Metoprolol Tartrate (Metoprolol) 12.5 mg PO BID [facility] Multivitamins/Iron (Hemocyte Plus) 1 each PO QDAY [facility] Ondansetron HCl (Zofran) 4 mg IV Q8H PRN PRN Reason: Nausea And Vomiting Sodium Chloride (Sodium Chloride Flush Syringe 10 Ml) 10 ml IV BID [facility] Sodium Chloride (Sodium Chloride Flush Syringe 10 Ml) 10 ml IV PRN PRN PRN Reason: LINE FLUSH Review of Systems All systems: negative Genitourinary Female: dysuria, hematuria Exam - Physical Exam Narrative exam: Physical exam General appearance: Present: No acute distress, alert and oriented 2, thin, older adult female - EENT Eyes: Present: PERRL, EOM intact ENT: Hard of hearing, no dentition - Neck Neck: Present: supple, normal ROM - Respiratory Respiratory effort: Non-labored Respiratory: Diminished bases - Cardiovascular Heart rate: 72 (bpm) Rhythm: Sinus rhythm Heart Sounds: Present: S1 & S2. Absent: rub, click - Extremities Extremities: no ischemia, pulses intact, - Peripheral Assessment Peripheral Pulses: within normal limits - Abdominal General gastrointestinal: soft, non-tender, normal bowel sounds - Integumentary Integumentary: Present: warm, dry - Musculoskeletal Musculoskeletal: Able to move all extremities, generalized weakness -Neurological Neurological: CN II-XII intact - Psychiatric Psychiatric: cooperative - Constitutional Vitals: Temp Pulse Resp BP Pulse Ox 97.7 F 72 16 116/40 97 03/08/19 22:06 03/08/19 22:06 03/08/19 22:06 03/08/19 22:06 03/08/19 22:06 Results - Labs CBC & Chem 7: 03/08/19 14:57 03/08/19 14:57 Labs: Laboratory Last Values WBC 4.3 K/mm3 (4.5-11.0) L 03/08/19 14:57 RBC 3.16 M/mm3 (3.65-5.03) L 03/08/19 14:57 Hgb 9.4 gm/dl (10.1-14.3) L 03/08/19 14:57 Hct 28.3 % (30.3-42.9) L 03/08/19 14:57 MCV 90 fl (79-97) 03/08/19 14:57 MCH 30 pg (28-32) 03/08/19 14:57 MCHC 33 % (30-34) 03/08/19 14:57 RDW 13.5 % (13.2-15.2) 03/08/19 14:57 Plt Count 204 K/mm3 (140-440) 03/08/19 14:57 Lymph % (Auto) 30.8 % (13.4-35.0) 03/08/19 14:57 [place] % (Auto) 11.3 % (0.0-7.3) H 03/08/19 14:57 Eos % (Auto) 3.4 % (0.0-4.3) 03/08/19 14:57 Baso % (Auto) 1.6 % (0.0-1.8) 03/08/19 14:57 Lymph # 1.3 K/mm3 (1.2-5.4) 03/08/19 14:57 [place] # 0.5 K/mm3 (0.0-0.8) 03/08/19 14:57 Eos # 0.1 K/mm3 (0.0-0.4) 03/08/19 14:57 Baso # 0.1 K/mm3 (0.0-0.1) 03/08/19 14:57 Seg Neutrophils % 52.9 % (40.0-70.0) 03/08/19 14:57 Seg Neutrophils # 2.3 K/mm3 (1.8-7.7) 03/08/19 14:57 Sodium 134 mmol/L (137-145) L 03/08/19 14:57 Potassium 4.2 mmol/L (3.6-5.0) 03/08/19 14:57 Chloride 93.6 mmol/L (98-107) L 03/08/19 14:57 Carbon Dioxide 24 mmol/L (22-30) 03/08/19 14:57 Anion Gap 21 mmol/L 03/08/19 14:57 BUN 68 mg/dL (7-17) H 03/08/19 14:57 Creatinine 4.6 mg/dL (0.7-1.2) H 03/08/19 14:57 Estimated GFR 11 ml/min 03/08/19 14:57 BUN/Creatinine Ratio 15 % 03/08/19 14:57 Glucose 201 mg/dL (65-100) H 03/08/19 14:57 Lactic Acid 1.20 mmol/L (0.7-2.0) 03/08/19 17:36 Calcium 6.3 mg/dL (8.4-10.2) L 03/08/19 14:57 Troponin T 0.076 ng/mL (0.00-0.029) H 03/08/19 17:36 NT-Pro-B Natriuret Pep 3918 pg/mL (0-900) H 03/08/19 17:36 Triglycerides 88 mg/dL (2-149) 03/08/19 17:36 Cholesterol 156 mg/dL (50-199) 03/08/19 17:36 LDL Cholesterol Direct 88 mg/dL (50-130) 03/08/19 17:36 HDL Cholesterol 63 mg/dL (40-59) H 03/08/19 17:36 Cholesterol/HDL Ratio 2.47 % 03/08/19 17:36 Urine Color Red (Yellow) 03/08/19 17:58 Urine Turbidity Clear (Clear) 03/08/19 17:58 Urine pH 6.0 (5.0-7.0) 03/08/19 17:58 Ur Specific Kincaid 1.006 (1.003-1.030) 03/08/19 17:58 Urine Protein 30 mg/dl mg/dL (Negative) 03/08/19 17:58 Urine Glucose (UA) Negative mg/dL (Negative) 03/08/19 17:58 Urine Ketones Negative mg/dL (Negative) 03/08/19 17:58 Urine Blood Large (Negative) A 03/08/19 17:58 Urine Nitrite Positive (Negative) 03/08/19 17:58 Ur Reducing Substances Not Reportable 03/08/19 17:58 Urine Bilirubin Negative (Negative) 03/08/19 17:58 Urine Ictotest Not Reportable 03/08/19 17:58 Urine Urobilinogen < 2.0 mg/dL (<2.0) 03/08/19 17:58 Ur Leukocyte Esterase Large (Negative) 03/08/19 17:58 Urine WBC (Auto) > 182.0 /HPF (0.0-6.0) H 03/08/19 17:58 Urine RBC (Auto) > 182.0 /HPF (0.0-6.0) 03/08/19 17:58 U Epithel Cells (Auto) 16.0 /HPF (0-13.0) H 03/08/19 17:58 Urine Bacteria (Auto) 4+ /HPF (Negative) 03/08/19 17:58 Urine WBC Clumps 3+ /HPF 03/08/19 17:58 - Imaging and Cardiology Imaging and Cardiology: CT Adbomen/Pelvis: IMPRESSION: 1. Interval development of moderate thickening of the urinary bladder with gas in the urinary bladder and bladder wall. Emphysematous cystitis should be considered. 2. Moderate to large amount of fecal material throughout the colon and rectum. 3. Chronic calcific pancreatitis, unchanged. No acute inflammation noted. CT Head: FINDINGS: HEMORRHAGE: None. EXTRA-AXIAL SPACES: Prominent and likely related to cortical atrophy. No change. VENTRICULAR SYSTEM: Normal in size and morphology for the patient's age. CEREBRAL PARENCHYMA: Focal encephalomalacia in the posterior right frontoparietal region is unchanged. No acute territorial infarct. MIDLINE SHIFT OR HERNIATION: None. CEREBELLUM / BRAINSTEM: No significant abnormality. ORBITS: Normal as visualized. SOFT TISSUES of HEAD: No significant abnormality. CALVARIUM: No significant abnormality. PARANASAL SINUSES / MASTOID AIR CELLS: Normal as visualized. ADDITIONAL FINDINGS: None. IMPRESSION: 1. No acute intracranial abnormality. 2. Chronic and age-related findings. No change. CXR: FINDINGS: Support devices: Pacemaker in satisfactory position. Heart: Within normal limits. Lungs/Pleura: No acute air space or interstitial disease. Additional findings: None. IMPRESSION: No acute abnormality. Assessment and Plan Assessment and plan: 78-year-old -[place] female with history of hypertension, diabetes, GERD, ESRD on HD, anemia, hypothyroidism, complete heart block status post pacemaker who presents to [facility] ED with complaints of dysuria and hematuria for the past 2 weeks. Urinary tract infection -UA positive for UTI -urine wbc >182, large blood, positive for nitrates, large leukocytes -Urine culture pending -on IV Abx Emphysematous cystitis -Suspicion for Emphysematous cystitis seen on CT Abd/Pelvis -on IV abx -Cultures pending -ID consulted Anemia of Chronic Disease -Hemoglobin on admission 9.4 -Large amount of blood in urine -Continue to monitor hemoglobin -Transfuse as needed Elevated troponin -Most likely leak; pt is ESRD -No c/o CP -Repeat troponin pending ESRD on HD -M/W/F -Last dialyzed on 03/03/2019 -Cr on admission 4.6 -Avoid nephrotoxic agents -Renal dose all meds -Nephrology consulted HTN -Monitor BP -Resume home hypertensive meds DM -POC BG monitoring -Continue scheduled Tradjenta and SSI coverage prn Hypothyroidism -Continue Synthroid -TSH and Free T4 pending Hx Complete Heart Block -Pacemaker in situ -Telemetry monitoring DVT PPX -On SCD's -On systemic AC due to blood in urine Advance Directives: No VTE prophylaxis?: Mechanical Plan of care discussed with patient/family: Yes <JESSY VANG - Last Filed: 03/09/19 05:54> History of Present Illness Date of admission: 03/08/19 22:41 Medications and Allergies Active Meds: Active Medications Acetaminophen (Tylenol) 650 mg PO Q4H PRN PRN Reason: Pain MILD(1-3)/Fever >100.5/PATRICIA Albuterol (Proventil) 2.5 mg IH Q3HRT PRN PRN Reason: Shortness Of Breath Atorvastatin Calcium (Lipitor) 40 mg PO QHS [facility] Cholecalciferol (Vitamin D3) 5,000 unit PO QDAY [facility] Dextrose (D50w (25gm) Syringe) 0 ml IV Q30MIN PRN; Protocol PRN Reason: Hypoglycemia Docusate Sodium (Colace) 100 mg PO BID [facility] Levofloxacin/Dextrose (Levaquin 500mg/100ml) 500 mg in 100 mls @ 100 mls/hr IV Q48HR [facility] Piperacillin Sod/Tazobactam Sod (Zosyn/Ns 2.25 Gm/50ml) 2.25 gm in 50 mls @ 100 mls/hr IV Q8H [facility] Last Admin: 03/09/19 02:21 Dose: 100 mls/hr Documented by: Insulin Human Lispro (Humalog) 0 unit SUB-Q ACHS [facility]; Protocol Levothyroxine Sodium (Synthroid) 150 mcg PO DAILY@0600 [facility] Last Admin: 03/09/19 05:35 Dose: 150 mcg Documented by: Linagliptin (Tradjenta) 5 mg PO QHS [facility] Metoprolol Tartrate (Metoprolol) 12.5 mg PO BID [facility] Multivitamins/Iron (Hemocyte Plus) 1 each PO QDAY [facility] Ondansetron HCl (Zofran) 4 mg IV Q8H PRN PRN Reason: Nausea And Vomiting Sodium Chloride (Sodium Chloride Flush Syringe 10 Ml) 10 ml IV BID [facility] Sodium Chloride (Sodium Chloride Flush Syringe 10 Ml) 10 ml IV PRN PRN PRN Reason: LINE FLUSH Exam - Constitutional Vitals: Temp Pulse Resp BP Pulse Ox 98.6 F 72 20 151/52 97 03/09/19 00:24 03/08/19 22:06 03/09/19 02:33 03/09/19 00:24 03/08/19 22:06 Results - Labs CBC & Chem 7: 03/08/19 14:57 03/08/19 14:57 Labs: Laboratory Last Values WBC 4.3 K/mm3 (4.5-11.0) L 03/08/19 14:57 RBC 3.16 M/mm3 (3.65-5.03) L 03/08/19 14:57 Hgb 9.4 gm/dl (10.1-14.3) L 03/08/19 14:57 Hct 28.3 % (30.3-42.9) L 03/08/19 14:57 MCV 90 fl (79-97) 03/08/19 14:57 MCH 30 pg (28-32) 03/08/19 14:57 MCHC 33 % (30-34) 03/08/19 14:57 RDW 13.5 % (13.2-15.2) 03/08/19 14:57 Plt Count 204 K/mm3 (140-440) 03/08/19 14:57 Lymph % (Auto) 30.8 % (13.4-35.0) 03/08/19 14:57 [place] % (Auto) 11.3 % (0.0-7.3) H 03/08/19 14:57 Eos % (Auto) 3.4 % (0.0-4.3) 03/08/19 14:57 Baso % (Auto) 1.6 % (0.0-1.8) 03/08/19 14:57 Lymph # 1.3 K/mm3 (1.2-5.4) 03/08/19 14:57 [place] # 0.5 K/mm3 (0.0-0.8) 03/08/19 14:57 Eos # 0.1 K/mm3 (0.0-0.4) 03/08/19 14:57 Baso # 0.1 K/mm3 (0.0-0.1) 03/08/19 14:57 Seg Neutrophils % 52.9 % (40.0-70.0) 03/08/19 14:57 Seg Neutrophils # 2.3 K/mm3 (1.8-7.7) 03/08/19 14:57 Sodium 134 mmol/L (137-145) L 03/08/19 14:57 Potassium 4.2 mmol/L (3.6-5.0) 03/08/19 14:57 Chloride 93.6 mmol/L (98-107) L 03/08/19 14:57 Carbon Dioxide 24 mmol/L (22-30) 03/08/19 14:57 Anion Gap 21 mmol/L 03/08/19 14:57 BUN 68 mg/dL (7-17) H 03/08/19 14:57 Creatinine 4.6 mg/dL (0.7-1.2) H 03/08/19 14:57 Estimated GFR 11 ml/min 03/08/19 14:57 BUN/Creatinine Ratio 15 % 03/08/19 14:57 Glucose 201 mg/dL (65-100) H 03/08/19 14:57 Lactic Acid 1.20 mmol/L (0.7-2.0) 03/08/19 17:36 Calcium 6.3 mg/dL (8.4-10.2) L 03/08/19 14:57 Troponin T 0.076 ng/mL (0.00-0.029) H 03/08/19 17:36 NT-Pro-B Natriuret Pep 3918 pg/mL (0-900) H 03/08/19 17:36 Triglycerides 88 mg/dL (2-149) 03/08/19 17:36 Cholesterol 156 mg/dL (50-199) 03/08/19 17:36 LDL Cholesterol Direct 88 mg/dL (50-130) 03/08/19 17:36 HDL Cholesterol 63 mg/dL (40-59) H 03/08/19 17:36 Cholesterol/HDL Ratio 2.47 % 03/08/19 17:36 Urine Color Red (Yellow) 03/08/19 17:58 Urine Turbidity Clear (Clear) 03/08/19 17:58 Urine pH 6.0 (5.0-7.0) 03/08/19 17:58 Ur Specific [place] 1.006 (1.003-1.030) 03/08/19 17:58 Urine Protein 30 mg/dl mg/dL (Negative) 03/08/19 17:58 Urine Glucose (UA) Negative mg/dL (Negative) 03/08/19 17:58 Urine Ketones Negative mg/dL (Negative) 03/08/19 17:58 Urine Blood Large (Negative) A 03/08/19 17:58 Urine Nitrite Positive (Negative) 03/08/19 17:58 Ur Reducing Substances Not Reportable 03/08/19 17:58 Urine Bilirubin Negative (Negative) 03/08/19 17:58 Urine Ictotest Not Reportable 03/08/19 17:58 Urine Urobilinogen < 2.0 mg/dL (<2.0) 03/08/19 17:58 Ur Leukocyte Esterase Large (Negative) 03/08/19 17:58 Urine WBC (Auto) > 182.0 /HPF (0.0-6.0) H 03/08/19 17:58 Urine RBC (Auto) > 182.0 /HPF (0.0-6.0) 03/08/19 17:58 U Epithel Cells (Auto) 16.0 /HPF (0-13.0) H 03/08/19 17:58 Urine Bacteria (Auto) 4+ /HPF (Negative) 03/08/19 17:58 Urine WBC Clumps 3+ /HPF 03/08/19 17:58 Assessment and Plan Assessment and plan: Patient seen and examined, agree with plan as stated above, in addition check cardiac enzymes, echo
[2019-03-09] MEDS ORDERED: PIPERACIL/TAZOBACTA 4.5/NS 100 4.5 GM/100 ML VIAL IV SCH (01:00)
[2019-03-09] MEDS: PIPERACIL-TAZO 2.25 GM/50 ML 2.25 GM/50 ML BAG IV SCH ×3 (02:21→22:00)
[2019-03-09] MEDS: LEVOTHYROXINE 150 MCG TAB PO SCH ×2 (05:35→07:31)
[2019-03-09 06:22] LABS: Basophils # (Auto) 0.1 K/mm3 (0.0-0.1); Basophils % (Auto) 2.3 % (0.0-1.8); Eosinophils # (Auto) 0.2 K/mm3 (0.0-0.4); Eosinophils % (Auto) 4.6 % (0.0-4.3); Lymphocytes # (Auto) 1.2 K/mm3 (1.2-5.4); Lymphocytes % (Auto) 31.2 % (13.4-35.0); Mean Corpuscular HGB Conc 33 % (30-34); Mean Corpuscular Volume 90 fl (79-97); Monocytes # (Auto) 0.5 K/mm3 (0.0-0.8); Monocytes % (Auto) 13.2 % (0.0-7.3); Platelet Count 189 K/mm3 (140-440); Red Cell Distribution Width 13.6 % (13.2-15.2)
[2019-03-09 06:41] LABS: Calcium 5.9 mg/dL (8.4-10.2)
[2019-03-09 06:49] LABS: Creatine Kinase MB 1.8 ng/mL (0.0-4.0)
[2019-03-09] MEDS: INSULIN LISPRO 100 UNIT/ML SUB-Q SCH ×3 (09:01→16:52)
[2019-03-09] MEDS: METOPROLOL TARTRATE 25 MG TAB PO SCH ×2 (13:48→22:05)
[2019-03-09] MEDS: CHOLECALCIFEROL (VIT D3) 5,000 UNIT TAB PO SCH (13:48)
[2019-03-09] MEDS: DOCUSATE SODIUM 100 MG CAP PO SCH ×3 (13:49→22:10)
--- NOTE | 2019-03-09 13:52 | Progress Note ---
Assessment and Plan Assessment and plan: Patient is a 78-year-old -[place] woman with a history of hypertension, OA but walks with a walker, diabetes, GERD, ESRD on HD, anemia, hypothyroidism, complete heart block status post pacemaker who presents to [facility] ED with complaints of dysuria and hematuria for the past 2 weeks. patient has been experiencing dysuria and hematuria since being discharged from [facility] on 02/22/2019. According to daughter patient was admitted to [facility] on 02/15 for concerns of seizure-like activity and possible stroke. Ultimately patient symptoms were found to be related to low thyroid level, her Synthroid dose was increased, and she discharged on 02/22/2019. * CT Adbomen/Pelvis IMPRESSION: 1. Interval development of moderate thickening of the urinary bladder with gas in the urinary bladder and bladder wall. Emphysematous cystitis should be considered. 2. Moderate to large amount of fecal material throughout the colon and rectum. 3. Chronic calcific pancreatitis, unchanged. No acute inflammation noted. * CT Head IMPRESSION: 1. No acute intracranial abnormality. 2. Chronic and age- related findings. No change. * pCXR IMPRESSION: No acute abnormality. Urinary tract infection -UA positive for UTI -urine wbc >182, large blood, positive for nitrates, large leukocytes -Urine culture pending -on IV Abx Acute metabolic encephalopathy -treat the uti Emphysematous cystitis -Suspicion for Emphysematous cystitis seen on CT Abd/Pelvis -on IV abx -Cultures pending -ID consulted Anemia of Chronic Disease -Hemoglobin on admission 9.4 -Large amount of blood in urine -Continue to monitor hemoglobin -Transfuse as needed Elevated troponin -Most likely leak; pt is ESRD -No c/o CP -Repeat troponin pending ESRD on HD -M/W/F -Last dialyzed on 03/03/2019 -Cr on admission 4.6 -Avoid nephrotoxic agents -Renal dose all meds -Nephrology consulted HTN -Monitor BP -Resume home hypertensive meds DM -POC BG monitoring -Continue scheduled Tradjenta and SSI coverage prn Hypothyroidism -Continue Synthroid -TSH and Free T4 pending Hx Complete Heart Block -Pacemaker in situ -Telemetry monitoring DVT PPX -On SCD's -On systemic AC due to blood in urine Advance Directives: No VTE prophylaxis?: Mechanical Plan of care discussed with patient/family: Yes disposition: continue inpatient care because mental status not at baseline and urine ctx pending History Interval history: Patient was seen and examined. Follow-up on current diagnosis of AMS. Overnight uneventful as no events directly reported to me. Patient denies any chest pain, shortness breath, nausea/vomiting or severe headaches. Imaging, nursing note, chart, labs and old chart reviewed. Discussed with patient. Hospitalist Physical - Physical exam Narrative exam: Gen: cachetic bmi 16, NAD, Awake, Alert, Orientated x 2, fixated on obtaining tobacco HEENT: NCAT, EOMI, PERRL, OP Clear Neck: supple, no adenopathy, no thyromegaly, no JVD CVS/Heart: RRR, normal S1S2, pulses present bilaterally Chest/Lungs: CTA B, Symmetrical chest expansion, good air entry bilaterally GI/Abdomen: soft, NTND, good bowel sounds, no guarding or rebound /Bladder: no suprapubic tenderness, no CVA or paraspinal tenderness Extermity/Skin: atrophic limbs MSK: FROM x 4 Neuro: CN 2-12 grossly intact, no new focal deficits Psych: calm - Constitutional Vitals: Temp Pulse Resp BP Pulse Ox 98.4 F 72 18 143/61 97 03/09/19 07:13 03/08/19 22:06 03/09/19 07:13 03/09/19 07:13 03/08/19 22:06 Results - Labs CBC & Chem 7: 03/09/19 05:39 03/09/19 05:39 Labs: Laboratory Last Values WBC 3.9 K/mm3 (4.5-11.0) L 03/09/19 05:39 RBC 3.00 M/mm3 (3.65-5.03) L 03/09/19 05:39 Hgb 9.0 gm/dl (10.1-14.3) L 03/09/19 05:39 Hct 27.0 % (30.3-42.9) L 03/09/19 05:39 MCV 90 fl (79-97) 03/09/19 05:39 MCH 30 pg (28-32) 03/09/19 05:39 MCHC 33 % (30-34) 03/09/19 05:39 RDW 13.6 % (13.2-15.2) 03/09/19 05:39 Plt Count 189 K/mm3 (140-440) 03/09/19 05:39 Lymph % (Auto) 31.2 % (13.4-35.0) 03/09/19 05:39 [place] % (Auto) 13.2 % (0.0-7.3) H 03/09/19 05:39 Eos % (Auto) 4.6 % (0.0-4.3) H 03/09/19 05:39 Baso % (Auto) 2.3 % (0.0-1.8) H 03/09/19 05:39 Lymph # 1.2 K/mm3 (1.2-5.4) 03/09/19 05:39 [place] # 0.5 K/mm3 (0.0-0.8) 03/09/19 05:39 Eos # 0.2 K/mm3 (0.0-0.4) 03/09/19 05:39 Baso # 0.1 K/mm3 (0.0-0.1) 03/09/19 05:39 Seg Neutrophils % 48.7 % (40.0-70.0) 03/09/19 05:39 Seg Neutrophils # 1.9 K/mm3 (1.8-7.7) 03/09/19 05:39 Sodium 133 mmol/L (137-145) L 03/09/19 05:39 Potassium 4.1 mmol/L (3.6-5.0) 03/09/19 05:39 Chloride 97.2 mmol/L (98-107) L 03/09/19 05:39 Carbon Dioxide 17 mmol/L (22-30) L D 03/09/19 05:39 Anion Gap 23 mmol/L 03/09/19 05:39 BUN 72 mg/dL (7-17) H 03/09/19 05:39 Creatinine 3.9 mg/dL (0.7-1.2) H 03/09/19 05:39 Estimated GFR 13 ml/min 03/09/19 05:39 BUN/Creatinine Ratio 18 % 03/09/19 05:39 Glucose 304 mg/dL (65-100) H 03/09/19 05:39 POC Glucose 287 (70-105) H 03/09/19 07:21 Lactic Acid 1.20 mmol/L (0.7-2.0) 03/08/19 17:36 Calcium 5.9 mg/dL (8.4-10.2) L* 03/09/19 05:39 Total Creatine Kinase 115 units/L (30-135) 03/09/19 12:49 CK-MB (CK-2) 2.0 ng/mL (0.0-4.0) 03/09/19 12:49 CK-MB (CK-2) Rel Index 1.7 (0-4) 03/09/19 12:49 Troponin T 0.068 ng/mL (0.00-0.029) H 03/09/19 12:49 NT-Pro-B Natriuret Pep 3918 pg/mL (0-900) H 03/08/19 17:36 Triglycerides 88 mg/dL (2-149) 03/08/19 17:36 Cholesterol 156 mg/dL (50-199) 03/08/19 17:36 LDL Cholesterol Direct 88 mg/dL (50-130) 03/08/19 17:36 HDL Cholesterol 63 mg/dL (40-59) H 03/08/19 17:36 Cholesterol/HDL Ratio 2.47 % 03/08/19 17:36 TSH 40.380 mlU/mL (0.270-4.200) H 03/09/19 05:39 Free T4 0.93 ng/dL (0.76-1.46) 03/09/19 05:39 Urine Color Red (Yellow) 03/08/19 17:58 Urine Turbidity Clear (Clear) 03/08/19 17:58 Urine pH 6.0 (5.0-7.0) 03/08/19 17:58 Ur Specific [place] 1.006 (1.003-1.030) 03/08/19 17:58 Urine Protein 30 mg/dl mg/dL (Negative) 03/08/19 17:58 Urine Glucose (UA) Negative mg/dL (Negative) 03/08/19 17:58 Urine Ketones Negative mg/dL (Negative) 03/08/19 17:58 Urine Blood Large (Negative) A 03/08/19 17:58 Urine Nitrite Positive (Negative) 03/08/19 17:58 Ur Reducing Substances Not Reportable 03/08/19 17:58 Urine Bilirubin Negative (Negative) 03/08/19 17:58 Urine Ictotest Not Reportable 03/08/19 17:58 Urine Urobilinogen < 2.0 mg/dL (<2.0) 03/08/19 17:58 Ur Leukocyte Esterase Large (Negative) 03/08/19 17:58 Urine WBC (Auto) > 182.0 /HPF (0.0-6.0) H 03/08/19 17:58 Urine RBC (Auto) > 182.0 /HPF (0.0-6.0) 03/08/19 17:58 U Epithel Cells (Auto) 16.0 /HPF (0-13.0) H 03/08/19 17:58 Urine Bacteria (Auto) 4+ /HPF (Negative) 03/08/19 17:58 Urine WBC Clumps 3+ /HPF 03/08/19 17:58 Active Medications - Current Medications Current Medications: Generic Name Dose Route Start Last Admin Trade Name Freq PRN Reason Stop Dose Admin Acetaminophen 650 mg 03/08/19 22:53 Tylenol PO Q4H PRN Pain MILD(1-3)/Fever >100.5/PATRICIA Albuterol 2.5 mg 03/08/19 22:53 Proventil IH Q3HRT PRN Shortness Of Breath Atorvastatin Calcium 40 mg 03/09/19 22:00 Lipitor PO QHS COUNT INCLUDES THE [facility] Cholecalciferol 5,000 unit 03/09/19 10:00 03/09/19 13:48 Vitamin D3 PO 5,000 unit QDAY DUNG Administration Dextrose 0 ml 03/08/19 22:53 D50w (25gm) Syringe IV Q30MIN PRN Hypoglycemia Protocol Docusate Sodium 100 mg 03/09/19 10:00 03/09/19 13:49 Colace PO 100 mg BID DUNG Administration Levofloxacin/Dextrose 500 mg in 100 mls @ 100 mls/hr 03/09/19 10:00 03/09/19 13:48 Levaquin 500mg/100ml IV 100 mls/hr Q48HR DUNG Administration Piperacillin Sod/Tazobactam Sod 2.25 gm in 50 mls @ 100 mls/hr 03/09/19 00:00 03/09/19 09:02 Zosyn/Ns 2.25 Gm/50ml IV 100 mls/hr Q8H DUNG Administration Insulin Human Lispro 0 unit 03/09/19 07:30 03/09/19 12:00 Humalog SUB-Q Not Given ACHS COUNT INCLUDES THE [facility] Protocol Levothyroxine Sodium 150 mcg 03/09/19 06:00 03/09/19 07:31 Synthroid PO Not Given DAILY@0600 COUNT INCLUDES THE [facility] Linagliptin 5 mg 03/09/19 22:00 Tradjenta PO QHS DUNG Metoprolol Tartrate 12.5 mg 03/09/19 10:00 03/09/19 13:48 Metoprolol PO 12.5 mg BID DUNG Administration Multivitamins/Iron 1 each 03/09/19 10:00 Hemocyte Plus PO QDAY DUNG Ondansetron HCl 4 mg 03/08/19 22:53 Zofran IV Q8H PRN Nausea And Vomiting Sodium Chloride 10 ml 03/09/19 10:00 03/09/19 09:02 Sodium Chloride Flush Syringe 10 Ml IV 10 ml BID DUNG Administration Sodium Chloride 10 ml 03/08/19 22:53 Sodium Chloride Flush Syringe 10 Ml IV PRN PRN LINE FLUSH Nutrition/Malnutrition Assess - Dietary Evaluation Nutrition/Malnutrition Findings: Nutrition Notes Start: 03/09/19 09:16 Freq: Status: Active Protocol: Document 03/09/19 09:16 ISAIAS (Rec: 03/09/19 09:24 ISAIAS [id number]) Co-Sign 03/09/19 09:16 LP Nutrition Notes Need for Assessment generated from: transportation aid,MST Initial or Follow up Assessment Current Diagnosis CKD (stage V CKD),Diabetes, Hypertension Other Pertinent Diagnosis On HD, hypothyrodism, DKA Current Diet Renal Labs/Tests BUN 72 Cr 3.9 BG 304 Ca 5.9 Pertinent Medications Reviewed Height 5 ft 3 in Weight 41 kg [place] Body Weight (kg) 52.27 BMI 16.0 Weight Status Underweight Subjective/Other Information RN screen for malnutriton. Pt was lethargic during visit, and couldn't answer assessment questions. Pt ate 0% of breakfast that was at bedside. Noted slight muscle depletion in hands. 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 No Is Patient Ambulatory and/or Out of Bed No REE-([place]-confined to bed) 1026.144 Kcal/Kg value to use for calculation 35 Approximate Energy Requirements Using 1435 kcal/Kg Calculation Used for Recommendations Kcal/kg Additional Notes Protein: 49g (>1.2g/kg) Fluid: 1 ml/kcal Nutrition Intervention Change Diet Order: Continue current Add Supplement/Snack (indicate name/kcal [place] daily /protein ) Provides kCal: 425 Provides Protein (gm) 19 Goal #1 Meet at least 80% of energy and protein needs via PO and ONS intakes Goal #2 Wt gain/maintenance Anticipated Discharge Needs: Renal diet Follow-Up By: 03/13/19 Additional Comments F/U for PO/ONS needs, and further assessment
--- NOTE | 2019-03-09 14:01 | Consultation ---
History of Present Illness - Reason for Consult Consult date: 03/09/19 Emphysematous cystitis Requesting physician: WIL COONEY - History of Present Illness The patient is an 78-year-old female with hypertension, diabetes mellitus, ESRD on hemodialysis, status post pacemaker, GERD was brought into the emergency room due to hematuria going on for the last 2 weeks. And is a poor historian, denies any complaints at this time. Her son is present and bedside who provides the history. This started about 2 weeks ago, patient was at [facility]. Unclear if she was catheterized there. No fever. No leucocytosis. CT showed findings concern for emphysematous cystitis and UA showed severe pyuria. Patient is on dialysis qMWF, unclear how much urine she makes. 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, left upper arm AV fistula) Social history: lives with family (With daughter) Family history: no significant family history Medications and Allergies Allergies Allergy/AdvReac Type Severity Reaction Status Date / Time aspirin Allergy Severe Unknown Verified 02/24/19 10:43 Home Medications Medication Instructions Recorded Confirmed Last Taken Type Docusate Sodium [Colace CAP] 100 mg PO BID #30 capsule 11/01/17 03/09/19 03/08/19 10:00 Rx Cholecalciferol Vit D3 [Vitamin D3 5,000 unit PO DAILY #30 tablet 04/25/18 03/09/19 03/08/19 10:00 Rx 1,000 UNIT TAB] Fe Fumarate/FA/Mv, Min Comb#15 1 each PO QDAY #30 capsule 04/25/18 03/09/19 03/08/19 10:00 Rx [Hemocyte Plus] Atorvastatin [Lipitor] 40 mg PO QHS 06/09/18 03/09/19 03/08/19 10:00 History Linagliptin [Tradjenta] 5 mg PO QHS 06/09/18 03/09/19 03/08/19 10:00 History Calcium Carbonate/Vitamin D3 2 each PO TID 03/09/19 03/09/19 03/08/19 10:00 History [Calcium 600-Vit D3 400 Caplet] Clopidogrel 75 mg PO QDAY 03/09/19 03/09/19 03/08/19 10:00 History Levothyroxine [Synthroid] 100 mcg PO QAM 03/09/19 03/09/19 Unknown History amLODIPine 10 mg PO QDAY 03/09/19 03/09/19 03/08/19 10:00 History levETIRAcetam 500 mg PO QDAY 03/09/19 03/09/19 03/08/19 10:00 History Active Meds: Active Medications Acetaminophen (Tylenol) 650 mg PO Q4H PRN PRN Reason: Pain MILD(1-3)/Fever >100.5/PATRICIA Albuterol (Proventil) 2.5 mg IH Q3HRT PRN PRN Reason: Shortness Of Breath Atorvastatin Calcium (Lipitor) 40 mg PO QHS [facility] Cholecalciferol (Vitamin D3) 5,000 unit PO QDAY [facility] Last Admin: 03/09/19 13:48 Dose: 5,000 unit Documented by: Dextrose (D50w (25gm) Syringe) 0 ml IV Q30MIN PRN; Protocol PRN Reason: Hypoglycemia Docusate Sodium (Colace) 100 mg PO BID [facility] Last Admin: 03/09/19 13:49 Dose: 100 mg Documented by: Levofloxacin/Dextrose (Levaquin 500mg/100ml) 500 mg in 100 mls @ 100 mls/hr IV Q48HR [facility] Last Admin: 03/09/19 13:48 Dose: 100 mls/hr Documented by: Piperacillin Sod/Tazobactam Sod (Zosyn/Ns 2.25 Gm/50ml) 2.25 gm in 50 mls @ 100 mls/hr IV Q8H [facility] Last Admin: 03/09/19 09:02 Dose: 100 mls/hr Documented by: Insulin Human Lispro (Humalog) 0 unit SUB-Q ACHS [facility]; Protocol Last Admin: 03/09/19 12:00 Dose: Not Given Documented by: Levothyroxine Sodium (Synthroid) 150 mcg PO DAILY@0600 [facility] Last Admin: 03/09/19 07:31 Dose: Not Given Documented by: Linagliptin (Tradjenta) 5 mg PO QHS [facility] Metoprolol Tartrate (Metoprolol) 12.5 mg PO BID [facility] Last Admin: 03/09/19 13:48 Dose: 12.5 mg Documented by: Multivitamins/Iron (Hemocyte Plus) 1 each PO QDAY [facility] Ondansetron HCl (Zofran) 4 mg IV Q8H PRN PRN Reason: Nausea And Vomiting Sodium Chloride (Sodium Chloride Flush Syringe 10 Ml) 10 ml IV BID DUNG Last Admin: 03/09/19 09:02 Dose: 10 ml Documented by: Sodium Chloride (Sodium Chloride Flush Syringe 10 Ml) 10 ml IV PRN PRN PRN Reason: LINE FLUSH Physical Examination - Physical Exam Narrative exam: Physical Exam: Constitutional: Alert, cooperative. No acute distress Head, Ears, Nose: Normocephalic, atraumatic. External ears, nose normal Eyes: Conjunctivae/corneas clear. No icterus. No ptosis. Neck: Supple, no meningeal signs Oral: no thrush Cardiovascular: S1, S2 normal. PPM site non tender Respiratory: Good air entry, clear to auscultation bilaterally GI: Soft, non-tender; bowel sounds normal. No peritoneal signs Musculoskeletal: No pedal edema, no cyanosis. AVF with thrill, non tender Skin: No rash or abscess Hem/Lymphatic: No palpable cervical or supraclavicular nodes. No lymphangitis Psych: Mood ok. Affect normal Neurological: Awake, alert, but not oriented - Constitutional Vitals: Vital Signs Temp Pulse Resp BP Pulse Ox 98.4 F 72 18 143/61 97 03/09/19 07:13 03/08/19 22:06 03/09/19 07:13 03/09/19 07:13 03/08/19 22:06 Temperature -Last 24 Hours Temperature 98.4 F Temperature 98.6 F Temperature 97.7 F Temperature 98 F Results - Labs CBC & Chem 7: 03/09/19 05:39 03/09/19 05:39 Labs: Abnormal lab results 03/08/19 03/08/19 03/08/19 Range/Units 14:57 14:57 17:36 WBC 4.3 L (4.5-11.0) K/mm3 RBC 3.16 L (3.65-5.03) M/mm3 Hgb 9.4 L (10.1-14.3) gm/dl Hct 28.3 L (30.3-42.9) % [place] % (Auto) 11.3 H (0.0-7.3) % Eos % (Auto) (0.0-4.3) % Baso % (Auto) (0.0-1.8) % Sodium 134 L (137-145) mmol/L Chloride 93.6 L (98-107) mmol/L Carbon Dioxide (22-30) mmol/L BUN 68 H (7-17) mg/dL Creatinine 4.6 H (0.7-1.2) mg/dL Glucose 201 H (65-100) mg/dL POC Glucose (70-105) Calcium 6.3 L (8.4-10.2) mg/dL Troponin T 0.076 H (0.00-0.029) ng/mL NT-Pro-B Natriuret Pep 3918 H (0-900) pg/mL HDL Cholesterol 63 H (40-59) mg/dL TSH (0.270-4.200) mlU/mL Urine Blood (Negative) Urine WBC (Auto) (0.0-6.0) /HPF U Epithel Cells (Auto) (0-13.0) /HPF 03/08/19 03/09/19 03/09/19 Range/Units 17:58 05:39 05:39 WBC 3.9 L (4.5-11.0) K/mm3 RBC 3.00 L (3.65-5.03) M/mm3 Hgb 9.0 L (10.1-14.3) gm/dl Hct 27.0 L (30.3-42.9) % [place] % (Auto) 13.2 H (0.0-7.3) % Eos % (Auto) 4.6 H (0.0-4.3) % Baso % (Auto) 2.3 H (0.0-1.8) % Sodium 133 L (137-145) mmol/L Chloride 97.2 L (98-107) mmol/L Carbon Dioxide 17 L D (22-30) mmol/L BUN 72 H (7-17) mg/dL Creatinine 3.9 H (0.7-1.2) mg/dL Glucose 304 H (65-100) mg/dL POC Glucose (70-105) Calcium 5.9 L* (8.4-10.2) mg/dL Troponin T (0.00-0.029) ng/mL NT-Pro-B Natriuret Pep (0-900) pg/mL HDL Cholesterol (40-59) mg/dL TSH (0.270-4.200) mlU/mL Urine Blood Large A (Negative) Urine WBC (Auto) > 182.0 H (0.0-6.0) /HPF U Epithel Cells (Auto) 16.0 H (0-13.0) /HPF 03/09/19 03/09/19 03/09/19 Range/Units 05:39 05:56 07:21 WBC (4.5-11.0) K/mm3 RBC (3.65-5.03) M/mm3 Hgb (10.1-14.3) gm/dl Hct (30.3-42.9) % [place] % (Auto) (0.0-7.3) % Eos % (Auto) (0.0-4.3) % Baso % (Auto) (0.0-1.8) % Sodium (137-145) mmol/L Chloride (98-107) mmol/L Carbon Dioxide (22-30) mmol/L BUN (7-17) mg/dL Creatinine (0.7-1.2) mg/dL Glucose (65-100) mg/dL POC Glucose 287 H (70-105) Calcium (8.4-10.2) mg/dL Troponin T 0.062 H (0.00-0.029) ng/mL NT-Pro-B Natriuret Pep (0-900) pg/mL HDL Cholesterol (40-59) mg/dL TSH 40.380 H (0.270-4.200) mlU/mL Urine Blood (Negative) Urine WBC (Auto) (0.0-6.0) /HPF U Epithel Cells (Auto) (0-13.0) /HPF 03/09/19 Range/Units 12:49 WBC (4.5-11.0) K/mm3 RBC (3.65-5.03) M/mm3 Hgb (10.1-14.3) gm/dl Hct (30.3-42.9) % [place] % (Auto) (0.0-7.3) % Eos % (Auto) (0.0-4.3) % Baso % (Auto) (0.0-1.8) % Sodium (137-145) mmol/L Chloride (98-107) mmol/L Carbon Dioxide (22-30) mmol/L BUN (7-17) mg/dL Creatinine (0.7-1.2) mg/dL Glucose (65-100) mg/dL POC Glucose (70-105) Calcium (8.4-10.2) mg/dL Troponin T 0.068 H (0.00-0.029) ng/mL NT-Pro-B Natriuret Pep (0-900) pg/mL HDL Cholesterol (40-59) mg/dL TSH (0.270-4.200) mlU/mL Urine Blood (Negative) Urine WBC (Auto) (0.0-6.0) /HPF U Epithel Cells (Auto) (0-13.0) /HPF - Imaging and Cardiology CT scan - abdomen: report reviewed, image reviewed CT scan - pelvis: report reviewed, image reviewed (air in urinary bladder and ?wall) Assessment and Plan Cultures: 03/08/2019 Blood culture: in process A/P: 78-year-old female with hypertension, diabetes mellitus, ESRD on hemodialysis, status post pacemaker, GERD admitted with: #Severe cystitis/emphysematous cysitits as noted on CT: does not appear septic. UA with severe pyuria and hematuria. #ESRD on HD: renally dose abx. Recs: IV Cefepime renally adjusted follow up urine culture consider placing Gan catheter / urology consult. Patient has pyuria and hematuria d/w Dr. Muir. Bashir Morse MD, FACP [facility] C: [phone] O: [phone] F: [phone]
[2019-03-09] MEDS ORDERED: NON-FORMULARY EACH (Levetiracetam 500 MG) PO SCH (14:15)
--- NOTE | 2019-03-09 15:01 | Consultation ---
History of Present Illness - Reason for Consult end stage renal disease - History of Present Illness 78 y/o Frail AAF with h/o ESRD in the setting of HTN, DM, presented to the hospital secondary to complaints of hematuria and dysuria after recent discharge from [facility] earlier this month. CT scan abdomen concerning for emphysematous cystitis. Started on IV cefepime to be renally dosed. Nephrology consulted secondary to chronic HD needs. She received HD on a MWF HD schedule. 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, left upper arm AV fistula) Social history: lives with family (With daughter) Family history: no significant family history Medications and Allergies Allergies Allergy/AdvReac Type Severity Reaction Status Date / Time aspirin Allergy Severe Unknown Verified 02/24/19 10:43 Home Medications Medication Instructions Recorded Confirmed Last Taken Type Docusate Sodium [Colace CAP] 100 mg PO BID #30 capsule 11/01/17 03/09/19 03/08/19 10:00 Rx Cholecalciferol Vit D3 [Vitamin D3 5,000 unit PO DAILY #30 tablet 04/25/18 03/09/19 03/08/19 10:00 Rx 1,000 UNIT TAB] Fe Fumarate/FA/Mv, Min Comb#15 1 each PO QDAY #30 capsule 04/25/18 03/09/19 03/08/19 10:00 Rx [Hemocyte Plus] Atorvastatin [Lipitor] 40 mg PO QHS 06/09/18 03/09/19 03/08/19 10:00 History Linagliptin [Tradjenta] 5 mg PO QHS 06/09/18 03/09/19 03/08/19 10:00 History Calcium Carbonate/Vitamin D3 2 each PO TID 03/09/19 03/09/19 03/08/19 10:00 History [Calcium 600-Vit D3 400 Caplet] Clopidogrel 75 mg PO QDAY 03/09/19 03/09/19 03/08/19 10:00 History Levothyroxine [Synthroid] 100 mcg PO QAM 03/09/19 03/09/19 Unknown History amLODIPine 10 mg PO QDAY 03/09/19 03/09/19 03/08/19 10:00 History levETIRAcetam 500 mg PO QDAY 03/09/19 03/09/19 03/08/19 10:00 History Active Meds: Active Medications Acetaminophen (Tylenol) 650 mg PO Q4H PRN PRN Reason: Pain MILD(1-3)/Fever >100.5/PATRICIA Albuterol (Proventil) 2.5 mg IH Q3HRT PRN PRN Reason: Shortness Of Breath Atorvastatin Calcium (Lipitor) 40 mg PO QHS [facility] Calcium/Vitamin D (Oysco D 500 Mg-200 Unit) 1 each PO QDAY [facility] Cholecalciferol (Vitamin D3) 5,000 unit PO QDAY [facility] Last Admin: 03/09/19 13:48 Dose: 5,000 unit Documented by: Clopidogrel Bisulfate (Plavix) 75 mg PO QDAY [facility] Dextrose (D50w (25gm) Syringe) 0 ml IV Q30MIN PRN; Protocol PRN Reason: Hypoglycemia Docusate Sodium (Colace) 100 mg PO BID [facility] Last Admin: 03/09/19 13:49 Dose: 100 mg Documented by: Docusate Sodium (Colace) 100 mg PO BID [facility] Cefepime HCl (Cefepime/Ns 1 Gm/100 Ml) 1 gm in 100 mls @ 200 mls/hr IV QPM [facility]; Protocol Insulin Human Lispro (Humalog) 0 unit SUB-Q ACHS [facility]; Protocol Last Admin: 03/09/19 12:00 Dose: Not Given Documented by: Levetiracetam (Keppra) 500 mg PO QDAY [facility] Levothyroxine Sodium (Synthroid) 150 mcg PO DAILY@0600 [facility] Last Admin: 03/09/19 07:31 Dose: Not Given Documented by: Linagliptin (Tradjenta) 5 mg PO QHS [facility] Metoprolol Tartrate (Metoprolol) 12.5 mg PO BID [facility] Last Admin: 03/09/19 13:48 Dose: 12.5 mg Documented by: Multivitamins/Iron (Hemocyte Plus) 1 each PO QDAY [facility] Ondansetron HCl (Zofran) 4 mg IV Q8H PRN PRN Reason: Nausea And Vomiting Sodium Chloride (Sodium Chloride Flush Syringe 10 Ml) 10 ml IV BID [facility] Last Admin: 03/09/19 09:02 Dose: 10 ml Documented by: Sodium Chloride (Sodium Chloride Flush Syringe 10 Ml) 10 ml IV PRN PRN PRN Reason: LINE FLUSH Review of Systems All systems: negative Constitutional: fatigue Exam - Vital Signs Vital signs: Vital Signs Temp Pulse Resp BP Pulse Ox 98 F 76 16 110/53 98 03/08/19 14:52 03/08/19 14:52 03/08/19 14:52 03/08/19 14:52 03/08/19 14:52 - General Appearance General appearance: appears stated age, cachectic, frail EENT: ATNC, PERRL Neck: Present: neck supple, trachea midline Respiratory: Clear to Ascultation Heart: regular, S1S2 Gastrointestinal: Present: normal, normoactive bowel sounds Integumentary: no rash, warm and dry Neurologic: no focal deficit Musculoskeletal: Present: deferred Psychiatric: cooperative Results - Lab Results 03/09/19 05:39 03/09/19 05:39 Most recent lab results Calcium 5.9 mg/dL (8.4-10.2) L* 03/09/19 05:39 Assessment and Plan - Patient Problems (1) End stage renal disease Current Visit: No Status: Chronic Plan to address problem: Will maintain patient on MWF inpatient HD schedule. (2) Emphysematous cystitis Current Visit: Yes Status: Acute Plan to address problem: antibiotic regimen per ID recommendations. Will need to ensure that antibiotics are dosed appropriately per decreased renal function. may benefit from urologic evaluation. (3) Hypertensive chronic kidney disease with stage 5 chronic kidney disease or end stage renal disease Current Visit: Yes Status: Chronic Plan to address problem: Monitor on current regimen. (4) Type 2 diabetes mellitus with diabetic chronic kidney disease Current Visit: Yes Status: Chronic Plan to address problem: DM management per primary attending. (5) Anemia in chronic kidney disease (CKD) Current Visit: No Status: Chronic Qualifiers: Chronic kidney disease stage: on chronic dialysis Qualified Code(s): N18.6 - End stage renal disease; D63.1 - Anemia in chronic kidney disease; Z99.2 - Dep endence on renal dialysis Plan to address problem: FRANCISCO J therapy with HD.
[2019-03-09] MEDS: levETIRAcetam 500 MG TAB PO SCH (16:52)
[2019-03-09] MEDS: FE FUMARATE/FA/MV, MIN COMB#15 CAP (HEMOCYTE PLUS) PO SCH (18:49)
[2019-03-09] MEDS: CEFEPIME/NS 1 GM/100 ML 1 GM/100 ML BAG IV SCH (19:43)
[2019-03-09] MEDS ORDERED: [UNRECOGNIZED DRUG - OTHER] PO SCH (20:00)
[2019-03-09] MEDS ORDERED: VITAMIN D3 PO SCH (20:00)
[2019-03-09] MEDS ORDERED: CALCIUM CARBONATE PO SCH (20:00)
[2019-03-09 20:18] LABS: Hepatitis B Surface Antigen Non-Reactive (Negative); Hepatitis C Virus Antibody Non-Reactive (NonReactive)
[2019-03-09] MEDS: LINAGLIPTIN 5 MG TAB PO SCH (22:10)
[2019-03-10 05:08] LABS: Hematocrit 24.4 % (30.3-42.9); Hemoglobin 8.1 gm/dl (10.1-14.3); Mean Corpuscular HGB Conc 33 % (30-34); Mean Corpuscular Volume 90 fl (79-97); Platelet Count 177 K/mm3 (140-440); Red Blood Count 2.72 M/mm3 (3.65-5.03); Red Cell Distribution Width 13.8 % (13.2-15.2)
[2019-03-10 05:31] LABS: Calcium 5.4 mg/dL (8.4-10.2)
[2019-03-10] MEDS: INSULIN LISPRO 100 UNIT/ML SUB-Q SCH ×5 (06:24→23:12)
[2019-03-10] MEDS: LEVOTHYROXINE 150 MCG TAB PO SCH (06:38)
--- NOTE | 2019-03-10 08:47 | Consultation ---
History of Present Illness - Reason for Consult Consult date: 03/03/19 - History of Present Illness NEW TO OUR SERV[facility] 78-year-old -Malagasy female with history of hypertension, diabetes, GERD, ESRD on HD, anemia, hypothyroidism, complete heart block status post pacemaker who presents to [facility] ED with complaints of dysuria and hematuria for the past 2 weeks. Hx per chart review. According to patient's daughter patient has been experiencing dysuria and hematuria since being discharged from [facility] on 02/22/2019. Initially daughter thought her symptoms would improve and she decided to monitor it before deciding to seek medical treatment. As the days progressed patient dysuria and hematuria worsened, so her daughter decided to bring her in for further evaluation and treatment. According to daughter patient was admitted to [place] on 02/15 for concerns of seizure-like activity and possible stroke. Ultimately patient symptoms were found to be related to low thyroid level, her Synthroid dose was increased, and she discharged on 02/22/2019. At the time of my examination patient is in stretcher and awake. She is alert and oriented x2. Admitted to Med Surg for further evaluation of emphysematous cystitis and treatment of urinary tract infection. 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, left upper arm AV fistula) Social history: lives with family (With daughter) Family history: no significant family history Medications and Allergies Allergies Allergy/AdvReac Type Severity Reaction Status Date / Time aspirin Allergy Severe Unknown Verified 02/24/19 10:43 Home Medications Medication Instructions Recorded Confirmed Last Taken Type Docusate Sodium [Colace CAP] 100 mg PO BID #30 capsule 11/01/17 03/09/19 03/08/19 10:00 Rx Cholecalciferol Vit D3 [Vitamin D3 5,000 unit PO DAILY #30 tablet 04/25/18 03/09/19 03/08/19 10:00 Rx 1,000 UNIT TAB] Fe Fumarate/FA/Mv, Min Comb#15 1 each PO QDAY #30 capsule 04/25/18 03/09/19 03/08/19 10:00 Rx [Hemocyte Plus] Atorvastatin [Lipitor] 40 mg PO QHS 06/09/18 03/09/19 03/08/19 10:00 History Linagliptin [Tradjenta] 5 mg PO QHS 06/09/18 03/09/19 03/08/19 10:00 History Calcium Carbonate/Vitamin D3 2 each PO TID 03/09/19 03/09/19 03/08/19 10:00 History [Calcium 600-Vit D3 400 Caplet] Clopidogrel 75 mg PO QDAY 03/09/19 03/09/19 03/08/19 10:00 History Levothyroxine [Synthroid] 100 mcg PO QAM 03/09/19 03/09/19 Unknown History amLODIPine 10 mg PO QDAY 03/09/19 03/09/19 03/08/19 10:00 History levETIRAcetam 500 mg PO QDAY 03/09/19 03/09/19 03/08/19 10:00 History Active Meds: Active Medications Acetaminophen (Tylenol) 650 mg PO Q4H PRN PRN Reason: Pain MILD(1-3)/Fever >100.5/PATRICIA Albuterol (Proventil) 2.5 mg IH Q3HRT PRN PRN Reason: Shortness Of Breath Atorvastatin Calcium (Lipitor) 40 mg PO QHS [facility] Last Admin: 03/09/19 22:05 Dose: 40 mg Documented by: Calcium/Vitamin D (Oysco D 500 Mg-200 Unit) 1 each PO QDAY [facility] Cholecalciferol (Vitamin D3) 5,000 unit PO QDAY [facility] Last Admin: 03/09/19 13:48 Dose: 5,000 unit Documented by: Clopidogrel Bisulfate (Plavix) 75 mg PO QDAY [facility] Dextrose (D50w (25gm) Syringe) 0 ml IV Q30MIN PRN; Protocol PRN Reason: Hypoglycemia Docusate Sodium (Colace) 100 mg PO BID [facility] Last Admin: 03/09/19 22:05 Dose: 100 mg Documented by: Docusate Sodium (Colace) 100 mg PO BID [facility] Last Admin: 03/09/19 22:10 Dose: 100 mg Documented by: Cefepime HCl (Cefepime/Ns 1 Gm/100 Ml) 1 gm in 100 mls @ 200 mls/hr IV QPM [facility]; Protocol Last Admin: 03/09/19 19:43 Dose: 200 mls/hr Documented by: Insulin Human Lispro (Humalog) 0 unit SUB-Q ACHS [facility]; Protocol Last Admin: 03/10/19 06:24 Dose: 6 unit Documented by: Levetiracetam (Keppra) 500 mg PO QDAY [facility] Last Admin: 03/09/19 16:52 Dose: 500 mg Documented by: Levothyroxine Sodium (Synthroid) 150 mcg PO DAILY@0600 [facility] Last Admin: 03/10/19 06:38 Dose: 150 mcg Documented by: Linagliptin (Tradjenta) 5 mg PO QHS [facility] Last Admin: 03/09/19 22:10 Dose: 5 mg Documented by: Metoprolol Tartrate (Metoprolol) 12.5 mg PO BID [facility] Last Admin: 03/09/19 22:05 Dose: 12.5 mg Documented by: Multivitamins/Iron (Hemocyte Plus) 1 each PO QDAY [facility] Last Admin: 03/09/19 18:49 Dose: 1 each Documented by: Ondansetron HCl (Zofran) 4 mg IV Q8H PRN PRN Reason: Nausea And Vomiting Sodium Chloride (Sodium Chloride Flush Syringe 10 Ml) 10 ml IV BID [facility] Last Admin: 03/09/19 22:10 Dose: 10 ml Documented by: Sodium Chloride (Sodium Chloride Flush Syringe 10 Ml) 10 ml IV PRN PRN PRN Reason: LINE FLUSH Exam - Constitutional Vitals: Temp Pulse Resp BP Pulse Ox 97.6 F 72 20 112/48 94 03/10/19 02:00 03/10/19 04:53 03/10/19 04:54 03/10/19 02:00 03/10/19 02:00 Results - Labs CBC & Chem 7: 03/10/19 03:29 03/10/19 03:29 Labs: Abnormal lab results 03/09/19 03/09/19 03/09/19 Range/Units 12:49 16:28 22:34 WBC (4.5-11.0) K/mm3 RBC (3.65-5.03) M/mm3 Hgb (10.1-14.3) gm/dl Hct (30.3-42.9) % Sodium (137-145) mmol/L Chloride (98-107) mmol/L Carbon Dioxide (22-30) mmol/L BUN (7-17) mg/dL Creatinine (0.7-1.2) mg/dL Glucose (65-100) mg/dL POC Glucose 394 H 397 H (70-105) Calcium (8.4-10.2) mg/dL Troponin T 0.068 H (0.00-0.029) ng/mL 03/10/19 03/10/19 03/10/19 Range/Units 03:29 03:29 05:49 WBC 3.4 L (4.5-11.0) K/mm3 RBC 2.72 L (3.65-5.03) M/mm3 Hgb 8.1 L (10.1-14.3) gm/dl Hct 24.4 L (30.3-42.9) % Sodium 128 L (137-145) mmol/L Chloride 92.1 L (98-107) mmol/L Carbon Dioxide 19 L (22-30) mmol/L BUN 73 H (7-17) mg/dL Creatinine 4.6 H (0.7-1.2) mg/dL Glucose 359 H (65-100) mg/dL POC Glucose 346 H (70-105) Calcium 5.4 L* (8.4-10.2) mg/dL Troponin T (0.00-0.029) ng/mL 03/10/19 Range/Units 07:30 WBC (4.5-11.0) K/mm3 RBC (3.65-5.03) M/mm3 Hgb (10.1-14.3) gm/dl Hct (30.3-42.9) % Sodium (137-145) mmol/L Chloride (98-107) mmol/L Carbon Dioxide (22-30) mmol/L BUN (7-17) mg/dL Creatinine (0.7-1.2) mg/dL Glucose (65-100) mg/dL POC Glucose 318 H (70-105) Calcium (8.4-10.2) mg/dL Troponin T (0.00-0.029) ng/mL
[2019-03-10] MEDS ORDERED: NON-FORMULARY EACH (Clopidogrel 75 MG) PO SCH (10:00)
[2019-03-10] MEDS: CALCIUM CARBONATE/VITAMIN D3 500 MG-200 UNIT TAB PO SCH (10:36)
[2019-03-10] MEDS: CHOLECALCIFEROL (VIT D3) 5,000 UNIT TAB PO SCH (10:36)
[2019-03-10] MEDS: CLOPIDOGREL 75 MG TAB PO SCH (10:37)
[2019-03-10] MEDS: levETIRAcetam 500 MG TAB PO SCH (10:37)
[2019-03-10] MEDS: DOCUSATE SODIUM 100 MG CAP PO SCH ×4 (10:37→23:15)
[2019-03-10] MEDS: METOPROLOL TARTRATE 25 MG TAB PO SCH ×2 (10:40→22:46)
[2019-03-10] MEDS: FE FUMARATE/FA/MV, MIN COMB#15 CAP (HEMOCYTE PLUS) PO SCH (11:18)
--- NOTE | 2019-03-10 13:40 | Progress Note ---
Assessment and Plan Cultures: 03/08/2019 Blood culture: no growth A/P: 78-year-old female with hypertension, diabetes mellitus, ESRD on hemodialysis, status post pacemaker, GERD admitted with: #Severe cystitis/emphysematous cysitits as noted on CT: does not appear septic. UA with severe pyuria and hematuria. Appreciate urology eval. #ESRD on HD: renally dose abx. Recs: continue IV Cefepime renally adjusted follow up urine culture could probably set up IV abx at dialysis depending on urine culture results Bashir Morse MD, FACP [facility] C: [phone] O: [phone] F: [phone] Subjective Date of service: 03/10/19 Interval history: No fever. Seen by urology. Patient denies any complaints. Not the best of historians. Objective - Exam Narrative Exam: Physical Exam: Constitutional: Alert, cooperative. No acute distress Head, Ears, Nose: Normocephalic, atraumatic. External ears, nose normal Eyes: Conjunctivae/corneas clear. No icterus. No ptosis. Neck: Supple, no meningeal signs Oral: no thrush Cardiovascular: S1, S2 normal. PPM site non tender Respiratory: Good air entry, clear to auscultation bilaterally GI: Soft, non-tender; bowel sounds normal. No peritoneal signs Musculoskeletal: No pedal edema, no cyanosis. Left UE AVF with thrill, non tender Skin: No rash or abscess Hem/Lymphatic: No palpable cervical or supraclavicular nodes. No lymphangitis Psych: Mood ok. Affect normal Neurological: Awake, alert, but not oriented - Constitutional Vitals: Vital Signs Temp Pulse Resp BP Pulse Ox 97.6 F 72 20 127/50 94 03/10/19 02:00 03/10/19 10:40 03/10/19 04:54 03/10/19 10:40 03/10/19 02:00 Temperature -Last 24 Hours Temperature 97.6 F Temperature 98.7 F - Labs CBC & Chem 7: 03/10/19 03:29 03/10/19 03:29 Labs: Abnormal lab results 03/09/19 03/09/19 03/10/19 Range/Units 16:28 22:34 03:29 WBC 3.4 L (4.5-11.0) K/mm3 RBC 2.72 L (3.65-5.03) M/mm3 Hgb 8.1 L (10.1-14.3) gm/dl Hct 24.4 L (30.3-42.9) % Sodium (137-145) mmol/L Chloride (98-107) mmol/L Carbon Dioxide (22-30) mmol/L BUN (7-17) mg/dL Creatinine (0.7-1.2) mg/dL Glucose (65-100) mg/dL POC Glucose 394 H 397 H (70-105) Calcium (8.4-10.2) mg/dL 03/10/19 03/10/19 03/10/19 Range/Units 03:29 05:49 07:30 WBC (4.5-11.0) K/mm3 RBC (3.65-5.03) M/mm3 Hgb (10.1-14.3) gm/dl Hct (30.3-42.9) % Sodium 128 L (137-145) mmol/L Chloride 92.1 L (98-107) mmol/L Carbon Dioxide 19 L (22-30) mmol/L BUN 73 H (7-17) mg/dL Creatinine 4.6 H (0.7-1.2) mg/dL Glucose 359 H (65-100) mg/dL POC Glucose 346 H 318 H (70-105) Calcium 5.4 L* (8.4-10.2) mg/dL 03/10/19 Range/Units 11:30 WBC (4.5-11.0) K/mm3 RBC (3.65-5.03) M/mm3 Hgb (10.1-14.3) gm/dl Hct (30.3-42.9) % Sodium (137-145) mmol/L Chloride (98-107) mmol/L Carbon Dioxide (22-30) mmol/L BUN (7-17) mg/dL Creatinine (0.7-1.2) mg/dL Glucose (65-100) mg/dL POC Glucose 265 H (70-105) Calcium (8.4-10.2) mg/dL
[2019-03-10] MEDS ORDERED: SODIUM CHLORIDE 0.9% 100 ML IV PRN ×2 (16:41→22:35)
--- NOTE | 2019-03-10 16:45 | Progress Note ---
Assessment and Plan - Patient Problems (1) End stage renal disease Current Visit: No Status: Chronic Plan to address problem: Will place orders for patient to be dialyzed first shift tomorrow. (2) Emphysematous cystitis Current Visit: Yes Status: Acute Plan to address problem: antibiotic regimen per ID recommendations. Will need to ensure that antibiotics are dosed appropriately per decreased renal function. may benefit from urologic evaluation. (3) Hypertensive chronic kidney disease with stage 5 chronic kidney disease or end stage renal disease Current Visit: Yes Status: Chronic Plan to address problem: Monitor on current regimen. (4) Type 2 diabetes mellitus with diabetic chronic kidney disease Current Visit: Yes Status: Chronic Plan to address problem: DM management per primary attending. (5) Anemia in chronic kidney disease (CKD) Current Visit: No Status: Chronic Qualifiers: Chronic kidney disease stage: on chronic dialysis Qualified Code(s): N18.6 - End stage renal disease; D63.1 - Anemia in chronic kidney disease; Z99.2 - Dependence on renal dialysis Plan to address problem: FRANCISCO J therapy with HD. Subjective Date of service: 03/10/19 Interval history: No acute issues overnight. Objective - Vital Signs Vital signs: Vital Signs - 12hr 03/10/19 03/10/19 03/10/19 04:53 04:54 10:40 Temperature Pulse Rate 72 72 Respiratory 20 Rate Blood Pressure 127/50 O2 Sat by Pulse Oximetry 03/10/19 13:39 Temperature 97.9 F Pulse Rate 74 Respiratory 20 Rate Blood Pressure 117/44 O2 Sat by Pulse 98 Oximetry - General Appearance General appearance: appears stated age, chronically ill, frail EENT: ATNC, PERRL Neck: no JVD, no thyromegaly Respiratory: Present: Clear to Ascultation Cardiology: regular Gastrointestinal: normal, normoactive bowel sounds Integumentary: warm and dry Neurologic: no focal deficit Musculoskeletal: deferred Psychiatric: mood/affect appropriate - Lab 03/10/19 03:29 03/10/19 03:29 Most recent lab results Calcium 5.4 mg/dL (8.4-10.2) L* 03/10/19 03:29 - Allied health notes Allied health notes reviewed: nursing Medications & Allergies - Medications Allergies/Adverse Reactions: Allergies aspirin Allergy (Severe, Verified 02/24/19 10:43) Unknown reflux. Home Medications: Home Medications Medication Instructions Recorded Confirmed Last Taken Type Docusate Sodium [Colace CAP] 100 mg PO BID #30 capsule 11/01/17 03/09/19 03/08/19 10:00 Rx Cholecalciferol Vit D3 [Vitamin D3 5,000 unit PO DAILY #30 tablet 04/25/18 03/09/19 03/08/19 10:00 Rx 1,000 UNIT TAB] Fe Fumarate/FA/Mv, Min Comb#15 1 each PO QDAY #30 capsule 04/25/18 03/09/19 03/08/19 10:00 Rx [Hemocyte Plus] Atorvastatin [Lipitor] 40 mg PO QHS 06/09/18 03/09/19 03/08/19 10:00 History Linagliptin [Tradjenta] 5 mg PO QHS 06/09/18 03/09/19 03/08/19 10:00 History Calcium Carbonate/Vitamin D3 2 each PO TID 03/09/19 03/09/19 03/08/19 10:00 History [Calcium 600-Vit D3 400 Caplet] Clopidogrel 75 mg PO QDAY 03/09/19 03/09/19 03/08/19 10:00 History Levothyroxine [Synthroid] 100 mcg PO QAM 03/09/19 03/09/19 Unknown History amLODIPine 10 mg PO QDAY 03/09/19 03/09/19 03/08/19 10:00 History levETIRAcetam 500 mg PO QDAY 03/09/19 03/09/19 03/08/19 10:00 History Active Medications: Generic Name Dose Route Start Last Admin Trade Name Freq PRN Reason Stop Dose Admin Acetaminophen 650 mg 03/08/19 22:53 Tylenol PO Q4H PRN Pain MILD(1-3)/Fever >100.5/PATRICIA Albuterol 2.5 mg 03/08/19 22:53 Proventil IH Q3HRT PRN Shortness Of Breath Atorvastatin Calcium 40 mg 03/09/19 22:00 03/09/19 22:05 Lipitor PO 40 mg QHS [facility] Administration Calcium/Vitamin D 1 each 03/10/19 10:00 03/10/19 10:36 Oysco D 500 Mg-200 Unit PO 1 each QDAY [facility] Administration Cholecalciferol 5,000 unit 03/09/19 10:00 03/10/19 10:36 Vitamin D3 PO 5,000 unit QDAY [facility] Administration Clopidogrel Bisulfate 75 mg 03/10/19 10:00 03/10/19 10:37 Plavix PO 75 mg QDAY [facility] Administration Dextrose 0 ml 03/08/19 22:53 D50w (25gm) Syringe IV Q30MIN PRN Hypoglycemia Protocol Docusate Sodium 100 mg 03/09/19 10:00 03/10/19 10:37 Colace PO 100 mg BID [facility] Administration Docusate Sodium 100 mg 03/09/19 22:00 03/10/19 10:42 Colace PO Not Given BID [facility] Cefepime HCl 1 gm in 100 mls @ 200 mls/hr 03/09/19 18:00 03/09/19 19:43 Cefepime/Ns 1 Gm/100 Ml IV 200 mls/hr QPM [facility] Administration Protocol Sodium Chloride 100 mls @ 999 mls/hr 03/10/19 16:41 Nacl 0.9% IV TEJ PRN Hypotension Insulin Human Lispro 0 unit 03/09/19 07:30 03/10/19 13:27 Humalog SUB-Q 6 unit ACHS [facility] Administration Protocol Levetiracetam 500 mg 03/09/19 15:00 03/10/19 10:37 Keppra PO 500 mg QDAY [facility] Administration Levothyroxine Sodium 150 mcg 03/09/19 06:00 03/10/19 06:38 Synthroid PO 150 mcg DAILY@0600 [facility] Administration Linagliptin 5 mg 03/09/19 22:00 03/09/19 22:10 Tradjenta PO 5 mg QHS [facility] Administration Metoprolol Tartrate 12.5 mg 03/09/19 10:00 03/10/19 10:40 Metoprolol PO 12.5 mg BID [facility] Administration Multivitamins/Iron 1 each 03/09/19 10:00 03/10/19 11:18 Hemocyte Plus PO 1 each QDAY [facility] Administration Ondansetron HCl 4 mg 03/08/19 22:53 Zofran IV Q8H PRN Nausea And Vomiting Sodium Chloride 10 ml 03/09/19 10:00 03/10/19 10:41 Sodium Chloride Flush Syringe 10 Ml IV 10 ml BID [facility] Administration Sodium Chloride 10 ml 03/08/19 22:53 Sodium Chloride Flush Syringe 10 Ml IV PRN PRN LINE FLUSH
[2019-03-10] MEDS: CEFEPIME/NS 1 GM/100 ML 1 GM/100 ML BAG IV SCH (18:43)
--- NOTE | 2019-03-10 18:54 | Progress Note ---
Assessment and Plan Assessment and plan: Patient is a 78-year-old -[place] woman with a history of hypertension, OA but walks with a walker, diabetes, GERD, ESRD on HD, anemia, hypothyroidism, complete heart block status post pacemaker who presents to [facility] with complaints of dysuria and hematuria for the past 2 weeks. patient has been experiencing dysuria and hematuria since being discharged from [facility] on 02/22/2019. According to daughter patient was admitted to [place] on 02/15 for concerns of seizure-like activity and possible stroke. Ultimately patient symptoms were found to be related to low thyroid level, her Synthroid dose was increased, and she discharged on 02/22/2019. * CT Adbomen/Pelvis IMPRESSION: 1. Interval development of moderate thickening of the urinary bladder with gas in the urinary bladder and bladder wall. Emphysematous cystitis should be considered. 2. Moderate to large amount of fecal material throughout the colon and rectum. 3. Chronic calcific pancreatitis, unchanged. No acute inflammation noted. * CT Head IMPRESSION: 1. No acute intracranial abnormality. 2. Chronic and age- related findings. No change. * pCXR IMPRESSION: No acute abnormality. Urinary tract infection -UA positive for UTI -urine wbc >182, large blood, positive for nitrates, large leukocytes -Urine culture pending -on IV Abx Acute metabolic encephalopathy -treat the uti Emphysematous cystitis -Suspicion for Emphysematous cystitis seen on CT Abd/Pelvis -on IV abx -Cultures pending -ID consulted Anemia of Chronic Disease -Hemoglobin on admission 9.4 -Large amount of blood in urine -Continue to monitor hemoglobin -Transfuse as needed Elevated troponin -Most likely leak; pt is ESRD -No c/o CP -Repeat troponin pending ESRD on HD -M/W/F -Last dialyzed on 03/03/2019 -Cr on admission 4.6 -Avoid nephrotoxic agents -Renal dose all meds -Nephrology consulted HTN -Monitor BP -Resume home hypertensive meds DM -POC BG monitoring -Continue scheduled Tradjenta and SSI coverage prn Hypothyroidism -Continue Synthroid -TSH and Free T4 pending Hx Complete Heart Block -Pacemaker in situ -Telemetry monitoring DVT PPX -On SCD's -On systemic AC due to blood in urine Advance Directives: No VTE prophylaxis?: Mechanical Plan of care discussed with patient/family: Yes disposition: continue inpatient care because mental status not at baseline and urine ctx pending History Interval history: Patient was seen and examined. Follow-up on current diagnosis of AMS. Overnight uneventful as no events directly reported to me. Patient denies any chest pain, shortness breath, nausea/vomiting or severe headaches. Imaging, nursing note, chart, labs and old chart reviewed. Discussed with patient. Hospitalist Physical - Physical exam Narrative exam: Gen: cachetic bmi 16, NAD, Awake, Alert, Orientated x 2, fixated on obtaining tobacco HEENT: NCAT, EOMI, PERRL, OP Clear Neck: supple, no adenopathy, no thyromegaly, no JVD CVS/Heart: RRR, normal S1S2, pulses present bilaterally Chest/Lungs: CTA B, Symmetrical chest expansion, good air entry bilaterally GI/Abdomen: soft, NTND, good bowel sounds, no guarding or rebound /Bladder: no suprapubic tenderness, no CVA or paraspinal tenderness Extermity/Skin: atrophic limbs MSK: FROM x 4 Neuro: CN 2-12 grossly intact, no new focal deficits Psych: calm - Constitutional Vitals: Temp Pulse Resp BP Pulse Ox 97.9 F 74 20 117/44 98 03/10/19 13:39 03/10/19 13:39 03/10/19 13:39 03/10/19 13:39 03/10/19 13:39 Results - Labs CBC & Chem 7: 03/10/19 03:29 03/10/19 03:29 Labs: Laboratory Last Values WBC 3.4 K/mm3 (4.5-11.0) L 03/10/19 03:29 RBC 2.72 M/mm3 (3.65-5.03) L 03/10/19 03:29 Hgb 8.1 gm/dl (10.1-14.3) L 03/10/19 03:29 Hct 24.4 % (30.3-42.9) L 03/10/19 03:29 MCV 90 fl (79-97) 03/10/19 03:29 MCH 30 pg (28-32) 03/10/19 03:29 MCHC 33 % (30-34) 03/10/19 03:29 RDW 13.8 % (13.2-15.2) 03/10/19 03:29 Plt Count 177 K/mm3 (140-440) 03/10/19 03:29 Lymph % (Auto) 31.2 % (13.4-35.0) 03/09/19 05:39 [place] % (Auto) 13.2 % (0.0-7.3) H 03/09/19 05:39 Eos % (Auto) 4.6 % (0.0-4.3) H 03/09/19 05:39 Baso % (Auto) 2.3 % (0.0-1.8) H 03/09/19 05:39 Lymph # 1.2 K/mm3 (1.2-5.4) 03/09/19 05:39 [place] # 0.5 K/mm3 (0.0-0.8) 03/09/19 05:39 Eos # 0.2 K/mm3 (0.0-0.4) 03/09/19 05:39 Baso # 0.1 K/mm3 (0.0-0.1) 03/09/19 05:39 Seg Neutrophils % 48.7 % (40.0-70.0) 03/09/19 05:39 Seg Neutrophils # 1.9 K/mm3 (1.8-7.7) 03/09/19 05:39 Sodium 128 mmol/L (137-145) L 03/10/19 03:29 Potassium 4.4 mmol/L (3.6-5.0) 03/10/19 03:29 Chloride 92.1 mmol/L (98-107) L 03/10/19 03:29 Carbon Dioxide 19 mmol/L (22-30) L 03/10/19 03:29 Anion Gap 21 mmol/L 03/10/19 03:29 BUN 73 mg/dL (7-17) H 03/10/19 03:29 Creatinine 4.6 mg/dL (0.7-1.2) H 03/10/19 03:29 Estimated GFR 11 ml/min 03/10/19 03:29 BUN/Creatinine Ratio 16 % 03/10/19 03:29 Glucose 359 mg/dL (65-100) H 03/10/19 03:29 POC Glucose 78 (70-105) 03/10/19 16:43 Lactic Acid 1.20 mmol/L (0.7-2.0) 03/08/19 17:36 Calcium 5.4 mg/dL (8.4-10.2) L* 03/10/19 03:29 Total Creatine Kinase 115 units/L (30-135) 03/09/19 12:49 CK-MB (CK-2) 2.0 ng/mL (0.0-4.0) 03/09/19 12:49 CK-MB (CK-2) Rel Index 1.7 (0-4) 03/09/19 12:49 Troponin T 0.068 ng/mL (0.00-0.029) H 03/09/19 12:49 NT-Pro-B Natriuret Pep 3918 pg/mL (0-900) H 03/08/19 17:36 Triglycerides 88 mg/dL (2-149) 03/08/19 17:36 Cholesterol 156 mg/dL (50-199) 03/08/19 17:36 LDL Cholesterol Direct 88 mg/dL (50-130) 03/08/19 17:36 HDL Cholesterol 63 mg/dL (40-59) H 03/08/19 17:36 Cholesterol/HDL Ratio 2.47 % 03/08/19 17:36 TSH 40.380 mlU/mL (0.270-4.200) H 03/09/19 05:39 Free T4 0.93 ng/dL (0.76-1.46) 03/09/19 05:39 Urine Color Red (Yellow) 03/08/19 17:58 Urine Turbidity Clear (Clear) 03/08/19 17:58 Urine pH 6.0 (5.0-7.0) 03/08/19 17:58 Ur Specific [place] 1.006 (1.003-1.030) 03/08/19 17:58 Urine Protein 30 mg/dl mg/dL (Negative) 03/08/19 17:58 Urine Glucose (UA) Negative mg/dL (Negative) 03/08/19 17:58 Urine Ketones Negative mg/dL (Negative) 03/08/19 17:58 Urine Blood Large (Negative) A 03/08/19 17:58 Urine Nitrite Positive (Negative) 03/08/19 17:58 Ur Reducing Substances Not Reportable 03/08/19 17:58 Urine Bilirubin Negative (Negative) 03/08/19 17:58 Urine Ictotest Not Reportable 03/08/19 17:58 Urine Urobilinogen < 2.0 mg/dL (<2.0) 03/08/19 17:58 Ur Leukocyte Esterase Large (Negative) 03/08/19 17:58 Urine WBC (Auto) > 182.0 /HPF (0.0-6.0) H 03/08/19 17:58 Urine RBC (Auto) > 182.0 /HPF (0.0-6.0) 03/08/19 17:58 U Epithel Cells (Auto) 16.0 /HPF (0-13.0) H 03/08/19 17:58 Urine Bacteria (Auto) 4+ /HPF (Negative) 03/08/19 17:58 Urine WBC Clumps 3+ /HPF 03/08/19 17:58 Hepatitis A IgM Ab Non-reactive (NonReactive) 03/09/19 19:34 Hep Bs Antigen Non-reactive (Negative) 03/09/19 19:34 Hep B Core IgM Ab Non-reactive (NonReactive) 03/09/19 19:34 Hepatitis C Antibody Non-reactive (NonReactive) 03/09/19 19:34 Active Medications - Current Medications Current Medications: Generic Name Dose Route Start Last Admin Trade Name Freq PRN Reason Stop Dose Admin Acetaminophen 650 mg 03/08/19 22:53 Tylenol PO Q4H PRN Pain MILD(1-3)/Fever >100.5/PATRICIA Albuterol 2.5 mg 03/08/19 22:53 Proventil IH Q3HRT PRN Shortness Of Breath Atorvastatin Calcium 40 mg 03/09/19 22:00 03/09/19 22:05 Lipitor PO 40 mg QHS DUNG Administration Calcium/Vitamin D 1 each 03/10/19 10:00 03/10/19 10:36 Oysco D 500 Mg-200 Unit PO 1 each QDAY DUNG Administration Cholecalciferol 5,000 unit 03/09/19 10:00 03/10/19 10:36 Vitamin D3 PO 5,000 unit QDAY DUNG Administration Clopidogrel Bisulfate 75 mg 03/10/19 10:00 03/10/19 10:37 Plavix PO 75 mg QDAY DUNG Administration Dextrose 0 ml 03/08/19 22:53 D50w (25gm) Syringe IV Q30MIN PRN Hypoglycemia Protocol Docusate Sodium 100 mg 03/09/19 10:00 03/10/19 10:37 Colace PO 100 mg BID DUNG Administration Docusate Sodium 100 mg 03/09/19 22:00 03/10/19 10:42 Colace PO Not Given BID DUNG Cefepime HCl 1 gm in 100 mls @ 200 mls/hr 03/09/19 18:00 03/10/19 18:43 Cefepime/Ns 1 Gm/100 Ml IV 200 mls/hr QPM DUNG Administration Protocol Sodium Chloride 100 mls @ 999 mls/hr 03/10/19 16:41 Nacl 0.9% IV TEJ PRN Hypotension Insulin Human Lispro 0 unit 03/09/19 07:30 03/10/19 17:01 Humalog SUB-Q Not Given ACHS [facility] Protocol Levetiracetam 500 mg 03/09/19 15:00 03/10/19 10:37 Keppra PO 500 mg QDAY DUNG Administration Levothyroxine Sodium 150 mcg 03/09/19 06:00 03/10/19 06:38 Synthroid PO 150 mcg DAILY@0600 DUNG Administration Linagliptin 5 mg 03/09/19 22:00 03/09/19 22:10 Tradjenta PO 5 mg QHS DUNG Administration Metoprolol Tartrate 12.5 mg 03/09/19 10:00 03/10/19 10:40 Metoprolol PO 12.5 mg BID DUNG Administration Multivitamins/Iron 1 each 03/09/19 10:00 03/10/19 11:18 Hemocyte Plus PO 1 each QDAY DUNG Administration Ondansetron HCl 4 mg 03/08/19 22:53 Zofran IV Q8H PRN Nausea And Vomiting Sodium Chloride 10 ml 03/09/19 10:00 03/10/19 10:41 Sodium Chloride Flush Syringe 10 Ml IV 10 ml BID DUNG Administration Sodium Chloride 10 ml 03/08/19 22:53 Sodium Chloride Flush Syringe 10 Ml IV PRN PRN LINE FLUSH Nutrition/Malnutrition Assess - Dietary Evaluation Nutrition/Malnutrition Findings: Nutrition Notes Start: 03/09/19 09:16 Freq: Status: Active Protocol: Document 03/09/19 09:16 ISAIAS (Rec: 03/09/19 09:24 ISAIAS [id number]) Co-Sign 03/09/19 09:16 LP Nutrition Notes 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 Pt was lethargic during visit, and couldn't answer assessment questions. Pt ate 0% of breakfast that was at bedside. Noted slight muscle depletion in hands. 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 No Is Patient Ambulatory and/or Out of Bed No REE-([facility]-confined to bed) 1026.144 Kcal/Kg value to use for calculation 35 Approximate Energy Requirements Using 1435 kcal/Kg Calculation Used for Recommendations Kcal/kg Additional Notes Protein: 49g (>1.2g/kg) Fluid: 1 ml/kcal Nutrition Intervention Change Diet Order: Continue current Add Supplement/Snack (indicate name/kcal Nepro daily /protein ) Provides kCal: 425 Provides Protein (gm) 19 Goal #1 Meet at least 80% of energy and protein needs via PO and ONS intakes Goal #2 Wt gain/maintenance Anticipated Discharge Needs: Renal diet Follow-Up By: 03/13/19 Additional Comments F/U for PO/ONS needs, and further assessment
[2019-03-10] MEDS: LINAGLIPTIN 5 MG TAB PO SCH (22:45)
[2019-03-11 05:58] LABS: Hematocrit 23.8 % (30.3-42.9); Hemoglobin 7.9 gm/dl (10.1-14.3); Mean Corpuscular HGB Conc 33 % (30-34); Mean Corpuscular Volume 89 fl (79-97); Platelet Count 173 K/mm3 (140-440); Red Blood Count 2.67 M/mm3 (3.65-5.03)
[2019-03-11] MEDS: LEVOTHYROXINE 150 MCG TAB PO SCH (06:11)
[2019-03-11 06:36] LABS: Calcium 5.5 mg/dL (8.4-10.2)
[2019-03-11] MEDS: INSULIN LISPRO 100 UNIT/ML SUB-Q SCH ×4 (07:52→22:45)
--- NOTE | 2019-03-11 08:48 | Progress Note ---
Assessment and Plan Assessment and plan: Patient is a 78-year-old -[place] woman with a history of hypertension, OA but walks with a walker, diabetes, GERD, ESRD on HD, anemia, hypothyroidism, complete heart block status post pacemaker who presents to [facility] ED with complaints of dysuria and hematuria for the past 2 weeks. patient has been experiencing dysuria and hematuria since being discharged from [facility] on 02/22/2019. According to daughter patient was admitted to [place] on 02/15 for concerns of seizure-like activity and possible stroke. Ultimately patient symptoms were found to be related to low thyroid level, her Synthroid dose was increased, and she discharged on 02/22/2019. * CT Adbomen/Pelvis IMPRESSION: 1. Interval development of moderate thickening of the urinary bladder with gas in the urinary bladder and bladder wall. Emphysematous cystitis should be considered. 2. Moderate to large amount of fecal material throughout the colon and rectum. 3. Chronic calcific pancreatitis, unchanged. No acute inflammation noted. * CT Head IMPRESSION: 1. No acute intracranial abnormality. 2. Chronic and age- related findings. No change. * pCXR IMPRESSION: No acute abnormality. Urinary tract infection -UA positive for UTI -urine wbc >182, large blood, positive for nitrates, large leukocytes -Urine culture pending, but none ordered on admission, hence abx received prior to urine ctx being sent -on IV Abx Acute metabolic encephalopathy -treat the uti Emphysematous cystitis with gross hematuria -Urology evaluated, input noted -on IV abx Anemia of Chronic Disease -Hemoglobin on admission 9.4 -Large amount of blood in urine -Continue to monitor hemoglobin -Transfuse as needed Elevated troponin -very mild, related to ESRD -No c/o CP ESRD on HD -M/W/F -Last dialyzed on 03/03/2019 -Cr on admission 4.6 -Avoid nephrotoxic agents -Renal dose iv abx -Nephrology following HTN -Monitor BP -Resume home hypertensive meds -controlled, only on metoprolol 12.5mg bid DM type 2 -POC BG monitoring -Continue scheduled Tradjenta and SSI coverage prn Hypothyroidism -Increase Synthroid Hx Complete Heart Block -Pacemaker in situ -Telemetry monitoring DVT PPX -On SCD's -On systemic AC due to blood in urine Hypocalcemia -on [place] supplements -Nephrology following Drop in HCT -from hematuria -slow drop Severe Malnutrition, poa -treat with dietary supplements Advance Directives: No VTE prophylaxis?: Mechanical Plan of care discussed with patient/family: Yes Disposition: continue inpatient care, drop in h/h, urine culture contaminated, d/w Dr. Morse from Infectious Disease, who was resolved about finalization of urine culture prior to discharge. Now that urine ctx inconclusive, patient will need IV abx to be set up through hemodialysis center. I spoke with Nephology yesterday and Dr. Amor, says it is just an order to be fax to his HD center in [place]. I do not believe this will be done over the weekend. History Interval history: Patient was seen and examined. Follow-up on current diagnosis of AMS. Overnight uneventful as no events directly reported to me. Patient denies any chest pain, shortness breath, nausea/vomiting or severe headaches. Imaging, nursing note, chart, labs and old chart reviewed. Discussed with patient. Hospitalist Physical - Physical exam Narrative exam: Gen: cachetic bmi 16, NAD, Awake, Alert, Orientated x 2, fixated on obtaining tobacco HEENT: NCAT, EOMI, PERRL, OP Clear Neck: supple, no adenopathy, no thyromegaly, no JVD CVS/Heart: RRR, normal S1S2, pulses present bilaterally Chest/Lungs: CTA B, Symmetrical chest expansion, good air entry bilaterally GI/Abdomen: soft, NTND, good bowel sounds, no guarding or rebound /Bladder: no suprapubic tenderness, no CVA or paraspinal tenderness Extermity/Skin: atrophic limbs MSK: FROM x 4 Neuro: CN 2-12 grossly intact, no new focal deficits Psych: calm - Constitutional Vitals: Temp Pulse Resp BP Pulse Ox 98.5 F 70 18 126/31 98 03/11/19 07:11 03/11/19 02:33 03/11/19 07:11 03/11/19 07:11 03/11/19 02:33 Results - Labs CBC & Chem 7: 03/11/19 05:23 03/11/19 05:23 Labs: Laboratory Last Values WBC 3.8 K/mm3 (4.5-11.0) L 03/11/19 05:23 RBC 2.67 M/mm3 (3.65-5.03) L 03/11/19 05:23 Hgb 7.9 gm/dl (10.1-14.3) L 03/11/19 05:23 Hct 23.8 % (30.3-42.9) L 03/11/19 05:23 MCV 89 fl (79-97) 03/11/19 05:23 MCH 30 pg (28-32) 03/11/19 05:23 MCHC 33 % (30-34) 03/11/19 05:23 RDW 14.0 % (13.2-15.2) 03/11/19 05:23 Plt Count 173 K/mm3 (140-440) 03/11/19 05:23 Lymph % (Auto) 31.2 % (13.4-35.0) 03/09/19 05:39 [place] % (Auto) 13.2 % (0.0-7.3) H 03/09/19 05:39 Eos % (Auto) 4.6 % (0.0-4.3) H 03/09/19 05:39 Baso % (Auto) 2.3 % (0.0-1.8) H 03/09/19 05:39 Lymph # 1.2 K/mm3 (1.2-5.4) 03/09/19 05:39 [place] # 0.5 K/mm3 (0.0-0.8) 03/09/19 05:39 Eos # 0.2 K/mm3 (0.0-0.4) 03/09/19 05:39 Baso # 0.1 K/mm3 (0.0-0.1) 03/09/19 05:39 Seg Neutrophils % 48.7 % (40.0-70.0) 03/09/19 05:39 Seg Neutrophils # 1.9 K/mm3 (1.8-7.7) 03/09/19 05:39 Sodium 131 mmol/L (137-145) L 03/11/19 05:23 Potassium 4.0 mmol/L (3.6-5.0) 03/11/19 05:23 Chloride 97.8 mmol/L (98-107) L 03/11/19 05:23 Carbon Dioxide 17 mmol/L (22-30) L 03/11/19 05:23 Anion Gap 20 mmol/L 03/11/19 05:23 BUN 78 mg/dL (7-17) H 03/11/19 05:23 Creatinine 4.8 mg/dL (0.7-1.2) H 03/11/19 05:23 Estimated GFR 11 ml/min 03/11/19 05:23 BUN/Creatinine Ratio 16 % 03/11/19 05:23 Glucose 104 mg/dL (65-100) H 03/11/19 05:23 POC Glucose 122 (70-105) H 03/11/19 07:22 Lactic Acid 1.20 mmol/L (0.7-2.0) 03/08/19 17:36 Calcium 5.5 mg/dL (8.4-10.2) L* 03/11/19 05:23 Total Creatine Kinase 115 units/L (30-135) 03/09/19 12:49 CK-MB (CK-2) 2.0 ng/mL (0.0-4.0) 03/09/19 12:49 CK-MB (CK-2) Rel Index 1.7 (0-4) 03/09/19 12:49 Troponin T 0.068 ng/mL (0.00-0.029) H 03/09/19 12:49 NT-Pro-B Natriuret Pep 3918 pg/mL (0-900) H 03/08/19 17:36 Triglycerides 88 mg/dL (2-149) 03/08/19 17:36 Cholesterol 156 mg/dL (50-199) 03/08/19 17:36 LDL Cholesterol Direct 88 mg/dL (50-130) 03/08/19 17:36 HDL Cholesterol 63 mg/dL (40-59) H 03/08/19 17:36 Cholesterol/HDL Ratio 2.47 % 03/08/19 17:36 TSH 40.380 mlU/mL (0.270-4.200) H 03/09/19 05:39 Free T4 0.93 ng/dL (0.76-1.46) 03/09/19 05:39 Urine Color Red (Yellow) 03/08/19 17:58 Urine Turbidity Clear (Clear) 03/08/19 17:58 Urine pH 6.0 (5.0-7.0) 03/08/19 17:58 Ur Specific [place] 1.006 (1.003-1.030) 03/08/19 17:58 Urine Protein 30 mg/dl mg/dL (Negative) 03/08/19 17:58 Urine Glucose (UA) Negative mg/dL (Negative) 03/08/19 17:58 Urine Ketones Negative mg/dL (Negative) 03/08/19 17:58 Urine Blood Large (Negative) A 03/08/19 17:58 Urine Nitrite Positive (Negative) 03/08/19 17:58 Ur Reducing Substances Not Reportable 03/08/19 17:58 Urine Bilirubin Negative (Negative) 03/08/19 17:58 Urine Ictotest Not Reportable 03/08/19 17:58 Urine Urobilinogen < 2.0 mg/dL (<2.0) 03/08/19 17:58 Ur Leukocyte Esterase Large (Negative) 03/08/19 17:58 Urine WBC (Auto) > 182.0 /HPF (0.0-6.0) H 03/08/19 17:58 Urine RBC (Auto) > 182.0 /HPF (0.0-6.0) 03/08/19 17:58 U Epithel Cells (Auto) 16.0 /HPF (0-13.0) H 03/08/19 17:58 Urine Bacteria (Auto) 4+ /HPF (Negative) 03/08/19 17:58 Urine WBC Clumps 3+ /HPF 03/08/19 17:58 Hepatitis A IgM Ab Non-reactive (NonReactive) 03/09/19 19:34 Hep Bs Antigen Non-reactive (Negative) 03/09/19 19:34 Hep B Core IgM Ab Non-reactive (NonReactive) 03/09/19 19:34 Hepatitis C Antibody Non-reactive (NonReactive) 03/09/19 19:34 Active Medications - Current Medications Current Medications: Generic Name Dose Route Start Last Admin Trade Name Freq PRN Reason Stop Dose Admin Acetaminophen 650 mg 03/08/19 22:53 Tylenol PO Q4H PRN Pain MILD(1-3)/Fever >100.5/PATRICIA Albuterol 2.5 mg 03/08/19 22:53 Proventil IH Q3HRT PRN Shortness Of Breath Atorvastatin Calcium 40 mg 03/09/19 22:00 03/10/19 22:45 Lipitor PO 40 mg QHS DUNG Administration Calcium/Vitamin D 1 each 03/10/19 10:00 03/10/19 10:36 Oysco D 500 Mg-200 Unit PO 1 each QDAY DUNG Administration Cholecalciferol 5,000 unit 03/09/19 10:00 03/10/19 10:36 Vitamin D3 PO 5,000 unit QDAY DUNG Administration Clopidogrel Bisulfate 75 mg 03/10/19 10:00 03/10/19 10:37 Plavix PO 75 mg QDAY DUNG Administration Dextrose 0 ml 03/08/19 22:53 D50w (25gm) Syringe IV Q30MIN PRN Hypoglycemia Protocol Docusate Sodium 100 mg 03/09/19 10:00 03/10/19 23:15 Colace PO Not Given BID DUNG Docusate Sodium 100 mg 03/09/19 22:00 03/10/19 22:45 Colace PO 100 mg BID DUNG Administration Cefepime HCl 1 gm in 100 mls @ 200 mls/hr 03/09/19 18:00 03/10/19 18:43 Cefepime/Ns 1 Gm/100 Ml IV 200 mls/hr QPM DUNG Administration Protocol Sodium Chloride 100 mls @ 999 mls/hr 03/10/19 22:35 Nacl 0.9% IV TEJ PRN Hypotension Insulin Human Lispro 0 unit 03/09/19 07:30 03/11/19 07:52 Humalog SUB-Q Not Given ACHS DUNG Protocol Levetiracetam 500 mg 03/09/19 15:00 03/10/19 10:37 Keppra PO 500 mg QDAY DUNG Administration Levothyroxine Sodium 150 mcg 03/09/19 06:00 03/11/19 06:11 Synthroid PO 150 mcg DAILY@0600 DUNG Administration Linagliptin 5 mg 03/09/19 22:00 03/10/19 22:45 Tradjenta PO 5 mg QHS DUNG Administration Metoprolol Tartrate 12.5 mg 03/09/19 10:00 03/10/19 22:46 Metoprolol PO 12.5 mg BID DUNG Administration Multivitamins/Iron 1 each 03/09/19 10:00 03/10/19 11:18 Hemocyte Plus PO 1 each QDAY DUNG Administration Ondansetron HCl 4 mg 03/08/19 22:53 Zofran IV Q8H PRN Nausea And Vomiting Sodium Chloride 10 ml 03/09/19 10:00 03/10/19 23:20 Sodium Chloride Flush Syringe 10 Ml IV 10 ml BID DUNG Administration Sodium Chloride 10 ml 03/08/19 22:53 03/10/19 22:51 Sodium Chloride Flush Syringe 10 Ml IV 10 ml PRN PRN Administration LINE FLUSH Nutrition/Malnutrition Assess - Dietary Evaluation Nutrition/Malnutrition Findings: Nutrition Notes Start: 03/09/19 09:16 Freq: Status: Active Protocol: Document 03/09/19 09:16 ISAIAS (Rec: 03/09/19 09:24 ISAIAS [id number]) Co-Sign 03/09/19 09:16 LP Nutrition Notes 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 Pt was lethargic during visit, and couldn't answer assessment questions. Pt ate 0% of breakfast that was at bedside. Noted slight muscle depletion in hands. 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 No Is Patient Ambulatory and/or Out of Bed No REE-([facility]-confined to bed) 1026.144 Kcal/Kg value to use for calculation 35 Approximate Energy Requirements Using 1435 kcal/Kg Calculation Used for Recommendations Kcal/kg Additional Notes Protein: 49g (>1.2g/kg) Fluid: 1 ml/kcal Nutrition Intervention Change Diet Order: Continue current Add Supplement/Snack (indicate name/kcal Nepro daily /protein ) Provides kCal: 425 Provides Protein (gm) 19 Goal #1 Meet at least 80% of energy and protein needs via PO and ONS intakes Goal #2 Wt gain/maintenance Anticipated Discharge Needs: Renal diet Follow-Up By: 03/13/19 Additional Comments F/U for PO/ONS needs, and further assessment
[2019-03-11] MEDS ORDERED: SODIUM CHLORIDE 0.9% 100 ML IV PRN (10:02)
[2019-03-11] MEDS: FE FUMARATE/FA/MV, MIN COMB#15 CAP (HEMOCYTE PLUS) PO SCH (10:34)
[2019-03-11] MEDS: CALCIUM CARBONATE/VITAMIN D3 500 MG-200 UNIT TAB PO SCH (10:34)
[2019-03-11] MEDS: METOPROLOL TARTRATE 25 MG TAB PO SCH ×2 (10:34→21:12)
[2019-03-11] MEDS: levETIRAcetam 500 MG TAB PO SCH (10:34)
[2019-03-11] MEDS: DOCUSATE SODIUM 100 MG CAP PO SCH ×3 (10:34→21:11)
[2019-03-11] MEDS: CLOPIDOGREL 75 MG TAB PO SCH (10:35)
[2019-03-11] MEDS: CHOLECALCIFEROL (VIT D3) 5,000 UNIT TAB PO SCH (10:35)
--- NOTE | 2019-03-11 11:46 | Progress Note ---
Assessment and Plan - Patient Problems (1) Emphysematous cystitis Current Visit: Yes Status: Acute Plan to address problem: Continue antibiotics per infectious disease (2) Hypertensive chronic kidney disease with stage 5 chronic kidney disease or end stage renal disease Current Visit: Yes Status: Chronic Plan to address problem: Follow-up blood pressure on current medications (3) Type 2 diabetes mellitus with diabetic chronic kidney disease Current Visit: Yes Status: Chronic Plan to address problem: Blood sugar management by primary attending (4) End stage renal disease Current Visit: No Status: Chronic Plan to address problem: Hemodialysis on a Wednesday, and Wednesday schedule. Tolerating treatment so far. (5) Anemia in chronic illness Current Visit: Yes Status: Acute Plan to address problem: Continue erythropoietin on dialysis Subjective Date of service: 03/11/19 Principal diagnosis: end-stage renal disease with emphysematous cystitis Interval history: Patient seen lying in bed on dialysis. She has no complaints Blood pressure 91/49 pulse 79 ultrafiltration 1.5 L Objective - Exam Narrative Exam: Frail elderly female lying in bed in no acute distress HEENT: NCAT, pink oral mucous membrane Neck: Supple, no venous distention CVS: S1S2 RRR with no murmur, rub or gallop Chest: Clear to auscultation Abdomen: Scaphoid , soft, nontender, no organomegaly, bowel sounds are present Extremities: No edema Neuro: Awake, alert no focal deficits - Vital Signs Vital signs: Vital Signs - 12hr 03/11/19 03/11/19 03/11/19 02:33 07:11 08:50 Temperature 99.1 F 98.5 F Pulse Rate 70 71 Respiratory 18 18 Rate Blood Pressure 123/54 126/31 125/57 O2 Sat by Pulse 98 Oximetry 03/11/19 03/11/19 03/11/19 09:00 09:15 09:30 Temperature Pulse Rate 69 69 66 Respiratory Rate Blood Pressure 126/57 129/56 129/56 O2 Sat by Pulse Oximetry 03/11/19 03/11/19 03/11/19 09:45 10:00 10:15 Temperature Pulse Rate 69 71 71 Respiratory Rate Blood Pressure 126/54 111/50 101/51 O2 Sat by Pulse Oximetry 03/11/19 03/11/19 03/11/19 10:30 10:45 10:47 Temperature Pulse Rate 79 79 79 Respiratory Rate Blood Pressure 101/49 90/39 91/40 O2 Sat by Pulse Oximetry 03/11/19 03/11/19 03/11/19 11:00 11:15 11:30 Temperature Pulse Rate 68 85 79 Respiratory Rate Blood Pressure 102/46 96/45 120/60 O2 Sat by Pulse Oximetry - Lab 03/11/19 05:23 03/11/19 05:23 Most recent lab results Calcium 5.5 mg/dL (8.4-10.2) L* 03/11/19 05:23 Medications & Allergies - Medications Allergies/Adverse Reactions: Allergies aspirin Allergy (Severe, Verified 02/24/19 10:43) Unknown reflux. Home Medications: Home Medications Medication Instructions Recorded Confirmed Last Taken Type Docusate Sodium [Colace CAP] 100 mg PO BID #30 capsule 11/01/17 03/09/19 03/08/19 10:00 Rx Cholecalciferol Vit D3 [Vitamin D3 5,000 unit PO DAILY #30 tablet 04/25/18 03/09/19 03/08/19 10:00 Rx 1,000 UNIT TAB] Fe Fumarate/FA/Mv, Min Comb#15 1 each PO QDAY #30 capsule 04/25/18 03/09/19 03/08/19 10:00 Rx [Hemocyte Plus] Atorvastatin [Lipitor] 40 mg PO QHS 06/09/18 03/09/19 03/08/19 10:00 History Linagliptin [Tradjenta] 5 mg PO QHS 06/09/18 03/09/19 03/08/19 10:00 History Calcium Carbonate/Vitamin D3 2 each PO TID 03/09/19 03/09/19 03/08/19 10:00 History [Calcium 600-Vit D3 400 Caplet] Clopidogrel 75 mg PO QDAY 03/09/19 03/09/19 03/08/19 10:00 History Levothyroxine [Synthroid] 100 mcg PO QAM 03/09/19 03/09/19 Unknown History amLODIPine 10 mg PO QDAY 03/09/19 03/09/19 03/08/19 10:00 History levETIRAcetam 500 mg PO QDAY 03/09/19 03/09/19 03/08/19 10:00 History Active Medications: Generic Name Dose Route Start Last Admin Trade Name Freq PRN Reason Stop Dose Admin Acetaminophen 650 mg 03/08/19 22:53 Tylenol PO Q4H PRN Pain MILD(1-3)/Fever >100.5/PATRICIA Albuterol 2.5 mg 03/08/19 22:53 Proventil IH Q3HRT PRN Shortness Of Breath Atorvastatin Calcium 40 mg 03/09/19 22:00 03/10/19 22:45 Lipitor PO 40 mg QHS [facility] Administration Calcium/Vitamin D 1 each 03/10/19 10:00 03/11/19 10:34 Oysco D 500 Mg-200 Unit PO Not Given QDAY [facility] Cholecalciferol 5,000 unit 03/09/19 10:00 03/11/19 10:35 Vitamin D3 PO Not Given QDAY [facility] Clopidogrel Bisulfate 75 mg 03/10/19 10:00 03/11/19 10:35 Plavix PO Not Given QDAY [facility] Dextrose 0 ml 03/08/19 22:53 D50w (25gm) Syringe IV Q30MIN PRN Hypoglycemia Protocol Docusate Sodium 100 mg 03/09/19 10:00 03/11/19 10:34 Colace PO Not Given BID [facility] Docusate Sodium 100 mg 03/09/19 22:00 03/11/19 10:34 Colace PO Not Given BID [facility] Cefepime HCl 1 gm in 100 mls @ 200 mls/hr 03/09/19 18:00 03/10/19 18:43 Cefepime/Ns 1 Gm/100 Ml IV 200 mls/hr QPM [facility] Administration Protocol Sodium Chloride 100 mls @ 999 mls/hr 03/10/19 22:35 Nacl 0.9% IV TEJ PRN Hypotension Sodium Chloride 100 mls @ 999 mls/hr 03/11/19 10:02 Nacl 0.9% IV TEJ PRN Hypotension Insulin Human Lispro 0 unit 03/09/19 07:30 03/11/19 07:52 Humalog SUB-Q Not Given ACHS [facility] Protocol Levetiracetam 500 mg 03/09/19 15:00 03/11/19 10:34 Keppra PO Not Given QDAY [facility] Levothyroxine Sodium 100 mcg 03/12/19 06:00 Synthroid PO DAILY@0600 [facility] Levothyroxine Sodium 75 mcg 03/12/19 06:00 Synthroid PO DAILY@0600 [facility] Linagliptin 5 mg 03/09/19 22:00 03/10/19 22:45 Tradjenta PO 5 mg QHS [facility] Administration Metoprolol Tartrate 12.5 mg 03/09/19 10:00 03/11/19 10:34 Metoprolol PO Not Given BID [facility] Multivitamins/Iron 1 each 03/09/19 10:00 03/11/19 10:34 Hemocyte Plus PO Not Given QDAY [facility] Ondansetron HCl 4 mg 03/08/19 22:53 Zofran IV Q8H PRN Nausea And Vomiting Sodium Chloride 10 ml 03/09/19 10:00 03/11/19 10:35 Sodium Chloride Flush Syringe 10 Ml IV Not Given BID [facility] Sodium Chloride 10 ml 03/08/19 22:53 03/10/19 22:51 Sodium Chloride Flush Syringe 10 Ml IV 10 ml PRN PRN Administration LINE FLUSH
[2019-03-11] MEDS: CEFEPIME/NS 1 GM/100 ML 1 GM/100 ML BAG IV SCH (17:49)
[2019-03-11] MEDS: LINAGLIPTIN 5 MG TAB PO SCH (21:11)
[2019-03-12] MEDS: DOCUSATE SODIUM 100 MG CAP PO SCH ×5 (01:33→22:40)
[2019-03-12] MEDS: LEVOTHYROXINE 75 MCG TAB PO SCH (05:17)
[2019-03-12] MEDS: LEVOTHYROXINE 100 MCG TAB PO SCH (05:17)
[2019-03-12] MEDS ORDERED: LEVOTHYROXINE 150 MCG, LEVOTHYROXINE 25 MCG PO SCH (06:00)
[2019-03-12] MEDS: INSULIN LISPRO 100 UNIT/ML SUB-Q SCH ×4 (08:24→23:50)
[2019-03-12] MEDS: CHOLECALCIFEROL (VIT D3) 5,000 UNIT TAB PO SCH (09:00)
[2019-03-12] MEDS: levETIRAcetam 500 MG TAB PO SCH (09:00)
[2019-03-12] MEDS: FE FUMARATE/FA/MV, MIN COMB#15 CAP (HEMOCYTE PLUS) PO SCH (09:00)
[2019-03-12] MEDS: CLOPIDOGREL 75 MG TAB PO SCH (09:00)
[2019-03-12] MEDS: METOPROLOL TARTRATE 25 MG TAB PO SCH ×2 (09:01→22:30)
[2019-03-12] MEDS: CALCIUM CARBONATE/VITAMIN D3 500 MG-200 UNIT TAB PO SCH (09:01)
--- NOTE | 2019-03-12 14:49 | Progress Note ---
Assessment and Plan Assessment and plan: Patient is a 78-year-old -[place] woman with a history of hypertension, OA but walks with a walker, diabetes, GERD, ESRD on HD, anemia, hypothyroidism, complete heart block status post pacemaker who presents to [facility] ED with complaints of dysuria and hematuria for the past 2 weeks. patient has been experiencing dysuria and hematuria since being discharged from [facility] on 02/22/2019. According to daughter patient was admitted to [facility] on 02/15 for concerns of seizure-like activity and possible stroke. Ultimately patient symptoms were found to be related to low thyroid level, her Synthroid dose was increased, and she discharged on 02/22/2019. * CT Adbomen/Pelvis IMPRESSION: 1. Interval development of moderate thickening of the urinary bladder with gas in the urinary bladder and bladder wall. Emphysematous cystitis should be considered. 2. Moderate to large amount of fecal material throughout the colon and rectum. 3. Chronic calcific pancreatitis, unchanged. No acute inflammation noted. * CT Head IMPRESSION: 1. No acute intracranial abnormality. 2. Chronic and age- related findings. No change. * pCXR IMPRESSION: No acute abnormality. Urinary tract infection -UA positive for UTI -urine wbc >182, large blood, positive for nitrates, large leukocytes -Urine culture pending, but none ordered on admission, hence abx received prior to urine ctx being sent -on IV Abx Acute metabolic encephalopathy -treat the uti Emphysematous cystitis with gross hematuria -Urology evaluated, input noted -on IV abx Anemia of Chronic Disease -Hemoglobin on admission 9.4 -Large amount of blood in urine -Continue to monitor hemoglobin -Transfuse as needed Elevated troponin -very mild, related to ESRD -No c/o CP ESRD on HD -M/W/F -Last dialyzed on 03/03/2019 -Cr on admission 4.6 -Avoid nephrotoxic agents -Renal dose iv abx -Nephrology following HTN -Monitor BP -Resume home hypertensive meds -controlled, only on metoprolol 12.5mg bid DM type 2 -POC BG monitoring -Continue scheduled Tradjenta and SSI coverage prn Hypothyroidism -Increase Synthroid Hx Complete Heart Block -Pacemaker in situ -Telemetry monitoring DVT PPX -On SCD's -On systemic AC due to blood in urine Hypocalcemia -on [place] supplements -Nephrology following Drop in HCT -from hematuria -slow drop Severe Malnutrition, poa -treat with dietary supplements Advance Directives: No VTE prophylaxis?: Mechanical Plan of care discussed with patient/family: Yes Disposition: continue inpatient care, drop in h/h, urine culture contaminated, d/w Dr. Morse from Infectious Disease, who was resolved about finalization of urine culture prior to discharge. Now that urine ctx inconclusive, patient will need IV abx to be set up through hemodialysis center. I spoke with Nephology yesterday and Dr. Amor, says it is just an order to be fax to his HD center in [place]. I do not believe this will be done over the weekend. I spoke with Dr. Contreras and he will fax over the abx order tomorrow and patient can be discharged. History Interval history: Patient was seen and examined. Follow-up on current diagnosis of AMS. Overnight uneventful as no events directly reported to me. Patient denies any chest pain, shortness breath, nausea/vomiting or severe headaches. Imaging, nursing note, chart, labs and old chart reviewed. Discussed with patient. Hospitalist Physical - Physical exam Narrative exam: Gen: cachetic bmi 16, NAD, Awake, Alert, Orientated x 2, fixated on obtaining tobacco HEENT: NCAT, EOMI, PERRL, OP Clear Neck: supple, no adenopathy, no thyromegaly, no JVD CVS/Heart: RRR, normal S1S2, pulses present bilaterally Chest/Lungs: CTA B, Symmetrical chest expansion, good air entry bilaterally GI/Abdomen: soft, NTND, good bowel sounds, no guarding or rebound /Bladder: no suprapubic tenderness, no CVA or paraspinal tenderness Extermity/Skin: atrophic limbs MSK: FROM x 4 Neuro: CN 2-12 grossly intact, no new focal deficits Psych: calm - Constitutional Vitals: Temp Pulse Resp BP Pulse Ox 98.1 F 70 30 H 123/54 97 03/12/19 13:13 03/12/19 13:13 03/12/19 13:13 03/12/19 13:13 03/12/19 13:13 Results - Labs CBC & Chem 7: 03/11/19 05:23 03/11/19 05:23 Labs: Laboratory Last Values WBC 3.8 K/mm3 (4.5-11.0) L 03/11/19 05:23 RBC 2.67 M/mm3 (3.65-5.03) L 03/11/19 05:23 Hgb 7.9 gm/dl (10.1-14.3) L 03/11/19 05:23 Hct 23.8 % (30.3-42.9) L 03/11/19 05:23 MCV 89 fl (79-97) 03/11/19 05:23 MCH 30 pg (28-32) 03/11/19 05:23 MCHC 33 % (30-34) 03/11/19 05:23 RDW 14.0 % (13.2-15.2) 03/11/19 05:23 Plt Count 173 K/mm3 (140-440) 03/11/19 05:23 Lymph % (Auto) 31.2 % (13.4-35.0) 03/09/19 05:39 Sunflower % (Auto) 13.2 % (0.0-7.3) H 03/09/19 05:39 Eos % (Auto) 4.6 % (0.0-4.3) H 03/09/19 05:39 Baso % (Auto) 2.3 % (0.0-1.8) H 03/09/19 05:39 Lymph # 1.2 K/mm3 (1.2-5.4) 03/09/19 05:39 Sunflower # 0.5 K/mm3 (0.0-0.8) 03/09/19 05:39 Eos # 0.2 K/mm3 (0.0-0.4) 03/09/19 05:39 Baso # 0.1 K/mm3 (0.0-0.1) 03/09/19 05:39 Seg Neutrophils % 48.7 % (40.0-70.0) 03/09/19 05:39 Seg Neutrophils # 1.9 K/mm3 (1.8-7.7) 03/09/19 05:39 Sodium 131 mmol/L (137-145) L 03/11/19 05:23 Potassium 4.0 mmol/L (3.6-5.0) 03/11/19 05:23 Chloride 97.8 mmol/L (98-107) L 03/11/19 05:23 Carbon Dioxide 17 mmol/L (22-30) L 03/11/19 05:23 Anion Gap 20 mmol/L 03/11/19 05:23 BUN 78 mg/dL (7-17) H 03/11/19 05:23 Creatinine 4.8 mg/dL (0.7-1.2) H 03/11/19 05:23 Estimated GFR 11 ml/min 03/11/19 05:23 BUN/Creatinine Ratio 16 % 03/11/19 05:23 Glucose 104 mg/dL (65-100) H 03/11/19 05:23 POC Glucose 296 (70-105) H 03/12/19 11:15 Lactic Acid 1.20 mmol/L (0.7-2.0) 03/08/19 17:36 Calcium 5.5 mg/dL (8.4-10.2) L* 03/11/19 05:23 Total Creatine Kinase 115 units/L (30-135) 03/09/19 12:49 CK-MB (CK-2) 2.0 ng/mL (0.0-4.0) 03/09/19 12:49 CK-MB (CK-2) Rel Index 1.7 (0-4) 03/09/19 12:49 Troponin T 0.068 ng/mL (0.00-0.029) H 03/09/19 12:49 NT-Pro-B Natriuret Pep 3918 pg/mL (0-900) H 03/08/19 17:36 Triglycerides 88 mg/dL (2-149) 03/08/19 17:36 Cholesterol 156 mg/dL (50-199) 03/08/19 17:36 LDL Cholesterol Direct 88 mg/dL (50-130) 03/08/19 17:36 HDL Cholesterol 63 mg/dL (40-59) H 03/08/19 17:36 Cholesterol/HDL Ratio 2.47 % 03/08/19 17:36 TSH 40.380 mlU/mL (0.270-4.200) H 03/09/19 05:39 Free T4 0.93 ng/dL (0.76-1.46) 03/09/19 05:39 Urine Color Red (Yellow) 03/08/19 17:58 Urine Turbidity Clear (Clear) 03/08/19 17:58 Urine pH 6.0 (5.0-7.0) 03/08/19 17:58 Ur Specific [place] 1.006 (1.003-1.030) 03/08/19 17:58 Urine Protein 30 mg/dl mg/dL (Negative) 03/08/19 17:58 Urine Glucose (UA) Negative mg/dL (Negative) 03/08/19 17:58 Urine Ketones Negative mg/dL (Negative) 03/08/19 17:58 Urine Blood Large (Negative) A 03/08/19 17:58 Urine Nitrite Positive (Negative) 03/08/19 17:58 Ur Reducing Substances Not Reportable 03/08/19 17:58 Urine Bilirubin Negative (Negative) 03/08/19 17:58 Urine Ictotest Not Reportable 03/08/19 17:58 Urine Urobilinogen < 2.0 mg/dL (<2.0) 03/08/19 17:58 Ur Leukocyte Esterase Large (Negative) 03/08/19 17:58 Urine WBC (Auto) > 182.0 /HPF (0.0-6.0) H 03/08/19 17:58 Urine RBC (Auto) > 182.0 /HPF (0.0-6.0) 03/08/19 17:58 U Epithel Cells (Auto) 16.0 /HPF (0-13.0) H 03/08/19 17:58 Urine Bacteria (Auto) 4+ /HPF (Negative) 03/08/19 17:58 Urine WBC Clumps 3+ /HPF 03/08/19 17:58 Hepatitis A IgM Ab Non-reactive (NonReactive) 03/09/19 19:34 Hep Bs Antigen Non-reactive (Negative) 03/09/19 19:34 Hep B Core IgM Ab Non-reactive (NonReactive) 03/09/19 19:34 Hepatitis C Antibody Non-reactive (NonReactive) 03/09/19 19:34 Active Medications - Current Medications Current Medications: Generic Name Dose Route Start Last Admin Trade Name Freq PRN Reason Stop Dose Admin Acetaminophen 650 mg 03/08/19 22:53 Tylenol PO Q4H PRN Pain MILD(1-3)/Fever >100.5/PATRICIA Albuterol 2.5 mg 03/08/19 22:53 Proventil IH Q3HRT PRN Shortness Of Breath Atorvastatin Calcium 40 mg 03/09/19 22:00 03/11/19 21:11 Lipitor PO 40 mg QHS [facility] Administration Calcium/Vitamin D 1 each 03/10/19 10:00 03/12/19 09:01 Oysco D 500 Mg-200 Unit PO 1 each QDAY [facility] Administration Cholecalciferol 5,000 unit 03/09/19 10:00 03/12/19 09:00 Vitamin D3 PO 5,000 unit QDAY [facility] Administration Clopidogrel Bisulfate 75 mg 03/10/19 10:00 03/12/19 09:00 Plavix PO 75 mg QDAY [facility] Administration Dextrose 0 ml 03/08/19 22:53 D50w (25gm) Syringe IV Q30MIN PRN Hypoglycemia Protocol Docusate Sodium 100 mg 03/09/19 10:00 03/12/19 09:00 Colace PO 100 mg BID [facility] Administration Docusate Sodium 100 mg 03/09/19 22:00 03/12/19 09:01 Colace PO Not Given BID [facility] Cefepime HCl 1 gm in 100 mls @ 200 mls/hr 03/09/19 18:00 03/11/19 17:49 Cefepime/Ns 1 Gm/100 Ml IV 200 mls/hr QPM [facility] Administration Protocol Sodium Chloride 100 mls @ 999 mls/hr 03/11/19 10:02 Nacl 0.9% IV TEJ PRN Hypotension Insulin Human Lispro 0 unit 03/09/19 07:30 03/12/19 11:39 Humalog SUB-Q 6 unit ACHS [facility] Administration Protocol Levetiracetam 500 mg 03/09/19 15:00 03/12/19 09:00 Keppra PO 500 mg QDAY [facility] Administration Levothyroxine Sodium 100 mcg 03/12/19 06:00 03/12/19 05:17 Synthroid PO 100 mcg DAILY@0600 [facility] Administration Levothyroxine Sodium 75 mcg 03/12/19 06:00 03/12/19 05:17 Synthroid PO 75 mcg DAILY@0600 [facility] Administration Linagliptin 5 mg 03/09/19 22:00 03/11/19 21:11 Tradjenta PO 5 mg QHS [facility] Administration Metoprolol Tartrate 12.5 mg 03/09/19 10:00 03/12/19 09:01 Metoprolol PO 12.5 mg BID [facility] Administration Multivitamins/Iron 1 each 03/09/19 10:00 02/02/20 09:00 Hemocyte Plus PO 1 each QDAY [facility] Administration Ondansetron HCl 4 mg 03/08/19 22:53 Zofran IV Q8H PRN Nausea And Vomiting Sodium Chloride 10 ml 03/09/19 10:00 03/12/19 09:00 Sodium Chloride Flush Syringe 10 Ml IV 10 ml BID [facility] Administration Sodium Chloride 10 ml 03/08/19 22:53 03/10/19 22:51 Sodium Chloride Flush Syringe 10 Ml IV 10 ml PRN PRN Administration LINE FLUSH Nutrition/Malnutrition Assess - Dietary Evaluation Nutrition/Malnutrition Findings: Nutrition Notes Start: 03/09/19 09:16 Freq: Status: Active Protocol: Document 03/09/19 09:16 ISAIAS (Rec: 03/09/19 09:24 [email or web address] [id number]) Co-Sign 03/09/19 09:16 LP Nutrition Notes Need for Assessment generated from: [email or web address],MST Initial or Follow up Assessment Current Diagnosis CKD (stage V CKD),Diabetes, Hypertension Other Pertinent Diagnosis On HD, hypothyrodism, DKA Current Diet Renal Labs/Tests BUN 72 Cr 3.9 BG 304 Ca 5.9 Pertinent Medications Reviewed Height 5 ft 3 in Weight 41 kg [place] Body Weight (kg) 52.27 BMI 16.0 Weight Status Underweight Subjective/Other Information RN screen for malnutriton. Pt was lethargic during visit, and couldn't answer assessment questions. Pt ate 0% of breakfast that was at bedside. Noted slight muscle depletion in hands. 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 No Is Patient Ambulatory and/or Out of Bed No REE-([facility]-confined to bed) 1026.144 Kcal/Kg value to use for calculation 35 Approximate Energy Requirements Using 1435 kcal/Kg Calculation Used for Recommendations Kcal/kg Additional Notes Protein: 49g (>1.2g/kg) Fluid: 1 ml/kcal Nutrition Intervention Change Diet Order: Continue current Add Supplement/Snack (indicate name/kcal Nepro daily /protein ) Provides kCal: 425 Provides Protein (gm) 19 Goal #1 Meet at least 80% of energy and protein needs via PO and ONS intakes Goal #2 Wt gain/maintenance Anticipated Discharge Needs: Renal diet Follow-Up By: 03/13/19 Additional Comments F/U for PO/ONS needs, and further assessment
--- NOTE | 2019-03-12 15:21 | Progress Note ---
Assessment and Plan - Patient Problems (1) Emphysematous cystitis Current Visit: Yes Status: Acute Plan to address problem: Continue antibiotics per infectious disease. Awaiting arrangements for outpatient antibiotics (2) Hypertensive chronic kidney disease with stage 5 chronic kidney disease or end stage renal disease Current Visit: Yes Status: Chronic Plan to address problem: Follow-up blood pressure on current medications (3) Type 2 diabetes mellitus with diabetic chronic kidney disease Current Visit: Yes Status: Chronic Plan to address problem: Blood sugar management by primary attending (4) End stage renal disease Current Visit: No Status: Chronic Plan to address problem: Hemodialysis on a Wednesday, and Wednesday schedule. Can continue as an outpatient on discharge (5) Anemia in chronic illness Current Visit: Yes Status: Acute Plan to address problem: Continue erythropoietin on dialysis Subjective Date of service: 03/12/19 Principal diagnosis: end-stage renal disease with emphysematous cystitis Interval history: Patient seen lying in bed. She has no complaints today. She feels better and looks better. No nausea or vomiting. No pain. No shortness of breath Objective - Exam Narrative Exam: Frail elderly female lying in bed in no acute distress HEENT: NCAT, pink oral mucous membrane Neck: Supple, no venous distention CVS: S1S2 RRR with no murmur, rub or gallop Chest: Clear to auscultation Abdomen: Scaphoid , soft, nontender, no organomegaly, bowel sounds are present Extremities: No edema Neuro: Awake, alert no focal deficits - Vital Signs Vital signs: Vital Signs - 12hr 03/12/19 03/12/19 07:04 13:13 Temperature 97.9 F 98.1 F Pulse Rate 70 70 Respiratory 18 30 H Rate Blood Pressure 134/58 123/54 O2 Sat by Pulse 98 97 Oximetry - Lab 03/11/19 05:23 03/11/19 05:23 Most recent lab results Calcium 5.5 mg/dL (8.4-10.2) L* 03/11/19 05:23 Medications & Allergies - Medications Allergies/Adverse Reactions: Allergies aspirin Allergy (Severe, Verified 02/24/19 10:43) Unknown reflux. Home Medications: Home Medications Medication Instructions Recorded Confirmed Last Taken Type Docusate Sodium [Colace CAP] 100 mg PO BID #30 capsule 11/01/17 03/09/19 03/08/19 10:00 Rx Cholecalciferol Vit D3 [Vitamin D3 5,000 unit PO DAILY #30 tablet 04/25/18 03/09/19 03/08/19 10:00 Rx 1,000 UNIT TAB] Fe Fumarate/FA/Mv, Min Comb#15 1 each PO QDAY #30 capsule 04/25/18 03/09/19 03/08/19 10:00 Rx [Hemocyte Plus] Atorvastatin [Lipitor] 40 mg PO QHS 06/09/18 03/09/19 03/08/19 10:00 History Linagliptin [Tradjenta] 5 mg PO QHS 06/09/18 03/09/19 03/08/19 10:00 History Calcium Carbonate/Vitamin D3 2 each PO TID 03/09/19 03/09/19 03/08/19 10:00 History [Calcium 600-Vit D3 400 Caplet] Clopidogrel 75 mg PO QDAY 03/09/19 03/09/19 03/08/19 10:00 History Levothyroxine [Synthroid] 100 mcg PO QAM 03/09/19 03/09/19 Unknown History amLODIPine 10 mg PO QDAY 03/09/19 03/09/19 03/08/19 10:00 History levETIRAcetam 500 mg PO QDAY 03/09/19 03/09/19 03/08/19 10:00 History Active Medications: Generic Name Dose Route Start Last Admin Trade Name Freq PRN Reason Stop Dose Admin Acetaminophen 650 mg 03/08/19 22:53 Tylenol PO Q4H PRN Pain MILD(1-3)/Fever >100.5/PATRICIA Albuterol 2.5 mg 03/08/19 22:53 Proventil IH Q3HRT PRN Shortness Of Breath Atorvastatin Calcium 40 mg 03/09/19 22:00 03/11/19 21:11 Lipitor PO 40 mg QHS [facility] Administration Calcium/Vitamin D 1 each 03/10/19 10:00 03/12/19 09:01 Oysco D 500 Mg-200 Unit PO 1 each QDAY [facility] Administration Cholecalciferol 5,000 unit 03/09/19 10:00 03/12/19 09:00 Vitamin D3 PO 5,000 unit QDAY [facility] Administration Clopidogrel Bisulfate 75 mg 03/10/19 10:00 03/12/19 09:00 Plavix PO 75 mg QDAY [facility] Administration Dextrose 0 ml 03/08/19 22:53 D50w (25gm) Syringe IV Q30MIN PRN Hypoglycemia Protocol Docusate Sodium 100 mg 03/09/19 10:00 03/12/19 09:00 Colace PO 100 mg BID [facility] Administration Docusate Sodium 100 mg 03/09/19 22:00 03/12/19 09:01 Colace PO Not Given BID [facility] Cefepime HCl 1 gm in 100 mls @ 200 mls/hr 03/09/19 18:00 03/11/19 17:49 Cefepime/Ns 1 Gm/100 Ml IV 200 mls/hr QPM [facility] Administration Protocol Sodium Chloride 100 mls @ 999 mls/hr 03/11/19 10:02 Nacl 0.9% IV TEJ PRN Hypotension Insulin Human Lispro 0 unit 03/09/19 07:30 03/12/19 11:39 Humalog SUB-Q 6 unit ACHS [facility] Administration Protocol Levetiracetam 500 mg 03/09/19 15:00 03/12/19 09:00 Keppra PO 500 mg QDAY [facility] Administration Levothyroxine Sodium 100 mcg 03/12/19 06:00 03/12/19 05:17 Synthroid PO 100 mcg DAILY@0600 [facility] Administration Levothyroxine Sodium 75 mcg 03/12/19 06:00 03/12/19 05:17 Synthroid PO 75 mcg DAILY@0600 [facility] Administration Linagliptin 5 mg 03/09/19 22:00 03/11/19 21:11 Tradjenta PO 5 mg QHS [facility] Administration Metoprolol Tartrate 12.5 mg 03/09/19 10:00 03/12/19 09:01 Metoprolol PO 12.5 mg BID [facility] Administration Multivitamins/Iron 1 each 03/09/19 10:00 03/12/19 09:00 Hemocyte Plus PO 1 each QDAY [facility] Administration Ondansetron HCl 4 mg 03/08/19 22:53 Zofran IV Q8H PRN Nausea And Vomiting Sodium Chloride 10 ml 03/09/19 10:00 03/12/19 09:00 Sodium Chloride Flush Syringe 10 Ml IV 10 ml BID [facility] Administration Sodium Chloride 10 ml 03/08/19 22:53 03/10/19 22:51 Sodium Chloride Flush Syringe 10 Ml IV 10 ml PRN PRN Administration LINE FLUSH
[2019-03-12] MEDS: CEFEPIME/NS 1 GM/100 ML 1 GM/100 ML BAG IV SCH (17:00)
[2019-03-12] MEDS: LINAGLIPTIN 5 MG TAB PO SCH (21:59)
[2019-03-13] MEDS: LEVOTHYROXINE 100 MCG TAB PO SCH (07:04)
[2019-03-13] MEDS: LEVOTHYROXINE 75 MCG TAB PO SCH (07:04)
[2019-03-13] MEDS: INSULIN LISPRO 100 UNIT/ML SUB-Q SCH ×3 (08:23→18:07)
[2019-03-13] MEDS: CHOLECALCIFEROL (VIT D3) 5,000 UNIT TAB PO SCH (10:05)
[2019-03-13] MEDS: DOCUSATE SODIUM 100 MG CAP PO SCH ×2 (10:05→10:09)
[2019-03-13] MEDS: FE FUMARATE/FA/MV, MIN COMB#15 CAP (HEMOCYTE PLUS) PO SCH (10:05)
[2019-03-13] MEDS: METOPROLOL TARTRATE 25 MG TAB PO SCH (10:05)
[2019-03-13] MEDS: CALCIUM CARBONATE/VITAMIN D3 500 MG-200 UNIT TAB PO SCH (10:05)
[2019-03-13] MEDS: levETIRAcetam 500 MG TAB PO SCH (10:05)
[2019-03-13] MEDS: CLOPIDOGREL 75 MG TAB PO SCH (10:05)
--- NOTE | 2019-03-13 10:15 | Progress Note ---
Assessment and Plan Cultures: 03/08/2019 Blood culture: no growth 03/08/2019 urine culture: no growth A/P: 78-year-old female with hypertension, diabetes mellitus, ESRD on hemodialysis, status post pacemaker, GERD admitted with: #Severe cystitis/emphysematous cysitits as noted on CT: does not appear septic. UA with severe pyuria and hematuria. Appreciate urology eval. #ESRD on HD: renally dose abx. Recs: continue IV Cefepime renally adjusted follow up urine culture Ok to discharge on cefepime 2g with dialysis until 03/16/2019 Thank you for the consult, we will sign off. [facility] ([facility]) M: [phone] O: [phone] F: [phone] Subjective Date of service: 03/13/19 Principal diagnosis: end-stage renal disease with emphysematous cystitis Objective - Exam Narrative Exam: Constitutional: Alert, cooperative. No acute distress Head, Ears, Nose: Normocephalic, atraumatic. External ears, nose normal Eyes: Conjunctivae/corneas clear. No icterus. No ptosis. Neck: Supple, no meningeal signs Oral: no thrush Cardiovascular: S1, S2 normal. PPM site non tender Respiratory: Good air entry, clear to auscultation bilaterally GI: Soft, non-tender; bowel sounds normal. No peritoneal signs Musculoskeletal: No pedal edema, no cyanosis. Left UE AVF with thrill, non tender Skin: No rash or abscess Hem/Lymphatic: No palpable cervical or supraclavicular nodes. No lymphangitis Psych: Mood ok. Affect normal Neurological: Awake, alert, but not oriented - Constitutional Vitals: Vital Signs Temp Pulse Resp BP Pulse Ox 98.4 F 79 20 137/59 96 03/13/19 07:21 03/13/19 07:21 03/13/19 07:21 03/13/19 07:21 03/13/19 07:21 Temperature -Last 24 Hours Temperature 98.4 F Temperature 97.6 F Temperature 97.3 F Temperature 98.1 F - Labs CBC & Chem 7: 03/11/19 05:23 03/11/19 05:23 Labs: Abnormal lab results 03/12/19 03/12/19 03/12/19 Range/Units 11:15 16:42 23:00 POC Glucose 296 H 230 H 179 H (70-105) 03/13/19 Range/Units 07:17 POC Glucose 122 H (70-105)
--- NOTE | 2019-03-13 10:39 | Discharge Summary ---
Providers - Providers Date of Admission: 03/08/19 22:41 Date of discharge: 03/13/19 Attending physician: ROBBY HERNANDEZ 03/08/19 22:53 Consult to Physician [CONS] Routine Comment: Consulting Provider: PARTH JOLLY Physician Instructions: Reason For Exam: ??Emphysematous cystitis Consult to Physician [CONS] Routine Comment: Consulting Provider: EDI FERNANDEZ Physician Instructions: Reason For Exam: ESRD on HD M/W/F 03/09/19 10:55 Physical Therapy Evaluation and Treat [CONS] Routine Comment: Reason For Exam: weakness 03/09/19 14:05 Consult to Physician [CONS] Routine Comment: Consulting Provider: GWENDOLYN CLARK Physician Instructions: I notified Reason For Exam: hematuria, emphysematous cystitis 03/13/19 10:17 Consult to Case Management [CONS] Routine Services Needed at Discharge: Home Health Services Additional Physician Instructions: OUTPATIENT PARENTERAL ANTIBIOTIC THERAPY ORDERS Diagnosis: Emphysematous cystitis Antimicrobial administration: cefepime 2g post-HD until 03/16/2019 Line: dialysis line Lab monitoring: CBC with diff, BUN, creatinine, LFTs once per week preferably on Wednesday mornings. Please fax results to [phone] and call [phone] Contreras 01/26/2019 Primary care physician: [employer] [employer] Hospitalization Condition: Stable Hospital course: Patient is a 78-year-old -[place] woman with a history of hypertension, OA but walks with a walker, diabetes, GERD, ESRD on HD, anemia, hypothyroidism, complete heart block status post pacemaker who presents to [facility] ED with complaints of dysuria and hematuria for the past 2 weeks. patient has been experiencing dysuria and hematuria since being discharged from [facility] on 02/22/2019. According to daughter patient was admitted to [facility] on 02/15 for concerns of seizure-like activity and possible stroke. Ultimately patient symptoms were found to be related to low thyroid level, her Synthroid dose was increased, and she discharged on 02/22/2019. Then she returns here with gross hematuria and found to Emphysematous complicated cystitis requring Urology evaluation * CT Adbomen/Pelvis IMPRESSION: 1. Interval development of moderate thickening of the urinary bladder with gas in the urinary bladder and bladder wall. Emphysematous cystitis should be considered. 2. Moderate to large amount of fecal material throughout the colon and rectum. 3. Chronic calcific pancreatitis, unchanged. No acute inflammation noted. * CT Head IMPRESSION: 1. No acute intracranial abnormality. 2. Chronic and age- related findings. No change. * pCXR IMPRESSION: No acute abnormality. Urinary tract infection -UA positive for UTI -urine wbc >182, large blood, positive for nitrates, large leukocytes -Urine culture pending, but none ordered on admission, hence abx received prior to urine ctx being sent -on IV Abx Acute metabolic encephalopathy -treat the uti Emphysematous cystitis with gross hematuria -Urology evaluated, input noted -on IV abx Anemia of blood loss from hematuria with h/o AOCD -Hemoglobin on admission 9.4 -Large amount of blood in urine -Continue to monitor hemoglobin -Transfuse as needed Elevated troponin -very mild, related to ESRD -No c/o CP ESRD on HD -M/W/F -Last dialyzed on 03/03/2019 -Cr on admission 4.6 -Avoid nephrotoxic agents -Renal dose iv abx -Nephrology following HTN -Monitor BP -Resume home hypertensive meds -controlled, only on metoprolol 12.5mg bid DM type 2 -POC BG monitoring -Continue scheduled Tradjenta and SSI coverage prn Hypothyroidism -Increased Synthroid Hx Complete Heart Block -Pacemaker in situ -Telemetry monitoring DVT PPX -On SCD's -On systemic AC due to blood in urine Hypocalcemia -on Calicum supplements -Nephrology following Drop in HCT -from hematuria -slow drop Severe Malnutrition, poa -treat with dietary supplements Advance Directives: No VTE prophylaxis?: Mechanical Plan of care discussed with patient/family: Yes Disposition: home Recs: continue IV Cefepime renally adjusted, follow up urine culture Ok to discharge on cefepime 2g with dialysis until 03/16/2019 Disposition: AR- TO HOME OR SELFCARE Time spent for discharge: 32 minutes Core Measure Documentation - Palliative Care Palliative Care/ Comfort Measures: Not Applicable - Core Measures Any of the following diagnoses?: none - VTE Discharge Requirements Deep Vein Thrombosis/Pulmonary Embolism Present on Admission: No Has pt received <5 days of overlap therapy or INR<2.0: No Anticoagulant overlap therapy prescribed at discharge: No Contraindication No Overlap Therapy order at DC: Not Indicated Exam - Physical Exam Narrative exam: Gen: cachetic bmi 16, NAD, Awake, Alert, Orientated x 2, fixated on obtaining tobacco HEENT: NCAT, EOMI, PERRL, OP Clear Neck: supple, no adenopathy, no thyromegaly, no JVD CVS/Heart: RRR, normal S1S2, pulses present bilaterally Chest/Lungs: CTA B, Symmetrical chest expansion, good air entry bilaterally GI/Abdomen: soft, NTND, good bowel sounds, no guarding or rebound /Bladder: no suprapubic tenderness, no CVA or paraspinal tenderness Extermity/Skin: atrophic limbs MSK: FROM x 4 Neuro: CN 2-12 grossly intact, no new focal deficits Psych: calm - Constitutional Vitals: Temp Pulse Resp BP Pulse Ox 98.4 F 79 20 137/59 96 03/13/19 07:21 03/13/19 10:05 03/13/19 07:21 03/13/19 10:05 03/13/19 07:21 Plan Activity: up only with assistance, fall precautions, other (no strenous activity ) Diet: renal Additional Instructions: IV Cefepime 2g with dialysis until 03/16/2019 Follow up with: MARYJO HER MD [Primary Care Provider] - 3-5 Days GWENDOLYN CLARK MD [Staff Physician] - 7 Days QUENTIN HARPER MD [Staff Physician] - 7 Days
--- NOTE | 2019-03-13 10:52 | Progress Note ---
Assessment and Plan Assessment: 1. Emphysematous Cystitis 2. Hypertension 3. Type 2DM 4. ESRD 5. Anemia of chronic illness Plan: - Continue antibiotics per infectious disease. Awaiting arrangements for outpatient antibiotics - Follow-up blood pressure on current medications - Blood sugar management by primary attending - cont Hemodialysis on a Wednesday, and Wednesday schedule. Can continue as an outpatient on discharge - Continue erythropoietin on dialysis stable for discharge from renal stand point Subjective Date of service: 03/13/19 Principal diagnosis: end-stage renal disease with emphysematous cystitis Interval history: Pt awake, alert, in no acute distress Objective - Vital Signs Vital signs: Vital Signs - 12hr 03/13/19 03/13/19 03/13/19 02:00 07:21 10:05 Temperature 97.6 F 98.4 F Pulse Rate 69 79 79 Respiratory 20 20 Rate Blood Pressure 128/47 137/59 137/59 O2 Sat by Pulse 97 96 Oximetry - General Appearance General appearance: well-developed, well-nourished, appears stated age EENT: ATNC, PERRL, mucous membranes moist Neck: no JVD Respiratory: Present: Clear to Ascultation Cardiology: regular, S1S2 Gastrointestinal: normoactive bowel sounds Integumentary: no rash, other (no edema ) Neurologic: no focal deficit, alert and oriented x3, strength 5/5, CN 3-12 intact Psychiatric: mood/affect appropriate, cooperative - Lab 03/11/19 05:23 03/11/19 05:23 Most recent lab results Calcium 5.5 mg/dL (8.4-10.2) L* 03/11/19 05:23 Medications & Allergies - Medications Allergies/Adverse Reactions: Allergies aspirin Allergy (Severe, Verified 02/24/19 10:43) Unknown reflux. Home Medications: Home Medications Medication Instructions Recorded Confirmed Last Taken Type Docusate Sodium [Colace CAP] 100 mg PO BID #30 capsule 11/01/17 03/09/19 03/08/19 10:00 Rx Cholecalciferol Vit D3 [Vitamin D3 5,000 unit PO DAILY #30 tablet 04/25/18 03/09/19 03/08/19 10:00 Rx 1,000 UNIT TAB] Fe Fumarate/FA/Mv, Min Comb#15 1 each PO QDAY #30 capsule 04/25/18 03/09/19 03/08/19 10:00 Rx [Hemocyte Plus] Atorvastatin [Lipitor] 40 mg PO QHS 06/09/18 03/09/19 03/08/19 10:00 History Linagliptin [Tradjenta] 5 mg PO QHS 06/09/18 03/09/19 03/08/19 10:00 History Calcium Carbonate/Vitamin D3 2 each PO TID 03/09/19 03/09/19 03/08/19 10:00 History [Calcium 600-Vit D3 400 Caplet] Clopidogrel 75 mg PO QDAY 03/09/19 03/09/19 03/08/19 10:00 History Levothyroxine [Synthroid] 100 mcg PO QAM 03/09/19 03/09/19 Unknown History amLODIPine 10 mg PO QDAY 03/09/19 03/09/19 03/08/19 10:00 History levETIRAcetam 500 mg PO QDAY 03/09/19 03/09/19 03/08/19 10:00 History Active Medications: Generic Name Dose Route Start Last Admin Trade Name Freq PRN Reason Stop Dose Admin Acetaminophen 650 mg 03/08/19 22:53 Tylenol PO Q4H PRN Pain MILD(1-3)/Fever >100.5/PATRICIA Albuterol 2.5 mg 03/08/19 22:53 Proventil IH Q3HRT PRN Shortness Of Breath Atorvastatin Calcium 40 mg 03/09/19 22:00 03/12/19 21:58 Lipitor PO 40 mg QHS DUNG Administration Calcium/Vitamin D 1 each 03/10/19 10:00 03/13/19 10:05 Oysco D 500 Mg-200 Unit PO 1 each QDAY DUNG Administration Cholecalciferol 5,000 unit 03/09/19 10:00 03/13/19 10:05 Vitamin D3 PO 5,000 unit QDAY DUNG Administration Clopidogrel Bisulfate 75 mg 03/10/19 10:00 03/13/19 10:05 Plavix PO 75 mg QDAY DUNG Administration Dextrose 0 ml 03/08/19 22:53 D50w (25gm) Syringe IV Q30MIN PRN Hypoglycemia Protocol Docusate Sodium 100 mg 03/09/19 10:00 03/13/19 10:05 Colace PO 100 mg BID DUNG Administration Docusate Sodium 100 mg 03/09/19 22:00 03/13/19 10:09 Colace PO Not Given BID DUNG Cefepime HCl 1 gm in 100 mls @ 200 mls/hr 03/09/19 18:00 03/12/19 17:00 Cefepime/Ns 1 Gm/100 Ml IV 03/16/19 23:59 200 mls/hr QPM DUNG Administration Protocol Sodium Chloride 100 mls @ 999 mls/hr 03/11/19 10:02 Nacl 0.9% IV TEJ PRN Hypotension Insulin Human Lispro 0 unit 03/09/19 07:30 03/13/19 08:23 Humalog SUB-Q Not Given ACHS [facility] Protocol Levetiracetam 500 mg 03/09/19 15:00 03/13/19 10:05 Keppra PO 500 mg QDAY DUNG Administration Levothyroxine Sodium 100 mcg 03/12/19 06:00 03/13/19 07:04 Synthroid PO 100 mcg DAILY@0600 DUNG Administration Levothyroxine Sodium 75 mcg 03/12/19 06:00 03/13/19 07:04 Synthroid PO 75 mcg DAILY@0600 DUNG Administration Linagliptin 5 mg 03/09/19 22:00 03/12/19 21:59 Tradjenta PO 5 mg QHS DUNG Administration Metoprolol Tartrate 12.5 mg 03/09/19 10:00 03/13/19 10:05 Metoprolol PO 12.5 mg BID DUNG Administration Multivitamins/Iron 1 each 03/09/19 10:00 03/13/19 10:05 Hemocyte Plus PO 1 each QDAY DUNG Administration Ondansetron HCl 4 mg 03/08/19 22:53 Zofran IV Q8H PRN Nausea And Vomiting Sodium Chloride 10 ml 03/09/19 10:00 03/13/19 10:09 Sodium Chloride Flush Syringe 10 Ml IV 10 ml BID DUNG Administration Sodium Chloride 10 ml 03/08/19 22:53 03/10/19 22:51 Sodium Chloride Flush Syringe 10 Ml IV 10 ml PRN PRN Administration LINE FLUSH
[2019-03-13 13:58] VITALS: BP 159/54
--- NOTE | 2019-03-13 14:31 | Progress Note ---
Assessment and Plan Assessment and plan: Patient is a 78-year-old -French woman with a history of hypertension, OA but walks with a walker, diabetes, GERD, ESRD on HD, anemia, hypothyroidism, complete heart block status post pacemaker who presents to [facility] ED with complaints of dysuria and hematuria for the past 2 weeks. patient has been experiencing dysuria and hematuria since being discharged from [facility] on 02/22/2019. According to daughter patient was admitted to [facility] on 02/15 for concerns of seizure-like activity and possible stroke. Ultimately patient symptoms were found to be related to low thyroid level, her Synthroid dose was increased, and she discharged on 02/22/2019. * CT Adbomen/Pelvis IMPRESSION: 1. Interval development of moderate thickening of the urinary bladder with gas in the urinary bladder and bladder wall. Emphysematous cystitis should be considered. 2. Moderate to large amount of fecal material throughout the colon and rectum. 3. Chronic calcific pancreatitis, unchanged. No acute inflammation noted. * CT Head IMPRESSION: 1. No acute intracranial abnormality. 2. Chronic and age- related findings. No change. * pCXR IMPRESSION: No acute abnormality. Urinary tract infection -UA positive for UTI -urine wbc >182, large blood, positive for nitrates, large leukocytes -Urine culture pending, but none ordered on admission, hence abx received prior to urine ctx being sent -on IV Abx Acute metabolic encephalopathy -treat the uti Emphysematous cystitis with gross hematuria -Urology evaluated, input noted -on IV abx Anemia of Chronic Disease -Hemoglobin on admission 9.4 -Large amount of blood in urine -Continue to monitor hemoglobin -Transfuse as needed Elevated troponin -very mild, related to ESRD -No c/o CP ESRD on HD -M/W/F -Last dialyzed on 03/03/2019 -Cr on admission 4.6 -Avoid nephrotoxic agents -Renal dose iv abx -Nephrology following HTN -Monitor BP -Resume home hypertensive meds -controlled, only on metoprolol 12.5mg bid DM type 2 -POC BG monitoring -Continue scheduled Tradjenta and SSI coverage prn Hypothyroidism -Increase Synthroid Hx Complete Heart Block -Pacemaker in situ -Telemetry monitoring DVT PPX -On SCD's -On systemic AC due to blood in urine Hypocalcemia -on Calicum supplements -Nephrology following Drop in HCT -from hematuria -slow drop Severe Malnutrition, poa -treat with dietary supplements Advance Directives: No VTE prophylaxis?: Mechanical Plan of care discussed with patient/family: Yes Disposition: continue inpatient care, still waiting on abx to be setup by ID History Interval history: Patient was seen and examined. Follow-up on current diagnosis of AMS. Overnight uneventful as no events directly reported to me. Patient denies any chest pain, shortness breath, nausea/vomiting or severe headaches. Imaging, nursing note, chart, labs and old chart reviewed. Discussed with patient. Hospitalist Physical - Physical exam Narrative exam: Gen: cachetic bmi 16, NAD, Awake, Alert, Orientated x 2, fixated on obtaining tobacco HEENT: NCAT, EOMI, PERRL, OP Clear Neck: supple, no adenopathy, no thyromegaly, no JVD CVS/Heart: RRR, normal S1S2, pulses present bilaterally Chest/Lungs: CTA B, Symmetrical chest expansion, good air entry bilaterally GI/Abdomen: soft, NTND, good bowel sounds, no guarding or rebound /Bladder: no suprapubic tenderness, no CVA or paraspinal tenderness Extermity/Skin: atrophic limbs MSK: FROM x 4 Neuro: CN 2-12 grossly intact, no new focal deficits Psych: calm - Constitutional Vitals: Temp Pulse Resp BP Pulse Ox 97.4 F L 70 20 159/54 99 03/13/19 12:43 03/13/19 12:43 03/13/19 12:43 03/13/19 12:43 03/13/19 12:43 Results - Labs CBC & Chem 7: 03/11/19 05:23 03/11/19 05:23 Labs: Laboratory Last Values WBC 3.8 K/mm3 (4.5-11.0) L 03/11/19 05:23 RBC 2.67 M/mm3 (3.65-5.03) L 03/11/19 05:23 Hgb 7.9 gm/dl (10.1-14.3) L 03/11/19 05:23 Hct 23.8 % (30.3-42.9) L 03/11/19 05:23 MCV 89 fl (79-97) 03/11/19 05:23 MCH 30 pg (28-32) 03/11/19 05:23 MCHC 33 % (30-34) 03/11/19 05:23 RDW 14.0 % (13.2-15.2) 03/11/19 05:23 Plt Count 173 K/mm3 (140-440) 03/11/19 05:23 Lymph % (Auto) 31.2 % (13.4-35.0) 03/09/19 05:39 [place] % (Auto) 13.2 % (0.0-7.3) H 03/09/19 05:39 Eos % (Auto) 4.6 % (0.0-4.3) H 03/09/19 05:39 Baso % (Auto) 2.3 % (0.0-1.8) H 03/09/19 05:39 Lymph # 1.2 K/mm3 (1.2-5.4) 03/09/19 05:39 [place] # 0.5 K/mm3 (0.0-0.8) 03/09/19 05:39 Eos # 0.2 K/mm3 (0.0-0.4) 03/09/19 05:39 Baso # 0.1 K/mm3 (0.0-0.1) 03/09/19 05:39 Seg Neutrophils % 48.7 % (40.0-70.0) 03/09/19 05:39 Seg Neutrophils # 1.9 K/mm3 (1.8-7.7) 03/09/19 05:39 Sodium 131 mmol/L (137-145) L 03/11/19 05:23 Potassium 4.0 mmol/L (3.6-5.0) 03/11/19 05:23 Chloride 97.8 mmol/L (98-107) L 03/11/19 05:23 Carbon Dioxide 17 mmol/L (22-30) L 03/11/19 05:23 Anion Gap 20 mmol/L 03/11/19 05:23 BUN 78 mg/dL (7-17) H 03/11/19 05:23 Creatinine 4.8 mg/dL (0.7-1.2) H 03/11/19 05:23 Estimated GFR 11 ml/min 03/11/19 05:23 BUN/Creatinine Ratio 16 % 03/11/19 05:23 Glucose 104 mg/dL (65-100) H 03/11/19 05:23 POC Glucose 186 (70-105) H 03/13/19 11:45 Lactic Acid 1.20 mmol/L (0.7-2.0) 03/08/19 17:36 Calcium 5.5 mg/dL (8.4-10.2) L* 03/11/19 05:23 Total Creatine Kinase 115 units/L (30-135) 03/09/19 12:49 CK-MB (CK-2) 2.0 ng/mL (0.0-4.0) 03/09/19 12:49 CK-MB (CK-2) Rel Index 1.7 (0-4) 03/09/19 12:49 Troponin T 0.068 ng/mL (0.00-0.029) H 03/09/19 12:49 NT-Pro-B Natriuret Pep 3918 pg/mL (0-900) H 03/08/19 17:36 Triglycerides 88 mg/dL (2-149) 03/08/19 17:36 Cholesterol 156 mg/dL (50-199) 03/08/19 17:36 LDL Cholesterol Direct 88 mg/dL (50-130) 03/08/19 17:36 HDL Cholesterol 63 mg/dL (40-59) H 03/08/19 17:36 Cholesterol/HDL Ratio 2.47 % 03/08/19 17:36 TSH 40.380 mlU/mL (0.270-4.200) H 03/09/19 05:39 Free T4 0.93 ng/dL (0.76-1.46) 03/09/19 05:39 Urine Color Red (Yellow) 03/08/19 17:58 Urine Turbidity Clear (Clear) 03/08/19 17:58 Urine pH 6.0 (5.0-7.0) 03/08/19 17:58 Ur Specific [place] 1.006 (1.003-1.030) 03/08/19 17:58 Urine Protein 30 mg/dl mg/dL (Negative) 03/08/19 17:58 Urine Glucose (UA) Negative mg/dL (Negative) 03/08/19 17:58 Urine Ketones Negative mg/dL (Negative) 03/08/19 17:58 Urine Blood Large (Negative) A 03/08/19 17:58 Urine Nitrite Positive (Negative) 03/08/19 17:58 Ur Reducing Substances Not Reportable 03/08/19 17:58 Urine Bilirubin Negative (Negative) 03/08/19 17:58 Urine Ictotest Not Reportable 03/08/19 17:58 Urine Urobilinogen < 2.0 mg/dL (<2.0) 03/08/19 17:58 Ur Leukocyte Esterase Large (Negative) 03/08/19 17:58 Urine WBC (Auto) > 182.0 /HPF (0.0-6.0) H 03/08/19 17:58 Urine RBC (Auto) > 182.0 /HPF (0.0-6.0) 03/08/19 17:58 U Epithel Cells (Auto) 16.0 /HPF (0-13.0) H 03/08/19 17:58 Urine Bacteria (Auto) 4+ /HPF (Negative) 03/08/19 17:58 Urine WBC Clumps 3+ /HPF 03/08/19 17:58 Hepatitis A IgM Ab Non-reactive (NonReactive) 03/09/19 19:34 Hep Bs Antigen Non-reactive (Negative) 03/09/19 19:34 Hep B Core IgM Ab Non-reactive (NonReactive) 03/09/19 19:34 Hepatitis C Antibody Non-reactive (NonReactive) 03/09/19 19:34 Active Medications - Current Medications Current Medications: Generic Name Dose Route Start Last Admin Trade Name Freq PRN Reason Stop Dose Admin Acetaminophen 650 mg 03/08/19 22:53 Tylenol PO Q4H PRN Pain MILD(1-3)/Fever >100.5/PATRICIA Albuterol 2.5 mg 03/08/19 22:53 Proventil IH Q3HRT PRN Shortness Of Breath Atorvastatin Calcium 40 mg 03/09/19 22:00 03/12/19 21:58 Lipitor PO 40 mg QHS DUNG Administration Calcium/Vitamin D 1 each 03/10/19 10:00 03/13/19 10:05 Oysco D 500 Mg-200 Unit PO 1 each QDAY DUNG Administration Cholecalciferol 5,000 unit 03/09/19 10:00 03/13/19 10:05 Vitamin D3 PO 5,000 unit QDAY DUNG Administration Clopidogrel Bisulfate 75 mg 03/10/19 10:00 03/13/19 10:05 Plavix PO 75 mg QDAY DUNG Administration Dextrose 0 ml 03/08/19 22:53 D50w (25gm) Syringe IV Q30MIN PRN Hypoglycemia Protocol Docusate Sodium 100 mg 03/09/19 10:00 03/13/19 10:05 Colace PO 100 mg BID DUNG Administration Docusate Sodium 100 mg 03/09/19 22:00 03/13/19 10:09 Colace PO Not Given BID DUNG Cefepime HCl 1 gm in 100 mls @ 200 mls/hr 03/09/19 18:00 03/12/19 17:00 Cefepime/Ns 1 Gm/100 Ml IV 03/16/19 23:59 200 mls/hr QPM DUNG Administration Protocol Sodium Chloride 100 mls @ 999 mls/hr 03/11/19 10:02 Nacl 0.9% IV TEJ PRN Hypotension Insulin Human Lispro 0 unit 03/09/19 07:30 03/13/19 13:00 Humalog SUB-Q 3 unit ACHS DUNG Administration Protocol Levetiracetam 500 mg 03/09/19 15:00 03/13/19 10:05 Keppra PO 500 mg QDAY DUNG Administration Levothyroxine Sodium 100 mcg 03/12/19 06:00 03/13/19 07:04 Synthroid PO 100 mcg DAILY@0600 DUNG Administration Levothyroxine Sodium 75 mcg 03/12/19 06:00 03/13/19 07:04 Synthroid PO 75 mcg DAILY@0600 DUNG Administration Linagliptin 5 mg 03/09/19 22:00 03/12/19 21:59 Tradjenta PO 5 mg QHS DUNG Administration Metoprolol Tartrate 12.5 mg 03/09/19 10:00 03/13/19 10:05 Metoprolol PO 12.5 mg BID DUNG Administration Multivitamins/Iron 1 each 03/09/19 10:00 03/13/19 10:05 Hemocyte Plus PO 1 each QDAY DUNG Administration Ondansetron HCl 4 mg 03/08/19 22:53 Zofran IV Q8H PRN Nausea And Vomiting Sodium Chloride 10 ml 03/09/19 10:00 03/13/19 10:09 Sodium Chloride Flush Syringe 10 Ml IV 10 ml BID DUNG Administration Sodium Chloride 10 ml 03/08/19 22:53 03/10/19 22:51 Sodium Chloride Flush Syringe 10 Ml IV 10 ml PRN PRN Administration LINE FLUSH Nutrition/Malnutrition Assess - Dietary Evaluation Nutrition/Malnutrition Findings: Nutrition Notes Start: 03/09/19 09:16 Freq: Status: Active Protocol: Document 03/13/19 13:24 OH (Rec: 03/13/19 13:27 OH [id number]) Nutrition Notes Initial or Follow up Reassessment Current Diagnosis CKD (stage V CKD),Diabetes, Hypertension Other Pertinent Diagnosis On HD, hypothyrodism, DKA Current Diet Renal/consistent CHO Labs/Tests GLU 122 Pertinent Medications Reviewed Height 5 ft 3 in Weight 41 kg [place] Body Weight (kg) 52.27 BMI 16.0 Weight Status Underweight Subjective/Other Information F/U. Pt. lying in bed. Per pt she has had some n/v. She is drinking the nepro. 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 No Is Patient Ambulatory and/or Out of Bed No REE-([facility]-confined to bed) 1026.144 Kcal/Kg value to use for calculation 35 Approximate Energy Requirements Using 1435 kcal/Kg Calculation Used for Recommendations Kcal/kg Additional Notes Protein: 49g (>1.2g/kg) Fluid: 1 ml/kcal Nutrition Intervention Change Diet Order: Continue current Add Supplement/Snack (indicate name/kcal NEPRO BID /protein ) Provides kCal: 850 Provides Protein (gm) 38 Goal #1 Meet at least 80% of energy and protein needs via PO and ONS intakes Goal #2 Wt gain/maintenance Anticipated Discharge Needs: Renal diet w/consistent CHO Follow-Up By: 03/17/19 Additional Comments F/U for PO/ONS needs, and further assessment
== END 2019-03-13 18:15 | disposition home or self-care (01) | DRG 689 ==
LOC: ED 13:59 → 2B-ACE 22:41
PROVIDERS: ADMIT Internal Medicine; ATTEND Internal Medicine
PROC: 5A1D70Z Performance of Urinary Filtration, Intermittent, Less than 6 Hours Per Day (ICD-10-PCS; principal; 2019-03-11)
DX: N30.81 Other cystitis with hematuria (principal); G93.41 Metabolic encephalopathy; N18.6 End stage renal disease; E43 Unspecified severe protein-calorie malnutrition; Z68.1 Body mass index [BMI] 19.9 or less, adult; I12.0 Hypertensive chronic kidney disease with stage 5 chronic kidney disease or end stage renal disease; K21.9 Gastro-esophageal reflux disease without esophagitis; E03.9 Hypothyroidism, unspecified; D63.8 Anemia in other chronic diseases classified elsewhere; E11.22 Type 2 diabetes mellitus with diabetic chronic kidney disease; E83.51 Hypocalcemia; R31.0 Gross hematuria; E07.9 Disorder of thyroid, unspecified; R79.89 Other specified abnormal findings of blood chemistry; D50.0 Iron deficiency anemia secondary to blood loss (chronic); M19.90 Unspecified osteoarthritis, unspecified site; Z95.0 Presence of cardiac pacemaker; Z79.4 Long term (current) use of insulin; Z86.73 Personal history of transient ischemic attack (TIA), and cerebral infarction without residual deficits; Z88.6 Allergy status to analgesic agent; Z79.899 Other long term (current) drug therapy; Z91.81 History of falling
CPT/HCPCS: 36415; 70450; 71045; 74176; 80048; 80061; 80074; 81001; 82140; 82550; 82553; 82962; 83880; 84439; 84443; 84484; 85025; 85027; 87040; 87086; 87116; 93005; 93010; 93306; 96374; G0378; A9270-GY; J0692; J1815; J1956; J2543; J7030

== ENCOUNTER 2019-04-22 12:38 | Emergency (ER) | payer MEDICARE ==
--- NOTE | 2019-04-22 13:18 | Emergency Department Report ---
<DORCAS LO M - Last Filed: 04/22/19 13:45> ED General Adult HPI - General Chief complaint: Dyspnea/Respdistress Stated complaint: PAPITO Time Seen by Provider: 04/22/19 13:15 Source: EMS Mode of arrival: Stretcher Limitations: Other - History of Present Illness Initial comments: This is an 78-year-old female who is apparently quite hard of hearing. That, her advanced age and comorbidities probably are producing a patient with limited ability to provide any historical information. She is able to tell me her name. She is awake and alert. Beyond that she just tells me that sometimes she has a headache. She does not appear to be in any distress. She is not complaining of an acute headache at this time. She really has no complaints. She acknowledges that sometimes she has difficulty in breathing. However her pulse oximetry is 100% on a respiratory rate is normal. Apparently the patient was transported from home I believe for difficulty in breathing. I do not have the EMS run sheet. There is report that her temperature was 100.2 and that the EMS medical communication specialist referred her to the emergency department as a person of high risk for Covid 19 infection. I do not have any direct information in general or information beyond this. I do not know her last dialysis session. We are attempting to contact her family for additional information. Last hospitalization: Hospitalization Condition: Stable Hospital course: Patient is a 78-year-old -[place] woman with a history of hypertension, OA but walks with a walker, diabetes, GERD, ESRD on HD, anemia, hypothyroidism, complete heart block status post pacemaker who presents to [facility] ED with complaints of dysuria and hematuria for the past 2 weeks. patient has been experiencing dysuria and hematuria since being discharged from [facility] on 02/22/2019. According to daughter patient was admitted to [facility] on 02/15 for concerns of seizure-like activity and possible stroke. Ultimately patient symptoms were found to be related to low thyroid level, her Synthroid dose was increased, and she discharged on 02/22/2019. Then she returns here with gross hematuria and found to Emphysematous complicated cystitis requring Urology evaluation CT Adbomen/Pelvis IMPRESSION: 1. Interval development of moderate thickening of the urinary bladder with gas in the urinary bladder and bladder wall. Emphysematous cystitis should be considered. 2. Moderate to large amount of fecal material throughout the colon and rectum. 3. Chronic calcific pancreatitis, unchanged. No acute inflammation noted. CT Head IMPRESSION: 1. No acute intracranial abnormality. 2. Chronic and age- related findings. No change. pCXR IMPRESSION: No acute abnormality. Urinary tract infection -UA positive for UTI -urine wbc >182, large blood, positive for nitrates, large leukocytes -Urine culture pending, but none ordered on admission, hence abx received prior to urine ctx being sent -on IV Abx Acute metabolic encephalopathy -treat the uti Emphysematous cystitis with gross hematuria -Urology evaluated, input noted -on IV abx Anemia of blood loss from hematuria with h/o AOCD -Hemoglobin on admission 9.4 -Large amount of blood in urine -Continue to monitor hemoglobin -Transfuse as needed Elevated troponin -very mild, related to ESRD -No c/o CP ESRD on HD -M/W/F -Last dialyzed on 03/03/2019 -Cr on admission 4.6 -Avoid nephrotoxic agents -Renal dose iv abx -Nephrology following HTN -Monitor BP -Resume home hypertensive meds -controlled, only on metoprolol 12.5mg bid DM type 2 -POC BG monitoring -Continue scheduled Tradjenta and SSI coverage prn Hypothyroidism -Increased Synthroid Hx Complete Heart Block -Pacemaker in situ -Telemetry monitoring DVT PPX -On SCD's -On systemic AC due to blood in urine Hypocalcemia -on [place] supplements -Nephrology following Drop in HCT -from hematuria -slow drop Severe Malnutrition, poa -treat with dietary supplements -: unknown Location: head Associated Symptoms: denies other symptoms (Very limited history) - Related Data Home Medications Medication Instructions Recorded Confirmed Last Taken Atorvastatin [Lipitor] 40 mg PO QHS 06/09/18 03/09/19 03/08/19 10:00 Linagliptin [Tradjenta] 5 mg PO QHS 06/09/18 03/09/19 03/08/19 10:00 Calcium Carbonate/Vitamin D3 2 each PO TID 03/09/19 03/09/19 03/08/19 10:00 [Calcium 600-Vit D3 400 Caplet] Clopidogrel 75 mg PO QDAY 03/09/19 03/09/19 03/08/19 10:00 Levothyroxine [Synthroid] 100 mcg PO QAM 03/09/19 03/09/19 Unknown amLODIPine 10 mg PO QDAY 03/09/19 03/09/19 03/08/19 10:00 levETIRAcetam 500 mg PO QDAY 03/09/19 03/09/19 03/08/19 10:00 Previous Rx's Medication Instructions Recorded Last Taken Type Docusate Sodium [Colace CAP] 100 mg PO BID #30 capsule 11/01/17 03/08/19 10:00 Rx Cholecalciferol Vit D3 [Vitamin D3 5,000 unit PO DAILY #30 tablet 04/25/18 03/08/19 10:00 Rx 1,000 UNIT TAB] Fe Fumarate/FA/Mv, Min Comb#15 1 each PO QDAY #30 capsule 04/25/18 03/08/19 10:00 Rx [Hemocyte Plus] Allergies Allergy/AdvReac Type Severity Reaction Status Date / Time aspirin Allergy Severe Unknown Verified 02/24/19 10:43 ED Review of Systems Comment: Unobtainable due to pts medical conditions ED Past Medical Hx - Past Medical History Hx Hypertension: Yes Hx Diabetes: Yes Hx GERD: Yes Hx Renal Disease: Yes (HD MWF) Hx Arthritis: Yes Hx Headaches / Migraines: Yes Additional medical history: Anemia, HD M W F. low calcium. Hypothyroidism. 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 - Social History Smoking Status: Never Smoker Substance Use Type: None - Medications Home Medications: Home Medications Medication Instructions Recorded Confirmed Last Taken Type Docusate Sodium [Colace CAP] 100 mg PO BID #30 capsule 11/01/17 03/09/1903/08 10:00 Rx Cholecalciferol Vit D3 [Vitamin D3 5,000 unit PO DAILY #30 tablet 04/25/18 03/09/19 03/08/19 10:00 Rx 1,000 UNIT TAB] Fe Fumarate/FA/Mv, Min Comb#15 1 each PO QDAY #30 capsule 04/25/18 03/09/19 03/08/19 10:00 Rx [Hemocyte Plus] Atorvastatin [Lipitor] 40 mg PO QHS 06/09/18 03/09/19 03/08/19 10:00 History Linagliptin [Tradjenta] 5 mg PO QHS 06/09/18 03/09/19 03/08/19 10:00 History Calcium Carbonate/Vitamin D3 2 each PO TID 03/09/19 03/09/19 03/08/19 10:00 History [Calcium 600-Vit D3 400 Caplet] Clopidogrel 75 mg PO QDAY 03/09/19 03/09/19 03/08/19 10:00 History Levothyroxine [Synthroid] 100 mcg PO QAM 03/09/19 03/09/19 Unknown History amLODIPine 10 mg PO QDAY 03/09/19 03/09/19 03/08/19 10:00 History levETIRAcetam 500 mg PO QDAY 03/09/19 03/09/19 03/08/19 10:00 History ED Physical Exam - General Limitations: Physical Limitation General appearance: cachectic - Head Head exam: Present: atraumatic, normocephalic - Eye Eye exam: Present: normal appearance. Absent: scleral icterus - ENT ENT exam: Present: mucous membranes moist - Neck Neck exam: Present: normal inspection - Respiratory Respiratory exam: Present: normal lung sounds bilaterally, other (Normal work of breathing). Absent: respiratory distress - Cardiovascular Cardiovascular Exam: Present: regular rate, normal rhythm. Absent: systolic murmur, diastolic murmur, rubs, gallop - GI/Abdominal GI/Abdominal exam: Present: soft, normal bowel sounds. Absent: distended, tenderness, guarding - Extremities Exam Extremities exam: Present: normal inspection, normal capillary refill. Absent: pedal edema, calf tenderness - Back Exam Back exam: Present: normal inspection - Neurological Exam Neurological exam: Present: alert, other (No acute focal deficits noted). Absent: CN II-XII intact (Extremely hard of hearing) - Psychiatric Psychiatric exam: Present: normal mood, flat affect - Skin Skin exam: Present: warm, dry, intact, normal color. Absent: rash ED Medical Decision Making - Radiology Data Radiology results: image reviewed (Chest x-ray no acute process seen) ED Disposition Clinical Impression: End stage renal disease Disposition: TO HOME OR SELFCARE Condition: Stable Instructions: End-Stage Kidney Disease (ED) Referrals: PRIMARY CARE, [Primary Care Provider] - 3-5 Days <AYUSH GERMAN - Last Filed: 04/22/19 15:13> ED Review of Systems ROS: Stated complaint: PAPITO Other details as noted in HPI ED Course Vital Signs 04/22/19 04/22/19 13:31 13:33 Temperature 97.1 F L Pulse Rate 80 70 Respiratory 13 12 Rate Blood Pressure 141/59 Blood Pressure 164/62 [Right] O2 Sat by Pulse 100 100 Oximetry ED Medical Decision Making - Lab Data Result diagrams: 04/22/19 13:19 04/22/19 13:58 - Medical Decision Making Ms. Ballesteros is 78-year-old female signed out to me by my colleague Dr. Lo. Patient is apparently quite hard of hearing. That, her advanced age and comorbidities probably are producing a patient with limited ability to provide any historical information. She is able to tell me her name. She is awake and alert. Beyond that she just tells me that sometimes she has a headache. She does not appear to be in any distress. She is not complaining of an acute headache at this time. She really has no complaints. She acknowledges that sometimes she has difficulty in breathing. However her pulse oximetry is 100% on a respiratory rate is normal. Apparently the patient was transported from home I believe for difficulty in breathing. I do not have the EMS run sheet. There is report that her temperature was 100.2 and that the EMS medical communication specialist referred her to the emergency department as a person of high risk for Covid 19 infection. I do not have any direct information in general or information beyond this. I do not know her last dialysis session. We are attempting to contact her family for a dditional information. Patient remained asymptomatic in the emergency room. Specifically patient does not have any fever, chills, shortness of breath or cough. Patient does not showing any symptoms of upper or lower respiratory infection. No clinical, laboratory or imaging evidence to test for call COVID-19 patient labs reviewed and showed a potassium of 3.3, patient is a dialysis patient. Chest x-ray is unremarkable. Patient will be discharged home to follow-up with her formwork carpenter for her next dialysis. Critical care attestation.: If time is entered above; I have spent that time in minutes in the direct care of this critically ill patient, excluding procedure time. ED Disposition Is pt being admited?: No
--- NOTE | 2019-04-22 13:54 | XRay Report ---
CHEST 1 VIEW INDICATION: Dyspnea. COMPARISON: 03/08/2019 FINDINGS: Support devices: Stable pacemaker. Heart: Within normal limits. Lungs/Pleura: Mild scarring remains left base. Additional findings: None. IMPRESSION: Stable scarring left base. Signer Name: Andreas Armenta MD Signed: 04/22/2019 1:50 PM Workstation Name: [id number]
[2019-04-22 14:33] LABS: Eosinophils # (Auto) 0.1 K/mm3 (0.0-0.4); Eosinophils % (Auto) 2.6 % (0.0-4.3); Hematocrit 31.3 % (30.3-42.9); Hemoglobin 10.2 gm/dl (10.1-14.3); Lymphocytes # (Auto) 1.1 K/mm3 (1.2-5.4); Lymphocytes % (Auto) 25.8 % (13.4-35.0); Mean Corpuscular HGB Conc 33 % (30-34); Mean Corpuscular Volume 94 fl (79-97); Monocytes # (Auto) 0.5 K/mm3 (0.0-0.8); Monocytes % (Auto) 11.3 % (0.0-7.3); Platelet Count 167 K/mm3 (140-440); Red Blood Count 3.35 M/mm3 (3.65-5.03); Red Cell Distribution Width 16.3 % (13.2-15.2)
[2019-04-22 14:55] LABS: Creatine Kinase MB 1.9 ng/mL (0.0-4.0)
[2019-04-22 14:56] LABS: Alanine Aminotransferase 25 units/L (7-56); Albumin 3.6 g/dL (3.9-5); BUN/Creatinine Ratio 12; Blood Urea Nitrogen 47 mg/dL (7-17); Calcium 8.1 mg/dL (8.4-10.2); Hemolysis Index 13
[2019-04-22 14:57] LABS: Bilirubin,Direct < 0.2 mg/dL (0-0.2)
[2019-04-22 15:19] LABS: INR 1.03 (0.87-1.13); Partial Thromboplastin Time 27.3 Sec. (24.2-36.6)
[2019-04-22 17:59] VITALS: BP 162/62
== END 2019-04-22 16:25 | disposition home or self-care (01) ==
LOC: ED 12:38
DX: E11.22 Type 2 diabetes mellitus with diabetic chronic kidney disease (principal); N18.6 End stage renal disease; E03.9 Hypothyroidism, unspecified; D64.9 Anemia, unspecified; G43.909 Migraine, unspecified, not intractable, without status migrainosus; M19.90 Unspecified osteoarthritis, unspecified site; K21.9 Gastro-esophageal reflux disease without esophagitis; Z88.6 Allergy status to analgesic agent; Z79.899 Other long term (current) drug therapy; Z98.890 Other specified postprocedural states; Z95.0 Presence of cardiac pacemaker
CPT/HCPCS: 36415; 71045; 80048; 80076; 82140; 82550; 82553; 83880; 84100; 84484; 85025; 85610; 85730; 87040; 93005; 93010

== ENCOUNTER 2019-05-22 16:32 | Observation (INO) | payer MEDICARE ==
--- NOTE | 2019-05-22 16:56 | Event Note ---
ED Screening Note Date of service: 05/22/19 Time: 16:54 ED Screening Note: 79 y/o female with ERSD that has missed dialysis times 2 days. This initial assessment/diagnostic orders/clinical plan/treatment(s) is/are subject to change based on patients health status, clinical progression and re- assessment by fellow clinical providers in the ED. Further treatment and workup at subsequent clinical providers discretion. Patient/guardian urged not to elope from the ED as their condition may be serious if not clinically assessed and managed. Initial orders include:
--- NOTE | 2019-05-22 17:29 | Emergency Department Report ---
HPI - General Chief Complaint: Medical Clearance Time Seen by Provider: 05/22/19 16:52 - HPI HPI: 79-year-old female presents to the emergency department from home with the need for dialysis. Patient gets dialysis on Wednesday and Wednesday but apparently she was in the emergency department last Wednesday due to issues with her thyroid and therefore missed her dialysis. She last had dialysis 1 week ago. Her net developer architect is Dr. Connor. The patient has a past medical history of arthritis, diabetes, GERD, migraines, hypertension, hypothyroidism and the end- stage renal disease. Patient denies any shortness of breath, fever, cough, edema. ED Past Medical Hx - Past Medical History Previous Medical History?: Yes Hx Hypertension: Yes Hx Diabetes: Yes Hx GERD: Yes Hx Renal Disease: Yes (HD MWF) Hx Arthritis: Yes Hx Headaches / Migraines: Yes Additional medical history: Anemia, HD M W F. low calcium. Hypothyroidism. 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 - Social History Smoking Status: Never Smoker Substance Use Type: None - Medications Home Medications: Home Medications Medication Instructions Recorded Confirmed Last Taken Type Docusate Sodium [Colace CAP] 100 mg PO BID #30 capsule 11/01/17 03/09/19 03/08/19 10:00 Rx Cholecalciferol Vit D3 [Vitamin D3 5,000 unit PO DAILY #30 tablet 04/25/18 03/09/19 03/08/19 10:00 Rx 1,000 UNIT TAB] Fe Fumarate/FA/Mv, Min Comb#15 1 each PO QDAY #30 capsule 04/25/18 03/09/19 03/08/19 10:00 Rx [Hemocyte Plus] Atorvastatin [Lipitor] 40 mg PO QHS 06/09/18 03/09/19 03/08/19 10:00 History Linagliptin [Tradjenta] 5 mg PO QHS 06/09/18 03/09/19 03/08/19 10:00 History Calcium Carbonate/Vitamin D3 2 each PO TID 03/09/19 03/09/19 03/08/19 10:00 History [Calcium 600-Vit D3 400 Caplet] Clopidogrel 75 mg PO QDAY 03/09/19 03/09/19 03/08/19 10:00 History Levothyroxine [Synthroid] 100 mcg PO QAM 03/09/19 03/09/19 Unknown History amLODIPine 10 mg PO QDAY 03/09/19 03/09/19 03/08/19 10:00 History levETIRAcetam 500 mg PO QDAY 03/09/19 03/09/19 03/08/19 10:00 History Levothyroxine [Synthroid] 50 mcg PO QAM #30 tablet 05/19/19 Unknown Rx ED Review of Systems ROS: Stated complaint: DIALYSIS Other details as noted in HPI Comment: All other systems reviewed and negative Constitutional: denies: chills, fever Eyes: denies: eye pain, vision change ENT: denies: ear pain, throat pain Respiratory: denies: cough, shortness of breath Cardiovascular: denies: chest pain, palpitations Gastrointestinal: denies: abdominal pain, vomiting Genitourinary: denies: dysuria, discharge Musculoskeletal: denies: back pain, arthralgia Skin: denies: rash, lesions Neurological: denies: headache, weakness Physical Exam - Physical Exam Vital Signs: Vital Signs 05/22/19 16:52 Temperature 97.9 F Pulse Rate 81 Respiratory 20 Rate Blood Pressure 191/65 O2 Sat by Pulse 97 Oximetry Physical Exam: GENERAL: The patient is well-developed well-nourished. HENT: Normocephalic. Atraumatic. Patient has moist mucous membranes. EYES: Extraocular motions are intact. NECK: Supple. Trachea is midline. CHEST/LUNGS: Clear to auscultation. There is no respiratory distress noted. HEART/CARDIOVASCULAR: Regular. There is no tachycardia. ABDOMEN: Abdomen is soft, nontender. Patient has normal bowel sounds. There is no abdominal distention. SKIN: Skin is warm and dry. NEURO: The patient is awake and cooperative. She is AAO x1-2. Normal speech. MUSCULOSKELETAL: There is no tenderness or deformity. There is no evidence of acute injury. ED Course Vital Signs 05/22/19 16:52 Temperature 97.9 F Pulse Rate 81 Respiratory 20 Rate Blood Pressure 191/65 O2 Sat by Pulse 97 Oximetry - Consultations Consultation #1: 05/22/19 23:[address] Allan, 1 of the nephrologists at [facility], and they will consult on this patient and provide dialysis tomorrow. ED Medical Decision Making - Lab Data Result diagrams: 05/22/19 17:05 05/22/19 17:05 - Radiology Data Radiology results: report reviewed, image reviewed interpreted by me: Chest x-ray does not show any acute process. There are no pleural effusions, obvious pneumonia and there is no pneumothorax. CT head/brain wo con INDICATION / CLINICAL INFORMATION: 79 years Female; AMS. TECHNIQUE: Routine CT head without contrast. All CT scans at this location are performed using CT dose reduction for ALARA by means of automated exposure control. COMPARISON: 05/19/2019 FINDINGS: BRAIN / INTRACRANIAL CONTENTS: Old, small branch MCA infarct suggested in the right parietal lobe, along the intraparietal sulcus, posterior to the postcentral gyrus. Old, small branch PICA infarcts seen on the right. Old, small branch SCA infarct seen posteriorly on the left. Similar type findings suggested on prior. Otherwise, no acute hemorrhage, mass effect, midline shift, hydrocephalus, or acute, large territorial infarct. Mild to moderate cerebral and mild cerebellar atrophy. Mild degree of hippocampal atrophy suggested bilaterally. There are mild areas of decreased attenuation in the white matter of the cerebral hemispheres. These are nonspecific findings and may be related to microangiopathy (hypertension, diabetes, atherosclerosis), given the patient's age. It might be difficult to evaluate for small areas of ischemia without diffusion imaging by MRI. CRANIOCERVICAL JUNCTION: No significant abnormality. ORBITS: No significant abnormality of visualized orbits. SINUSES / MASTOIDS: No significant abnormality the visualized paranasal sinuses or mastoid air cells. ADDITIONAL FINDINGS: Subcutaneous soft tissue swelling suggested in the left frontal region. No signs of underlying calvarial fracture. Atherosclerotic disease is seen in the anterior circulation. IMPRESSION: 1. No focal mass, hemorrhage, hydrocephalus, or acute, large territorial infarct. - Medical Decision Making This patient presents to the emergency department after she was unable to get dialysis today because she missed her last dialysis session and last was niko lyzed a week ago. On examination the patient is AAO x1-2. There are some records reviewed from previous visits that show that the patient does have some history of altered mental status but it is unknown whether she has any dementia. I spoke with the patient's daughter who says that her mother is altered from baseline and she believes this happens when her thyroid level is abnormal. Patient has a history of hypothyroidism on 50 mcg of levothyroxine. Her TSH was 13 but free T4 was 1.8. Patient's metabolic panel is consistent with her end- stage renal disease but there is no hyperkalemia. Nephrology was contacted and consulted. Because of the altered mental status, a CT scan of the head without contrast was done that did not show any focal mass, hemorrhage, hydrocephalus or large territorial infarct. The patient will be admitted to the hospital for further evaluation and treatment and was accepted for admission by the hospitalist, Dr. [place]. Critical Care Time: No Critical care attestation.: If time is entered above; I have spent that time in minutes in the direct care of this critically ill patient, excluding procedure time. ED Disposition Clinical Impression: ESRD needing dialysis Altered mental status Qualifiers: Altered mental status type: unspecified Qualified Code(s): R41.82 - Altered mental status, unspecified Hypertension Qualifiers: Hypertension type: essential hypertension Qualified Code(s): I10 - Essential (p rimary) hypertension Disposition: 09 OP ADMIT IP TO THIS HOSP Is pt being admited?: Yes Condition: Fair Time of Disposition: 23:06
[2019-05-22 17:34] LABS: Basophils % (Auto) 0.7 % (0.0-1.8); Eosinophils # (Auto) 0.2 K/mm3 (0.0-0.4); Hematocrit 36.6 % (30.3-42.9); Hemoglobin 11.9 gm/dl (10.1-14.3); Lymphocytes # (Auto) 1.2 K/mm3 (1.2-5.4); Lymphocytes % (Auto) 27.7 % (13.4-35.0); Mean Corpuscular HGB Conc 33 % (30-34); Mean Corpuscular Volume 93 fl (79-97); Monocytes # (Auto) 0.5 K/mm3 (0.0-0.8); Monocytes % (Auto) 11.7 % (0.0-7.3); Platelet Count 165 K/mm3 (140-440); Red Blood Count 3.95 M/mm3 (3.65-5.03); Red Cell Distribution Width 13.9 % (13.2-15.2)
[2019-05-22 17:56] LABS: Calcium 9.7 mg/dL (8.4-10.2)
--- NOTE | 2019-05-22 18:00 | XRay Report ---
Chest single view INDICATION: Dyspnea IMPRESSION: The lungs are grossly clear. The heart size is normal. Cardiac leads project unchanged in position from 05/19/2019. Signer Name: Rigoberto Zamora MD Signed: 05/22/2019 5:56 PM Workstation Name: [id number]
[2019-05-22] MEDS ORDERED: hydrALAZINE 20 MG/1 ML INJ IV ONE (19:02)
--- NOTE | 2019-05-22 19:05 | Cat Scan Report ---
CT head/brain wo con INDICATION / CLINICAL INFORMATION: 79 years Female; AMS. TECHNIQUE: Routine CT head without contrast. All CT scans at this location are performed using CT dos e reduction for ALARA by means of automated exposure control. COMPARISON: 05/19/2019 FINDINGS: BRAIN / INTRACRANIAL CONTENTS: Old, small branch MCA infarct suggested in the right parietal lobe, al efrain the intraparietal sulcus, posterior to the postcentral gyrus. Old, small branch PICA infarcts seen on the right. Old, small branch SCA infarct seen posteriorly on the left. Similar type findings suggested on prior. Otherwise, no acute hemorrhage, mass effect, midline shift, hydrocephalus, or acute, large territoria l infarct. Mild to moderate cerebral and mild cerebellar atrophy. Mild degree of hippocampal atrophy suggested b ilaterally. There are mild areas of decreased attenuation in the white matter of the cerebral hemispheres. These are nonspecific findings and may be related to microangiopathy (hypertension, diabetes, atheroscleros is), given the patient's age. It might be difficult to evaluate for small areas of ischemia without d iffusion imaging by MRI. CRANIOCERVICAL JUNCTION: No significant abnormality. ORBITS: No significant abnormality of visualized orbits. SINUSES / MASTOIDS: No significant abnormality the visualized paranasal sinuses or mastoid air cells. ADDITIONAL FINDINGS: Subcutaneous soft tissue swelling suggested in the left frontal region. No signs of underlying calvarial fracture. Atherosclerotic disease is seen in the anterior circulation. IMPRESSION: 1. No focal mass, hemorrhage, hydrocephalus, or acute, large territorial infarct. Signer Name: Alen Ro MD, III Signed: 05/22/2019 7:01 PM Workstation Name: [id number]
[2019-05-22] MEDS ORDERED: NALOXONE 0.4 MG/1 ML INJ IV PRN (23:48)
[2019-05-22] MEDS ORDERED: HALOPERIDOL DECANOATE 100 MG/1 ML INJ IM PRN (23:48)
[2019-05-22] MEDS ORDERED: hydrALAZINE 20 MG/1 ML INJ IV PRN (23:48)
[2019-05-22] MEDS ORDERED: ACETAMINOPHEN 325 MG TAB PO PRN (23:48)
[2019-05-22] MEDS ORDERED: PROMETHAZINE 25 MG RECT SUPP PR PRN (23:48)
[2019-05-22] MEDS ORDERED: ONDANSETRON 4 MG/2 ML INJ IV PRN (23:48)
--- NOTE | 2019-05-22 23:59 | History and Physical Report ---
History of Present Illness Date of admission: 05/22/19 21:42 Chief complaint: " I dont know why I am here History of present illness: 79-year-old female with PMH of ESRD on HD, MWF, HTN presents to the ED from home with family members with progressive confusion and the need for dialysis. Patient gets dialysis on Wednesday and Wednesday but apparently she was in the emergency department last Wednesday due to issues with her thyroid and therefore missed her dialysis. She last had dialysis 1 week ago. Her heel burnisher is Dr. Connor. The patient has a past medical history of arthritis, Diabetes, GERD, migraines, hypertension, hypothyroidism and the end-stage renal disease. PT tells me she is not sure why she is here. " I was waiting for my great granddaughter" PT could not tell me if she has any fever, cough, CP or SOB. She kept saying " I am sorry, but I am wet". Patient denies any shortness of breath, fever, cough, edema. Past History Past Medical History: diabetes, hypertension Social history: smoking, full code Family history: diabetes, hypertension Medications and Allergies Allergies Allergy/AdvReac Type Severity Reaction Status Date / Time aspirin Allergy Severe Unknown Verified 02/24/19 10:43 Home Medications Medication Instructions Recorded Confirmed Last Taken Type Docusate Sodium [Colace CAP] 100 mg PO BID #30 capsule 11/01/17 03/09/19 03/08/19 10:00 Rx Cholecalciferol Vit D3 [Vitamin D3 5,000 unit PO DAILY #30 tablet 04/25/18 03/09/19 03/08/19 10:00 Rx 1,000 UNIT TAB] Fe Fumarate/FA/Mv, Min Comb#15 1 each PO QDAY #30 capsule 04/25/18 03/09/19 03/08/19 10:00 Rx [Hemocyte Plus] Atorvastatin [Lipitor] 40 mg PO QHS 06/09/18 03/09/19 03/08/19 10:00 History Linagliptin [Tradjenta] 5 mg PO QHS 06/09/18 03/09/19 03/08/19 10:00 History Calcium Carbonate/Vitamin D3 2 each PO TID 03/09/19 03/09/19 03/08/19 10:00 History [Calcium 600-Vit D3 400 Caplet] Clopidogrel 75 mg PO QDAY 03/09/19 03/09/19 03/08/19 10:00 History Levothyroxine [Synthroid] 100 mcg PO QAM 03/09/19 03/09/19 Unknown History amLODIPine 10 mg PO QDAY 03/09/19 03/09/19 03/08/19 10:00 History levETIRAcetam 500 mg PO QDAY 03/09/19 03/09/19 03/08/19 10:00 History Levothyroxine [Synthroid] 50 mcg PO QAM #30 tablet 05/19/19 Unknown Rx Active Meds: Active Medications Acetaminophen (Tylenol) 650 mg PO Q4H PRN PRN Reason: Pain MILD(1-3)/Fever >100.5/PATRICIA Haloperidol Decanoate (Haldol Decanoate) 2.5 mg IM ONCE PRN PRN Reason: Agitation Hydralazine HCl (Apresoline) 10 mg IV Q4HR PRN PRN Reason: for SBP > 170, DBP > 100 Naloxone HCl (Naloxone) 0.1 mg IV Q2MIN PRN PRN Reason: Res Rate </= 8 or 02 SAT < 92% Ondansetron HCl (Zofran) 4 mg IV Q8H PRN PRN Reason: Nausea And Vomiting Promethazine HCl (Phenergan) 25 mg [place] Q6H PRN PRN Reason: N/V IF NPO AND NO IV ACCESS Sodium Chloride (Sodium Chloride Flush Syringe 10 Ml) 10 ml IV BID DUNG Sodium Chloride (Sodium Chloride Flush Syringe 10 Ml) 10 ml IV PRN PRN PRN Reason: LINE FLUSH Review of Systems ROS unobtainable: due to mental status Exam - Constitutional Vitals: Temp Pulse Resp BP Pulse Ox 97.9 F 83 10 L 197/81 99 05/22/19 16:52 05/22/19 22:00 05/22/19 22:00 05/22/19 22:00 05/22/19 22:00 General appearance: Present: no acute distress, well-nourished, cachectic, other (frail, elderly woman in nAD) - EENT Eyes: Present: PERRL ENT: hearing intact, clear oral mucosa - Neck Neck: Present: supple, normal ROM - Respiratory Respiratory effort: normal - Cardiovascular Heart Sounds: Present: S1 & S2. Absent: rub, click Peripheral Pulses: within normal limits - Abdominal General gastrointestinal: Present: soft, non-tender, non-distended, normal bowel sounds - Integumentary Integumentary: Present: clear, warm, dry - Musculoskeletal Musculoskeletal: gait normal, strength equal bilaterally - Psychiatric Psychiatric: appropriate mood/affect, intact judgment & insight - Neurologic Neurologic: CNII-XII intact, moves all extremities Results - Labs CBC & Chem 7: 05/22/19 17:05 05/22/19 17:05 Labs: Laboratory Last Values WBC 4.4 K/mm3 (4.5-11.0) L 05/22/19 17:05 RBC 3.95 M/mm3 (3.65-5.03) 05/22/19 17:05 Hgb 11.9 gm/dl (10.1-14.3) 05/22/19 17:05 Hct 36.6 % (30.3-42.9) 05/22/19 17:05 MCV 93 fl (79-97) 05/22/19 17:05 MCH 30 pg (28-32) 05/22/19 17:05 MCHC 33 % (30-34) 05/22/19 17:05 RDW 13.9 % (13.2-15.2) 05/22/19 17:05 Plt Count 165 K/mm3 (140-440) 05/22/19 17:05 Lymph % (Auto) 27.7 % (13.4-35.0) 05/22/19 17:05 [place] % (Auto) 11.7 % (0.0-7.3) H 05/22/19 17:05 Eos % (Auto) 4.0 % (0.0-4.3) 05/22/19 17:05 Baso % (Auto) 0.7 % (0.0-1.8) 05/22/19 17:05 Lymph # 1.2 K/mm3 (1.2-5.4) 05/22/19 17:05 [place] # 0.5 K/mm3 (0.0-0.8) 05/22/19 17:05 Eos # 0.2 K/mm3 (0.0-0.4) 05/22/19 17:05 Baso # 0.0 K/mm3 (0.0-0.1) 05/22/19 17:05 Seg Neutrophils % 55.9 % (40.0-70.0) 05/22/19 17:05 Seg Neutrophils # 2.4 K/mm3 (1.8-7.7) 05/22/19 17:05 Sodium 141 mmol/L (137-145) 05/22/19 17:05 Potassium 4.4 mmol/L (3.6-5.0) 05/22/19 17:05 Chloride 104.0 mmol/L (98-107) 05/22/19 17:05 Carbon Dioxide 18 mmol/L (22-30) L 05/22/19 17:05 Anion Gap 23 mmol/L 05/22/19 17:05 BUN 76 mg/dL (7-17) H 05/22/19 17:05 Creatinine 4.6 mg/dL (0.7-1.2) H 05/22/19 17:05 Estimated GFR 11 ml/min 05/22/19 17:05 BUN/Creatinine Ratio 17 % 05/22/19 17:05 Glucose 218 mg/dL (65-100) H 05/22/19 17:05 Calcium 9.7 mg/dL (8.4-10.2) 05/22/19 17:05 Ammonia 21.0 umol/L (25-60) L 05/22/19 19:31 TSH 13.050 mlU/mL (0.270-4.200) H 05/22/19 17:38 Free T4 1.85 ng/dL (0.76-1.46) H 05/22/19 18:28 Gan/IV: Voiding Method Diaper IV Catheter Type [Left Upper Peripheral IV arm] Assessment and Plan Assessment and plan: 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 DDx include medications vs acute dilirium superimposed on chronic Dementia, given cerebral atrophy and previous infarcts to several Intracranial vessels suggestive of vascular dementia - head CT done reviewed. Nothing acute. MRI brain would not change her management - Avoid Opioids. - fall precautions - No signs of Infection. Normal WBC, afebrile. She is active and has no worrisome lethargy and so I doubt any bacterial or viral meningeal involvement. Doubt she is sexually active. RPR will likely be a low yield HTN uncontrolled Due to missed HD - surprisingly she has no acute respiratory distress - IV Hydralazine PRN - Nephrology consulted in the ED- Dr Allan ESRD - continue HD per Nephrology -Associated metabolic acidosis DM type 2 - accucheck monitoring Full code -
[2019-05-23] MEDS ORDERED: DEXTROSE 50% IN WATER (25GM) 50 ML SYRINGE IV PRN (00:41)
[2019-05-23 05:09] LABS: Calcium 9.3 mg/dL (8.4-10.2)
[2019-05-23 05:17] LABS: Basophils % (Auto) 0.7 % (0.0-1.8); Eosinophils # (Auto) 0.2 K/mm3 (0.0-0.4); Eosinophils % (Auto) 3.1 % (0.0-4.3); Hematocrit 39.1 % (30.3-42.9); Hemoglobin 12.7 gm/dl (10.1-14.3); Lymphocytes % (Auto) 20.9 % (13.4-35.0); Mean Corpuscular HGB Conc 32 % (30-34); Mean Corpuscular Volume 93 fl (79-97); Monocytes # (Auto) 0.5 K/mm3 (0.0-0.8); Monocytes % (Auto) 10.4 % (0.0-7.3); Platelet Count 157 K/mm3 (140-440); Red Cell Distribution Width 14.1 % (13.2-15.2)
[2019-05-23] MEDS: INSULIN LISPRO 100 UNIT/ML SUB-Q SCH ×3 (06:45→17:40)
[2019-05-23] MEDS ORDERED: SODIUM CHLORIDE 0.9% 100 ML IV PRN (07:09)
[2019-05-23] MEDS ORDERED: FE FUMARATE/FA/MV, MIN COMB#15 CAP (HEMOCYTE PLUS) PO SCH (10:00)
[2019-05-23] MEDS ORDERED: NON-FORMULARY EACH (Amlodipine 10 MG) PO SCH (10:00)
[2019-05-23] MEDS ORDERED: NON-FORMULARY EACH (Clopidogrel 75 MG) PO SCH (10:00)
[2019-05-23] MEDS ORDERED: NON-FORMULARY EACH (Levetiracetam 500 MG) PO SCH (10:00)
[2019-05-23 12:07] LABS: Hepatitis B Surface Antigen Non-Reactive (Negative); Hepatitis C Virus Antibody Non-Reactive (NonReactive)
--- NOTE | 2019-05-23 12:34 | Consultation ---
History of Present Illness - History of Present Illness Thank you for the consultation, patient was evaluated at 7:50 AM Patient was evaluated today My assessment and plan are as follows End-stage renal disease: Patient is currently on maintenance hemodialysis patient is currently dialyzing twice per week Admitted here after missing dialysis treatment and uncontrolled hypertension She was advised to take her medications regularly and not to miss her dialysis treatment It is possible that we may need to change her to 3 times per week Hemodialysis nurse to ultrafiltrate as tolerated, systolic blood pressure must be kept above 100, heart rate below 100 Anemia in end-stage renal disease to monitor hemoglobin and hematocrit perio dically erythropoietin as needed, further workup may be required depending on the hemoglobin Bone mineral disorder and secondary hyperparathyroidism: Monitor phosphorus and PTH level periodically Diet and nutrition: Patient advised to maintain 1200 cc fluid restriction needs to be on protein: 1.5 g/kg body weight daily, supplement should be considered Current lab results were explained to the patient at length in simple Yoruba and patient does have clear understanding All dialysis-related questions have been answered to the patient More than 35 minutes were spent in direct patient care today at the bedside, Discussed with patient's nurse she can be discharged after dialysis if she is otherwise doing well Author: Ace Allan M.D. [facility], [address] [place] [address] Tel; [phone] History of present illness 79-year-old -[place] female who has been admitted here with uncontrolled hypertension after missing dialysis treatment Patient has no complains of a chest pain pressure or shortness of breath she was noted to have some altered mental status she is able to recognize me It could have been due to uncontrolled hypertension, and renal failure Patient may need to consider dialysis 3 times per week Medication compliance has been doubtful Patient wants her dialysis done today she is currently dialyzing only twice a week Past medical history: End-stage renal disease Hypertension Anemia and end-stage renal disease Secondary hyperparathyroidism Current allergies: Reviewed from the current chart Social history: Reviewed from the current chart Family history: Reviewed from the current chart Review of system: Positive for uncontrolled hypertension missing dialysis treatment currently dialyzing only twice per week No shortness of breath no chest pain fever, no nausea vomiting sore throat myalgias All other review of systems negative Physical examination Vitals: Reviewed General: No acute distress HEENT: Oral mucosa moist no pallor or icterus Neck: Supple without any JVD thyromegaly or nodular mass Chest: Clear to auscultation Heart: Regular rate and rhythm S1-S2 heard no S3-S4 Abdomen: Soft nontender, bowel sounds present no renal bruit no suprapubic masses no CVA tenderness noted Extremity: Minimal edema dry skin no peripheral cyanosis Endocrine: Thyroid not enlarged Psychiatric: No agitation and aggression noted Musculoskeletal: No joint effusion noted Labs and x-rays: Reviewed from this admission Past History Past Medical History: diabetes, hypertension Social history: smoking, full code Family history: diabetes, hypertension Medications and Allergies Allergies Allergy/AdvReac Type Severity Reaction Status Date / Time aspirin Allergy Severe Unknown Verified 02/24/19 10:43 Home Medications Medication Instructions Recorded Confirmed Last Taken Type Docusate Sodium [Colace CAP] 100 mg PO BID #30 capsule 11/01/17 03/09/19 03/08/19 10:00 Rx Cholecalciferol Vit D3 [Vitamin D3 5,000 unit PO DAILY #30 tablet 04/25/18 03/09/19 03/08/19 10:00 Rx 1,000 UNIT TAB] Fe Fumarate/FA/Mv, Min Comb#15 1 each PO QDAY #30 capsule 04/25/18 03/09/19 03/08/19 10:00 Rx [Hemocyte Plus] Atorvastatin [Lipitor] 40 mg PO QHS 06/09/18 03/09/19 03/08/19 10:00 History Linagliptin [Tradjenta] 5 mg PO QHS 06/09/18 03/09/19 03/08/19 10:00 History Calcium Carbonate/Vitamin D3 2 each PO TID 03/09/19 03/09/19 03/08/19 10:00 History [Calcium 600-Vit D3 400 Caplet] Clopidogrel 75 mg PO QDAY 03/09/19 03/09/19 03/08/19 10:00 History Levothyroxine [Synthroid] 100 mcg PO QAM 03/09/19 03/09/19 Unknown History amLODIPine 10 mg PO QDAY 03/09/19 03/09/19 03/08/19 10:00 History levETIRAcetam 500 mg PO QDAY 03/09/19 03/09/19 03/08/19 10:00 History Levothyroxine [Synthroid] 50 mcg PO QAM #30 tablet 05/19/19 Unknown Rx Active Meds: Active Medications Acetaminophen (Tylenol) 650 mg PO Q4H PRN PRN Reason: Pain MILD(1-3)/Fever >100.5/PATRICIA Amlodipine Besylate (Amlodipine) 10 mg PO DAILY [facility] Atorvastatin Calcium (Lipitor) 40 mg PO QHS [facility] Calcium Carbonate/Glycine (Oscal) 1,250 mg PO TID [facility] Cholecalciferol (Vitamin D3) 5,000 unit PO DAILY [facility] Clopidogrel Bisulfate (Plavix) 75 mg PO QDAY [facility] Dextrose (D50w (25gm) Syringe) 50 ml IV Q30MIN PRN; Protocol PRN Reason: Hypoglycemia Docusate Sodium (Colace) 100 mg PO BID [facility] Haloperidol Decanoate (Haldol Decanoate) 2.5 mg IM ONCE PRN PRN Reason: Agitation Hydralazine HCl (Apresoline) 10 mg IV Q4HR PRN PRN Reason: for SBP > 170, DBP > 100 Last Admin: 05/23/19 01:27 Dose: 10 mg Documented by: Sodium Chloride (Nacl 0.9%) 100 mls @ 999 mls/hr IV TEJ PRN PRN Reason: Hypotension Insulin Human Lispro (Humalog) 0 unit SUB-Q Q6HR [facility]; Protocol Last Admin: 05/23/19 06:45 Dose: 4 unit Documented by: Levetiracetam (Keppra) 500 mg PO DAILY [facility] Levothyroxine Sodium (Synthroid) 100 mcg PO 0600 [facility] Linagliptin (Tradjenta) 5 mg PO QHS [facility] Multivitamins/Iron (Hemocyte Plus) 1 each PO QDAY [facility] Naloxone HCl (Naloxone) 0.1 mg IV Q2MIN PRN PRN Reason: Res Rate </= 8 or 02 SAT < 92% Ondansetron HCl (Zofran) 4 mg IV Q8H PRN PRN Reason: Nausea And Vomiting Promethazine HCl (Phenergan) 25 mg [place] Q6H PRN PRN Reason: N/V IF NPO AND NO IV ACCESS Sodium Chloride (Sodium Chloride Flush Syringe 10 Ml) 10 ml IV BID [facility] Sodium Chloride (Sodium Chloride Flush Syringe 10 Ml) 10 ml IV PRN PRN PRN Reason: LINE FLUSH Exam - Vital Signs Vital signs: Vital Signs Temp Pulse Resp BP Pulse Ox 97.9 F 81 20 191/65 97 04/13/20 16:52 05/22/19 16:52 05/22/19 16:52 05/22/19 16:52 05/22/19 16:52 Results - Lab Results 05/23/19 04:09 05/23/19 04:09 Most recent lab results Calcium 9.3 mg/dL (8.4-10.2) 05/23/19 04:09
[2019-05-23] MEDS ORDERED: CALCIUM CARBONATE PO SCH (14:00)
[2019-05-23] MEDS ORDERED: VITAMIN D3 PO SCH (14:00)
[2019-05-23] MEDS ORDERED: [UNRECOGNIZED DRUG - OTHER] PO SCH (14:00)
[2019-05-23] MEDS ORDERED: SODIUM CHLORIDE*PRIMING MACHINE ONLY FOR DIALYSIS MC ONE (14:22)
[2019-05-23] MEDS: amLODIPine 10 MG TAB PO SCH (14:55)
[2019-05-23] MEDS: DOCUSATE SODIUM 100 MG CAP PO SCH ×2 (14:55→21:25)
[2019-05-23] MEDS: CHOLECALCIFEROL (VIT D3) 1000 UNIT (25 mcg) TAB PO SCH (14:55)
[2019-05-23] MEDS: LEVOTHYROXINE 100 MCG TAB PO SCH (14:57)
[2019-05-23] MEDS: CLOPIDOGREL 75 MG TAB PO SCH (14:57)
[2019-05-23] MEDS: levETIRAcetam 500 MG TAB PO SCH (14:57)
[2019-05-23] MEDS: FE FUMARATE/FA/MV, MIN COMB#15 CAP (HEMOCYTE PLUS) PO SCH (14:58)
[2019-05-23] MEDS: CALCIUM CARBONATE 1250 MG TAB PO SCH ×2 (15:13→21:27)
--- NOTE | 2019-05-23 15:32 | Consultation ---
History of Present Illness Reason for Consult: Confusion Chief complaint: Confusion History of present illness: The patient is a poor historian. History is obtained mostly from the chart. 79-year-old female with PMH of ESRD on HD, MWF, HTN presents to the ED from home with family members with progressive confusion and the need for dialysis. Patient gets dialysis on Wednesday and Wednesday but apparently she was in the emergency department last Wednesday due to issues with her thyroid and therefore missed her dialysis. She last had dialysis 1 week ago. Her asphalt spreader operator is Dr. Connor. The patient has a past medical history of arthritis, Diabetes, GERD, migraines, hypertension, hypothyroidism and the end-stage renal disease. PT tells she is not sure why she is here. " I was waiting for my great granddaughter" PT could not tell me if she has any fever, cough, CP or SOB. She kept saying " I am sorry, but I am wet". Patient denies any shortness of breath, fever, cough, edema. Past History Past Medical History: diabetes, hypertension Social history: smoking, full code Family history: diabetes, hypertension Medications and Allergies Allergies Allergy/AdvReac Type Severity Reaction Status Date / Time aspirin Allergy Severe Unknown Verified 02/24/19 10:43 Home Medications Medication Instructions Recorded Confirmed Last Taken Type Docusate Sodium [Colace CAP] 100 mg PO BID #30 capsule 11/01/17 03/09/19 03/08/19 10:00 Rx Cholecalciferol Vit D3 [Vitamin D3 5,000 unit PO DAILY #30 tablet 04/25/18 03/09/19 03/08/19 10:00 Rx 1,000 UNIT TAB] Fe Fumarate/FA/Mv, Min Comb#15 1 each PO QDAY #30 capsule 04/25/18 03/09/19 03/08/19 10:00 Rx [Hemocyte Plus] Atorvastatin [Lipitor] 40 mg PO QHS 06/09/18 03/09/19 03/08/19 10:00 History Linagliptin [Tradjenta] 5 mg PO QHS 06/09/18 03/09/19 03/08/19 10:00 History Calcium Carbonate/Vitamin D3 2 each PO TID 03/09/19 03/09/19 03/08/19 10:00 History [Calcium 600-Vit D3 400 Caplet] Clopidogrel 75 mg PO QDAY 03/09/19 03/09/19 03/08/19 10:00 History Levothyroxine [Synthroid] 100 mcg PO QAM 03/09/19 03/09/19 Unknown History amLODIPine 10 mg PO QDAY 03/09/19 03/09/19 03/08/19 10:00 History levETIRAcetam 500 mg PO QDAY 03/09/19 03/09/19 03/08/19 10:00 History Levothyroxine [Synthroid] 50 mcg PO QAM #30 tablet 05/19/19 Unknown Rx Past History Past Medical History: diabetes, hypertension Social history: smoking, full code Family history: diabetes, hypertension Medications and Allergies Allergies Allergy/AdvReac Type Severity Reaction Status Date / Time aspirin Allergy Severe Unknown Verified 02/24/19 10:43 Home Medications Medication Instructions Recorded Confirmed Last Taken Type Docusate Sodium [Colace CAP] 100 mg PO BID #30 capsule 11/01/17 03/09/19 03/08/19 10:00 Rx Cholecalciferol Vit D3 [Vitamin D3 5,000 unit PO DAILY #30 tablet 04/25/18 03/09/19 03/08/19 10:00 Rx 1,000 UNIT TAB] Fe Fumarate/FA/Mv, Min Comb#15 1 each PO QDAY #30 capsule 04/25/18 03/09/19 03/08/19 10:00 Rx [Hemocyte Plus] Atorvastatin [Lipitor] 40 mg PO QHS 06/09/18 03/09/19 03/08/19 10:00 History Linagliptin [Tradjenta] 5 mg PO QHS 06/09/18 03/09/19 03/08/19 10:00 History Calcium Carbonate/Vitamin D3 2 each PO TID 03/09/19 03/09/19 03/08/19 10:00 History [Calcium 600-Vit D3 400 Caplet] Clopidogrel 75 mg PO QDAY 03/09/19 03/09/19 03/08/19 10:00 History Levothyroxine [Synthroid] 100 mcg PO QAM 03/09/19 03/09/19 Unknown History amLODIPine 10 mg PO QDAY 03/09/19 03/09/19 03/08/19 10:00 History levETIRAcetam 500 mg PO QDAY 01/03/09/19 03/08/19 10:00 History Levothyroxine [Synthroid] 50 mcg PO QAM #30 tablet 05/19/19 Unknown Rx Active Meds: Active Medications Acetaminophen (Tylenol) 650 mg PO Q4H PRN PRN Reason: Pain MILD(1-3)/Fever >100.5/PATRICIA Amlodipine Besylate (Amlodipine) 10 mg PO DAILY [facility] Last Admin: 05/23/19 14:55 Dose: 10 mg Documented by: Atorvastatin Calcium (Lipitor) 40 mg PO QHS [facility] Calcium Carbonate/Glycine (Oscal) 1,250 mg PO TID [facility] Last Admin: 05/23/19 15:13 Dose: 1,250 mg Documented by: Cholecalciferol (Vitamin D3) 5,000 unit PO DAILY [facility] Last Admin: 05/23/19 14:55 Dose: 5,000 unit Documented by: Clopidogrel Bisulfate (Plavix) 75 mg PO QDAY [facility] Last Admin: 05/23/19 14:57 Dose: 75 mg Documented by: Dextrose (D50w (25gm) Syringe) 50 ml IV Q30MIN PRN; Protocol PRN Reason: Hypoglycemia Docusate Sodium (Colace) 100 mg PO BID [facility] Last Admin: 05/23/19 14:55 Dose: 100 mg Documented by: Haloperidol Decanoate (Haldol Decanoate) 2.5 mg IM ONCE PRN PRN Reason: Agitation Hydralazine HCl (Apresoline) 10 mg IV Q4HR PRN PRN Reason: for SBP > 170, DBP > 100 Last Admin: 05/23/19 01:27 Dose: 10 mg Documented by: Sodium Chloride (Nacl 0.9%) 100 mls @ 999 mls/hr IV TEJ PRN PRN Reason: Hypotension Insulin Human Lispro (Humalog) 0 unit SUB-Q Q6HR [facility]; Protocol Last Admin: 05/23/19 14:42 Dose: Not Given Documented by: Levetiracetam (Keppra) 500 mg PO DAILY [facility] Last Admin: 05/23/19 14:57 Dose: 500 mg Documented by: Levothyroxine Sodium (Synthroid) 100 mcg PO 0600 [facility] Last Admin: 05/23/19 14:57 Dose: 100 mcg Documented by: Linagliptin (Tradjenta) 5 mg PO QHS [facility] Multivitamins/Iron (Hemocyte Plus) 1 each PO QDAY [facility] Last Admin: 05/23/19 14:58 Dose: 1 each Documented by: Naloxone HCl (Naloxone) 0.1 mg IV Q2MIN PRN PRN Reason: Res Rate </= 8 or 02 SAT < 92% Ondansetron HCl (Zofran) 4 mg IV Q8H PRN PRN Reason: Nausea And Vomiting Promethazine HCl (Phenergan) 25 mg [place] Q6H PRN PRN Reason: N/V IF NPO AND NO IV ACCESS Sodium Chloride (Sodium Chloride Flush Syringe 10 Ml) 10 ml IV BID [facility] Last Admin: 05/23/19 15:09 Dose: 10 ml Documented by: Sodium Chloride (Sodium Chloride Flush Syringe 10 Ml) 10 ml IV PRN PRN PRN Reason: LINE FLUSH Review of Systems All systems: negative (Difficult to obtain) Physical Examination - Vital Signs Vital Signs: Vital Signs Temp Pulse Resp BP Pulse Ox 97.9 F 81 20 191/65 97 05/22/19 16:52 05/22/19 16:52 05/22/19 16:52 05/22/19 16:52 05/22/19 16:52 - Physical Exam Narrative exam: Neurological examination The patient is awake alert and has good eye contact. She can tell her name. But she has not been able to understand well and she does not follow the command s well. Though she is awake alert. She cannot tell the date time or year. Cranial nerve again difficult to test but seems like pupils are reactive and eye movements are intact no facial symmetry. Motor examinationshe is moving upper and lower extremities spontaneously. Results - Laboratory Findings CBC and BMP: 05/23/19 04:09 05/23/19 04:09 Abnormal Lab Findings: Abnormal Labs 05/22/19 05/22/19 05/22/19 17:05 17:05 17:38 WBC 4.4 L [place] % (Auto) 11.7 H Lymph # Carbon Dioxide 18 L BUN 76 H Creatinine 4.6 H Glucose 218 H POC Glucose Ammonia TSH 13.050 H Free T4 05/22/19 05/22/19 05/23/19 18:28 19:31 04:09 WBC [place] % (Auto) 10.4 H Lymph # 1.0 L Carbon Dioxide BUN Creatinine Glucose POC Glucose Ammonia 21.0 L TSH Free T4 1.85 H 05/23/19 05/23/19 05/23/19 04:09 05:52 08:06 WBC [place] % (Auto) Lymph # Carbon Dioxide 17 L BUN 80 H Creatinine 4.5 H Glucose 297 H POC Glucose 306 H 270 H Ammonia TSH Free T4 Assessment and Plan The patient most likely has a advanced dementia. 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 Also she has high TSH which means that she has hypo-thyroidism. Probably was getting high dose of Synthroid. The hypothyroidism will make her even more confused. Planfrom neurological perspective the patient does not seem to have acute neurological problems. The patient's thyroid function should be managed. Also the patient may need to be in the long-term facility. No further neurological intervention at this time. Signing off the patient from neurology service at this time. Please call neurology when required. Thank you
--- NOTE | 2019-05-23 15:35 | Progress Note ---
Assessment and Plan Assessment and plan: 79-year-old female with PMH of ESRD on HD, MWF, HTN presents to the ED from home with family members with progressive confusion and the need for dialysis. Patient gets dialysis on Wednesday and Wednesday but apparently she was in the emergency department last Wednesday due to issues with her thyroid and therefore missed her dialysis. She last had dialysis 1 week ago. Her cement sprayer helper is Dr. Connor. The patient has a past medical history of arthritis, Diabetes, GERD, migraines, hypertension, hypothyroidism and the end-stage renal disease. PT tells me she is not sure why she is here. " I was waiting for my great granddaughter" PT could not tell me if she has any fever, cough, CP or SOB. She kept saying " I am sorry, but I am wet". Patient denies any shortness of breath, fever, cough, edema. Patient seen and examined today, Had dialysis today. Daughter states that patient has not been following with Plasterer Foreman since she left [place], she was ok on 100mg of Synthroid but was recently increased. She reports that when the TSH is abnormal she becomes encephalopathic. Hypothyrodism - and on exogenous synthroid, whose dosage is potentially too much for this elderly frail pt and could be causing her delirium - TSH is rapidly reducing too fast from level of 19.7 on 05/19/19 to a level of 13 on 05/22/19. Dosage of Synthroid ought to be reduced. T4 is elevated at 1.85. - Will decrease levothyroid down to 100mcg down from 150mcg - Advised daughter that patient needs to follow with Plasterer Foreman on discharge. - the correct Home medication list and proper dosage is to be verified by the nursing staff. 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 DDx include medications vs acute dilirium superimposed on chronic Dementia, given cerebral atrophy and previous infarcts to several Intracranial vessels suggestive of vascular dementia - head CT done reviewed. Nothing acute. MRI brain would not change her management - Avoid Opioids. - fall precautions - Discuissed with Neurologist - No signs of Infection. Normal WBC, afebrile. She is active and has no worrisome lethargy and so I doubt any bacterial or viral meningeal involvement. Doubt she is sexually active. RPR will likely be a low yield HTN uncontrolled Due to missed HD - surprisingly she has no acute respiratory distress - IV Hydralazine PRN - Nephrology consulted in the ED- Dr Allan ESRD - continue HD per Nephrology -Associated metabolic acidosis DM type 2 - accucheck monitoring Debility -PT/OT. Per Daughter patient normally walks with cane Full code - History Interval history: Patient seen and examined today speaks few words but incoherent at baseline. No acute respiratory distress noted. Hospitalist Physical - Physical exam Narrative exam: General appearance: Present: no acute distress, well-nourished, cachectic, other (frail, elderly woman in nAD) - EENT Eyes: Present: PERRL ENT: hearing intact, clear oral mucosa - Neck Neck: Present: supple, normal ROM - Respiratory Respiratory effort: normal - Cardiovascular Heart Sounds: Present: S1 & S2. Absent: rub, click Peripheral Pulses: within normal limits - Abdominal General gastrointestinal: Present: soft, non-tender, non-distended, normal bowel sounds - Integumentary Integumentary: Present: clear, warm, dry - Musculoskeletal Musculoskeletal: gait normal, strength equal bilaterally - Psychiatric Psychiatric: appropriate mood/affect - Neurologic Neurologic: CNII-XII intact, moves all extremities - Constitutional Vitals: Temp Pulse Resp BP Pulse Ox 97.8 F 85 18 180/66 100 05/23/19 13:40 05/23/19 14:55 05/23/19 13:40 05/23/19 14:55 05/23/19 09:00 General appearance: Present: no acute distress, well-nourished, cachectic, other (frail, elderly woman in nAD) Results - Labs CBC & Chem 7: 05/23/19 04:09 05/23/19 04:09 Labs: Laboratory Last Values WBC 5.0 K/mm3 (4.5-11.0) 05/23/19 04:09 RBC 4.20 M/mm3 (3.65-5.03) 05/23/19 04:09 Hgb 12.7 gm/dl (10.1-14.3) 05/23/19 04:09 Hct 39.1 % (30.3-42.9) 05/23/19 04:09 MCV 93 fl (79-97) 05/23/19 04:09 MCH 30 pg (28-32) 05/23/19 04:09 MCHC 32 % (30-34) 05/23/19 04:09 RDW 14.1 % (13.2-15.2) 05/23/19 04:09 Plt Count 157 K/mm3 (140-440) 05/23/19 04:09 Lymph % (Auto) 20.9 % (13.4-35.0) 05/23/19 04:09 [place] % (Auto) 10.4 % (0.0-7.3) H 05/23/19 04:09 Eos % (Auto) 3.1 % (0.0-4.3) 05/23/19 04:09 Baso % (Auto) 0.7 % (0.0-1.8) 05/23/19 04:09 Lymph # 1.0 K/mm3 (1.2-5.4) L 05/23/19 04:09 [place] # 0.5 K/mm3 (0.0-0.8) 05/23/19 04:09 Eos # 0.2 K/mm3 (0.0-0.4) 05/23/19 04:09 Baso # 0.0 K/mm3 (0.0-0.1) 05/23/19 04:09 Seg Neutrophils % 64.9 % (40.0-70.0) 05/23/19 04:09 Seg Neutrophils # 3.2 K/mm3 (1.8-7.7) 05/23/19 04:09 Sodium 142 mmol/L (137-145) 05/23/19 04:09 Potassium 4.4 mmol/L (3.6-5.0) 05/23/19 04:09 Chloride 103.5 mmol/L (98-107) 05/23/19 04:09 Carbon Dioxide 17 mmol/L (22-30) L 05/23/19 04:09 Anion Gap 26 mmol/L 05/23/19 04:09 BUN 80 mg/dL (7-17) H 05/23/19 04:09 Creatinine 4.5 mg/dL (0.7-1.2) H 05/23/19 04:09 Estimated GFR 11 ml/min 05/23/19 04:09 BUN/Creatinine Ratio 18 % 05/23/19 04:09 Glucose 297 mg/dL (65-100) H 05/23/19 04:09 POC Glucose 270 (70-105) H 05/23/19 08:06 Calcium 9.3 mg/dL (8.4-10.2) 05/23/19 04:09 Ammonia 21.0 umol/L (25-60) L 05/22/19 19:31 TSH 13.050 mlU/mL (0.270-4.200) H 05/22/19 17:38 Free T4 1.85 ng/dL (0.76-1.46) H 05/22/19 18:28 Hepatitis A IgM Ab Non-reactive (NonReactive) 05/23/19 08:32 Hep Bs Antigen Non-reactive (Negative) 05/23/19 08:32 Hep B Core IgM Ab Non-reactive (NonReactive) 05/23/19 08:32 Hepatitis C Antibody Non-reactive (NonReactive) 05/23/19 08:32 Gan/IV: Voiding Method Diaper IV Catheter Type [Left Upper Peripheral IV arm] Active Medications - Current Medications Current Medications: Generic Name Dose Route Start Last Admin Trade Name Freq PRN Reason Stop Dose Admin Acetaminophen 650 mg 05/22/19 23:48 Tylenol PO Q4H PRN Pain MILD(1-3)/Fever >100.5/PATRICIA Amlodipine Besylate 10 mg 05/23/19 10:00 05/23/19 14:55 Amlodipine PO 10 mg DAILY [facility] Administration Atorvastatin Calcium 40 mg 05/23/19 22:00 Lipitor PO QHS [facility] Calcium Carbonate/Glycine 1,250 mg 05/23/19 14:00 05/23/19 15:13 Oscal PO 1,250 mg TID DUNG Administration Cholecalciferol 5,000 unit 05/23/19 10:00 05/23/19 14:55 Vitamin D3 PO 5,000 unit DAILY [facility] Administration Clopidogrel Bisulfate 75 mg 05/23/19 10:00 05/23/19 14:57 Plavix PO 75 mg QDAY [facility] Administration Dextrose 50 ml 05/23/19 00:41 D50w (25gm) Syringe IV Q30MIN PRN Hypoglycemia Protocol Docusate Sodium 100 mg 05/23/19 10:00 05/23/19 14:55 Colace PO 100 mg BID DUNG Administration Haloperidol Decanoate 2.5 mg 05/22/19 23:48 Haldol Decanoate IM ONCE PRN Agitation Hydralazine HCl 10 mg 05/22/19 23:48 05/23/19 01:27 Apresoline IV 10 mg Q4HR PRN Administration for SBP > 170, DBP > 100 Sodium Chloride 100 mls @ 999 mls/hr 05/23/19 07:09 Nacl 0.9% IV TEJ PRN Hypotension Insulin Human Lispro 0 unit 05/23/19 06:00 05/23/19 14:42 Humalog SUB-Q Not Given Q6HR [facility] Protocol Levetiracetam 500 mg 05/23/19 10:00 05/23/19 14:57 Keppra PO 500 mg DAILY [facility] Administration Levothyroxine Sodium 100 mcg 05/23/19 10:00 05/23/19 14:57 Synthroid PO 100 mcg 0600 [facility] Administration Linagliptin 5 mg 05/23/19 22:00 Tradjenta PO QHS [facility] Multivitamins/Iron 1 each 05/23/19 10:00 05/23/19 14:58 Hemocyte Plus PO 1 each QDAY [facility] Administration Naloxone HCl 0.1 mg 05/22/19 23:48 Naloxone IV Q2MIN PRN Res Rate </= 8 or 02 SAT < 92% Ondansetron HCl 4 mg 05/22/19 23:48 Zofran IV Q8H PRN Nausea And Vomiting Promethazine HCl 25 mg 05/22/19 23:48 Phenergan MS Q6H PRN N/V IF NPO AND NO IV ACCESS Sodium Chloride 10 ml 05/23/19 10:00 05/23/19 15:09 Sodium Chloride Flush Syringe 10 Ml IV 10 ml BID DUNG Administration Sodium Chloride 10 ml 05/22/19 23:48 Sodium Chloride Flush Syringe 10 Ml IV PRN PRN LINE FLUSH Nutrition/Malnutrition Assess - Dietary Evaluation Nutrition/Malnutrition Findings: Nutrition Notes Start: 05/23/19 10:09 Freq: Status: Active Protocol: Document 05/23/19 10:09 LP (Rec: 05/23/19 11:10 LP [id number]) Nutrition Notes Need for Assessment generated from: Low BMI Initial or Follow up Assessment Current Diagnosis CKD (stage V CKD),Diabetes, Hypertension Other Pertinent Diagnosis on HD, AMS Current Diet Renal Labs/Tests Reviewed Pertinent Medications Reviewed Height 5 ft 4 in Weight 37.648 kg Usual Body Weight 52.27 kg [place] Body Weight (kg) 54.54 BMI 14.2 Weight Status Underweight Subjective/Other Information Screen for low BMI. Pt has been here before and has lost wt since March 07% wt change . Burn Absent Trauma Absent Current % PO Negligible Minimum of two criteria Yes Interpretation of Weight Loss (severe) >7.5% in 3 months Body Fat Depletion Moderate depletion (severe) Muscle Mass Moderate Depletion (severe) #1 Nutrition Diagnosis Malnutrition Etiology chronic illness As Evidenced by Signs and Symptoms 29% wt loss in 3 months, muscle and fat wasting Is patient on ventilator? No Is Patient Ambulatory and/or Out of Bed No REE-([place]-confined to bed) 999.096 Kcal/Kg value to use for calculation 40 Approximate Energy Requirements Using 1506 kcal/Kg Calculation Used for Recommendations Kcal/kg Additional Notes Protein needs are 56-75g (1.5- 2g/kg) Fluid needs are 1ml/kcal Nutrition Intervention Change Diet Order: Continue Add Supplement/Snack (indicate name/kcal Nepro TID /protein ) Provides kCal: 1,275 Provides Protein (gm) 57 Goal #1 Meet at least 80% of kcal and protein needs Anticipated Discharge Needs: Renal with ONS TID Follow-Up By: 05/25/19 Additional Comments Follow for intakes, ONS tolerance
[2019-05-23] MEDS ORDERED: LINAGLIPTIN 5 MG TAB PO SCH (22:00)
[2019-05-24] MEDS: INSULIN LISPRO 100 UNIT/ML SUB-Q SCH ×5 (02:52→17:00)
[2019-05-24 05:14] LABS: Hematocrit 38.1 % (30.3-42.9); Hemoglobin 12.5 gm/dl (10.1-14.3); Mean Corpuscular HGB Conc 33 % (30-34); Mean Corpuscular Volume 93 fl (79-97); Platelet Count 141 K/mm3 (140-440); Red Cell Distribution Width 13.6 % (13.2-15.2)
[2019-05-24] MEDS: LEVOTHYROXINE 100 MCG TAB PO SCH (05:21)
[2019-05-24 06:05] LABS: Calcium 9.3 mg/dL (8.4-10.2)
[2019-05-24] MEDS ORDERED: INSULIN LISPRO 100 UNIT/ML SUB-Q SCH (07:30)
[2019-05-24] MEDS: FE FUMARATE/FA/MV, MIN COMB#15 CAP (HEMOCYTE PLUS) PO SCH (09:44)
[2019-05-24] MEDS: amLODIPine 10 MG TAB PO SCH (09:44)
[2019-05-24] MEDS: CLOPIDOGREL 75 MG TAB PO SCH (09:44)
[2019-05-24] MEDS: CALCIUM CARBONATE 1250 MG TAB PO SCH ×2 (09:45→17:23)
[2019-05-24] MEDS: DOCUSATE SODIUM 100 MG CAP PO SCH (09:45)
[2019-05-24] MEDS: levETIRAcetam 500 MG TAB PO SCH (09:45)
[2019-05-24] MEDS: CHOLECALCIFEROL (VIT D3) 1000 UNIT (25 mcg) TAB PO SCH (11:00)
[2019-05-24 13:05] VITALS: BP 159/61
--- NOTE | 2019-05-24 13:10 | Discharge Summary ---
Providers - Providers Date of Admission: 05/22/19 21:42 Attending physician: BRETT HORN MD 05/22/19 19:02 Consult to Physician [CONS] Routine Comment: Consulting Provider: NICOLE ALLAN Physician Instructions: Reason For Exam: Dialysis 05/23/19 09:01 Consult to Physician [CONS] Routine Comment: Consulting Provider: ONDINA PERKINS Physician Instructions: Reason For Exam: RECURRENT ENCEPHALOPATHY 05/23/19 15:37 Physical Therapy Evaluation and Treat [CONS] Routine Comment: Reason For Exam: DEBILTY 05/23/19 15:38 Occupational Therapy Evaluate and Treat [CONS] Routine Comment: Reason For Exam: DEBILTY Primary care physician: WILDLIFE BIOLOGIST Hospitalization Reason for admission: Acute metabolic encephalopathy Condition: Fair Hospital course: 79-year-old female with PMH of ESRD on HD, MWF, HTN presents to the ED from home with family members with progressive confusion and the need for dialysis. Patient gets dialysis on Wednesday and Wednesday but apparently she was in the emergency department last Wednesday due to issues with her thyroid and therefore missed her dialysis. She last had dialysis 1 week ago. Her assurance auditor is Dr. Connor. The patient has a past medical history of arthritis, Diabetes, GERD, migraines, hypertension, hypothyroidism and the end-stage renal disease. PT tells me she is not sure why she is here. " I was waiting for my great granddaughter" PT could not tell me if she has any fever, cough, CP or SOB. She kept saying " I am sorry, but I am wet". Patient denies any shortness of breath, fever, cough, edema. Patient seen and examined today, Had dialysis today. Daughter states that patient has not been following with Sql Ssrs Developer since she left [place], she was ok on 100mg of Synthroid but was recently increased. She reports that when the TSH is abnormal she becomes encephalopathic. * Advised the daughter that the patient should continue on the 100 mg of Synthroid instead of 150 mg her mental status is improved today. She does have a baseline underlying dementia. I also recommended an outpatient endocrinology evaluation. Neurology input was noted. * She clearly described to me an argument she had with her daughter yesterday. Hypothyrodism - and on exogenous synthroid, whose dosage is potentially too much for this elderly frail pt and could be causing her delirium - TSH is rapidly reducing too fast from level of 19.7 on 05/19/19 to a level of 13 on 05/22/19. Dosage of Synthroid ought to be reduced. T4 is elevated at 1.85. - Will decrease levothyroid down to 100mcg down from 150mcg - Advised daughter that patient needs to follow with Sql Ssrs Developer on discharge. 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 DDx include medications vs acute dilirium superimposed on chronic Dementia, given cerebral atrophy and previous infarcts to several Intracranial vessels suggestive of vascular dementia - head CT done reviewed. Nothing acute. MRI brain would not change her management - Avoid Opioids. - fall precautions - Discuissed with Neurologist - No signs of Infection. Normal WBC, afebrile. She is active and has no worrisome lethargy and so I doubt any bacterial or viral meningeal involvement. Doubt she is sexually active. RPR will likely be a low yield HTN uncontrolled Due to missed HD - surprisingly she has no acute respiratory distress - IV Hydralazine PRN - Nephrology consulted in the ED- Dr Allan ESRD - continue HD per Nephrology -Associated metabolic acidosis DM type 2 - accucheck monitoring Debility -PT/OT. Per Daughter patient normally walks with cane Disposition: [id number]/TX-[id number] HOME UNDER HOME [facility] Time spent for discharge: 35 minutes Core Measure Documentation - Palliative Care Palliative Care/ Comfort Measures: Not Applicable - Core Measures Any of the following diagnoses?: none Exam - Physical Exam Narrative exam: General appearance: Present: no acute distress, well-nourished, cachectic, other (frail, elderly woman in nAD) - EENT Eyes: Present: PERRL ENT: hearing intact, clear oral mucosa - Neck Neck: Present: supple, normal ROM - Respiratory Respiratory effort: normal - Cardiovascular Heart Sounds: Present: S1 & S2. Absent: rub, click Peripheral Pulses: within normal limits - Abdominal General gastrointestinal: Present: soft, non-tender, non-distended, normal bowel sounds - Integumentary Integumentary: Present: clear, warm, dry - Musculoskeletal Musculoskeletal: gait normal, strength equal bilaterally - Psychiatric Psychiatric: appropriate mood/affect - Neurologic Neurologic: CNII-XII intact, moves all extremities - Constitutional Vitals: Temp Pulse Resp BP Pulse Ox 97.9 F 85 20 159/61 97 05/24/19 08:25 05/24/19 13:04 05/24/19 13:04 05/24/19 13:04 05/24/19 13:04 Plan Activity: advance as tolerated, fall precautions, avoid flexion Diet: renal Special Instructions: record daily weights, record daily BP diary, record blood sugar diary Additional Instructions: Encouraged to have an outpatient regional sales consultant follow-up. PCP can help arrange this. Follow up with: PRIMARY CAREMD [Primary Care Provider] - 3-5 Days NICOLE ALLAN MD [Staff Physician] - 7 Days YASMANY VÁZQUEZ MD [Staff Physician] - 7 Days
== END 2019-05-24 18:00 | disposition home health service (06) ==
LOC: ED 16:32 → 4A 21:42
PROVIDERS: ADMIT Hospitalist; ATTEND Internal Medicine
DX: G93.41 Metabolic encephalopathy (principal); I12.0 Hypertensive chronic kidney disease with stage 5 chronic kidney disease or end stage renal disease; E11.22 Type 2 diabetes mellitus with diabetic chronic kidney disease; N18.6 End stage renal disease; E03.9 Hypothyroidism, unspecified; K21.9 Gastro-esophageal reflux disease without esophagitis; M19.90 Unspecified osteoarthritis, unspecified site; G43.909 Migraine, unspecified, not intractable, without status migrainosus; Z95.0 Presence of cardiac pacemaker; Z99.2 Dependence on renal dialysis; Z79.899 Other long term (current) drug therapy; Z88.6 Allergy status to analgesic agent
CPT/HCPCS: 36415; 70450; 71045; 80048; 80074; 82140; 82962; 84439; 84443; 85025; 85027; 96374; 96376; 97161; 97165; 99284; A9270; G0257; G0378; J0360; J7030; J1815